=== PATIENT | female | born 2000 | race Caucasian/White ===

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

== ENCOUNTER → 2023-08-07 | Outpatient (CLI) | payer BC, SELFPAY ==
[2023-08-07 12:05] LABS: HIV - WCH Non-Reactive (Nonreactive); Hepatitis C Antibody Non-Reactive (Nonreactive); Syphilis Antibodies Non-reactive
[2023-08-08 11:16] LABS: HSV 2 IgG < 0.91 index (0.00-0.90)
== END | disposition home or self-care (01) ==
LOC: PAVLAB 10:31
PROVIDERS: PCP Pediatrics; Referring Provider Nurse Practitioner Women's Health; Visit Provider Nurse Practitioner Women's Health
DX: Z20.2 Contact with and (suspected) exposure to infections with a predominantly sexual mode of transmission (principal); Z11.3 Encounter for screening for infections with a predominantly sexual mode of transmission
CPT/HCPCS: 36415; 86695; 86696; 86703; 86780; 86803; 87491; 87591

== ENCOUNTER → 2024-08-07 | Outpatient (CLI) | payer BC, SELFPAY ==
[2024-08-09 21:07] LABS: Chlamydia By Nucleic Acid AMP Negative (Negative); Gonococcus By Nucleic Acid AMP Negative (Negative)
== END | disposition home or self-care (01) ==
LOC: LABSPEC 16:08
PROVIDERS: PCP Pediatrics; Referring Provider Obstetrics & Gynecology; Visit Provider Obstetrics & Gynecology
DX: O09.90 Supervision of high risk pregnancy, unspecified, unspecified trimester (principal); Z12.4 Encounter for screening for malignant neoplasm of cervix; Z3A.00 Weeks of gestation of pregnancy not specified
CPT/HCPCS: 87086; 87088; 87491; 87591; 88175; G0145

== ENCOUNTER → 2024-08-21 | Outpatient (CLI) | payer BC, SELFPAY ==
[2024-08-21 12:31] LABS: Absolute Lymphocyte Count 2.96 X10^3/uL (0.83-4.51); Basophil# 0.03 X10^3/uL; Basophil% 0.3 % (0-1); Eosinophils% 1.7 % (0-5); Hematocrit 37.8 % (37-47); Lymphocyte # 2.96 X10^3/ul (0.83-4.51); Lymphocyte % 24.7 % (19-41); Mean Corp Hgb Conc 34.4 g/dL (32-36); Mean Corpuscular Hgb 30.7 pg (27.0-32.0); Mean Corpuscular Volume 89.2 fL (81-99); Mean Platelet Vol. 10.4 fl (6.2-12.0); Monocyte# 0.68 X10^3/uL; Monocyte% 5.7 % (0-10); NRBC Flagged by Analyzer 0 % (0-5); Neutrophil # 8.04 X10^3/uL (2.7-7.7); Neutrophil % 67.2 % (47-70); Platelet Count 346 K/mm3 (150-450); RBC Distribution Width CV 12.2 % (11.6-14.6); RBC Distribution Width SD 39.3 fl (35.1-43.9); Red Blood Count 4.24 M/mm3 (4.2-5.4)
[2024-08-21 13:20] LABS: HIV Nonreactive (Nonreactive); Hepatitis B Surface Antigen Nonreactive (Nonreactive); Hepatitis C Antibody Nonreactive (Nonreactive); Rubella IgG REAC (Nonreactive); Syphilis Antibodies Nonreactive (Nonreactive)
== END | disposition home or self-care (01) ==
PROVIDERS: Obstetrics & Gynecology; PCP Pediatrics; Referring Provider Obstetrics & Gynecology; Visit Provider Obstetrics & Gynecology
DX: O09.90 Supervision of high risk pregnancy, unspecified, unspecified trimester (principal); O99.280 Endocrine, nutritional and metabolic diseases complicating pregnancy, unspecified trimester; E03.9 Hypothyroidism, unspecified; Z31.430 Encounter of female for testing for genetic disease carrier status for procreative management; Z3A.00 Weeks of gestation of pregnancy not specified
CPT/HCPCS: 36415; 84439; 84443; 85025; 86703; 86762; 86780; 86803; 86850; 86900; 86901; 87340

== ENCOUNTER → 2024-10-16 | Outpatient (CLI) | payer BC, SELFPAY ==
--- NOTE | 2024-10-16 15:51 | US_ITS ---
PROCEDURE: OB ANATOMY W/ TRANSVAGINAL 10/16/2024 REASON FOR EXAM: ANATOMY SCAN TECHNIQUE: OB ANATOMY W/ TRANSVAGINAL COMPARISON: None FINDINGS LMP: May 27, 2024. Number: 1 Position: Vertex Placental Position: Right lateral and not low-lying Placental Abnormalities: No evidence of previa. DIMENSIONS: Biparietal Diameter: 4.66 cm: 20 weeks and 0 days: 41 percentile/ Head Circumference: 16.68 cm: 19 weeks and 3 days: 9 percentile/ Abdominal Circumference: 14.5 cm: 19 weeks and 6 days: 29 percentile/ Femur Length: 3 cm: 19 weeks and 2 days: 12th percentile/ ESTIMATED WEIGHT: 305 g plus/-46 g ESTIMATED WEIGHT PERCENTILE (24+ weeks): 16 ESTIMATED GESTATIONAL AGE: Baseline: 20 weeks and 2 days By Ultrasound: 19 weeks and 5 days ESTIMATED DATE OF DELIVERY: Baseline: March 03, 2025 By Ultrasound: March 07, 2025 BIOPHYSICAL ASSESSMENT: Amniotic Fluid Volume: 6.1 cm Amniotic Fluid Index: Within normal limits. (8-24 cm normal range) Cardiac Motion: 164 beats per minute (average) Trunk and Limb Motion: Present. MATERNAL ANATOMY: Adnexa: Neither maternal ovary is successfully identified. Cervical Length (if measured): 4.4 cm ANATOMY: Spine: Unremarkable Cranium: Unremarkable Cerebellum: Unremarkable Cisterna Magna: Unremarkable Cavum Septum Pellucidi: Unremarkable Lateral Ventricles: Unremarkable Choroid Plexus: Unremarkable Midline Falx: Unremarkable Nuchal Fold: Unremarkable Heart: Unremarkable Stomach: Unremarkable Kidneys: Unremarkable Bladder: Unremarkable Umbilical Cord: Normal insertion. Extremities: Unremarkable US/OB Anatomy w/ Transvaginal IMPRESSION: Single live intrauterine gestation with a mean gestational age of 19 weeks and 5 days. Reading Location: [id number]
== END | disposition home or self-care (01) ==
LOC: US 15:49
PROVIDERS: PCP Pediatrics; Referring Provider Obstetrics & Gynecology; Visit Provider Obstetrics & Gynecology
DX: O09.92 Supervision of high risk pregnancy, unspecified, second trimester (principal); Z3A.00 Weeks of gestation of pregnancy not specified
CPT/HCPCS: 76805; 76817

== ENCOUNTER → 2024-12-02 | Outpatient (CLI) | payer BC, SELFPAY ==
[2024-12-02 16:53] LABS: Hematocrit 33.9 % (37-47); Hemoglobin 11.8 g/dL (12.0-15.0); Immature Granulocytes Count 0.230 X10^3/uL (0.0-0.0); Mean Corp Hgb Conc 34.8 g/dL (32-36); Mean Corpuscular Volume 89.2 fL (81-99); Mean Platelet Vol. 10.6 fl (6.2-12.0); NRBC Flagged by Analyzer 0 % (0-5); Platelet Count 368 K/mm3 (150-450); RBC Distribution Width CV 12.3 % (11.6-14.6); RBC Distribution Width SD 39.6 fl (35.1-43.9); Red Blood Count 3.80 M/mm3 (4.2-5.4); White Blood Count 13.0 K/mm3 (4.4-11.0)
[2024-12-02 17:51] LABS: Glucose Challenge Gest 1H 50g 130 mg/dL (70-140); HIV Nonreactive (Nonreactive); Syphilis Antibodies Nonreactive (Nonreactive)
== END | disposition home or self-care (01) ==
PROVIDERS: PCP Pediatrics; Referring Provider Obstetrics & Gynecology; Visit Provider Obstetrics & Gynecology
DX: O09.92 Supervision of high risk pregnancy, unspecified, second trimester (principal); Z13.1 Encounter for screening for diabetes mellitus; Z3A.00 Weeks of gestation of pregnancy not specified
CPT/HCPCS: 36415; 82950; 85025; 86703; 86780

== ENCOUNTER → 2025-02-03 | Outpatient (CLI) | payer BC, SELFPAY | END | disposition home or self-care (01) | LOC: LABSPEC 08:43 | PROVIDERS: PCP Pediatrics; Referring Provider Student in an Organized Health Care Education/Training Program; Visit Provider Student in an Organized Health Care Education/Training Program | DX: O09.93 Supervision of high risk pregnancy, unspecified, third trimester (principal); Z3A.00 Weeks of gestation of pregnancy not specified | CPT/HCPCS: 87081 ==

== ENCOUNTER 2025-03-01 02:10 | Inpatient (IN) | payer BC, SELFPAY ==
[2025-03-01] VITALS (58 sets, daily range): BP systolic 107–138; BP diastolic 60–89; PULSE 66–98; RESP 14–19; TEMP 36.1–36.8; O2SAT 97–100; BMI 33.0
--- OUTSIDE RECORDS SUMMARY | 2025-03-01 01:40 | XMS RPT_ITS | CCD ---
Author Organization [facility] Care Team Providers Care Trade Mark Examiner Name Role Phone Stephan Ngo MD Primary Care Provider Mildred Tomas MD Primary Care Provider Mildred Tomas MD Primary Care Provider Tannhof FOOD ANALYST.IT AUDITOR, Cat Unavailable Milvia FOOD ANALYST.IT AUDITOR, Billy Unavailable Dr. Stephan Ngo MD Primary Care Provider [phone] Dr. Stephan Ngo MD Referring Provider Dr. Ashlee Mcdonough MD Attending Provider Dr. Natalie Trimble DO Attending Provider Dr. Ashlee Mcdonough MD Referring Provider MILDRED TOMAS Primary Care Unavailable CAT GREEN Referring Unavailable MILDRED TOMAS Primary Care Unavailable CAT GREEN Referring Unavailable MILVIA, BILLY Referring Unavailable ALEXY REHANA Attending Unavailable MILDRED TOMAS Primary Care Unavailable MILDRED TOMAS Primary Care Unavailable CAT GREEN Attending Unavailable CAT GREEN Referring Unavailable MILDRED TOMAS Primary Care Unavailable Dr. Natalie Trimble DO Referring Provider Dorie Friend Attending Provider [phone] PHYSICIAN, PATIENT UNSURE Primary Care REID Murrieta MD Attending Unavailable IVÁN SAUNDERS DO Attending Unavailable PHYSICIAN, PATIENT UNSURE Primary Care Soo Ngo MD, Dr. Stephan Arevalo Primary Care Provider Jeni SMITH, Dr. Stephan Arevalo Referring Provider [phone] Ceasar SMITH, Dr. Rosado Attending Provider [phone] Jeni SMITH, Dr. Stephan Arevalo Primary Care Physician Jeferson Brower DO, Dr. Estrada Attending Physician Jeni SMITH, Dr. Stephan Arevalo Referring Provider [phone] Antoinette DEJESUS-CDorie Attending Physician [phone]) Ceasar SMITH, Dr. Rosado Attending Physician Ceasar SMITH, Dr. Rosado Referring Provider [phone] Jeni SMITH, Dr. Stephan Arevalo Primary Care Physician Jeni SMITH, Dr. Stephan Arevalo Referring Provider [phone] Jeferson Brower DO, Dr. Estrada Attending Physician Jeferson Brower DO, Dr. Estrada Referring Provider Maki Marcelo CNM Attending Physician 1([facility]) Maki Marcelo Attending Unavailable Playl, Stephan M Primary Care Unavailable Playl, Stephan M Referring Unavailable Ashlee Mcdonough Referring Unavailable Ashlee Mcdonough Attending Unavailable Playl, Stephan M Primary Care Unavailable Vande Natalie Brower Referring Unavailabl e Vande VelNatalie dawn Attending Unavailabl e Playl, Stephan M Primary Care Unavailable Ashlee Mcdonough Referring Unavailable Ashlee Mcdonough Attending Unavailable Playl, Stephan M Primary Care Unavailable Vande VeldeNatalie Referring Unavailabl e Vande VeldeNatalie Attending Unavailabl e Playl, Stephan M Primary Care Unavailable Dorie Curry NP Attending Unavailable Playl, Stephan M Primary Care Unavailable Playl, Stephan M Referring Unavailable MarcanthAshlee starks Attending Unavailable Playl, Stephan M Primary Care Unavailable Playl, Stephan M Referring Unavailable Maki Naidu Attending Unavailable Playl, Stephan M Primary Care Unavailable Playl, Stephan M Referring Unavailable Vande VeldeNatalie Attending Unavailabl e Playl, Stephan M Referring Unavailable Playl, Stephan M Primary Care Unavailable Ashlee Mcdonough Attending Unavailable Playl, Stephan M Referring Unavailable Playl, Stephan M Primary Care Unavailable Dorie Curry NP Attending Unavailable Playl, Stephan M Primary Care Unavailable Playl, Stephan M Referring Unavailable CeasarAshlee Attending Unavailable Playl, Stephan M Primary Care Unavailable Playl, Stephan M Referring Unavailable Natalie Trimble Attending Unavailabl e Playl, Stephan M Primary Care Unavailable Playl, Stephan M Referring Unavailable CeasarAshlee Attending Unavailable Playl, Stephan M Primary Care Unavailable Playl, Stephan M Referring Unavailable Medications Current Medications Medication Drug Class(es) Dates Sig (Normalized) Sig (Original) amoxicillin 875 mg / clavulanate 125 mg oral tablet (1 source) Penicillin-class Antibacterial Start: 05-24-2023 End: 05-29-2023 take 1 tablet by mouth twice daily amoxicillin-clavulan ate potassium (AUGMENTIN) 875-125 mg per tablet Take 1 tablet by mouth two times a day for 5 days. 10 tablet 0 05/24/2023 05/29/2023 Active Comment on above: Take 1 tablet by benita two times a day for 5 days. diphenhydrAMINE hydrochloride 25 mg oral capsule (13 sources) Histamine-1 Receptor Antagonist Start: 10-26-2020 take 1 capsule by mouth every six hours as needed diphenhydrAMINE (BENADRYL) 25 mg capsule Take 1 capsule by mouth every 6 hours as needed. 20 capsule 10/26/2020 Active Comment on above: Take 1 capsule by mo [facility] every 6 hours as needed. docosahexaenoic acid 200 mg oral capsule (11 sources) Start: 08-02-2024 Docosahexaenoic Acid ( Dha) 200 mg capsule Active mg PO August 02, 2024 12:00am Complies with drug therapy drospirenone / Ethinyl Estradiol (13 sources) Progestin, Estrogen Start: 05-06-2020 take 1 tablet by mouth once daily LORYNA, 28, 3-0.02 mg per tablet Take 1 tablet by mouth once daily. 05/06/2020 Active Start: 05-06-2020 take 1 tablet by benita once daily LORYNA, 28, 3-0.02 mg per tablet Take 1 tablet by mouth once daily. 0 05/06/2020 Active Comment on above: Take 1 tablet by [facility] once daily. ergocalciferol 1.25 mg oral capsule (5 sources) Provitamin D2 Compound Start: 08-14-19 End: 12-12-19 take 1 capsule by mouth two times weekly, then take 1 capsule by mouth every week ergocalciferol 50,000 unit capsule (VITAMIN D2, DRISDOL) Indications: Vitamin D deficiency Take 1 capsule by mouth two times a week for 30 days, THEN 1 capsule one time a week. Use as directed.. 20 capsule 08/13/2024 12/11/2024 Active Start: 05-01-2024 End: 05-01-2025 take 1 capsule by mouth every week ergocalciferol 50,000 unit capsule (VITAMIN D2, DRISDOL) Indications: Vitamin D deficiency Take 1 capsule by mouth one time a week. Use as directed. 12 capsule 3 05/01/2024 08/13/2024 Discontinued fluticasone propionate 0.05 mg/actuat metered dose nasal spray (7 sources) Corticosteroid Start: 08-21-2023 take 2 spray(s) nasal route once daily fluticasone (FLONASE) 50 mcg/actuation nasal spray Use 2 Sprays in each nostril once daily. 48 g 3 08/21/2023 Active levothyroxine sodium 0.05 mg oral capsule (17 sources) l-Thyroxine Start: 08-02-2024 take 1 capsule by mouth once daily Levothyroxine 50 mcg capsule Active 50 ug PO daily August 02, 2024 12:00am Complies with drug therapy Start: 06-03-2024 End: 11-30-2024 take 1 tablet by mouth once daily for thyroid dysfunction levothyroxine (SYNTHROID) 50 mcg tablet Take 1 tablet by mouth once daily. Take on empty stomach. For Thyroid. 30 tablet 5 06/03/2024 11/30/2024 Active Start: 05-01-2024 End: 10-28-2024 take 1 tablet by mouth once daily before breakfast levothyroxine (SYNTHROID) 25 mcg tablet Indications: Hypothyroidism, acquired Take 1 tablet by mouth daily before breakfast. 30 tablet 5 05/01/2024 06/03/2024 Discontinued loratadine 10 mg oral tablet (7 sources) Start: 08-21-2023 take 1 tablet by mouth once daily loratadine (CLARITIN) 10 mg tablet Take 1 tablet by mouth once daily. 90 tablet 1 08/21/2023 Active ondansetron 4 mg disintegrating oral tablet (7 sources) Serotonin-3 Receptor Antagonist Start: 09-09-2024 take 1 tablet by mouth every four hours as needed for nausea and vomiting Ondansetron 4 mg tablet,disintegra ting Active 4 mg PO Q4H as needed for nausea and vomiting 60 2 September 09, 2024 12:00am Complies with drug therapy Completed/Discontinued Medications Medication Drug Class(es) Dates Sig (Normalized) Sig (Original) etonogestrel 68 mg drug implant (13 sources) Progestin Start: 08-07-2023 End: 08-22-2023 Etonogestrel (Nexplanon) 68 mg implant Discontinued 1 NMA subdermal ONCE August 07, 2023 12:00am August 22, 2023 10:12am as a single dose etonogestrel (NE XPLANON) subdermal implant 68 mg 68 mg by SUBDERMAL route. September 2021 Active Comment on above: 68 mg by SUBDERMAL r oute. September 2021 Etonogestrel (Nexplanon) 68 mg implant (9 sources) Start: 08-07-2023 End: 08-22-2023 Etonogestrel (Nexplanon) 68 mg implant Discontinued 1 NMA subdermal ONCE August 07, 2023 12:00am August 22, 2023 10:12am as a single dose Problems Active Problems Problem Classification Problem Date Documented Da te Episodic/Chronic Abdominal pain (1 source) Epigastric pain; Translations: [Epigastric pain] Onset: 09-03-2024 Episodic Immunizations and screening for infectious disease (20 sources) Patient encounter status; Translations: [Encounter for immunization] Onset: 12-30-2024 Episodic Comment on above: cold sores Nutritional deficiencies (5 sources) Vitamin D deficiency; Translations: [Vitamin D deficiency, unspecified] Onset: 08-07-2024 04-29-2024 Chronic Other complications of (20 sources) High risk ; Translations: [Supervision of high risk , unspecified, unspecified trimester] 08-02-2024 Episodic Comment on above: , RODRIGO 03/03/25, BF: Mateo [id number], RODRIGO 5, BF: Mateo Other complications of (20 sources) Maternal tobacco use; Translations: [Smoking (tobacco) complicating , unspecified trimester] 08-02-2024 Episodic Comment on above: Vapes - 1 pod/week; Considering quiting Vapes - 1 pod/week; attempting to quit. Has decreased by at least half. Other complications of (1 source) Smoking (tobacco) complicating , unspecified trimester; Translations: [Smoking (tobacco) complicating , unspecified trimester] Onset: 01-29-2025 Episodic Other complications of (1 source) Supervision of high risk , unspecified, third trimester; Translations: [Supervision of high risk , unspecified, third trimester] Onset: 01-29-2025 Episodic Other complications of (1 source) Supervision of high risk , unspecified, second trimester; Translations: [Supervision of high risk , unspecified, second trimester] Onset: 12-08-2024 Episodic Other female genital disorders (11 sources) Abnormal uterine bleeding; Translations: [Abnormal uterine and vaginal bleeding, unspecified] 08-02-2024 Chronic Comment on above: R/T nexplanon, plans removal with KW Other nutritional; endocrine; and metabolic disorders (1 source) Dietary intake finding; Translations: [Other symptoms and signs concerning food and fluid intake] 06-26-2023 Episodic Other upper respiratory disease (2 sources) Chronic rhinitis; Translations: [Chronic rhinitis] 06-26-2023 Chronic Other upper respiratory disease (8 sources) Allergic rhinitis due to animal dander; Translations: [Allergic rhinitis due to animal (cat) (dog) hair and dander] Onset: 08-21-2023 08-21-2023 Chronic Other upper respiratory disease (8 sources) Allergic rhinitis due to house dust mite; Translations: [Other allergic rhinitis] Onset: 08-21-2023 08-21-2023 Chronic Other upper respiratory disease (8 sources) Allergic rhinitis due to pollen; Translations: [Allergic rhinitis due to pollen] Onset: 08-21-2023 08-21-2023 Chronic Other upper respiratory disease (8 sources) Allergic rhinitis caused by mold; Translations: [Other allergic rhinitis] Onset: 08-21-2023 08-21-2023 Chronic Other upper respiratory disease (1 source) Chronic rhinitis; Translations: [Chronic rhinitis] Onset: 04-26-2024 Chronic Other upper respiratory infections (1 source) Chronic sinusitis, unspecified; Translations: [Unspecified sinusitis (chronic)] 05-24-2023 Chronic Residual codes; unclassified (1 source) 35 weeks gestation of ; Translations: [35 weeks gestation of ] Onset: 01-29-2025 Episodic Residual codes; unclassified (1 source) 27 weeks gestation of ; Translations: [27 weeks gestation of ] Onset: 12-02-2024 Episodic Thyroid disorders (20 sources) Acquired hypothyroidism; Translations: [Hypothyroidism, unspecified] Onset: 05-31-2024 04-29-2024 Chronic Comment on above: dx Apr 2024 Viral infection (1 source) Herpesviral infection, unspecified; Translations: [Herpesviral infection, unspecified] Onset: 01-29-2025 Episodic Past or Other Problems Problem Classification Problem Date Documented Date Episodic/Chronic Allergic reactions (3 sources) Urticaria; Translations: [Urticaria, unspecified] Onset: 08-21-2023 06-26-2023 Episodic Inflammation; infection of eye (except that caused by tuberculosis or sexually transmitteddisease) (8 sources) Allergic conjunctivitis of bilateral eyes; Translations: [Acute atopic conjunctivitis, bilateral] Onset: 08-21-2023 08-21-2023 Episodic Malaise and fatigue (2 sources) Fatigue; Translations: [Other fatigue] Onset: 04-26-2024 04-26-2024 Episodic Other complications of (1 source) Supervision of high risk , unspecified, unspecified trimester; Translations: [Supervision of high risk , unspecified, unspecified trimester] Onset: 08-12-2024 Episodic Other and delivery including normal (20 sources) ; Translations: [Encounter for supervision of normal , unspecified, unspecified trimester] Onset: 08-27-2024 08-02-2024 Episodic Comment on above: Discussed genetic/ca rrier testing - undecided Discussed genetic/ca rrier testing , NIPT -low risk Discussed genetic/ca rrier testing , NIPT -low risk, male. Horizon negative. NIPT -low risk, male . Horizon negative, nl anatomy Other screening for suspected conditions (not mental disorders or infectious disease) (1 source) Encounter for screening for lipoid disorders; Translations: [Screening cholesterol level] Onset: 04-26-2024 Episodic Residual codes; unclassified (1 source) 19 weeks gestation of ; Translations: [19 weeks gestation of ] Onset: 10-08-2024 Episodic Screening and history of mental health and substance abuse codes (2 sources) Encounter for screening for depression; Translations: [Encounter for screening examination for other mental health and behavioral disorders] Onset: 04-26-2024 Episodic Results Test Name Value Interpretation Reference Range Facility [employer] Office Visit Reporton 01-29-2025 [employer] Office Visit Report [facility] [address], [address] [place] [address] OFFICE VISIT Date of Service: 01/29/25 MR#: [id number] Acct: [id number] Name: ANASTACIA MCKOY Rep #: [id number] : 2000 Provider: Dr. Ashlee saenz MD Age/Sex: 24/F Location: [facility] [place] Status: Signed Intake Vital Signs 12/30/24 14:58 01/14/25 15:36 01/29/25 14:44 Height 5 ft 1 in 5 ft 1 in 5 ft 1 in Weight: 169 lb 8 oz BMI 32.0 BP 128/82 H Intake Visit Reasons: 35wk2d ob 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 Required: No Is patient in pain?: No Allergies No Known Allergies Allergy (Verified 01/29/25 14:45) Medications ???Medication ???Instructions ???Recorded ???Confirmed ???Type docosahexaenoic acid 200 mg mg PO 08/02/24 01/29/25 History capsule ( DHA) levothyroxine 50 mcg capsule 50 mcg PO QDAY 08/02/24 01/29/25 H istory ondansetron 4 mg disintegrating 4 mg PO Q4H PRN nausea and 5 01/29/25 Rx tablet vomiting #60 tabs Last Menstrual Period: 05/27/24 Zika: Zika virus screening: Negative : No PFSH PFSH Medical History Seasonal allergies Asthma Family History Uncle Cancer Stomach, Prostate Brain Father CVA (cerebral vascular accident) Sister PCOS (polycystic ovarian syndrome) Endometriosis Fibroid Aunt Myocardial infarction Uncle Myocardial infarction Social History adopted: No household members: significant other housing: house current occupational status: employed 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) current occupational exposures/hazards: No pets and animals: Yes pets and animals: dog(s) history of recent travel: No sexually active: Yes Smoking Status: Current some day smoker tobacco type: e-cigarettes second hand exposure: No quit status: considering quitting alcohol intake: current alcohol intake frequency: holidays/special occasions only details: Not while substance use type: does not use well-balanced diet: daily or most days caffeine: Yes eating out: rarely or never during the past year weight has: increased > 10 lbs what type of physical activity do you participate in: none page/yarsanism: None seatbelt use: always do you feel safe at home: Yes additional social history: Boyfriend: Mateo Tong - [employer] at [employer] History 1 Elective abortions 0 Hx Para 0 Spontaneous abortions 0 Hx # Term Pregnancies Ectopic pregnancies Hx # Pregnancies Multiple births # of living children HPI 35wk2d ob Details: ANASTACIA MCKOY is a 24 year old who presents for routine OB visit. OB Visit RODRIGO Calculator Estimated Delivery Date Method Current WG Current Estimate 03/03/25 LMP (Certain) 35w 2d Other Estimates 03/08/25 Ultrasound #1 34w 4d Expected Delivery Route/Plan Labor Preferences- CB/BF classes: No labor support person: Darrel labor intervention preferences: [] pain management options preferred: [] cut cord/dad catch: cord : [] PP control planned: [] discussed possible routes of delivery and associated risks: [] special requests: [] Specific Issue/Plans Covid status: [] Flu vaccine: dec Tdap vaccine: given Rhogam: na LARC form signed: declined movement and labor precautions reviewed. Problem list reviewed and updated with the most current plan of care details and appropriate orders placed. Relevant counseling for the gestational age provided. Continue routine care and follow up unless otherwise noted in visit notes/problem list details Initial Weight: Not Recorded Date -???-???-???-???-?? ?-???-???-???-???-? ??-???-???- EGA Weight BP Urine Prot -???-???-???-???-?? ?-???-???-???-???-? ??-???-???- Glucose FHR FuHt Pres Dilation -???-???-???-???-?? ?-???-???-???-???-? ??-???-???- Effaced St Visit Note 08/07/24 -???-???-???-???-?? ?-???-???-???-???-? ??-???-???- 10w 2d 153 lb 4 oz 134/88 -???-???-???-???-?? ?-???-???-???-???-? ??-???-???- 172 -???-???-???-???-?? ?-???-???-???-???-? ??-???-???- JV- CRL with in 7 days of LMP. desires nipt and carrier 09/09/24 -???-???-???-???-?? ?-???-???-???-???-? ??-???-???- 15w 0d 151 lb 8 oz 118/74 Negative -???-???-???-???-?? ?-???-???-???-???-? ??-???-???- Negative 153 -???-???-???-???-?? ?-???-???-???-???-? ??-???-???- MH-No VB. Na manohara raciel. Katerin sent. 10/08/24 -???-???-???-???-?? ?-???-???-???-???-? ??-???-???- 19w 1d 157 lb 4 oz 117/79 Negative -???-???-???-???-?? ?-???-???-???-???-? ??-???-???- Negative 150 -???-???-???-???-?? ?-???-???-???-???-? ??-???-???- SM- no vb cr amping nausea impro (more content not included)... Normal [facility] [employer] Office Visit Reporton 01-14-2025 [employer] Office Visit Report [facility] [address], [address] [place] [address] OFFICE VISIT Date of Service: 01/14/25 MR#: [id number] Acct: [id number] Name: ANASTAICA MCKOY Rep #: [id number] : 2000 Provider: YULISSA foote Age/Sex: 24/F Location: [facility] [place] Status: Signed Intake Vital Signs 11/06/24 15:49 12/30/24 14:58 01/14/25 15:36 Height 5 ft 1 in 5 ft 1 in 5 ft 1 in Weight: 171 lb 9 oz BMI 32.4 BP 114/77 Intake Visit Reasons: 32wk ob 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 Required: No Is patient in pain?: No Allergies No Known Allergies Allergy (Verified 01/14/25 15:35) Medications ???Medication ???Instructions ???Recorded ???Confirmed ???Type docosahexaenoic acid 200 mg mg PO 08/02/24 01/14/25 History capsule ( DHA) levothyroxine 50 mcg capsule 50 mcg PO QDAY 08/02/24 01/14/25 H istory ondansetron 4 mg disintegrating 4 mg PO Q4H PRN nausea and 5 01/14/25 Rx tablet vomiting #60 tabs Last Menstrual Period: 05/27/24 Zika: Zika virus screening: Negative : No PFSH PFSH Medical History Seasonal allergies Asthma Family History Uncle Cancer Stomach, Prostate Brain Father CVA (cerebral vascular accident) Sister PCOS (polycystic ovarian syndrome) Endometriosis Fibroid Aunt Myocardial infarction Uncle Myocardial infarction Social History adopted: No household members: significant other housing: house current occupational status: employed 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) current occupational exposures/hazards: No pets and animals: Yes pets and animals: dog(s) history of recent travel: No sexually active: Yes Smoking Status: Current some day smoker tobacco type: e-cigarettes second hand exposure: No quit status: considering quitting alcohol intake: current alcohol intake frequency: holidays/special occasions only details: Not while substance use type: does not use well-balanced diet: daily or most days caffeine: Yes eating out: rarely or never during the past year weight has: increased > 10 lbs what type of physical activity do you participate in: none page/yarsanism: None seatbelt use: always do you feel safe at home: Yes additional social history: Boyfriend: Mateo Tong - [employer] at [employer] History 1 Elective abortions 0 Hx Para 0 Spontaneous abortions 0 Hx # Term Pregnancies Ectopic pregnancies Hx # Pregnancies Multiple births # of living children HPI 32wk ob Details: ANASTACIA MCKOY is a 24 year old who presents for routine OB visit. OB Visit RODRIGO Calculator Estimated Delivery Date Method Current WG Current Estimate 03/03/25 LMP (Certain) 33w 1d Other Estimates 03/08/25 Ultrasound #1 32w 3d Expected Delivery Route/Plan Labor Preferences- CB/BF classes: No labor support person: Darrel labor intervention preferences: [] pain management options preferred: [] cut cord/dad catch: cord : [] PP control planned: [] discussed possible routes of delivery and associated risks: [] special requests: [] Specific Issue/Plans Covid status: [] Flu vaccine: [] Tdap vaccine: [] Rhogam: [] LARC form signed: [] Problem list reviewed and updated with the most current plan of care details and appropriate orders placed. Relevant counseling for the gestational age provided. Continue routine care and follow up unless otherwise noted in visit notes/problem list details Initial Weight: Not Recorded Date -???-???-???-???-?? ?-???-???-???-???-? ??-???-???- EGA Weight BP Urine Prot -???-???-???-???-?? ?-???-???-???-???-? ??-???-???- Glucose FHR FuHt Pres Dilation -???-???-???-???-?? ?-???-???-???-???-? ??-???-???- Effaced St Visit Note 08/07/24 -???-???-???-???-?? ?-???-???-???-???-? ??-???-???- 10w 2d 153 lb 4 oz 134/88 -???-???-???-???-?? ?-???-???-???-???-? ??-???-???- 172 -???-???-???-???-?? ?-???-???-???-???-? ??-???-???- JV- CRL with in 7 days of LMP. desires nipt and carrier 09/09/24 -???-???-???-???-?? ?-???-???-???-???-? ??-???-???- 15w 0d 151 lb 8 oz 118/74 Negative -???-???-???-???-?? ?-???-???-???-???-? ??-???-???- Negative 153 -???-???-???-???-?? ?-???-???-???-???-? ??-???-???- MH-No VB. Na usea persists. Katerin sent. 10/08/24 -???-???-???-???-?? ?-???-???-???-???-? ??-???-???- 19w 1d 157 lb 4 oz 117/79 Negative -???-???-???-???-?? ?-???-???-???-???-? ??-???-???- Negative 150 -???-???-???-???-?? ?-???-???-???-???-? ??-???-???- SM- no vb cr amping nausea improved anatomy us ordered 11/06/24 -???-???-???-???-?? ?-???- (more content not included)... Normal [facility] - Chemistry and C hemistry - challengeOrdered By: Maki Marcelo on 12-30-2024 Glucose Ql (U) Negative [facility] - UrinalysisOrder ed By: Maki Marcelo on 12-30-2024 Protein Ql (U) Negative [facility] [employer] Office Visit Reporton 12-30-2024 [employer] Office Visit Report [facility] [address], [address] [place] [address] OFFICE VISIT Date of Service: 12/30/24 MR#: [id number] Acct: [id number] Name: ANASTACIA MCKOY #: [id number] : 2000 Provider: HANNAH Gomez ams Age/Sex: 24/F Location: [facility] Status: Signed Intake Vital Signs 11/06/24 15:49 12/02/24 15:21 12/30/24 14:58 Height 5 ft 1 in 5 ft 1 in 5 ft 1 in Weight: 164 lb 1 oz 168 lb 2 oz BMI 30.9 31.7 BP 122/86 H 125/82 H Intake Visit Reasons: 30wk ob Chief Complaint: 30wk OB 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 Required: No Is patient in pain?: No Allergies No Known Allergies Allergy (Verified 12/30/24 14:57) Medications ???Medication ???Instructions ???Recorded ???Confirmed ???Type docosahexaenoic acid 200 mg mg PO 08/02/24 12/30/24 History capsule ( DHA) levothyroxine 50 mcg capsule 50 mcg PO QDAY 08/02/24 12/30/24 H istory ondansetron 4 mg disintegrating 4 mg PO Q4H PRN nausea and 5 12/30/24 Rx tablet vomiting #60 tabs Last Menstrual Period: 05/27/24 : No Have you fallen in the past year?: No PFSH PFSH Medical History Seasonal allergies Asthma Family History Uncle Cancer Stomach, Prostate Brain Father CVA (cerebral vascular accident) Sister PCOS (polycystic ovarian syndrome) Endometriosis Fibroid Aunt Myocardial infarction Uncle Myocardial infarction Social History adopted: No household members: significant other housing: house current occupational status: employed 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) current occupational exposures/hazards: No pets and animals: Yes pets and animals: dog(s) history of recent travel: No sexually active: Yes Smoking Status: Current some day smoker tobacco type: e-cigarettes second hand exposure: No quit status: considering quitting alcohol intake: current alcohol intake frequency: holidays/special occasions only details: Not while substance use type: does not use well-balanced diet: daily or most days caffeine: Yes eating out: rarely or never during the past year weight has: increased > 10 lbs what type of physical activity do you participate in: none page/yarsanism: None seatbelt use: always do you feel safe at home: Yes additional social history: Boyfriend: Mateo Tong - [employer] at [employer] History 1 Elective abortions 0 Hx Para 0 Spontaneous abortions 0 Hx # Term Pregnancies Ectopic pregnancies Hx # Pregnancies Multiple births # of living children HPI 30wk ob Details: ANASTACIA MCKOY is a 24 year old who presents for routine OB visit. OB Visit RODRIGO Calculator Estimated Delivery Date Method Current WG Current Estimate 03/03/25 LMP (Certain) 31w 0d Other Estimates 03/08/25 Ultrasound #1 30w 2d Expected Delivery Route/Plan Labor Preferences- CB/BF classes: [] labor support person: [] labor intervention preferences: [] pain management options preferred: [] cut cord/dad catch: [] : [] PP control planned: [] discussed possible routes of delivery and associated risks: [] special requests: [] Specific Issue/Plans Covid status: [] Flu vaccine: [] Tdap vaccine: [] Rhogam: [] LARC form signed: [] Problem list reviewed and updated with the most current plan of care details and appropriate orders placed. Relevant counseling for the gestational age provided. Continue routine care and follow up unless otherwise noted in visit notes/problem list details Initial Weight: Not Recorded Date -???-???-???-???-?? ?-???-???-???-???-? ??-???-???- EGA Weight BP Urine Prot -???-???-???-???-?? ?-???-???-???-???-? ??-???-???- Glucose FHR FuHt Pres Dilation -???-???-???-???-?? ?-???-???-???-???-? ??-???-???- Effaced St Visit Note 08/07/24 -???-???-???-???-?? ?-???-???-???-???-? ??-???-???- 10w 2d 153 lb 4 oz 134/88 -???-???-???-???-?? ?-???-???-???-???-? ??-???-???- 172 -???-???-???-???-?? ?-???-???-???-???-? ??-???-???- JV- CRL with in 7 days of LMP. desires nipt and carrier 09/09/24 -???-???-???-???-?? ?-???-???-???-???-? ??-???-???- 15w 0d 151 lb 8 oz 118/74 Negative -???-???-???-???-?? ?-???-???-???-???-? ??-???-???- Negative 153 -???-???-???-???-?? ?-???-???-???-???-? ??-???-???- MH-No VB. Na usea persists. Katerin sent. 10/08/24 -???-???-???-???-?? ?-???-???-???-???-? ??-???-???- 19w 1d 157 lb 4 oz 117/79 Negative -???-???-???-???-?? ?-???-???-???-???-? ??-???-???- Negative 150 -???-???-???-???-?? ?-???-???-???-???-? ??-???-???- SM- no vb cr amping nausea improved anatomy us ordered 11/06/ (more content not included)... Normal [facility] Absolute lymphocyte countOrd ered By: Natalie Brower on 12-02-2024 Lymphocytes Auto (Unsp spec) [#/Vol] 1.75 10*3/uL 0.83-4.51 [facility] Absolute neutrophil countOrd ered By: Natalie Brower on 12-02-2024 Neutrophils (Bld) [#/Vol] 10.2 10*3/uL High 2.0-7.7 [facility] Automated lymphocyte count a s percentage of total leukocytesOrdered By: Natalie Duncannereyda on 12-02-2024 Lymphocytes/100 WBC Auto (Unsp spec) 13.5 % Low 19-41 [facility] Basophil percentageOrdered B y: Natalie Duncannereyda on 12-02-2024 Basophils/100 WBC (Bld) 0.4 % 0-[address] [facility] CBC W/Diff, Automatedon 11-18 Absolute Lymph 1.75 X10 3/uL Normal 0.83-4.51 [facility] Comment on above: Performed By: #### L 509.8002, L3410.9992, L3890.6301, L3890.6102, L100.0100, L3890.6006, L501.9520, BTS, L506.0400, L509.4006 #### [facility] [address] [place], [address] Absolute Neut 10.2 X10 3/uL High 2.0-7.7 [facility] Comment on above: Performed By: #### L 509.8002, L3410.9992, L3890.6301, L3890.6102, L100.0100, L3890.6006, L501.9520, BTS, L506.0400, L509.4006 #### [facility] [address] [place], [address] Basophils/100 WBC (Bld) 0.4 % Normal 0-[address] [facility] Comment on above: Performed By: #### L 509.8002, L3410.9992, L3890.6301, L3890.6102, L100.0100, L3890.6006, L501.9520, BTS, L506.0400, L509.4006 #### [facility] [address] [place], [address] Eosinophils/100 WBC (Bld) 1.1 % Normal 0-5 [facility] Comment on above: Performed By: #### L 509.8002, L3410.9992, L3890.6301, L3890.6102, L100.0100, L3890.6006, L501.9520, BTS, L506.0400, L509.4006 #### [facility] [address] [place], [place], [id number] (634) Erythrocyte distribution width (RBC) [Ratio] 12.3 % Normal 11.6-14.6 [facility] Comment on above: Performed By: #### L 509.8002, L3410.9992, L3890.6301, L3890.6102, L100.0100, L3890.6006, L501.9520, BTS, L506.0400, L509.4006 #### [facility] [address] [place], [place], [id number] (260) Hematocrit (Bld) [Volume fraction] 33.9 % Low 37-47 [facility] Comment on above: Performed By: #### L 509.8002, L3410.9992, L3890.6301, L3890.6102, L100.0100, L3890.6006, L501.9520, BTS, L506.0400, L509.4006 #### [facility] [address] [place], [address] Hemoglobin (Bld) [Mass/Vol] 11.8 g/dL Low 12.0-15.0 [facility] Comment on above: Performed By: #### L 509.8002, L3410.9992, L3890.6301, L3890.6102, L100.0100, L3890.6006, L501.9520, BTS, L506.0400, L509.4006 #### [facility] [address] [place], [address] IG% 1.800 High 0.0-0.9 [facility] Comment on above: Result Comment: IG% - Immature Granulocytes (promyelocytes, myelocytes and metamyelocytes) > 1% indicates that a LEFT SHIFT is Present. Performed By: #### L 509.8002, L3410.9992, L3890.6301, L3890.6102, L100.0100, L3890.6006, L501.9520, BTS, L506.0400, L509.4006 #### [facility] [address] [place], [address] Lymphocytes/100 WBC (Bld) 13.5 % Low 19-41 [facility] Comment on above: Performed By: #### L 509.8002, L3410.9992, L3890.6301, L3890.6102, L100.0100, L3890.6006, L501.9520, BTS, L506.0400, L509.4006 #### [facility] [address] [place], [address] MCH (RBC) [Entitic mass] 31.1 pg Normal 27.0-32.0 [facility] Comment on above: Performed By: #### L 509.8002, L3410.9992, L3890.6301, L3890.6102, L100.0100, L3890.6006, L501.9520, BTS, L506.0400, L509.4006 #### [facility] [address] [place], [address] MCHC (RBC) [Mass/Vol] 34.8 g/dL Normal 32-36 [facility] Comment on above: Performed By: #### L 509.8002, L3410.9992, L3890.6301, L3890.6102, L100.0100, L3890.6006, L501.9520, BTS, L506.0400, L509.4006 #### [facility] [address] [place], [address] MCV (RBC) [Entitic vol] 89.2 fL Normal 81-[address] [facility] Comment on above: Performed By: #### L 509.8002, L3410.9992, L3890.6301, L3890.6102, L100.0100, L3890.6006, L501.9520, BTS, L506.0400, L509.4006 #### [facility] [address] [place], [address] Monocytes/100 WBC (Bld) 5.3 % Normal 0-10 [facility] Comment on above: Performed By: #### L 509.8002, L3410.9992, L3890.6301, L3890.6102, L100.0100, L3890.6006, L501.9520, BTS, L506.0400, L509.4006 #### [facility] [address] [place], [address] Neutrophils/100 WBC (Bld) 77.9 % High 47-70 [facility] Comment on above: Performed By: #### L 509.8002, L3410.9992, L3890.6301, L3890.6102, L100.0100, L3890.6006, L501.9520, BTS, L506.0400, L509.4006 #### [facility] [address] [place] [place], [address] Nucleated RBC (Bld) [#/Vol] 0 10*3/uL Normal 0-5 [facility] Comment on above: Performed By: #### L 509.8002, L3410.9992, L3890.6301, L3890.6102, L100.0100, L3890.6006, L501.9520, BTS, L506.0400, L509.4006 #### [facility] [address] [place], [address] Platelet mean volume (Bld) [Entitic vol] 10.6 fL Normal 6.2-12.0 [facility] Comment on above: Performed By: #### L 509.8002, L3410.9992, L3890.6301, L3890.6102, L100.0100, L3890.6006, L501.9520, BTS, L506.0400, L509.4006 #### [facility] [address] [place], [address] Platelets (Bld) [#/Vol] 368 10*3/uL Normal 150-450 [facility] Comment on above: Performed By: #### L 509.8002, L3410.9992, L3890.6301, L3890.6102, L100.0100, L3890.6006, L501.9520, BTS, L506.0400, L509.4006 #### [facility] [address] [place], [address] RBC (Bld) [#/Vol] 3.80 10*6/uL Low 4.2-5.4 [facility] Comment on above: Performed By: #### L 509.8002, L3410.9992, L3890.6301, L3890.6102, L100.0100, L3890.6006, L501.9520, BTS, L506.0400, L509.4006 #### [facility] [address] [place], [address] RDW SD 39.6 fl Normal 35.1-43.9 [facility] Comment on above: Performed By: #### L 509.8002, L3410.9992, L3890.6301, L3890.6102, L100.0100, L3890.6006, L501.9520, BTS, L506.0400, L509.4006 #### [facility] [address] [place], [address] WBC (Bld) [#/Vol] 13.0 10*3/uL High 4.4-11.0 [facility] Comment on above: Performed By: #### L 509.8002, L3410.9992, L3890.6301, L3890.6102, L100.0100, L3890.6006, L501.9520, BTS, L506.0400, L509.4006 #### [facility] [address] [place], [place], [id number] Eosinophil percentageOrdered By: Natalie Brower on 12-02-2024 Eosinophils/100 WBC (Bld) 1.1 % 0-5 [facility] Erythrocyte distribution wid th ratioOrdered By: Natalie Brower on 12-02-2024 Erythrocyte distribution width (RBC) [Ratio] 12.3 % 11.6-14.6 [facility] Erythrocyte distribution wid th standard deviationOrdered By: Natalie Brower on 12-02-2024 Erythrocyte distribution width (RBC) [Ratio] 39.6 fl 35.1-43.9 [facility] Glucose Challenge Gest 1H 50 sandrita 12-02-2024 GLU GEST 50g 1H 130 mg/dL Normal 70-140 [facility] Comment on above: Performed By: #### L 509.8002, L3410.9992, L3890.6301, L3890.6102, L100.0100, L3890.6006, L501.9520, BTS, L506.0400, L509.4006 #### [facility] [address] [place], [place], [id number] Glucose measurement at 2 radha rs post-dose gestational glucose tolerance testOrdered By: Natalie Brower on 12-02-2024 Glucose [Mass/Vol] 130 mg/dL 70-140 [facility] HIVon 12-02-2024 HIV Non-Reactive Normal Nonreactive [facility] Comment on above: Result Comment: Non- Reactive Reactive Repeatedly reactive samples must be confirmed according to CDC recommended confirmatory algorithms. The subresults for either HIVAG or AHIV can be used as an aid in the selection of the confirmation algorithm for reactive samples. Send out specimens with Reactive results to [facility] for confirmation. Order the HIV antibody detection and differentiation: lc#[id number] Performed By: #### L 509.8002, L3410.9992, L3890.6301, L3890.6102, L100.0100, L3890.6006, L501.9520, BTS, L506.0400, L509.4006 #### [facility] [address] [place], [place], [address] Hematocrit Auto (Bld) [Volum e fraction]Ordered By: Natalie Brower on 12-02-2024 Hematocrit (Bld) [Volume fraction] 33.9 % Low 37-47 [facility] Hemoglobin measurementOrdere d By: Natalie Brower on 12-02-2024 Hemoglobin (Bld) [Mass/Vol] 11.8 g/dL Low 12.0-15.0 [facility] Immature granulocytes/100 WB C Auto (Bld)Ordered By: Natalie Brower on 12-02-2024 Immature granulocytes/100 WBC (Bld) 1.800 % High 0.0-0.9 [facility] Comment on above: IG% - Immature Granu locytes (promyelocytes, myelocytes and metamyelocytes) > 1% indicates that a LEFT SHIFT is Present. Laboratory - Chemistry and C hemistry - challengeOrdered By: Ashlee Mcdonough on 12-02-2024 Glucose Ql (U) Negative [facility] - UrinalysisOrder ed By: Ashlee Mcdonough on 12-02-2024 Protein Ql (U) Negative [facility] MCV (mean corpuscular volume ) determinationOrdered By: Natalie Brower on 12-02-2024 MCV (RBC) [Entitic vol] 89.2 fL 81-[address] [facility] Mean corpuscular hemoglobin (MCH) determinationOrdered By: Natalie Brower on 12-02-2024 MCH (RBC) [Entitic mass] 31.1 pg 27.0-32.0 [facility] Mean corpuscular hemoglobin concentration (MCHC) determinationOrdered By: Natalie Brower on 12-02-2024 MCHC (RBC) [Mass/Vol] 34.8 g/dL 32-36 [facility] Mean platelet volume determi nationOrdered By: Natalie Brower on 12-02-2024 Platelet mean volume (Bld) [Entitic vol] 10.6 fL 6.2-12.0 [facility] Monocyte percentageOrdered B y: Natalie Brower on 12-02-2024 Monocytes/100 WBC (Bld) 5.3 % 0-[address] [facility] Neutrophil percentageOrdered By: Natalie Brower on 12-02-2024 Neutrophils/100 WBC (Bld) 77.9 % High 47-70 [facility] No Panel InformationOrdered By: Natalie Brower on 12-02-2024 HIV (1&2) Antibody Non-Reactive Nonreactive [facility] Comment on above: Non-ReactiveReactive Repeatedly reactive samples must be confirmed according to CDC recommended confirmatory algorithms. The subresults for either HIVAG or AHIV can be used as an aid in the selection of the confirmation algorithm for reactive samples.Send out specimens with Reactive results to [facility] for confirmation.Order the HIV antibody detection and differentiation: #[id number] Nucleated red blood cell per centageOrdered By: Natalie Brower on 12-02-2024 Nucleated RBC/100 WBC (Bld) [Ratio] 0 % 0-5 [facility] [employer] Office Visit Reporton 12-02-2024 [employer] Office Visit Report [facility] [address], [address] [place] [address] OFFICE VISIT Date of Service: 12/02/24 MR#: [id number] Acct: [id number] Name: ANASTACIA MCKOY Rep #: [id number] : 2000 Provider: Dr. Ashlee saenz MD Age/Sex: 24/F Location: [facility] Status: Signed Intake Vital Signs 10/08/24 15:36 11/06/24 15:49 12/02/24 15:21 Height 5 ft 1 in 5 ft 1 in 5 ft 1 in Weight: 164 lb 1 oz BMI 30.9 BP 122/86 H Intake Visit Reasons: 26 wk ob/glucose 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 Required: No Is patient in pain?: No Allergies No Known Allergies Allergy (Verified 12/02/24 15:20) Medications ???Medication ???Instructions ???Recorded ???Confirmed ???Type docosahexaenoic acid 200 mg mg PO 08/02/24 12/02/24 History capsule ( DHA) levothyroxine 50 mcg capsule 50 mcg PO QDAY 08/02/24 12/02/24 H istory ondansetron 4 mg disintegrating 4 mg PO Q4H PRN nausea and 5 12/02/24 Rx tablet vomiting #60 tabs Last Menstrual Period: 05/27/24 Zika: Zika virus screening: Negative : No PFSH PFSH Medical History Seasonal allergies Asthma Family History Uncle Cancer Stomach, Prostate Brain Father CVA (cerebral vascular accident) Sister PCOS (polycystic ovarian syndrome) Endometriosis Fibroid Aunt Myocardial infarction Uncle Myocardial infarction Social History adopted: No household members: significant other housing: house current occupational status: employed 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) current occupational exposures/hazards: No pets and animals: Yes pets and animals: dog(s) history of recent travel: No sexually active: Yes Smoking Status: Current some day smoker tobacco type: e-cigarettes second hand exposure: No quit status: considering quitting alcohol intake: current alcohol intake frequency: holidays/special occasions only details: Not while substance use type: does not use well-balanced diet: daily or most days caffeine: Yes eating out: rarely or never during the past year weight has: increased > 10 lbs what type of physical activity do you participate in: none page/yarsanism: None seatbelt use: always do you feel safe at home: Yes additional social history: Boyfriend: Mateo Tong - [employer] History 1 Elective abortions 0 Hx Para 0 Spontaneous abortions 0 Hx # Term Pregnancies Ectopic pregnancies Hx # Pregnancies Multiple births # of living children HPI 26 wk ob/glucose Details: ANASTACIA MCKOY is a 24 year old who presents for routine OB visit. OB Visit RODRIGO Calculator Estimated Delivery Date Method Current WG Current Estimate 03/03/25 LMP (Certain) 27w 0d Other Estimates 03/08/25 Ultrasound #1 26w 2d Expected Delivery Route/Plan Labor Preferences- CB/BF classes: [] labor support person: [] labor intervention preferences: [] pain management options preferred: [] cut cord/dad catch: [] : [] PP control planned: [] discussed possible routes of delivery and associated risks: [] special requests: [] Specific Issue/Plans Covid status: [] Flu vaccine: [] Tdap vaccine: [] Rhogam: [] LARC form signed: [] Problem list reviewed and updated with the most current plan of care details and appropriate orders placed. Relevant counseling for the gestational age provided. Continue routine care and follow up unless otherwise noted in visit notes/problem list details Initial Weight: Not Recorded Date -???-???-???-???-?? ?-???-???-???-???-? ??-???-???- EGA Weight BP Urine Prot -???-???-???-???-?? ?-???-???-???-???-? ??-???-???- Glucose FHR FuHt Pres Dilation -???-???-???-???-?? ?-???-???-???-???-? ??-???-???- Effaced St Visit Note 08/07/24 -???-???-???-???-?? ?-???-???-???-???-? ??-???-???- 10w 2d 153 lb 4 oz 134/88 -???-???-???-???-?? ?-???-???-???-???-? ??-???-???- 172 -???-???-???-???-?? ?-???-???-???-???-? ??-???-???- JV- CRL with in 7 days of LMP. desires nipt and carrier 09/09/24 -???-???-???-???-?? ?-???-???-???-???-? ??-???-???- 15w 0d 151 lb 8 oz 118/74 Negative -???-???-???-???-?? ?-???-???-???-???-? ??-???-???- Negative 153 -???-???-???-???-?? ?-???-???-???-???-? ??-???-???- MH-No VB. Na usea persists. Katerin sent. 10/08/24 -???-???-???-???-?? ?-???-???-???-???-? ??-???-???- 19w 1d 157 lb 4 oz 117/79 Negative -???-???-???-???-?? ?-???-???-???-???-? ??-???-???- Negative 150 -???-???-???-???-?? ?-???-???-???-???-? ??-???-???- SM- no vb cr amping nausea improved anatomy us ordered 11/06/24 -???-???-???-? (more content not included)... Normal [facility] Platelet countOrdered By: Gregory barrowbibi Leonarda on 12-02-2024 Platelets (Bld) [#/Vol] 368 10*3/uL 150-450 [facility] RBC Auto (Bld) [#/Vol]Ordere d By: Natalie Brower on 12-02-2024 RBC (Bld) [#/Vol] 3.80 10*6/uL Low 4.2-5.4 [facility] Syphilis Antibodieson 2024 Syphilis Abs Non-Reactive Normal Nonreactive [facility] Comment on above: Performed By: #### L 509.8002, L3410.9992, L3890.6301, L3890.6102, L100.0100, L3890.6006, L501.9520, BTS, L506.0400, L509.4006 #### [facility] [address] [place], [address] White blood cell (WBC) count Ordered By: Natalie Brower on 12-02-2024 WBC (Bld) [#/Vol] 13.0 10*3/uL High 4.4-11.0 [facility] - Chemistry and C hemistry - challengeOrdered By: Natalie Brower on 11-06-2024 Glucose Ql (U) Negative [facility] - UrinalysisOrder ed By: Natalie Brower on 11-06-2024 Protein Ql (U) Negative [facility] [employer] Office Visit Reporton 11-06-2024 [employer] Office Visit Report [address], [address] [place] [address] OFFICE VISIT Date of Service: 11/06/24 MR#: [id number] Acct: [id number] Name: ANASTACIA MCKOY Rep #: [id number] : 2000 Provider: Dr. Natalie Ro DO Age/Sex: 24/F Location: [facility] [place] Status: Signed Intake Vital Signs 09/09/24 08:40 10/08/24 15:36 11/06/24 15:48 11/06/24 15:49 Height 5 ft 1 in 5 ft 1 in 5 ft 1 in 5 ft 1 in Weight: 157 lb 4 oz 160 lb 5 oz BMI 29.7 30.2 BP 117/79 110/74 Intake Visit Reasons: 22 wk ob 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 Required: No Is patient in pain?: No Allergies No Known Allergies Allergy (Verified 11/06/24 15:48) Medications ???Medication ???Instructions ???Recorded ???Confirmed ???Type docosahexaenoic acid 200 mg mg PO 08/02/24 11/06/24 History capsule ( DHA) levothyroxine 50 mcg capsule 50 mcg PO QDAY 08/02/24 11/06/24 H istory ondansetron 4 mg disintegrating 4 mg PO Q4H PRN nausea and 5 11/06/24 Rx tablet vomiting #60 tabs Last Menstrual Period: 05/27/24 Zika: Zika virus screening: Negative : No PFSH PFSH Medical History Seasonal allergies Asthma Family History Uncle Cancer Stomach, Prostate Brain Father CVA (cerebral vascular accident) Sister PCOS (polycystic ovarian syndrome) Endometriosis Fibroid Aunt Myocardial infarction Uncle Myocardial infarction Social History adopted: No household members: significant other housing: house current occupational status: employed 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) current occupational exposures/hazards: No pets and animals: Yes pets and animals: dog(s) history of recent travel: No sexually active: Yes Smoking Status: Current some day smoker tobacco type: e-cigarettes second hand exposure: No quit status: considering quitting alcohol intake: current alcohol intake frequency: holidays/special occasions only details: Not while substance use type: does not use well-balanced diet: daily or most days caffeine: Yes eating out: rarely or never during the past year weight has: increased > 10 lbs what type of physical activity do you participate in: none page/yarsanism: None seatbelt use: always do you feel safe at home: Yes additional social history: Boyfriend: Mateo Tong - [employer] History 1 Elective abortions 0 Hx Para 0 Spontaneous abortions 0 Hx # Term Pregnancies Ectopic pregnancies Hx # Pregnancies Multiple births # of living children HPI 22 wk ob Details: ANASTACIA MCKOY is a 24 year old who presents for routine OB visit. OB Visit RODRIGO Calculator Estimated Delivery Date Method Current WG Current Estimate 03/03/25 LMP (Certain) 23w 2d Other Estimates 03/08/25 Ultrasound #1 22w 4d Expected Delivery Route/Plan Labor Preferences- CB/BF classes: [] labor support person: [] labor intervention preferences: [] pain management options preferred: [] cut cord/dad catch: [] : [] PP control planned: [] discussed possible routes of delivery and associated risks: [] special requests: [] Specific Issue/Plans Covid status: [] Flu vaccine: [] Tdap vaccine: [] Rhogam: [] LARC form signed: [] Problem list reviewed and updated with the most current plan of care details and appropriate orders placed. Relevant counseling for the gestational age provided. Continue routine care and follow up unless otherwise noted in visit notes/problem list details Initial Weight: Not Recorded Date -???-???-???-???-?? ?-???-???-???-???-? ??-???-???- EGA Weight BP Urine Prot -???-???-???-???-?? ?-???-???-???-???-? ??-???-???- Glucose FHR FuHt Pres Dilation -???-???-???-???-?? ?-???-???-???-???-? ??-???-???- Effaced St Visit Note 08/07/24 -???-???-???-???-?? ?-???-???-???-???-? ??-???-???- 10w 2d 153 lb 4 oz 134/88 -???-???-???-???-?? ?-???-???-???-???-? ??-???-???- 172 -???-???-???-???-?? ?-???-???-???-???-? ??-???-???- JV- CRL with in 7 days of LMP. desires nipt and carrier 09/09/24 -???-???-???-???-?? ?-???-???-???-???-? ??-???-???- 15w 0d 151 lb 8 oz 118/74 Negative -???-???-???-???-?? ?-???-???-???-???-? ??-???-???- Negative 153 -???-???-???-???-?? ?-???-???-???-???-? ??-???-???- MH-No VB. Na usea persists. Katerin sent. 10/08/24 -???-???-???-???-?? ?-???-???-???-???-? ??-???-???- 19w 1d 157 lb 4 oz 117/79 Negative -???-???-???-???-?? ?-???-???-???-???-? ??-???-???- Negative 150 -???-???-???-???-?? ?-???-???-???-???-? ??-???-???- SM- no vb cr amping nausea improved anatomy (more content not included)... Normal [facility] OB Anatomy w/ Transvaginalon 10-16-2024 OB Anatomy w/ Transvaginal [facility] Imaging Services [address] [place], [place] [id number] OB Anatomy w/ Transvaginal MR#: [id number] Acct: [id number] Name: ANASTACIA MCKOY Rep #: [id number] : 2000 F 23 From: Rich hernandez MD PCP: Dr. Stephan Ngo MD Status: REG CLI Study: OB Anatomy w/ Transvaginal Date of Exam: 10/16 Exam# [id number] Ordering Dr: Ashlee Mcdonough PROCEDURE: OB ANATOMY W/ TRANSVAGINAL 10/16/2024 REASON FOR EXAM: ANATOMY SCAN TECHNIQUE: OB ANATOMY W/ TRANSVAGINAL COMPARISON: None FINDINGS LMP: May 27, 2024. Number: 1 Position: Vertex Placental Position: Right lateral and not low-lying Placental Abnormalities: No evidence of previa. DIMENSIONS: Biparietal Diameter: 4.66 cm: 20 weeks and 0 days: 41 percentile/ Head Circumference: 16.68 cm: 19 weeks and 3 days: 9 percentile/ Abdominal Circumference: 14.5 cm: 19 weeks and 6 days: 29 percentile/ Femur Length: 3 cm: 19 weeks and 2 days: 12th percentile/ ESTIMATED WEIGHT: 305 g plus/-46 g ESTIMATED WEIGHT PERCENTILE (24+ weeks): 16 ESTIMATED GESTATIONAL AGE: Baseline: 20 weeks and 2 days By Ultrasound: 19 weeks and 5 days ESTIMATED DATE OF DELIVERY: Baseline: March 03, 2025 By Ultrasound: March 07, 2025 BIOPHYSICAL ASSESSMENT: Amniotic Fluid Volume: 6.1 cm Amniotic Fluid Index: Within normal limits. (8-24 cm normal range) Cardiac Motion: 164 beats per minute (average) Trunk and Limb Motion: Present. MATERNAL ANATOMY: Adnexa: Neither maternal ovary is successfully identified. Cervical Length (if measured): 4.4 cm ANATOMY: Spine: Unremarkable Cranium: Unremarkable Cerebellum: Unremarkable Cisterna Magna: Unremarkable Cavum Septum Pellucidi: Unremarkable Lateral Ventricles: Unremarkable Choroid Plexus: Unremarkable Midline Falx: Unremarkable Nuchal Fold: Unremarkable Heart: Unremarkable Stomach: Unremarkable Kidneys: Unremarkable Bladder: Unremarkable Umbilical Cord: Normal insertion. Extremities: Unremarkable US/OB Anatomy w/ Transvaginal IMPRESSION: Single live intrauterine gestation with a mean gestational age of 19 weeks and 5 days. Reading Location: [id number] CC: Dr. Ashlee Mcdonough MD; Dr. 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 Ashlee saenz MD Age/Sex: 23/F Location: [facility] [place] Status: Signed Intake Vital Signs 08/22/23 10:06 09/09/24 08:40 10/08/24 15:36 Height 5 ft 1 in 5 ft 1 in 5 ft 1 in Weight: 157 lb 4 oz BMI 29.7 BP 117/79 Intake Visit Reasons: 18wk OB 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 Required: No Is patient in pain?: No Allergies No Known Allergies Allergy (Verified 10/08/24 15:37) Medications ???Medication ???Instructions ???Recorded ???Confirmed ???Type docosahexaenoic acid 200 mg mg PO 08/02/24 10/08/24 History capsule ( DHA) levothyroxine 50 mcg capsule 50 mcg PO QDAY 08/02/24 10/08/24 H istory ondansetron 4 mg disintegrating 4 mg PO Q4H PRN nausea and 5 10/08/24 Rx tablet vomiting #60 tabs Last Menstrual Period: 05/27/24 Zika: Zika virus screening: Negative : No PFSH PFSH Medical History Seasonal allergies Asthma Family History Uncle Cancer Stomach, Prostate Brain Father CVA (cerebral vascular accident) Sister PCOS (polycystic ovarian syndrome) Endometriosis Fibroid Aunt Myocardial infarction Uncle Myocardial infarction Social History adopted: No household members: significant other housing: house current occupational status: employed 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) current occupational exposures/hazards: No pets and animals: Yes pets and animals: dog(s) history of recent travel: No sexually active: Yes Smoking Status: Current some day smoker tobacco type: e-cigarettes second hand exposure: No quit status: considering quitting alcohol intake: current alcohol intake frequency: holidays/special occasions only details: Not while substance use type: does not use well-balanced diet: daily or most days caffeine: Yes eating out: rarely or never during the past year weight has: increased > 10 lbs what type of physical activity do you participate in: none page/yarsanism: None seatbelt use: always do you feel safe at home: Yes additional social history: Boyfriend: Mateo Tong - [employer] at [employer] History 1 Elective abortions 0 Hx Para 0 Spontaneous abortions 0 Hx # Term Pregnancies Ectopic pregnancies Hx # Pregnancies Multiple births # of living children HPI 18wk OB Details: ANASTACIA MCKOY is a 23 year old who presents for routine OB visit. OB Visit RODRIGO Calculator Estimated Delivery Date Method Current WG Current Estimate 03/03/25 LMP (Certain) 19w 1d Other Estimates 03/08/25 Ultrasound #1 18w 3d Expected Delivery Route/Plan Labor Preferences- CB/BF classes: [] labor support person: [] labor intervention preferences: [] pain management options preferred: [] cut cord/dad catch: [] : [] PP control planned: [] discussed possible routes of delivery and associated risks: [] special requests: [] Specific Issue/Plans Covid status: [] Flu vaccine: [] Tdap vaccine: [] Rhogam: [] LARC form signed: [] Problem list reviewed and updated with the most current plan of care details and appropriate orders placed. Relevant counseling for the gestational age provided. Continue routine care and follow up unless otherwise noted in visit notes/problem list details Initial Weight: Not Recorded Date -???-???-???-???-?? ?-???-???-???-???-? ??-???-???- EGA Weight BP Urine Prot -???-???-???-???-?? ?-???-???-???-???-? ??-???-???- Glucose FHR FuHt Pres Dilation -???-???-???-???-?? ?-???-???-???-???-? ??-???-???- Effaced St Visit Note 08/07/24 -???-???-???-???-?? ?-???-???-???-???-? ??-???-???- 10w 2d 153 lb 4 oz 134/88 -???-???-???-???-?? ?-???-???-???-???-? ??-???-???- 172 -???-???-???-???-?? ?-???-???-???-???-? ??-???-???- JV- CRL with in 7 days of LMP. desires nipt and carrier 09/09/24 -???-???-???-???-?? ?-???-???-???-???-? ??-???-???- 15w 0d 151 lb 8 oz 118/74 Negative -???-???-???-???-?? ?-???-???-???-???-? ??-???-???- Negative 153 -???-???-???-???-?? ?-???-???-???-???-? ??-???-???- MH-No VB. Na usea persists. Katerin sent. 10/08/24 -???-???-???-???-?? ?-???-???-???-???-? ??-???-???- 19w 1d 157 lb 4 oz 117/79 Negative -???-???-???-???-?? ?-???-???-???-???-? ??-???-???- Negative 150 -???-???-???-???-?? ?-???-???-???-???-? ??-???-???- SM- no vb cr amping nausea improved anatomy us ordered ACOG First Trimester First Trimester: (more content not included)... Normal [facility] - Chemistry and C hemistry - challengeOrdered By: Dorie Curry on 09-09-2024 Glucose Ql (U) Negative [facility] - UrinalysisOrder ed By: Dorie Curry on 09-09-2024 Protein Ql (U) Negative [facility] [employer] Office Visit Reporton 09-09-2024 [employer] Office Visit Report [facility] [address], [address] [place] [address] OFFICE VISIT Date of Service: 09/09/24 MR#: [id number] Acct: [id number] Name: ANASTACIA MCKOY HERNANDEZ Rep #: [id number] : 2000 Provider: YULISSA foote Age/Sex: 23/F Location: [facility] Status: Signed Intake Vital Signs 08/22/23 10:06 08/07/24 10:30 09/09/24 08:28 09/09/24 08:40 Height 5 ft 1 in 5 ft 1 in 5 ft 1 in 5 ft 1 in Weight: 151 lb 8 oz BMI 28.6 BP 118/74 Intake Visit Reasons: 14wk OB Chief Complaint: 14 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 Is patient in pain?: No Allergies No Known Allergies Allergy (Verified 09/09/24 08:27) Medications ???Medication ???Instructions ???Recorded ???Confirmed ???Type docosahexaenoic acid 200 mg mg PO 08/02/24 09/09/24 History capsule ( DHA) levothyroxine 50 mcg capsule 50 mcg PO QDAY 08/02/24 09/09/24 H istory ondansetron 4 mg disintegrating 4 mg PO Q4H PRN nausea and 5 09/09/24 Rx tablet vomiting #60 tabs Last Menstrual Period: 05/27/24 Zika: Zika virus screening: Negative : No PFSH PFSH Medical History Seasonal allergies Asthma Family History Uncle Cancer Stomach, Prostate Brain Father CVA (cerebral vascular accident) Sister PCOS (polycystic ovarian syndrome) Endometriosis Fibroid Aunt Myocardial infarction Uncle Myocardial infarction Social History adopted: No household members: significant other housing: house current occupational status: employed 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) current occupational exposures/hazards: No pets and animals: Yes pets and animals: dog(s) history of recent travel: No sexually active: Yes Smoking Status: Current some day smoker tobacco type: e-cigarettes second hand exposure: No quit status: considering quitting alcohol intake: current alcohol intake frequency: holidays/special occasions only details: Not while substance use type: does not use well-balanced diet: daily or most days caffeine: Yes eating out: rarely or never during the past year weight has: increased > 10 lbs what type of physical activity do you participate in: none page/yarsanism: None seatbelt use: always do you feel safe at home: Yes additional social history: Boyfriend: Mateo Tong - [employer] at [employer] History 1 Elective abortions 0 Hx Para 0 Spontaneous abortions 0 Hx # Term Pregnancies Ectopic pregnancies Hx # Pregnancies Multiple births # of living children HPI 14wk OB Details: ANASTACIA MCKOY is a 23 year old who presents for routine OB visit. OB Visit RODRIGO Calculator Estimated Delivery Date Method Current WG Current Estimate 03/03/25 LMP (Certain) 15w 0d Other Estimates 03/08/25 Ultrasound #1 14w 2d Expected Delivery Route/Plan Labor Preferences- CB/BF classes: [] labor support person: [] labor intervention preferences: [] pain management options preferred: [] cut cord/dad catch: [] : [] PP control planned: [] discussed possible routes of delivery and associated risks: [] special requests: [] Specific Issue/Plans Covid status: [] Flu vaccine: [] Tdap vaccine: [] Rhogam: [] LARC form signed: [] Problem list reviewed and updated with the most current plan of care details and appropriate orders placed. Relevant counseling for the gestational age provided. Continue routine care and follow up unless otherwise noted in visit notes/problem list details Initial Weight: Not Recorded Date -???-???-???-???-?? ?-???-???-???-???-? ??-???-???- EGA Weight BP Urine Prot -???-???-???-???-?? ?-???-???-???-???-? ??-???-???- Glucose FHR FuHt Pres Dilation -???-???-???-???-?? ?-???-???-???-???-? ??-???-???- Effaced St Visit Note 08/07/24 -???-???-???-???-?? ?-???-???-???-???-? ??-???-???- 10w 2d 153 lb 4 oz 134/88 -???-???-???-???-?? ?-???-???-???-???-? ??-???-???- 172 -???-???-???-???-?? ?-???-???-???-???-? ??-???-???- JV- CRL with in 7 days of LMP. desires nipt and carrier 09/09/24 -???-???-???-???-?? ?-???-???-???-???-? ??-???-???- 15w 0d 151 lb 8 oz 118/74 Negative -???-???-???-???-?? ?-???-???-???-???-? ??-???-???- Negative 153 -???-???-???-???-?? ?-???-???-???-???-? ??-???-???- -No VB. Na usea persists. Zofran sent. ACOG First Trimester First Trimester: Desire for , Alcohol, Tobacco Cessation, Illicit/Recreationa l Drug/Substance Use, Intimate Partner Violence, Barriers to care, Unstable Housing, Communication Barriers, Environmental/Work Hazards, Anticipated Course (more content not included)... Normal [facility] UAon 09-03-2024 Color (U) Yellow Normal [facility] Comment on above: Performed By: #### U AMIC, UA #### [address] [place], [place] [address] Glucose (U) [Mass/Vol] Negative Normal Negative AU LTMAN MASSILLON Comment on above: Performed By: #### U AMIC, UA #### [address] [place], [place] [address] Ketones Ql (U) Trace Normal Neg-Trace [facility] Comment on above: Performed By: #### U AMIC, UA #### [address] [place] [address] UA Appear Hazy Abnormal [facility] Comment on above: Performed By: #### U AMIC, UA #### [address] [place] [address] UA Bili Small Abnormal Neg-Trace [facility] Comment on above: Result Comment: Sugg est correlation with serum bilirubin and clinical findings if medically necessary. Performed By: #### U AMIC, UA #### [address] [place] [address] UA Blood Negative Normal Neg-Trace [facility] Comment on above: Performed By: #### U AMIC, UA #### [address] [place] [address] UA Leuk Est Negative Normal Negative [facility]LL[facility] Comment on above: Performed By: #### U AMIC, UA #### [address] [place] [address] UA Nitrite Negative Normal Negative [facility]LL[facility] Comment on above: Performed By: #### U AMIC, UA #### [address] [place] [address] UA pH 5.5 Normal 5.0 - 8.0 [facility]LL[facility] Comment on above: Performed By: #### U AMIC, UA #### [address] [place] [address] UA Protein 30 mg/dL Normal Negative [facility]LL[facility] Comment on above: Performed By: #### U AMIC, UA #### [address] [place] [address] UA Spec Grav >=1.030 Abnormal [facility]LL[facility] Comment on above: Performed By: #### U AMIC, UA #### [address] [place] [address] UA Specimen Type Not Given Normal [facility]LL[facility] Comment on above: Performed By: #### U AMIC, UA #### [address] [facility] [place] [address] UA Urobilinogen 1.0 E.U./dL Normal SMAMY MASSILLON Comment on above: Performed By: #### U AMIC, UA #### [address] [place] [id number] UAMICon 09-03-2024 UA Bacteria 1+ /hpf Abnormal Negative [facility]LL[facility] Comment on above: Performed By: #### U AMIC, UA #### [address] [place] [id number] UA Mucous 3+ /hpf Normal [facility] Comment on above: Performed By: #### U AMIC, UA #### [address] [place] [address] UA RBC Negative Normal 0-2 [facility]LL[facility] Comment on above: Performed By: #### U AMIC, UA #### [address] [place] [address] UA Squam Epithelial 5-10 Normal 0-20 AULTM AN MASSILLON Comment on above: Performed By: #### U AMIC, UA #### [address] [place] [address] UA WBC 3-5 Normal 0-5 [facility] Comment on above: Performed By: #### U AMIC, UA #### [address] [place] [address] UA Yeast 2+ /hpf Abnormal [facility]LLON Comment on above: Performed By: #### U AMIC, UA #### [address] [place] [address] [id number] 08-30-2024 [facility] Misc. COMMENT Normal . [facility] Comment on above: Order Comment: [id number] 8TSH R AB Result Comment: Test Ordered: [id number] TSH Receptor Antibody (TBII) TSH Receptor Antibody (TBII) <0.4 U/L ES Reference Range: . Reference Range: Antibody Titer: <1.0 U/L = Negative 1.1 - 1.5 U/L = Equivocal >1.5 U/L = Positive Performed at: [facility] [employer] [facility] [address] [place], [place] [id number] Cycle Repairer: Curt Mcdonald MD, Phone: [phone] Performed at: - [facility] [address] [id number] Cycle Repairer: Irving Lockwood PhD, Phone: [phone] Performed By: #### L 509.8002, L3410.9992, L3890.6301, L3890.6102, L100.0100, L3890.6006, L501.9520, BTS, L506.0400, L509.4006 #### [facility] [address] [place], [address] Absolute lymphocyte countOrd ered By: Ashlee Mcdonough on 08-21-2024 Lymphocytes Auto (Unsp spec) [#/Vol] 2.96 10*3/uL 0.83-4.51 [facility] Absolute neutrophil countOrd ered By: Ashlee Mcdonough on 08-21-2024 Neutrophils (Bld) [#/Vol] 8.0 10*3/uL High 2.0-7.7 [facility] Automated lymphocyte count a s percentage of total leukocytesOrdered By: Ashele Mcdonough on 08-21-2024 Lymphocytes/100 WBC Auto (Unsp spec) 24.7 % 19-41 [facility] Basophil percentageOrdered B y: Ashlee Mcdonough on 08-21-2024 Basophils/100 WBC (Bld) 0.3 % 0-[address] [facility] CBC W/Diff, Automatedon Absolute Lymph 2.96 X10 3/uL Normal 0.83-4.51 [facility] Comment on above: Performed By: #### L 509.8002, L3410.9992, L3890.6301, L3890.6102, L100.0100, L3890.6006, L501.9520, BTS, L506.0400, L509.4006 #### [facility] [address] [place], [address] Absolute Neut 8.0 X10 3/uL High 2.0-7.7 [facility] Comment on above: Performed By: #### L 509.8002, L3410.9992, L3890.6301, L3890.6102, L100.0100, L3890.6006, L501.9520, BTS, L506.0400, L509.4006 #### [facility] [address] [place], [address] Basophils/100 WBC (Bld) 0.3 % Normal 0-[address] [facility] Comment on above: Performed By: #### L 509.8002, L3410.9992, L3890.6301, L3890.6102, L100.0100, L3890.6006, L501.9520, BTS, L506.0400, L509.4006 #### [facility] [address] [place], [address] Eosinophils/100 WBC (Bld) 1.7 % Normal 0-5 [facility] Comment on above: Performed By: #### L 509.8002, L3410.9992, L3890.6301, L3890.6102, L100.0100, L3890.6006, L501.9520, BTS, L506.0400, L509.4006 #### [facility] [address] [place], [address] Erythrocyte distribution width (RBC) [Ratio] 12.2 % Normal 11.6-14.6 [facility] Comment on above: Performed By: #### L 509.8002, L3410.9992, L3890.6301, L3890.6102, L100.0100, L3890.6006, L501.9520, BTS, L506.0400, L509.4006 #### [facility] [address] [place], [address] Hematocrit (Bld) [Volume fraction] 37.8 % Normal 37-47 [facility] Comment on above: Performed By: #### L 509.8002, L3410.9992, L3890.6301, L3890.6102, L100.0100, L3890.6006, L501.9520, BTS, L506.0400, L509.4006 #### [facility] [address] [place], [address] Hemoglobin (Bld) [Mass/Vol] 13.0 g/dL Normal 12.0-15.0 [facility] Comment on above: Performed By: #### L 509.8002, L3410.9992, L3890.6301, L3890.6102, L100.0100, L3890.6006, L501.9520, BTS, L506.0400, L509.4006 #### [facility] [address] [place], [address] IG% 0.400 Normal 0.0-0.9 [facility] Comment on above: Result Comment: IG% - Immature Granulocytes (promyelocytes, myelocytes and metamyelocytes) > 1% indicates that a LEFT SHIFT is Present. Performed By: #### L 509.8002, L3410.9992, L3890.6301, L3890.6102, L100.0100, L3890.6006, L501.9520, BTS, L506.0400, L509.4006 #### [facility] [address] [place], [address] Lymphocytes/100 WBC (Bld) 24.7 % Normal 19-41 [facility] Comment on above: Performed By: #### L 509.8002, L3410.9992, L3890.6301, L3890.6102, L100.0100, L3890.6006, L501.9520, BTS, L506.0400, L509.4006 #### [facility] [address] [place], [address] MCH (RBC) [Entitic mass] 30.7 pg Normal 27.0-32.0 [facility] Comment on above: Performed By: #### L 509.8002, L3410.9992, L3890.6301, L3890.6102, L100.0100, L3890.6006, L501.9520, BTS, L506.0400, L509.4006 #### [facility] [address] [place], [address] MCHC (RBC) [Mass/Vol] 34.4 g/dL Normal 32-36 [facility] Comment on above: Performed By: #### L 509.8002, L3410.9992, L3890.6301, L3890.6102, L100.0100, L3890.6006, L501.9520, BTS, L506.0400, L509.4006 #### [facility] [address] [place], [address] MCV (RBC) [Entitic vol] 89.2 fL Normal 81-[address] [facility] Comment on above: Performed By: #### L 509.8002, L3410.9992, L3890.6301, L3890.6102, L100.0100, L3890.6006, L501.9520, BTS, L506.0400, L509.4006 #### [facility] [address] [place], [address] Monocytes/100 WBC (Bld) 5.7 % Normal 0-[address] [facility] Comment on above: Performed By: #### L 509.8002, L3410.9992, L3890.6301, L3890.6102, L100.0100, L3890.6006, L501.9520, BTS, L506.0400, L509.4006 #### [facility] [address] [facility] [place], [address] Neutrophils/100 WBC (Bld) 67.2 % Normal 47-70 [facility] Comment on above: Performed By: #### L 509.8002, L3410.9992, L3890.6301, L3890.6102, L100.0100, L3890.6006, L501.9520, BTS, L506.0400, L509.4006 #### [facility] [address] [facility] [place], [address] Nucleated RBC (Bld) [#/Vol] 0 10*3/uL Normal 0-5 [facility] Comment on above: Performed By: #### L 509.8002, L3410.9992, L3890.6301, L3890.6102, L100.0100, L3890.6006, L501.9520, BTS, L506.0400, L509.4006 #### [facility] [address] [place], [address] Platelet mean volume (Bld) [Entitic vol] 10.4 fL Normal 6.2-12.0 [facility] Comment on above: Performed By: #### L 509.8002, L3410.9992, L3890.6301, L3890.6102, L100.0100, L3890.6006, L501.9520, BTS, L506.0400, L509.4006 #### [facility] [address] [place], [address] Platelets (Bld) [#/Vol] 346 10*3/uL Normal 150-450 [facility] Comment on above: Performed By: #### L 509.8002, L3410.9992, L3890.6301, L3890.6102, L100.0100, L3890.6006, L501.9520, BTS, L506.0400, L509.4006 #### [facility] [address] [place], [address] (438) RBC (Bld) [#/Vol] 4.24 10*6/uL Normal 4.2-5.4 [facility] Comment on above: Performed By: #### L 509.8002, L3410.9992, L3890.6301, L3890.6102, L100.0100, L3890.6006, L501.9520, BTS, L506.0400, L509.4006 #### [facility] [address] [facility] [place], [address] RDW SD 39.3 fl Normal 35.1-43.9 [facility] Comment on above: Performed By: #### L 509.8002, L3410.9992, L3890.6301, L3890.6102, L100.0100, L3890.6006, L501.9520, BTS, L506.0400, L509.4006 #### [facility] [address] [place], [address] (093) WBC (Bld) [#/Vol] 12.0 10*3/uL High 4.4-11.0 [facility] Comment on above: Performed By: #### L 509.8002, L3410.9992, L3890.6301, L3890.6102, L100.0100, L3890.6006, L501.9520, BTS, L506.0400, L509.4006 #### [facility] [address] [place], [address] (767) Eosinophil percentageOrdered By: Ashlee Mcdonough on 08-21-2024 Eosinophils/100 WBC (Bld) 1.7 % 0-5 [facility] Erythrocyte distribution wid th ratioOrdered By: Ashlee Mcdonough on 08-21-2024 Erythrocyte distribution width (RBC) [Ratio] 12.2 % 11.6-14.6 [facility] Erythrocyte distribution wid th standard deviationOrdered By: Ashlee Mcdonough on 08-21-2024 Erythrocyte distribution width (RBC) [Ratio] 39.3 fl 35.1-43.9 [facility] HIVon 08-21-2024 HIV Non-Reactive Normal Nonreactive [facility] Comment on above: Result Comment: Non- Reactive Reactive Repeatedly reactive samples must be confirmed according to CDC recommended confirmatory algorithms. The subresults for either HIVAG or AHIV can be used as an aid in the selection of the confirmation algorithm for reactive samples. Send out specimens with Reactive results to [facility] for confirmation. Order the HIV antibody detection and differentiation: lc#[id number] Performed By: #### L 509.8002, L3410.9992, L3890.6301, L3890.6102, L100.0100, L3890.6006, L501.9520, BTS, L506.0400, L509.4006 #### [facility] [address] [place], [address] Hematocrit Auto (Bld) [Volum e fraction]Ordered By: Ashlee Diezrehana on 08-21-2024 Hematocrit (Bld) [Volume fraction] 37.8 % 37-47 [facility] Hemoglobin measurementOrdere d By: Ashlee Mcdonough on 08-21-2024 Hemoglobin (Bld) [Mass/Vol] 13.0 g/dL 12.0-15.0 [facility] Hepatitis C Antibodyon 08-21 Hepatitis C Ab Non-Reactive Normal Nonreactive [facility] Comment on above: Result Comment: Reac tive: Presumptive evidence of antibodies to HCV. Follow CDC recommendations for supplemental testing. Non-Reactive: Antibodies to HCV were not detected; does not exclude the possibility of exposure to HCV Reactive Results are presumptive evidence of antibodies to HCV. Follow CDC recommendations for supplemental testing. Order confirmation testing: HCV Quant by PCR testing - HCVPCR lc#[id number] Non Reactive: < 0.8 Equivocal: >/= 0.8 to < 1.0 Reactive: >/= 1.0 The CDC requires that a reactive/equivocal HCV antibody result be sent out for confirmation. HCV Quant by PCR testing. Performed By: #### L 509.8002, L3410.9992, L3890.6301, L3890.6102, L100.0100, L3890.6006, L501.9520, BTS, L506.0400, L509.4006 #### [facility] [address] [place], [place], [id number] Immature granulocytes/100 WB C Auto (Bld)Ordered By: Ashlee Mcdonough on 08-21-2024 Immature granulocytes/100 WBC (Bld) 0.400 % 0.0-0.9 [facility] Comment on above: IG% - Immature Granu locytes (promyelocytes, myelocytes and metamyelocytes) > 1% indicates that a LEFT SHIFT is Present. L3890.6102on 08-21-2024 HEP B Surf Ag Non-Reactive Normal Nonreactive [facility] Comment on above: Result Comment: Reac tive: Presumptive evidence of HBV. Repeatedly reactive samples must be confirmed using a neutralization test (Elecsys HBsAg Confirmatory Test) Non-Reactive: HBsAg not detected; does not exclude the possibility of exposure to HBV Performed By: #### L 509.8002, L3410.9992, L3890.6301, L3890.6102, L100.0100, L3890.6006, L501.9520, BTS, L506.0400, L509.4006 #### [facility] [address] [place], [place], [id number] L509.4006on 08-21-2024 Rubella IgG REAC Normal Nonreactive [facility] Comment on above: Result Comment: Anti body Result: Interpretation Non-Reactive: Non-Immune Reactive: Immune The following results were obtained with the Elecsys Rubella IgG assay. Results from assays of other manufacturers cannot be used interchangeably. Performed By: #### L 509.8002, L3410.9992, L3890.6301, L3890.6102, L100.0100, L3890.6006, L501.9520, BTS, L506.0400, L509.4006 #### [facility] [address] [place], [place], [id number] Laboratory - Microbiology an d Antimicrobial susceptibilityOrdered By: Ashlee Mcdonough on 08-21-2024 HBV surface Ag Ql (S) Non-Reactive Nonreactive [facility] Comment on above: Reactive: Presumptiv e evidence of HBV. Repeatedly reactive samples must be confirmed using a neutralization test (ElecStemCellss HBsAg Confirmatory Test)Non-Reactive: HBsAg not detected; does not exclude the possibility of exposure to HBV MCV (mean corpuscular volume ) determinationOrdered By: Ashlee Mcdonough on 08-21-2024 MCV (RBC) [Entitic vol] 89.2 fL 81-99 [facility] Mean corpuscular hemoglobin (MCH) determinationOrdered By: Ashlee Mcdonough on 08-21-2024 MCH (RBC) [Entitic mass] 30.7 pg 27.0-32.0 [facility] Mean corpuscular hemoglobin concentration (MCHC) determinationOrdered By: Ashlee Mcdonough on 08-21-2024 MCHC (RBC) [Mass/Vol] 34.4 g/dL 32-36 [facility] Mean platelet volume determi nationOrdered By: Ashlee Mcdonough on 08-21-2024 Platelet mean volume (Bld) [Entitic vol] 10.4 fL 6.2-12.0 [facility] Monocyte percentageOrdered B y: Ashlee Mcdonough on 08-21-2024 Monocytes/100 WBC (Bld) 5.7 % 0-10 [facility] NATERAon 08-21-2024 NATURA SEE SCANNED REPORT Normal [facility] Comment on above: Performed By: #### L 509.8002, L3410.9992, L3890.6301, L3890.6102, L100.0100, L3890.6006, L501.9520, BTS, L506.0400, L509.4006 #### [facility] [address] [place], [address] Neutrophil percentageOrdered By: Ashlee Mcdonough on 08-21-2024 Neutrophils/100 WBC (Bld) 67.2 % 47-70 [facility] No Panel InformationOrdered By: Ashlee Mcdonough on 08-21-2024 HIV (1&2) Antibody Non-Reactive Nonreactive [facility] Comment on above: Non-ReactiveReactive Repeatedly reactive samples must be confirmed according to CDC recommended confirmatory algorithms. The subresults for either HIVAG or AHIV can be used as an aid in the selection of the confirmation algorithm for reactive samples.Send out specimens with Reactive results to [facility] for confirmation.Order the HIV antibody detection and differentiation: #[id number] Nucleated red blood cell per centageOrdered By: Ashlee Mcdonough on 08-21-2024 Nucleated RBC/100 WBC (Bld) [Ratio] 0 % 0-5 [facility] Platelet countOrdered By: Bandar Mcdonough on 08-21-2024 Platelets (Bld) [#/Vol] 346 10*3/uL 150-450 [facility] RBC Auto (Bld) [#/Vol]Ordere d By: Ashlee Mcdonough on 08-21-2024 RBC (Bld) [#/Vol] 4.24 10*6/uL 4.2-5.4 [facility] Syphilis Antibodieson 2024 Syphilis Abs Non-Reactive Normal Nonreactive [facility] Comment on above: Performed By: #### L 509.8002, L3410.9992, L3890.6301, L3890.6102, L100.0100, L3890.6006, L501.9520, BTS, L506.0400, L509.4006 #### [facility] [address] [place], [place], [id number] T4 Free Directon 08-21-2024 T4 FREE DIRECT 1.30 ng/dL Normal 0.76-1.46 [facility] Comment on above: Performed By: #### L 509.8002, L3410.9992, L3890.6301, L3890.6102, L100.0100, L3890.6006, L501.9520, BTS, L506.0400, L509.4006 #### [facility] [address] [place], [place], [id number] T4 freeOrdered By: Ashlee de dios on 08-21-2024 Free T4 [Mass/Vol] 1.30 ng/dL 0.76-1.46 [facility] TSH DL <= 0.005 mIU/L QnOrde red By: Ashlee Mcdonough on 08-21-2024 TSH Qn 2.400 uIU/mL 0.300-4.200 [facility] Thyroid Stim Hormone (TSH)on 08-21-2024 TSH 2.400 uIU/mL Normal 0.300-4.200 [facility] Comment on above: Performed By: #### L 509.8002, L3410.9992, L3890.6301, L3890.6102, L100.0100, L3890.6006, L501.9520, BTS, L506.0400, L509.4006 #### [facility] [address] [place], [address] Type AND Screenon 08-21-2024 ABO and Rh group Nom (Bld) Blood group O Rh(D) positive Normal [facility] Comment on above: Order Comment: PN Performed By: #### L 509.8002, L3410.9992, L3890.6301, L3890.6102, L100.0100, L3890.6006, L501.9520, BTS, L506.0400, L509.4006 #### [facility] [address] [place], [place], [id number] White blood cell (WBC) count Ordered By: Ashlee Mcdonough on 08-21-2024 WBC (Bld) [#/Vol] 12.0 10*3/uL High 4.4-11.0 [facility] CNPAida 08-13-2024 CNPN Telephone (FAMWS) ---- ANASTACIA MCKOY ([id number]) 4 F Date Time Provider Department 08/13/24 BILLY STEEL During your visit today, we recorded the following information about you: Billy Steel APRN.CNP 08/13/2024 7:37 AM Signed Please let the patient know that I heard back from endocrinology regarding her vitamin D levels. Recommendation is to increase Vitamin D 50,000 units to twice weekly for 4 weeks and then resume once weekly dose. Repeat vitamin D level in 4-6 weeks. Take the vitamin D with meals to help with absorption. The following approved medication requests have been transmitted electronically. Requested Prescriptions Signed Prescriptions Disp Refills ergocalciferol 50,000 unit capsule (VITAMIN D2, DRISDOL) 20 capsule 0 Sig: Take 1 capsule by mouth two times a week for 30 days, THEN 1 capsule one time a week. Use as directed.. Authorizing Provider: BILLY STEEL APRN.CNP Rowland, Kathryn, MA 08/13/2024 9:40 AM Signed Pt notified and voiced understanding. ' Beatrice Partida MA Allergies As of Date: 08/13/2024 (No Known Allergies) Date Reviewed: 04/26/2024 Reviewed by: Juanita Jordan LPN - Fully Assessed Reason for Visit: Results [95] Visit Diagnosis:Vitamin D deficiency [E55.9] Order(s):VITAMIN D 25 HYDROXY [SQVITD] Order #: [id number] FUTURE ergocalciferol 50,000 unit capsule (VITAMIN D2, DRISDOL)Take 1 capsule by mouth two times a week for 30 days, THEN 1 capsule one time a week. Use as directed..Disp: 20 capsuleRfl: 0 Prescriptions as of 08/13/2024 - ergocalciferol 50,000 unit capsule (VITAMIN D2, DRISDOL) Take 1 capsule by mouth two times a week for 30 days, THEN 1 capsule one time a week. Use as directed.. - levothyroxine (SYNTHROID) 50 mcg tablet Take 1 tablet by mouth once daily. Take on empty stomach. For Thyroid. - fluticasone (FLONASE) 50 mcg/actuation nasal spray Use 2 Sprays in each nostril once daily. - loratadine (CLARITIN) 10 mg tablet Take 1 tablet by mouth once daily. - etonogestrel (NEXPLANON) subdermal implant 68 mg 68 mg by SUBDERMAL route. September 2021 - diphenhydrAMINE (BENADRYL) 25 mg capsule Take 1 capsule by mouth every 6 hours as needed. - LORYNA, 28, 3-0.02 mg per tablet Take 1 tablet by mouth once daily. Problem List As Of Date 08/13/2024 Noted Resolved Allergic rhinitis due to animal dander [J30.81] 08/21/2023 Allergic rhinitis due to dust mite [J30.89] 08/21/2023 Seasonal allergic rhinitis due to pollen [J30.1]08/21/2023 Allergic conjunctivitis of both eyes [H10.13] 08/21/2023 Allergic rhinitis due to mold [J30.89] 08/21/2023 Prescriptions ordered this encounter Disp Refills Start End ERGOCALCIFEROL (VITAMIN D2) 1,250 MC* 20 c* 0 08/13/2024 12/11/2024 Route: PO Sig: Take 1 capsule by mouth two times a week for 30 days, THEN 1 capsule one time a week. Use as directed.. Medications Discontinued During This Encounter Prescriptions - ergocalciferol 50,000 unit capsule (VITAMIN D2, DRISDOL) (Discontinued) Take 1 capsule by mouth one time a week. Use as directed. Encounter Status:Closed by BEATRICE PARTIDA on 08/13/24 Normal [facility] PAP I-G w/rfx hrHPV-Aptimaon 08-12-2024 ADEQ Comment Normal . [facility] Comment on above: Order Comment: Speci men Comment: [id number] Comment: No. of containers..01 ThinPrep Vial Result Comment: Sati sfactory for evaluation. Endocervical and/or squamous metaplastic cells (endocervical component) are present. Performed By: #### L 509.8002, L3410.9992, L3890.6301, L3890.6102, L100.0100, L3890.6006, L501.9520, BTS, L506.0400, L509.4006 #### [facility] [address] [place], [place], [id number] COMM . Normal . [facility] Comment on above: Order Comment: Speci men Comment: [id number] Comment: No. of containers..01 ThinPrep Vial Performed By: #### L 509.8002, L3410.9992, L3890.6301, L3890.6102, L100.0100, L3890.6006, L501.9520, BTS, L506.0400, L509.4006 #### [facility] [address] [place], [address] COMMENT Comment Normal . [facility] Comment on above: Order Comment: Speci men Comment: [id number] Comment: No. of containers..01 ThinPrep Vial Result Comment: This liquid based ThinPrep(R) pap test was screened with the use of an image guided system. Performed By: #### L 509.8002, L3410.9992, L3890.6301, L3890.6102, L100.0100, L3890.6006, L501.9520, BTS, L506.0400, L509.4006 #### [facility] [address] [place], [place], [id number] DIAG Comment Normal . [facility] Comment on above: Order Comment: Speci men Comment: [id number] Comment: No. of containers..01 ThinPrep Vial Result Comment: NEGA TIVE FOR INTRAEPITHELIAL LESION OR MALIGNANCY. Performed By: #### L 509.8002, L3410.9992, L3890.6301, L3890.6102, L100.0100, L3890.6006, L501.9520, BTS, L506.0400, L509.4006 #### [facility] [address] [place], [place], [id number] HPV RFLX Comment Normal . [facility] Comment on above: Order Comment: Speci men Comment: [id number] Comment: No. of containers..01 ThinPrep Vial Result Comment: The HPV DNA reflex criteria were not met with this specimen result therefore, no HPV testing was performed. Performed at: [address] [id number] Cycle Repairer: Raina Juarez MD, Phone: [phone] Performed By: #### L 509.8002, L3410.9992, L3890.6301, L3890.6102, L100.0100, L3890.6006, L501.9520, BTS, L506.0400, L509.4006 #### [facility] [address] [place], [address] PAPSMR Comment Normal . [facility] Comment on above: Order Comment: Speci men Comment: [id number] Comment: No. of containers..01 ThinPrep Vial Result Comment: The Pap smear is a screening test designed to aid in the detection of premalignant and malignant conditions of the uterine cervix. It is not a diagnostic procedure and should not be used as the sole means of detecting cervical cancer. Both false-positive and false-negative reports do occur. Performed By: #### L 509.8002, L3410.9992, L3890.6301, L3890.6102, L100.0100, L3890.6006, L501.9520, BTS, L506.0400, L509.4006 #### [facility] [address] [place], [place], [address] PERFORM Comment Normal . [facility] Comment on above: Order Comment: Speci men Comment: [id number] Comment: No. of containers..01 ThinPrep Vial Result Comment: Dinh Amaral, Forklift Driver (ASCP) Performed By: #### L 509.8002, L3410.9992, L3890.6301, L3890.6102, L100.0100, L3890.6006, L501.9520, BTS, L506.0400, L509.4006 #### [facility] [address] [place], [address] Urine Cultureon 08-10-2024 URC Mixed Gram Positive Organisms [place] Count 11,000-25,000 MIXC Mixed contaminants. Submit a new specimen if indicated. Normal [facility] Comment on above: Performed By: #### L 509.8002, L3410.9992, L3890.6301, L3890.6102, L100.0100, L3890.6006, L501.9520, BTS, L506.0400, L509.4006 #### [facility] [address] [place], [address] Chlamydia/GC TYREL aptimaon CHLAMY,NUC ACID Negative Normal Negative [facility] Comment on above: Performed By: #### L 509.8002, L3410.9992, L3890.6301, L3890.6102, L100.0100, L3890.6006, L501.9520, BTS, L506.0400, L509.4006 #### [facility] [address] [place], [place], [id number] GC BY NUC ACID Negative Normal Negative [facility] Comment on above: Result Comment: Perf ormed at: =G - [facility] [address] [place] [id number] Cycle Repairer: Raina Juarez MD, Phone: [phone] Performed By: #### L 509.8002, L3410.9992, L3890.6301, L3890.6102, L100.0100, L3890.6006, L501.9520, BTS, L506.0400, L509.4006 #### [facility] [address] [place], [address] 25(OH)D3 SerPl-mCncon 2024 25-hydroxyvitamin D3 [Mass/Vol] 13.5 ng/mL Low 31.0-80.0 [facility] Comment on above: Order Comment: Speci men Type: BLOOD SPECIMEN Ordering Facility: [facility] Address: [address] [place] [address] Performed By: #### 1 989-3 #### [facility] CLIA [id number] [address] [place] [address] STATES OF [facility] Cervical or vagninal specime n microscopic examination by cytology stain (reported asOrdered By: Ashlee Mcdonough on 08-07-2024 Cytology report Cyto stain Doc (Cvx/Vag) Comment . [facility] Comment on above: The Pap smear is a s creening test designed to aid in thedetection of premalignant and malignant conditions of theuterine cervix. It is not a diagnostic procedure andshould not be used as the sole means of detecting cervicalcancer. Both false-positive and false-negative reports dooccur. Chlamydia trachomatis rRNA d etection by probe and target amplification methodOrdered By: Ashlee Mcdonough on 08-07-2024 C. trachomatis rRNA TYREL+probe Ql (Unsp spec) Negative Negative [facility] - CytologyOrdered By: Ashlee Mcdonough on 08-07-2024 Forklift Driver Cyto stain Nom (Cvx/Vag) [ID] Comment . [facility] Comment on above: Dinh Amaral, Cytolo gist (ASCP) Laboratory - Miscellaneous t estsOrdered By: Ashlee Mcdonough on 08-07-2024 Service comment (Unsp spec) [Interp] . . [facility] Neisseria gonorrhoeae nuclei c acid detection by amplified probe techniqueOrdered By: Ashlee Mcdonough on 08-07-2024 N. gonorrhoeae DNA TYREL+probe Ql (Unsp spec) Negative Negative [facility] Comment on above: Performed at: = - [address] [place] [id number] Director: Raina Juarez MD, Phone: [phone] No Panel InformationOrdered By: Ashlee Mcdonough on 08-07-2024 Pap Smear Specimen Adequacy Comment . [facility] Comment on above: Satisfactory for alon luation. Endocervical and/or squamous metaplasticcells (endocervical component) are present. [employer] Office Visit Reporton 08-07-2024 [employer] Office Visit Report [facility] [address], [address] [place] [address] OFFICE VISIT Date of Service: 08/07/24 MR#: [id number] Acct: [id number] Name: ANASTACIA MCKOY Rep #: [id number] : 2000 Provider: Dr. 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 Required: No Is patient in pain?: No Allergies No Known Allergies Allergy (Verified 08/07/24 10:33) Medications ???Medication ???Instructions ???Recorded ???Confirmed ???Type docosahexaenoic acid 200 mg mg PO 08/02/24 08/07/24 History capsule ( DHA) levothyroxine 50 mcg capsule 50 mcg PO QDAY 08/02/24 08/07/24 H istory Last Menstrual Period: 05/27/24 Zika: Zika virus screening: Negative PFSH PFSH Medical History Seasonal allergies Asthma Family History Uncle Cancer Stomach, Prostate Brain Father CVA (cerebral vascular accident) Sister PCOS (polycystic ovarian syndrome) Endometriosis Fibroid Aunt Myocardial infarction Uncle Myocardial infarction Social History adopted: No household members: significant other housing: house current occupational status: employed 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) current occupational exposures/hazards: No pets and animals: Yes pets and animals: dog(s) history of recent travel: No sexually active: Yes Smoking Status: Current some day smoker tobacco type: e-cigarettes second hand exposure: No quit status: considering quitting alcohol intake: current alcohol intake frequency: holidays/special occasions only details: Not while substance use type: does not use well-balanced diet: daily or most days caffeine: Yes eating out: rarely or never during the past year weight has: increased > 10 lbs what type of physical activity do you participate in: none page/yarsanism: None seatbelt use: always do you feel safe at home: Yes additional social history: Boyfriend: Mateo Tong - Hi Lo Driver at [employer] History 1 Elective abortions 0 Hx Para 0 Spontaneous abortions 0 Hx # Term Pregnancies Ectopic pregnancies Hx # Pregnancies Multiple births # of living children HPI 10wk NOB Details: ANASTACIA MCKOY is a 23 year old who presents for New OB visit. OB Visit RODRIGO Calculator Estimated Delivery Date Method Current WG Current Estimate 03/03/25 LMP (Certain) 10w 2d Other Estimates 03/08/25 Ultrasound #1 9w 4d Estimated Due Date: 04/03/25 Expected Delivery Route/Plan Labor Preferences- CB/BF classes: [] labor support person: [] labor intervention preferences: [] pain management options preferred: [] cut cord/dad catch: [] : [] PP control planned: [] discussed possible routes of delivery and associated risks: [] special requests: [] Specific Issue/Plans Covid status: [] Flu vaccine: [] Tdap vaccine: [] Rhogam: [] LARC form signed: [] Problem list reviewed and updated with the most current plan of care details and appropriate orders placed. Relevant counseling for the gestational age provided. Continue routine care and follow up unless otherwise noted in visit notes/problem list details Initial Weight: Not Recorded Date -???-???-???-???-?? ?-???-???-???-???-? ??-???-???- EGA Weight BP Urine Prot -???-???-???-???-?? ?-???-???-???-???-? ??-???-???- Glucose FHR FuHt Pres Dilation -???-???-???-???-?? ?-???-???-???-???-? ??-???-???- Effaced St Visit Note 08/07/24 -???-???-???-???-?? ?-???-???-???-???-? ??-???-???- 10w 2d 153 lb 4 oz 134/88 -???-???-???-???-?? ?-???-???-???-???-? ??-???-???- 172 -???-???-???-???-?? ?-???-???-???-???-? ??-???-???- JV- CRL with in 7 days of LMP. desires nipt and carrier Menstrual History Last Menstrual Period: 05/27/24 Reported LMP: definite Normal amount/duration: Yes Frequency in days: 28-34 On hormonal BC at conception: No hCG+: 07/27/24 Antepartum Record Genetic Screening: Congenital Heart Defect: Other, Neural Tube Defect: Other, Hemoglobinopathy Or Carrier: Other, Cystic Fibrosis: Other, Chromosome Abnormality: Other, Jose A-Sachs: Other, Hemophilia: Other, Intellectual Disability/Autism: Other, Recurrent Loss/Stillbirth: Other, Other Structural Defect: Other, Other Genetic Disease: Other and Maternal Metabolic Disorder: Other Infection History: Live with someone with TB or Exposed to TB: No, Patient or Partner (more content not included)... Normal [facility] T4 Free SerPl-mCncon 025 Free T4 [Mass/Vol] 1.0 ng/dL Normal 0.9-1.7 [facility] Comment on above: Order Comment: Speci men Type: BLOOD SPECIMEN Ordering Facility: [facility] Address: [address] [place] [address] Performed By: #### 2 276-4, 2131-9, 6-3 #### [facility] CLIA [id number] [address] [place] [address] [place] TSH SerPl-aCncon 08-07-2024 TSH Qn 1.970 m[IU]/L Normal 0.270-4.200 [facility] Comment on above: Order Comment: Speci men Type: BLOOD SPECIMEN Ordering Facility: [facility] Address: [address] [place] [address] Result Comment: If t he patient is , TSH reference range varies by gestational period: First Trimester (weeks 9-12): 0.180-2.990 mIU/L Second Trimester: 0.110-3.980 mIU/L Third Trimester: 0.480-4.710 mIU/L Juan So et al. A Practical Approach for the Verifications and Determination of Site- and Trimester-Specific Reference Intervals for Thyroid Function tests in . Thyroid, 2019:29:3:412-420. Mike Vasquez, et al. 2017 Guidelines of the [place] Thyroid Association for the Diagnosis and Management of Thyroid Disease during and the . Thyroid, 2017:27:3:315-389. Performed By: #### 2 276-4, 2131-9, 3015-3 #### [facility] CLIA [id number] [address] [place], [place] [id number] [place] Urine cultureOrdered By: Antione Mcdonough on 08-07-2024 Bacteria identified Cx Nom (U) Positive Abnormal [facility] - Chemistry and C hemistry - challengeOrdered By: Ashlee Mcdonough on 08-02-2024 HCG ( test) Ql (U) Positive [facility] Office Visit Reporton 2024 Office Visit Report [facility] [address] [place] [address] OFFICE VISIT Date of Service: 08/02/24 MR#: [id number] Acct: [id number] Patient: ANASTACIA MCKOY Rep #: [id number] : 2000 Provider: Dr. Ashlee saenz MD Age/Sex: 23/F Location: [facility] Status: Signed Intake Vital Signs 08/22/23 10:06 08/02/24 09:06 Height 5 ft 1 in 5 ft 1 in Weight: 140 lb 4 oz 154 lb 4 oz BMI 26.4 29.1 BP 131/94 H 122/78 H Intake Visit Reasons: Pre-new ob, confirm / vitals Chief Complaint: In person PNOB Allergies No Known Allergies Allergy (Verified 08/02/24 08:22) Medications ???Medication ???Instructions ???Recorded ???Confirmed ???Type docosahexaenoic acid 200 mg mg PO 08/02/24 08/02/24 History capsule ( DHA) levothyroxine 50 mcg capsule 50 mcg PO QDAY 08/02/24 08/02/24 H istory Is last menstrual period known: Yes Post menopausal: No Patient : Yes Nurse's Note: Pt here for secondary amenorrhea. Office UPT: positive. Vitals WNL. PNOB questions completed. Problem list, allergies, and medications updated. First trimester ACOG education completed. 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 Orders: Orders POC Urine Today N91.1 - Secondary amenorrhea CBC W/Diff, Automated Today O09.90 - Supervision of high risk , unspecified, unspecified trimester Type Screen Today O09.90 - Supervision of high risk , unspecified, unspecified trimester Rubella IgG Today O09.90 - Supervision of high risk , unspecified, unspecified trimester Hepatitis C Antibody Today O09.90 - Supervision of high risk , unspecified, unspecified trimester Hepatitis B Surface Antigen Today O09.90 - Supervision of high risk , unspecified, unspecified trimester Culture, Urine Today O09.90 - Supervision of high risk , unspecified, unspecified trimester Syphilis Antibodies Today O09.90 - Supervision of high risk , unspecified, unspecified trimester Chlamydia/GC TYREL aptima Today O09.90 - Supervision of high risk , unspecified, unspecified trimester HIV Today O09.90 - Supervision of high risk , unspecified, unspecified trimester PAP I-G w/rfx hrHPV-Aptima Today Z12.4 - Encounter for screening for malignant neoplasm of cervix Thyroid Stim Hormone (TSH) Today E03.9 - Hypothyroidism, unspecified, O09.90 - Supervision of high risk , unspecified, unspecified trimester T4 Free Direct Today E03.9 - Hypothyroidism, unspecified, O09.90 - Supervision of high risk , unspecified, unspecified trimester [facility] Misc. Today E03.9 - Hypothyroidism, unspecified, O09.90 - Supervision of high risk , unspecified, unspecified trimester 08/02/24 1721 Date Ashlee Mcdonough MD [facility] Signature: Date (if applicable) CC: Normal [facility] 25 Free T3 [Mass/Vol] 3.5 pg/mL Normal 2.3-4.1 [facility] Comment on above: Order Comment: Speci men Type: BLOOD SPECIMEN Ordering Facility: [facility] Address: [address] [place], [place] [address] [address] Performed By: #### 2 276-4, 2131-11, 3 #### [facility] CLIA [id number] [address] [place] [address] [place] T4 Free SerPl-mCncon 025 Free T4 [Mass/Vol] 1.4 ng/dL Normal 0.9-1.7 [facility] Comment on above: Order Comment: Marisol aguilar Type: BLOOD SPECIMEN Ordering Facility: [facility] Address: [address] [place] [address] Performed By: #### 2 276-4, 2131-11, 3 #### [facility] CLIA [id number] [address] [place] [address] [place] THYROID PEROXIDASE ANTIBODYo n 05-31-2024 TPO Ab Qn 3.4 [IU]/mL Normal <5.6 [facility] Comment on above: Order Comment: Marisol aguilar Type: BLOOD SPECIMEN Ordering Facility: [facility] Address: [address] [place] [address] Result Comment: Thyr oid Peroxidase Antibody test is used as an aid in diagnosis of autoimmune thyroid disease. Clinical correlation is required. Performed By: #### M ICRO #### [facility] CLIA [id number] [address] [place] [address] [place] TSH SerPl-aCncon 05-31-2024 TSH Qn 4.200 m[IU]/L Normal 0.270-4.200 [facility] Comment on above: Order Comment: Marisol aguilar Type: BLOOD SPECIMEN Ordering Facility: [facility] Address: [address] [place] [address] Result Comment: If t he patient is , TSH reference range varies by gestational period: First Trimester (weeks 9-12): 0.180-2.990 mIU/L Second Trimester: 0.110-3.980 mIU/L Third Trimester: 0.480-4.710 mIU/L Juan So et al. A Practical Approach for the Verifications and Determination of Site- and Trimester-Specific Reference Intervals for Thyroid Function tests in . Thyroid, 2019:29:3:412-420. Mike Vasquez, et al. 2017 Guidelines of the [place] [employer] for the Diagnosis and Management of Thyroid Disease during and the . Thyroid, 2017:27:3:315-389. Performed By: #### 2 276-4, 2131-11, 6-3 #### [facility] CLIA [id number] [address] [place] [address] [place] 25(OH)D3 SerPl-ncon 2024 25-hydroxyvitamin D3 [Mass/Vol] 11.6 ng/mL Low 31.0-80.0 [facility] Comment on above: Order Comment: Speci men Type: BLOOD SPECIMEN Ordering Facility: [facility] Address: [address] [place] [address] Result Comment: Clas sification of 25 OH Vitamin D status: Deficiency/Insufficiency: < or = 30 ng/ml. Sufficiency/Optimal Levels: 31-80 ng/mL Toxicity: > 100 ng/mL. Test performed by chemiluminescent immunoassay. Performed By: #### 1 989-3 #### [facility] CLIA [id number] [address] [place] [address] [place] CBC W Auto Differential pane l (Bld)on 04-26-2024 Basophils (Bld) [#/Vol] 0.05 10*3/uL Normal <0.11 [facility] Comment on above: Order Comment: Speci men Type: BLOOD SPECIMEN Ordering Facility: [facility] Address: [address] [place] [address] Performed By: #### 2 276-4, 2131-11, 3015-3 #### [facility] CLIA [id number] [address] [place] [address] [place] Basophils/100 WBC (Bld) 0.4 % Normal [facility] Comment on above: Order Comment: Speci men Type: BLOOD SPECIMEN Ordering Facility: [facility] Address: [address] [place] [address] Performed By: #### 2 276-4, 2131-11, 3 #### [facility] CLIA [id number] [address] [place] [address] [place] Differential cell count method Nom (Bld) Auto Normal [facility] Comment on above: Order Comment: Speci men Type: BLOOD SPECIMEN Ordering Facility: [facility] Address: [address] [place] [address] Performed By: #### 2 276-4, 2131-11, 3 #### [facility] CLIA [id number] [address] [place] [address] [place] Eosinophils (Bld) [#/Vol] 0.42 10*3/uL Normal <0.46 [facility] Comment on above: Order Comment: Speci men Type: BLOOD SPECIMEN Ordering Facility: [facility] Address: [address] [place] [address] Performed By: #### 2 276-4, 2131-11, 3 #### [facility] CLIA [id number] [address] [place] [address] [place] Eosinophils/100 WBC (Bld) 3.4 % Normal [facility] Comment on above: Order Comment: Speci men Type: BLOOD SPECIMEN Ordering Facility: [facility] Address: [address] [place] [address] Performed By: #### 2 276-4, 2131-11, 3 #### [facility] CLIA [id number] [address] [place] [address] [place] Erythrocyte distribution width (RBC) [Ratio] 12.5 % Normal 11.5-15.0 [facility] Comment on above: Order Comment: Speci men Type: BLOOD SPECIMEN Ordering Facility: [facility] Address: [address] [place] [address] Performed By: #### 2 276-4, 2131-11, 3 #### [facility] CLIA [id number] [address] [place] [address] [place] Hematocrit (Bld) [Volume fraction] 40.2 % Normal 36.0-46.0 [facility] Comment on above: Order Comment: Speci men Type: BLOOD SPECIMEN Ordering Facility: [facility] Address: [address] [place] [address] Performed By: #### 2 276-4, 2131-11, 3015-3 #### [facility] CLIA [id number] [address] [place] [address] [place] Hemoglobin (Bld) [Mass/Vol] 13.5 g/dL Normal 11.5-15.5 [facility] Comment on above: Order Comment: Speci men Type: BLOOD SPECIMEN Ordering Facility: [facility] Address: [address] [place] [address] Performed By: #### 2 276-4, 2131-11, 3 #### [facility] CLIA [id number] [address] [place] [address] [place] Immature granulocytes (Bld) [#/Vol] 0.06 10*3/uL Normal <0.10 [facility] Comment on above: Order Comment: Speci men Type: BLOOD SPECIMEN Ordering Facility: [facility] Address: [address] [place] [address] Performed By: #### 2 276-4, 2131-11, 3 #### [facility] CLIA [id number] [address] [place] [address] [place] Immature granulocytes/100 WBC (Bld) 0.5 % Normal [facility] Comment on above: Order Comment: Speci men Type: BLOOD SPECIMEN Ordering Facility: [facility] Address: [address] [place] [address] Performed By: #### 2 276-4, 2131-11, 3015-3 #### [facility] CLIA [id number] [address] [place] [address] [place] Lymphocytes (Bld) [#/Vol] 4.39 10*3/uL High 1.00-4.0 0 [facility] Comment on above: Order Comment: Speci men Type: BLOOD SPECIMEN Ordering Facility: [facility] Address: [address] [place] [address] Performed By: #### 2 276-4, 2131-11, 3015-3 #### [facility] CLIA [id number] [address] [place] [address] [place] Lymphocytes/100 WBC (Bld) 36.0 % Normal [facility] Comment on above: Order Comment: Speci men Type: BLOOD SPECIMEN Ordering Facility: [facility] Address: [address] [place] [address] Performed By: #### 2 276-4, 2131-11, 3 #### [facility] CLIA [id number] [address] [place] [address] [place] MCH (RBC) [Entitic mass] 30.6 pg Normal 26.0-34.0 [facility] Comment on above: Order Comment: Speci men Type: BLOOD SPECIMEN Ordering Facility: [facility] Address: [address] [place] [address] Performed By: #### 2 276-4, 2131-11, 3 #### [facility] CLIA [id number] [address] [place] [address] [place] MCHC (RBC) [Mass/Vol] 33.6 g/dL Normal 30.5-36.0 [facility] Comment on above: Order Comment: Speci men Type: BLOOD SPECIMEN Ordering Facility: [facility] Address: [address] [place] [address] Performed By: #### 2 276-4, 2131-11, 6-3 #### [facility] CLIA [id number] [address] [place] [address] [place] MCV (RBC) [Entitic vol] 91.2 fL Normal 80.0-100.0 [facility] Comment on above: Order Comment: Speci men Type: BLOOD SPECIMEN Ordering Facility: [facility] Address: [address] [place] [address] Performed By: #### 2 276-4, 9, 6-3 #### [facility] CLIA [id number] [address] [place] [address] [place] Monocytes (Bld) [#/Vol] 1.02 10*3/uL High <0.87 [facility] Comment on above: Order Comment: Speci men Type: BLOOD SPECIMEN Ordering Facility: [facility] Address: [address] [place] [address] Performed By: #### 2 276-4, 2131-11, 3015-3 #### [facility] CLIA [id number] [address] [place] [address] [place] Monocytes/100 WBC (Bld) 8.4 % Normal [facility] Comment on above: Order Comment: Speci men Type: BLOOD SPECIMEN Ordering Facility: [facility] Address: [address] [place] [address] Performed By: #### 2 276-4, 2131-11, 3015-3 #### [facility] CLIA [id number] [address] [place] [address] [place] Neutrophils (Bld) [#/Vol] 6.26 10*3/uL Normal 1.45-7.5 0 [facility] Comment on above: Order Comment: Speci men Type: BLOOD SPECIMEN Ordering Facility: [facility] Address: [address] [place] [address] Performed By: #### 2 276-4, 9, 3015-3 #### [facility] CLIA [id number] [address] [place] [address] [place] Neutrophils/100 WBC (Bld) 51.3 % Normal [facility] Comment on above: Order Comment: Speci men Type: BLOOD SPECIMEN Ordering Facility: [facility] Address: [address] [place] [address] Performed By: #### 2 276-4, 2131-11, 3 #### [facility] CLIA [id number] [address] [place] [address] [place] Nucleated RBC (Bld) [#/Vol] 10*3/uL Normal <0.01 [facility] Comment on above: Order Comment: Speci men Type: BLOOD SPECIMEN Ordering Facility: [facility] Address: [address] [place] [address] Performed By: #### 2 276-4, 2131-11, 3015-05 #### [facility] CLIA [id number] [address] [place] [address] [place] Nucleated RBC/100 WBC (Bld) [Ratio] 0.0 /100 WBC Normal [facility] Comment on above: Order Comment: Speci men Type: BLOOD SPECIMEN Ordering Facility: [facility] Address: [address] [place] [address] Performed By: #### 2 276-4, 2131-11, 3015-05 #### [facility] CLIA [id number] [address] [place] [address] [place] Platelet mean volume (Bld) [Entitic vol] 11.2 fL Normal 9.0-12.7 [facility] Comment on above: Order Comment: Speci men Type: BLOOD SPECIMEN Ordering Facility: [facility] Address: [address] [place] [address] Performed By: #### 2 276-4, 2131-11, 3 #### [facility] CLIA [id number] [address] [place] [address] [place] Platelets (Bld) [#/Vol] 415 10*3/uL High 150-400 [facility] Comment on above: Order Comment: Speci men Type: BLOOD SPECIMEN Ordering Facility: [facility] Address: [address] [place] [address] [place] [address] Performed By: #### 2 276-4, 2131-9, 6-3 #### [facility] CLIA [id number] [address] [place] [address] [place] RBC (Bld) [#/Vol] 4.41 10*6/uL Normal 3.90-5.20 [facility] Comment on above: Order Comment: Speci men Type: BLOOD SPECIMEN Ordering Facility: [facility] Address: [address] [place] [address] Performed By: #### 2 276-4, 2131-11, 6-3 #### [facility] CLIA [id number] [address] [place] [address] [place] WBC (Bld) [#/Vol] 12.20 10*3/uL High 3.70-11.00 [facility] Comment on above: Order Comment: Speci men Type: BLOOD SPECIMEN Ordering Facility: [facility] Address: [address] [place] [address] Performed By: #### 2 276-4, 2131-9, 6-3 #### [facility] CLIA [id number] [address] [place] [address] [place] CNOVon 04-26-2024 CNOV Office Visit ([facility]) ---- ANASTACIA MCKOY ([id number]) 4 F Date Time Provider Department 04/26/24 7:40 AM [facility] your visit today, we recorded the following information about you: Pulse Respiration Blood pressure Weight 95/minute 16/minute 126/78 69.4 kg Height Last Period 1.524 m 04/25/24 Cat Green APRN.CNP 04/26/2024 7:52 AM Signed This is a 23 year old female who presents today with: Patient presents with: Physical: Yearly exam HISTORY OF PRESENT ILLNESS: Anastacia Mckoy is a 23 year old female. Patient presents with: Physical: Yearly exam Wellness Exam Diet: Eating a well balanced diet. Exercise: Stay active at work, walking and gym when able to. Vision: Due for exam, wearing glasses. Dental: Due for exam. Sleep: 8 hours per night. Mood: Denies any increased anxiety, sadness, or SI/HI. Allergies: Taking Claritine 10 mg daily, Flonase prn. Menses: Nexplanon taken out in August, menses usually regular, had a longer menses the past 2 months. Can be very heavy bleeding the first 2 days. Has noticed increased fatigue. Denies palpitations, difficulty sleeping, or cold/heat intolerances. Pap: Due for first pap Vaccines: Denies wanting any vaccines at this time. PAST MEDICAL HISTORY: PAST MEDICAL HISTORY Diagnosis Date Acute bronchiolitis due to respiratory syncytial virus (RSV) resolved. 04/2003 Concussion PAST SURGICAL HISTORY Procedure Laterality Date NONE ALLERGIES Patient has no known allergies. MEDICATIONS Current Outpatient Medications Medication Sig fluticasone (FLONASE) 50 mcg/actuation nasal spray Use 2 Sprays in each nostril once daily. loratadine (CLARITIN) 10 mg tablet Take 1 tablet by mouth once daily. etonogestrel (NEXPLANON) subdermal implant 68 mg 68 mg by SUBDERMAL route. September 2021 diphenhydrAMINE (BENADRYL) 25 mg capsule Take 1 capsule by mouth every 6 hours as needed. LORYNA, 28, 3-0.02 mg per tablet Take 1 tablet by mouth once daily. (Patient not taking: Reported on 05/24/2023) No current facility-administer ed medications for this visit. FAMILY HISTORY Problem Relation Age of Onset Asthma Brother 1/2 brother Social History Tobacco Use Smoking status: Never Smokeless tobacco: Never Tobacco comments: mom outside Vaping Use Vaping status: Some Days Substances: Nicotine Devices: Pre-filled pod Substance Use Topics Alcohol use: Never Drug use: Never REVIEW OF SYSTEMS GENERAL: + Fatigue HEENT: Negative for frequent or significant headaches, No changes in hearing or vision. NECK: Negative for lumps, goiter, pain and significant neck swelling RESPIRATORY: Negative for cough, hemoptysis, wheezing, dyspnea or shortness of breath CARDIOVASCULAR: Negative for chest pain, leg swelling, orthopnea, or palpitations GI: No nausea, vomiting, or diarrhea/constipati on. No hematochezia/melena . No heartburn or reflux symptoms. : No history of dysuria, frequency or incontinence MUSCULOSKELETAL: Negative for joint pain or swelling. SKIN: Negative for lesions, rash, and itching ENDOCRINE: Negative for cold or heat intolerance, polyuria, polydipsia and goiter NEURO: No history of headaches, syncope, paralysis, seizures or tremors MOOD: Negative for depression, anxiety, or suicidal ideation. EXAM: BP 126/78 Pulse 95 Resp 16 Ht 152.4 cm (5') Wt 69.4 kg (153 lb) LMP 04/25/2024 (Exact Date) SpO2 99% BMI 29.88 kg/m? PHYSICAL EXAM: General Appearance: Well appearing, alert, in no acute distress, well-hydrated, well nourished. Skin: Skin color, texture, turgor normal, no suspicious rashes or lesions. Head: Normocephalic, no masses, lesions, tenderness or abnormalities. Eyes: Anicteric sclera. Pupils are equally round and reactive to light. Extraocular movements are intact. Ears: External ears normal, canals clear. TMs pearly gonzáles. Neck: Supple, no adenopathy; thyroid symmetric, normal size, no bruits. Lungs: Lungs clear to auscultation. No wheezing, rhonchi, rales. Heart: RRR without murmur, gallop, or rubs. No ectopy. Abdomen: Abdomen soft, non-tender. Bowel sounds normal. No masses, organomegaly. Extremities: No deformities, edema, skin discoloration, clubbing or cyanosis. Good capillary refill. Musculoskeletal: No joint swelling, deformity, or tenderness. Peripheral Pulses: Normal, Capillary refill <2secs, strong peripheral pulses, Pulses palpable. Neurologic: Gait normal. Reflexes normal and symmetric. Sensation grossly intact.. Mood: Pleasant, engaged, good eye contact. ASSESSMENT/PLAN: 1. Wellness examination - ICD9: V70.0, ICD10: Z00.00 (primary diagnosis) - Counseled on healthy diet and regular exercise - Discussed need and benefit for weight loss. BMI 29.88 kg/(m2) - Discussed safe sex practices and avoidance of STIs - Follow up for annual exam in one year - Due for pap thi (more content not included)... Normal [facility] Comprehensive metabolic 2000 panelon 04-26-2024 Albumin [Mass/Vol] 4.6 g/dL Normal 3.9-4.9 [facility] Comment on above: Order Comment: Speci men Type: BLOOD SPECIMEN Ordering Facility: [facility] Address: [address] [place] [address] Performed By: #### 5 0190-8, 99494-7, 7, 21898-4 #### [facility] CLIA [id number] [address] [place] [address] [place] ALP [Catalytic activity/Vol] 86 U/L Normal 34-123 [facility] Comment on above: Order Comment: Speci men Type: BLOOD SPECIMEN Ordering Facility: [facility] Address: [address] [place] [address] Performed By: #### 5 0190-8, 36059-6, 7, 22015-7 #### [facility] CLIA [id number] [address] [place] [address] [place] ALT [Catalytic activity/Vol] 16 U/L Normal 7-38 [facility] Comment on above: Order Comment: Speci men Type: BLOOD SPECIMEN Ordering Facility: [facility] Address: [address] [place] [address] Performed By: #### 5 0190-8, 08609-3, 3023-09, 37712-8 #### [facility] CLIA [id number] [address] [place] [address] [place] Anion gap [Moles/Vol] 12 mmol/L Normal 8-15 [facility] Comment on above: Order Comment: Speci men Type: BLOOD SPECIMEN Ordering Facility: [facility] Address: [address] [place] [address] Performed By: #### 5 0190-8, 30663-3, 7, 35584-2 #### [facility] CLIA [id number] [address] [place] [address] [place] AST [Catalytic activity/Vol] 19 U/L Normal 13-35 [facility] Comment on above: Order Comment: Speci men Type: BLOOD SPECIMEN Ordering Facility: [facility] Address: [address] [place] [address] Performed By: #### 5 0190-8, 54643-2, 7, 75315-7 #### [facility] CLIA [id number] [address] [place] [address] [place] Bilirubin [Mass/Vol] 0.2 mg/dL Normal 0.2-1.3 [facility] Comment on above: Order Comment: Speci men Type: BLOOD SPECIMEN Ordering Facility: [facility] Address: [address] [place] [address] Performed By: #### 5 0190-8, 76195-3, 3023-09, 22025-1 #### [facility] CLIA [id number] [address] [place] [address] [place] Calcium [Mass/Vol] 9.6 mg/dL Normal 8.5-10.2 [facility] Comment on above: Order Comment: Speci men Type: BLOOD SPECIMEN Ordering Facility: [facility] Address: [address] [place] [address] Performed By: #### 5 0190-8, 84799-7, 3023-09, 99700-2 #### [facility] CLIA [id number] [address] [place] [address] [place] Chloride [Moles/Vol] 101 mmol/L Normal 98-107 [facility] Comment on above: Order Comment: Speci men Type: BLOOD SPECIMEN Ordering Facility: [facility] Address: [address] [place] [address] Performed By: #### 5 0190-8, 97388-8, 7, 07051-9 #### [facility] CLIA [id number] [address] [place] [address] [place] CO2 [Moles/Vol] 25 mmol/L Normal 22-30 [facility] Comment on above: Order Comment: Speci men Type: BLOOD SPECIMEN Ordering Facility: [facility] Address: [address] [place] [address] Performed By: #### 5 0190-8, 62791-8, 7, 09802-8 #### [facility] CLIA [id number] [address] [place] [address] [place] Creatinine [Mass/Vol] 0.79 mg/dL Normal 0.58-0.96 [facility] Comment on above: Order Comment: Speci men Type: BLOOD SPECIMEN Ordering Facility: [facility] Address: [address] [place] [address] Performed By: #### 5 0190-8, 59347-4, 3023-09, 55662-1 #### [facility] CLIA [id number] [address] [address] [place] Creatinine and Glomerular filtration rate.predicted panel (S/P/Bld) 109 mL/min/1.73m??? Normal >=60 [facility] Comment on above: Order Comment: Speci men Type: BLOOD SPECIMEN Ordering Facility: [facility] Address: [address] [place] [address] Result Comment: Anny mated Glomerular Filtration Rate (eGFR) is calculated using the 2020 CKD-EPI creatinine equation. This equation utilizes serum creatinine, sex, and age as parameters. The creatinine assay has traceable calibration to isotope dilution-mass spectrometry. Refer to KDIGO guidelines for clinical interpretation. In patients with unstable renal function, e.g. those with acute kidney injury, the eGFR may not accurately reflect actual GFR. Performed By: #### 5 0190-8, 29397-5, 3023-09, #### [facility] CLIA [id number] [address] [address] [place] Glucose [Mass/Vol] 94 mg/dL Normal 74-99 [facility] Comment on above: Order Comment: Speci men Type: BLOOD SPECIMEN Ordering Facility: [facility] Address: [address] [place] [address] Result Comment: The [place] [employer] (ADA) provides guidance for cutoff values for fasting glucose and random glucose. The ADA defines fasting as no caloric intake for at least 8 hours. Fasting plasma glucose results between 100 to 125 mg/dL indicate increased risk for diabetes (prediabetes). Fasting plasma glucose results greater than or equal to 126 mg/dL meet the criteria for diagnosis of diabetes. In the absence of unequivocal hyperglycemia, results should be confirmed by repeat testing. In a patient with classic symptoms of hyperglycemia or hyperglycemic crisis, random plasma glucose results greater than or equal to 200 mg/dL meet the criteria for diagnosis of diabetes. Reference: Standards of Medical Care in Diabetes 2016, [place] Diabetes Association. Diabetes Care. 2016.39(Suppl 1). Performed By: #### 5 0190-8, 93331-0, 3023-09, #### [facility] CLIA [id number] [address] [place] [address] [place] Potassium [Moles/Vol] 4.2 mmol/L Normal 3.7-5.1 [facility] Comment on above: Order Comment: Speci men Type: BLOOD SPECIMEN Ordering Facility: [facility] Address: [address] [place] [address] Performed By: #### 5 0190-8, 45714-5, 3023-09, #### [facility] CLIA [id number] [address] [place] [address] [place] Protein [Mass/Vol] 7.5 g/dL Normal 6.3-8.0 [facility] Comment on above: Order Comment: Speci men Type: BLOOD SPECIMEN Ordering Facility: [facility] Address: [address] [place] [address] Performed By: #### 5 0190-8, 53445-6, 3024-7, 40938-4 #### [facility] CLIA [id number] [address] [place] [address] [place] Sodium [Moles/Vol] 138 mmol/L Normal 136-144 [facility] Comment on above: Order Comment: Speci men Type: BLOOD SPECIMEN Ordering Facility: [facility] Address: [address] [place] [address] Performed By: #### 5 0190-8, 40549-4, 3024-7, 65525-1 #### [facility] CLIA [id number] [address] [place] [address] [place] Urea nitrogen [Mass/Vol] 11 mg/dL Normal 7-21 [facility] Comment on above: Order Comment: Speci men Type: BLOOD SPECIMEN Ordering Facility: [facility] Address: [address] [place] [address] Performed By: #### 5 0190-8, 78969-6, 3024-7, 96522-7 #### [facility] CLIA [id number] [address] [place] [address] [place] Ferritin SerPl-mCncon 2024 Ferritin [Mass/Vol] 70.5 ng/mL Normal 14.7-205.1 [facility] Comment on above: Order Comment: Speci men Type: BLOOD SPECIMEN Ordering Facility: [facility] Address: [address] [place] [address] Performed By: #### 2 276-4, 2132-9, 3016-3 #### [facility] CLIA [id number] [address] [place] [address] [place] Iron and Iron binding capaci ty panelon 04-26-2024 Iron [Mass/Vol] 74 ug/dL Normal 41-186 [facility] Comment on above: Order Comment: Speci men Type: BLOOD SPECIMEN Ordering Facility: [facility] Address: [address] [place] [address] Performed By: #### 5 0190-8, 98356-1, 3023-09, #### [facility] CLIA [id number] [address] [place] [address] [place] Iron binding capacity [Mass/Vol] 300 ug/dL Normal 232-386 [facility] Comment on above: Order Comment: Speci men Type: BLOOD SPECIMEN Ordering Facility: [facility] Address: [address] [place] [address] Performed By: #### 5 0190-8, 75974-1, 3023-09, #### [facility] CLIA [id number] [address] [place] [address] [place] Iron/TIBC [Molar ratio] 24.7 % Normal 15.0-57.0 [facility] Comment on above: Order Comment: Speci men Type: BLOOD SPECIMEN Ordering Facility: [facility] Address: [address] [place] [address] Performed By: #### 5 0190-8, 40228-9, 3023-09, #### [facility] CLIA [id number] [address] [place] [address] [place] Lipid 1996 panelon 5 Cholesterol [Mass/Vol] 134 mg/dL Normal <200 [facility] Comment on above: Order Comment: Speci men Type: BLOOD SPECIMEN Ordering Facility: [facility] Address: [address] [place] [address] Result Comment: <200 mg/dL, Desirable 200-239 mg/dL, Borderline high >239 mg/dL, High Performed By: #### 5 0190-8, 36946-5, 3023-09, #### [facility] CLIA [id number] [address] [place] [address] [place] Cholesterol in HDL [Mass/Vol] 47 mg/dL Normal >39 [facility] Comment on above: Order Comment: Marisol aguilar Type: BLOOD SPECIMEN Ordering Facility: [facility] Address: [address] [place] [address] Result Comment: 40-5 9 mg/dL, Acceptable >59 mg/dL, High: Negative risk factor for coronary heart disease <40 mg/dL, Low: Positive risk factor for coronary heart disease Performed By: #### 5 0190-8, 95228-6, 3024-7, 39298-9 #### [facility] CLIA [id number] [address] [place] [address] [place] Cholesterol in LDL [Mass/Vol] 63 mg/dL Normal <100 [facility] Comment on above: Order Comment: Marisol aguilar Type: BLOOD SPECIMEN Ordering Facility: [facility] Address: [address] [place] [address] Result Comment: <100 mg/dL, Optimal 100-129 mg/dL, Near optimal/above optimal 130-159 mg/dL, Borderline high 160-189 mg/dL, High >189 mg/dL, Very high Secondary prevention optimal LDL Cholesterol levels are recommended to be < 70 mg/dL Performed By: #### 5 0190-8, 09419-7, 3024-7, 47728-4 #### [facility] CLIA [id number] [address] [place] [address] [place] Cholesterol in LDL/Cholesterol in HDL [Mass ratio] 1.34 {ratio} Normal <2.54 [facility] Comment on above: Order Comment: Marisol aguilar Type: BLOOD SPECIMEN Ordering Facility: [facility] Address: [address] [place] [address] Result Comment: Crista king: 1. National Cholesterol Education Program ATP III Guideline At-A-Glance Quick Desk Reference: National Heart, Lung, and Blood [place]. National Institutes of Health. 2001: NIH Publication No. 01-3305. 2. An International Atherosclerosis Society position paper: global recommendations for the management of dyslipidemia: executive summary, Atherosclerosis. 2014: 232(2):410-413. Cut Points from the Lipid Research [facility]'s Prevalence Study for ages 20 to 24 years can be located in the following reference: Expert Panel on Integrated Guidelines for Cardiovascular Health and Risk Reduction in Children and Adolescents: National Heart, Lung and Blood [place]. Pediatrics. 2011:128(Suppl 5):U392-849. Performed By: #### 5 0190-8, 36722-7, 3023-7, 79311-3 #### [facility] CLIA [id number] [address] [place] [address] [place] Cholesterol in VLDL [Mass/Vol] 24 mg/dL Normal <30 [facility] Comment on above: Order Comment: Marisol aguilar Type: BLOOD SPECIMEN Ordering Facility: [facility] Address: [address] [place] [address] Performed By: #### 5 0190-8, 30552-2, 3023-09, #### [facility] CLIA [id number] [address] [place] [address] [place] Cholesterol non HDL [Mass/Vol] 87 mg/dL Normal <130 [facility] Comment on above: Order Comment: Marisol aguilar Type: BLOOD SPECIMEN Ordering Facility: [facility] Address: [address] [place] [address] Result Comment: <130 mg/dL, Optimal 130-159 mg/dL, Near optimal/above optimal 160-189 mg/dL, Borderline high 190-219 mg/dL, High >219 mg/dL, Very high Secondary prevention optimal non HDL Cholesterol levels are recommended to be <100 mg/dL Performed By: #### 5 0190-8, 67584-9, 3023-7, 39764-5 #### [facility] CLIA [id number] [address] [place] [address] [place] Cholesterol.total/Cholest srikanth in HDL [Mass ratio] 2.85 {ratio} Normal <5.10 [facility] Comment on above: Order Comment: Marisol aguilar Type: BLOOD SPECIMEN Ordering Facility: [facility] Address: [address] [place] [address] Performed By: #### 5 0190-8, 24429-5, 3023-09, #### [facility] CLIA [id number] [address] [place] [address] [place] FASTING TIME 12 hrs Normal [facility] Comment on above: Order Comment: Speci men Type: BLOOD SPECIMEN Ordering Facility: [facility] Address: [address] [place] [address] Performed By: #### 5 0190-8, 82437-5, 3023-09, #### [facility] CLIA [id number] [address] [place] [address] [place] Triglyceride [Mass/Vol] 122 mg/dL Normal <150 [facility] Comment on above: Order Comment: Speci men Type: BLOOD SPECIMEN Ordering Facility: [facility] Address: [address] [place] [address] Result Comment: <150 mg/dL, Normal 150-199 mg/dL, Borderline high 200-499 mg/dL, High >499 mg/dL, Very high Performed By: #### 5 0190-8, 47516-6, 3023-09, #### [facility] CLIA [id number] [address] [place] [address] [place] T4 Free SerPl-mCncon 04-26- 025 Free T4 [Mass/Vol] 1.6 ng/dL Normal 0.9-1.7 [facility] Comment on above: Order Comment: Speci men Type: BLOOD SPECIMEN Ordering Facility: [facility] Address: [address] [place] [address] Performed By: #### 5 0190-8, 93927-9, 3023-09, #### [facility] CLIA [id number] [address] [place] [address] [place] TSH SerPl-aCncon 02-07-2025 TSH Qn 5.020 m[IU]/L High 0.270-4.200 [facility] Comment on above: Order Comment: Speci men Type: BLOOD SPECIMEN Ordering Facility: [facility] Address: [address] [place] [address] Result Comment: If t he patient is , TSH reference range varies by gestational period: First Trimester (weeks 9-12): 0.180-2.990 mIU/L Second Trimester: 0.110-3.980 mIU/L Third Trimester: 0.480-4.710 mIU/L Juan So et al. A Practical Approach for the Verifications and Determination of Site- and Trimester-Specific Reference Intervals for Thyroid Function tests in . Thyroid, 2019:29:3:412-420. Mike Vasquez, et al. 2017 Guidelines of the [place] Thyroid Association for the Diagnosis and Management of Thyroid Disease during and the . Thyroid, 2017:27:3:315-389. Performed By: #### 2 276-4, 2131-9, 6-3 #### [facility] CLIA [id number] [address] [address] [place] Vit B12 SerPl-mCncon 025 Cobalamin (Vitamin B12) [Mass/Vol] 692 pg/mL Normal 232-1245 [facility] Comment on above: Order Comment: Speci men Type: BLOOD SPECIMEN Ordering Facility: [facility] Address: [address] [place] [address] Performed By: #### 2 276-4, 213-9, 6-3 #### [facility] CLIA [id number] [address] [place], [place] [id number] [place] CNCOon 09-20-2023 CNCO Letter Text Normal [facility] ALLERGEN SKIN TEST-INHALANT 40on 08-21-2023 INHALANT 40 PERCUTANEOUS & INTRADERMAL TESTING/ Mean Wheal & Flare Diameter (mm) Patient has been identified by name and date of : Yes . Skin test applied by : Corazon Hernandez LPN Interpreted By: Rehana Maloney M.D. * Clinical significant reactions are regarded as a wheal diameter greater than or equal to 3 mm with a flare diameter greater or equal to 6mm. ALLERGENS Negative Control: 50%Glycerin/50%Coca s P: W = 0 mm F = 0 mm Cat Hair 10,000 BAU/ml P: W = 0 mm F = 0 mm Dog Epithelial 1:20 P: W = 0 mm F = 0 mm Cockroach Mix 1:20 P: W = 0 mm F = 0 mm Mite Df 10,000 AU/ml P: W = 7 mm F = 15 mm Mite Dp 10,000AU/ml P: W = 9 mm F = 22 mm Alternaria Alternata 1:20 P: W = 5 mm F = 8 mm Aspergillus Fumigatus 1:20 P: W = 0 mm F = 0 mm Cladosporium sphearospermum 1:20 P: W = 0 mm F = 0 mm Epicoccum Nigrum 1:10 P: W = 0 mm F = 0 mm Fusarium Solani 1:40 P: W = 0 mm F = 0 mm Bipolaris Sorokiniana 1:20 P: W = 0 mm F = 00 mm Penicillium Mix 1:20 P: W = 0 mm F = 0 mm Rashid, White 1:20 P: W = 0 mm F = 0 mm Beech, Beninese 1:20 P: W = 0 mm F = 0 mm Birch Mix 1:20 P: W = 0 mm F = 0 mm Maple Mix 1:20 P: W = 0 mm F = 0 mm [place] ,Eastern 1:20 P: W = 0 mm F = 00 mm Wab[place], Shagbark 1:20 P: W = 8 mm F = 10 mm Ell[place] Tree, Red 1:20 P: W = 0 mm F = 0 mm [place], Red 1:20 P: W = 0 mm F = 0 mm Climax, [place]inese/Eastern 1:20 P: W = 0 mm F = 0 mm [place] Pollen, Black 1:20 P: W = 0 mm F = 0 mm Rosebush, Black 1:20 P: W = 0 mm F = 0 mm Bermuda Grass 10,000 BAU/ml P : W = 0 mm F = 0 mm [place], /Mila 100,000 BAU/ml P: W = 0 mm F = 0 mm Fescue, Arcadia 100,000 BAU/ml P: W = 0 mm F = 00 mm Serafin Grass 1:20 P: W = 0 mm F = 0 mm Orchard Grass 100,000 BAU/ml P: W = 0 mm F = 0 mm Perennial [place], 100,000 BAU/ml P: W = 0 mm F = 0 mm Stephan 100,000 BAU/ml P: W = 0 mm F = 0 mm Cocklebur 1:20 P: W = 0 mm F = 00 mm [place], sheep 1:20 P: W = 0 mm F = 0 mm Plantain, Montenegrin 1:20 P: W = 0 mm F = 0 mm Lambs Quarters 1:20 P: W = 0 mm F = 0 mm Paz Elder, Burweed 1:20 P: W = 0 mm F = 0 mm Mugwort, Common 1:20 P: W = 0 mm F = 0 mm Pigweed, Rough 1:20 P: W = 0 mm F = 0 mm Ragweed, Mix 1:20 P: W = 0 mm F = 0 mm HISTAMINE, positive control(Histamine base 6mg/ml) P: W = 4 mm F = 15 mm INTRADERMAL MIXES Negative Control - HSA ID: W = 4 mm F= 3 mm Cat Hair 100 BAU/ml ID: W = 11 mm F= 25 mm Dog Epithelia 1:250 ID: W = 11 mm F= 8 mm Cladosporium Sphaerospermum 1:250 ID: W = 3 mm F= 0 mm Grasses Mix, K-O-T 1000 BAU/ml ID: W = 3 mm F= 3 mm Special Grass Mix 1000 BAU/ml ID: W = 3 mm F= 0 mm Ragweed Mix, 1:500 ID: W = 6 mm F= 6 mm Special [place] Mix 1:500 ID: W = 3 mm F= 5 mm HISTAMINE - (Histamine base 0.1 mg/ml) ID: W =4 mm F= 15 mm [facility] ALLERGEN SKIN TEST-OTHER INH Linda 08-21-2023 OTHER ANIMALS PERCUTANEOUS SKIN TESTING Mean Wheal & Flare Diameter (mm) Patient has been identified by name and date of : Yes . Skin test applied by : Corazon Hernandez LPN Interpreted By: Rehana LaCava, M.D. * Clinical significant reactions are regarded as a wheal diameter greater than or equal to 3 mm with a flare diameter greater or equal to 6mm. ALLERGENS NEGATIVE CONTROL - 50%GLYCERIN/50% COCAS E: W = 0 mm F = 0 mm GOAT EPITHELIA 1:20 P: W = 0 mm F = 0 mm HORSE EPITHELIA 1:20 P: W = 0 mm F = 0 mm MOUSE EPITHELIA 1:20 P: W = 4 mm F = 10 mm RABBIT EPITHELIA 1:20 P: W = 0 mm F = 0 mm RAT EPITHELIA 1:20 P: W = 8 mm F = 15 mm HISTAMINE, Positive Control (Histamine Base 6mg/ml) P: W = 4 mm F = 15 mm [facility] CNOVon 08-21-2023 CNOV Office Visit (ALLMED) ---- ANASTACIA MCKOY ([id number]) 4 F Date Time Provider Department 08/21/23 10:00 AM REHANA MALONEY During your visit today, we recorded the following information about you: Pulse Respiration Blood pressure Weight 83/minute 18/minute 117/74 64 kg Rehana Maloney MD 08/21/2023 1:38 PM Signed [facility] ALLERGY AND IMMUNOLOGY CONSULT Patient Name: Anastacia Mckoy PRIMARY CARE PHYSICIAN: Mildred Tomas MD REASON FOR CONSULT: allergy evaluation REQUESTING PHYSICIAN: Billy Steel APRN.IT AUDITOR My final recommendations will be communicated to the requesting health care provider by way of the shared medical record for internal providers or letter via the [employer] for external providers. CHIEF COMPLAINT: No chief complaint on file. HISTORY OF PRESENT ILLNESS: Anastacia Mckoy is a 22 year old female who presents with allergy evaluation: # Rhinitis Onset: Since childhood. Symptoms: red/watery eyes, rhinorrhea, nasal congestion, sneezing Recurrent infections: Augmentin for Sinusitis in 05/2023. Does not have hx of recurrent sinusitis. Sense of smell: Preserved. Seasonality/Pattern : Perennial. Worse during the spring. 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 Used to get flares of hives on forearms when handling lab animal (ie, rabbits, mice, and rats). Cats. No overt sxs near her dog. Thinking about purchasing rabbits, horses, dogs, goats. Meds: Claritin/Zyrtec as needed. Helpful. OTC nasal spray in past. Doesn't recall name. Past testing/IT (effective?): Never. Oral allergy syndrome(?): Denies. # Hx of eczema: Hands, popliteal fossa, and webs of the toes. Dry, red, flaky patches. Flares during the summer time. Flares with moisture. Moisturizes with Dove sensitive skin lotion. HC alleviates flares. Uses all nonscented soaps/detergents. # Hymenoptera LLR reaction: Large local reaction to bee sting 3 years ago. Stung on the foot. Entire foot and ankle were swollen. Denies hx of systemic reaction. Hx of asthma: Denies. Hx of GERD: Denies. 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 Interested in getting BSN afterwards. 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 Recent episode of hives on left forearm while working with a rat. Mild flaring of sxs at home near cat and dog. - Referral to allergy for testing - C/w manish-ELIAZAR. Start OTC Flonase. PAST MEDICAL HISTORY Diagnosis Date Acute bronchiolitis due to respiratory syncytial virus (RSV) resolved. 04/2003 Concussion There is no problem list on file for this patient. PAST SURGICAL HISTORY Procedure Laterality Date NONE FAMILY HISTORY Problem Relation Age of Onset Asthma Brother 1/2 brother Allergic rhinitis:no. Asthma: 1/2 brother. Eczema: no. Cystic fibrosis: no. Immunodeficiency: no. Social History Tobacco Use Smoking status: Never Smokeless tobacco: Never Tobacco comments: mom outside Vaping Use Vaping Use: Never used Substance Use Topics Alcohol use: Never Drug use: Never ALLERGIES: ALLERGIES No Known Allergies CURRENT OUTPATIENT MEDICATIONS: etonogestrel (NEXPLANON) subdermal implant 68 mg 68 mg by SUBDERMAL route. September 2021 diphenhydrAMINE (BENADRYL) 25 mg capsule Take 1 capsule by mouth every 6 hours as needed. LORYNA, 28, 3-0.02 mg per tablet Take 1 tablet by mouth once daily. (Patient not taking: Reported on 05/24/2023) REVIEW OF SYSTEMS: Review of Systems: The remainder of the review of systems is negative. PHYSICAL EXAM: BP 117/74 Pulse 83 Resp 18 Wt 141 lb 1.5 oz (64.0kg) SpO2 99% LMP 11/29/2022 General appearance: Well appearing, alert, in no acute distress, well-hydrated, well nourished. HENT: External ears normal, canals clear, TM's normal Eyes: no scleral icterus, PERRLA, EOMS, no conjunctivitis Nose/Sinuses: Nares normal. Septum midline. Mucosal edema. Clear rhinorrhea. Oropharynx: Lips, mucosa, and tongue normal, teeth and gums normal, oropharynx clear Respiratory: Lungs clear to auscultation. No wheezing, rhonchi, rales Cardiovascular: RRR without murmur, gallop, or rubs. No ectopy Gastroenterology: Normal appearing abdomen on inspection Musculoskeletal: No joint pain, muscle weakness, or impaired gait Integumentary: Negative for lesions, rash, and itching. DATA: Allergy Skin Testing 08/21/23 Sensitized to cat, dog, mouse, rat, dust mite, mold, trees, and ragweed. Assessment/Recommen dations: 1. Allergic rhinitis due to animal dander 2. Allergic rhinitis due to dust mite 3. Seasona (more content not included)... Normal [facility] No Panel Informationon 08-20 [facility] Vital Signs Date Time Vital Sign Value Performing Clinician Facility 12-30-2024 14:58-0400 Body height 154.[address] Stephan Ngo MD Work Phone: [facility] 12-30-2024 14:58-0400 Body mass index (BMI) [Ratio] 31.7 kg/m2 Dr. Stephan Ngo MD Work Phone: 6(995)231-732793 [place] [id number] 12-30-2024 14:58-0400 Body weight 76.[address] Stephan Ngo MD Work Phone: 3(211)172-165393 [place] [id number] 12-30-2024 14:58-0400 Diastolic blood pressure 82 mm[Hg] Dr. Stephan Ngo MD Work Phone: 9(663)848-123393 [place] [id number] 12-30-2024 14:58-0400 Systolic blood pressure 125 mm[Hg] Dr. Stephan Ngo MD Work Phone: 4(598)156-178493 [place] [address] 12-02-2024 15:21-0400 Body height 154.[address] Stephan Ngo MD Work Phone: 8(291)241-393393 [place] [address] 12-02-2024 15:21-0400 Body mass index (BMI) [Ratio] 30.9 kg/m2 Dr. Stephan Ngo MD Work Phone: 4(123)233-314193 [place] [id number] 12-02-2024 15:21-0400 Body weight 74.[address] Stephan Ngo MD Work Phone: 0(181)615-650193 [place] [address] 12-02-2024 15:21-0400 Diastolic blood pressure 86 mm[Hg] Dr. Stephan Ngo MD Work Phone: 8(293)165-258293 [place] [id number] 12-02-2024 15:21-0400 Systolic blood pressure 122 mm[Hg] Dr. Stephan Ngo MD Work Phone: 2(846)824-668993 [place] [address] 11-06-2024 15:49-0400 Body height 154.[address] Stephan Ngo MD Work Phone: 5(916)791-628593 [place] [address] 11-06-2024 15:48-0400 Body mass index (BMI) [Ratio] 30.2 kg/m2 Dr. Stephan Ngo MD Work Phone: 6(736)754-896993 [place] [id number] 11-06-2024 15:48-0400 Body weight 72.[address] Stephan Ngo MD Work Phone: 6(948)798-941893 [place] [address] 11-06-2024 15:48-0400 Diastolic blood pressure 74 mm[Hg] Dr. Stephan Ngo MD Work Phone: 5(017)880-778193 [place] [address] 11-06-2024 15:48-0400 Systolic blood pressure 110 mm[Hg] Dr. Stephan Ngo MD Work Phone: 7(364)561-346593 [place] [address] 10-08-2024 15:36-0400 Body height 154.[address] Stephan Ngo MD Work Phone: 2(488)936-098193 [place] [address] 10-08-2024 15:36-0400 Body mass index (BMI) [Ratio] 29.7 kg/m2 Dr. Stephan Ngo MD Work Phone: 1(158)368-664893 [place] [address] 10-08-2024 15:36-0400 Body weight 71.[address] Stephan Ngo MD Work Phone: 8(582)544-208293 [place] [address] 10-08-2024 15:36-0400 Diastolic blood pressure 79 mm[Hg] Dr. Setphan Ngo MD Work Phone: 3(868)160-174493 [place] [address] 10-08-2024 15:36-0400 Systolic blood pressure 117 mm[Hg] Dr. Stephan Ngo MD Work Phone: 6(755)169-419893 [place] [address] 09-09-2024 08:40-0400 Body height 154.[address] Stephan Ngo MD Work Phone: 2(578)402-564393 [place] [address] 09-09-2024 08:28-0400 Body mass index (BMI) [Ratio] 28.6 kg/m2 Dr. Stephan Ngo MD Work Phone: 6(464)651-938493 [place] [address] 09-09-2024 08:28-0400 Body weight 68.[address] Stephan Ngo MD Work Phone: 4(740)724-126293 [place] [address] 09-09-2024 08:28-0400 Diastolic blood pressure 74 mm[Hg] Dr. Stephan Ngo MD Work Phone: 6(834)484-794893 [place] [address] 09-09-2024 08:28-0400 Systolic blood pressure 118 mm[Hg] Dr. Stephan Ngo MD Work Phone: 9(870)847-031493 [place] [id number] 08-07-2024 10:30-0400 Body height 154.[address] Stephan Ngo MD Work Phone: 8(481)662-418593 [place] [address] 08-07-2024 10:30-0400 Body mass index (BMI) [Ratio] 28.9 kg/m2 Dr. Stephan Ngo MD Work Phone: 6(476)926-837693 [place] [address] 08-07-2024 10:30-0400 Body weight 69.[address] Stephan Ngo MD Work Phone: 2(561)182-044893 [place] [address] 08-07-2024 10:30-0400 Diastolic blood pressure 88 mm[Hg] Dr. Stephan Ngo MD Work Phone: 8(553)494-573293 [place] [address] 08-07-2024 10:30-0400 Systolic blood pressure 134 mm[Hg] Dr. Stephan Ngo MD Work Phone: 2(134)494-519293 [place] [address] 08-02-2024 09:06-0400 Body mass index (BMI) [Ratio] 29.1 kg/m2 Dr. Stephan Ngo MD Work Phone: 8(070)463-858893 [place] [address] 08-02-2024 09:06-0400 Body weight 69.[address] Stephan Ngo MD Work Phone: 9(522)363-863893 [place] [address] 08-02-2024 09:06-0400 Diastolic blood pressure 78 mm[Hg] Dr. Stephan Ngo MD Work Phone: 3(731)640-161893 [place] [address] 08-02-2024 09:06-0400 Systolic blood pressure 122 mm[Hg] Dr. Stephan Ngo MD Work Phone: [phone] [place] [address] 04-26-2024 07:28-0500 Body height 152.4 cm Cat Green FOOD ANALYST.IT AUDITOR Work Phone: [phone] [place] [address] 04-26-2024 07:28-0500 Body mass index (BMI) [Ratio] 29.88 kg/m2 Cat Green FOOD ANALYST.IT AUDITOR Work Phone: [facility] 04-26-2024 07:28-0500 Body weight 69.4 kg Cat Green FOOD ANALYST.IT AUDITOR Work Phone: [facility] 04-26-2024 07:28-0500 Diastolic blood pressure 78 mm[Hg] Cat Tannhof FOOD ANALYST.IT AUDITOR Work Phone: [facility] 04-26-2024 07:28-0500 Heart rate 95 /min Cat Tannhof FOOD ANALYST.IT AUDITOR Work Phone: [facility] 04-26-2024 07:28-0500 Respiratory rate 16 /min Cat Skaggshof FOOD ANALYST.IT AUDITOR Work Phone: [facility] 04-26-2024 07:28-0500 SaO2% (BldA) [Mass fraction] 99 % Cat Skaggshof FOOD ANALYST.IT AUDITOR Work Phone: [facility] 04-26-2024 07:28-0500 Systolic blood pressure 126 mm[Hg] Cat Skaggshof FOOD ANALYST.IT AUDITOR Work Phone: [facility] 08-21-2023 10:01-0400 Body mass index (BMI) [Ratio] 27.56 kg/m2 Rehana Maloney MD Work Phone: [facility] 08-21-2023 10:01-0400 Body weight 64 kg Rehana Maloney MD Work Phone: [facility] 08-21-2023 10:01-0400 Diastolic blood pressure 74 mm[Hg] Rehana Maloney MD Work Phone: [facility] 08-21-2023 10:01-0400 Heart rate 83 /min Rehana Maloney MD Work Phone: [facility] 08-21-2023 10:01-0400 Respiratory rate 18 /min Rehana Maloney MD Work Phone: [facility] 08-21-2023 10:01-0400 SaO2% (BldA) [Mass fraction] 99 % Rehana Maloney MD Work Phone: [facility] 08-21-2023 10:01-0400 Systolic blood pressure 117 mm[Hg] Rehana Maloney MD Work Phone: [facility] 06-26-2023 06:56-0400 Body weight 60.51 kg Billy Milvia FOOD ANALYST.IT AUDITOR Work Phone: [facility] 06-26-2023 06:56-0400 Diastolic blood pressure 76 mm[Hg] Billy Milvia FOOD ANALYST.IT AUDITOR Work Phone: [facility] 06-26-2023 06:56-0400 Heart rate 101 /min Billy Milvia FOOD ANALYST.IT AUDITOR Work Phone: [facility] 06-26-2023 06:56-0400 Respiratory rate 16 /min Billy Milvia FOOD ANALYST.IT AUDITOR Work Phone: [facility] 06-26-2023 06:56-0400 SaO2% (BldA) [Mass fraction] 98 % Billy Mivlia FOOD ANALYST.IT AUDITOR Work Phone: [facility] 06-26-2023 06:56-0400 Systolic blood pressure 113 mm[Hg] Billy Milvia FOOD ANALYST.IT AUDITOR Work Phone: [facility] 05-24-2023 09:18-0500 Body temperature 98.71 [degF] Nadja Dickson FOOD ANALYST.IT AUDITOR Work Phone: [facility] 05-24-2023 09:18-0500 Body weight 60.69 kg Nadja Dickson FOOD ANALYST.IT AUDITOR Work Phone: [facility] 05-24-2023 09:18-0500 Diastolic blood pressure 82 mm[Hg] Nadja Dickson FOOD ANALYST.IT AUDITOR Work Phone: [facility] 05-24-2023 09:18-0500 Heart rate 100 /min Nadja Dickson FOOD ANALYST.IT AUDITOR Work Phone: [facility] 05-24-2023 09:18-0500 Respiratory rate 18 /min Nadja Dickson FOOD ANALYST.IT AUDITOR Work Phone: [facility] 05-24-2023 09:18-0500 SaO2% (BldA) [Mass fraction] 98 % Nadja Dickson FOOD ANALYST.IT AUDITOR Work Phone: [facility] 05-24-2023 09:18-0500 Systolic blood pressure 128 mm[Hg] Nadja Dickson FOOD ANALYST.IT AUDITOR Work Phone: [facility] 01-23-2023 10:15-0500 Body height 152.4 cm Cat Tannhof FOOD ANALYST.IT AUDITOR Work Phone: [facility] 01-23-2023 10:15-0500 Body weight 64.41 kg Cat Tannhof FOOD ANALYST.IT AUDITOR Work Phone: [facility] 01-23-2023 10:15-0500 Diastolic blood pressure 80 mm[Hg] Cat Tannhof FOOD ANALYST.IT AUDITOR Work Phone: [facility] 01-23-2023 10:15-0500 Heart rate 76 /min Cat Tannhof FOOD ANALYST.IT AUDITOR Work Phone: [facility] 01-23-2023 10:15-0500 Respiratory rate 16 /min Cat Tannhof FOOD ANALYST.IT AUDITOR Work Phone: [facility] 01-23-2023 10:15-0500 Systolic blood pressure 122 mm[Hg] Cat Tannhof FOOD ANALYST.IT AUDITOR Work Phone: [facility] Encounters Encounter Date Encounter Type Care Provider Facility Start: 02-03-2025 ambulatory Mkai Naidu Facility:[facility] Start: 01-29-2025 End: 01-29-2025 ambulatory Ashlee Mcdonough Facility:[facility] Start: 01-14-2025 End: 01-14-2025 ambulatory Dorie Curry NP Facility:[facility] Start: 12-30-2024 End: 12-30-2024 Patient encounter procedure Maki Marcelo CNM -[facility] Work Phone: Start: 12-30-2024 End: 12-30-[address] Stephan Ngo MD Work Phone: -[facility] Start: 12-02-2024 End: 12-02-[address] Ashlee Mcdonough MD -[facility] Work Phone: Start: 12-02-2024 End: 12-02-[address] Stephan Ngo MD Work Phone: [facility] Start: 12-02-2024 End: 12-02-2024 ambulatory Natalie Trimble Facility:[facility] Start: 11-06-2024 End: 11-06-[address] Natalie Trimble DO -[facility] Work Phone: Start: 11-06-2024 End: 11-06-[address] Stephan Ngo MD Work Phone: [facility] Start: 10-16-2024 End: 10-16-[address] Stephan Ngo MD Work Phone: -[facility] Start: 10-16-2024 End: 10-16-[address] Ashlee Mcdonough MD -[facility] Work Phone: Start: 10-16-2024 End: 10-16-2024 ambulatory Ashlee Mcdonough Facility:[facility] Start: 10-08-2024 End: 10-08-[address] Stephan Ngo MD Work Phone: [facility] Start: 10-08-2024 End: 10-08-[address] Ashlee Mcdonough MD -[facility] Work Phone: Start: 09-09-2024 End: 09-09-2024 Patient encounter procedure Dorie DUENAS -[facility] Work Phone: Start: 09-09-2024 End: 09-09-[address] Stephan Ngo MD Work Phone: [facility] Work Phone: Start: 09-03-2024 End: 09-03-2024 Emergency department patient visit PATIENT UNSURE PHYSICIAN Facility:[facility] Start: 08-21-2024 End: 08-21-[address] Stephan Ngo MD Work Phone: [facility] Work Phone: Start: 08-21-2024 End: 08-21-[address] Natalie Trimble DO -[facility] Start: 08-21-2024 End: 08-21-2024 ambulatory Natalie Trimble Facility:[facility] Start: 08-13-2024 End: 08-13-2024 Telephone encounter Billy Steel APRN.IT AUDITOR Work Phone: [facility] Comment on above: Results Start: 08-11-2024 End: 08-11-2024 Patient encounter procedure Yannick Chowdhury MD Work Phone: Endocrinology Start: 08-08-2024 End: 08-13-2024 Follow-up encounter Billy Steel APRN.IT AUDITOR Work Phone: [facility] Comment on above: Results Start: 08-07-2024 End: 08-07-[address] Stephan Ngo MD Work Phone: [facility] Work Phone: Start: 08-07-2024 End: 08-07-[address] Ashlee Mcdonough MD -Laboratory Specimen Work Phone: Start: 08-07-2024 End: 08-07-[address] Natalie Trimble DO [facility] Work Phone: Start: 08-07-2024 End: 08-07-[address] Stephan Ngo MD Work Phone: [facility] Work Phone: Start: 08-07-2024 End: 08-07-2024 ambulatory Ashlee Mcdonough Facility:[facility] Start: 08-02-2024 End: 08-02-[address] Ashlee Mcdonough MD -[facility] Work Phone: Start: 08-02-2024 End: 08-02-[address] Stephan Ngo MD Work Phone: [facility] Work Phone: Start: 06-03-2024 End: 06-03-2024 Follow-up encounter Cat Green APRN.CNP Work Phone: [facility] Comment on above: Results Start: 05-31-2024 End: 05-31-2024 ambulatory MILDRED Chacorta [facility] Facility:[facility] Start: 04-29-2024 End: 05-01-2024 Follow-up encounter Cat Green APRN.CNP Work Phone: [facility] Comment on above: Hypothyroidism, acqu ired (Primary Dx); Vitamin D deficiency Start: 04-26-2024 End: 04-26-2024 Office outpatient visit 40 minutes Cat Green APRN.CNP Work Phone[facility] Comment on above: Wellness examination (Primary Dx); Fatigue, unspecified type; Chronic rhinitis; Screening for depression; Encounter for screening examination for other mental health and behavioral disorders; Screening cholesterol level Start: 04-26-2024 End: 04-26-2024 Patient encounter status Cat Green APRN.CNP Work Phone: [facility] Work Phone: Start: 04-26-2024 End: 04-26-2024 ambulatory CAT GREEN Facility:[facility] Start: 04-26-2024 Encounter for genera l adult medical examination without abnormal findings CAT GREEN [facility] Start: 02-24-2024 End: 02-24-2024 Emergency department patient visit IVÁN SAUNDERS DO Facility:[facility] Start: 08-21-2023 End: 08-21-2023 ambulatory BILLY STEEL Facility:[facility] Start: 08-21-2023 End: 08-21-2023 Patient encounter procedure Rehana Maloney MD Work Phone: Allergy Comment on above: Allergic rhinitis du e to animal dander (Primary Dx); Allergic rhinitis due to dust mite; Seasonal allergic rhinitis due to pollen; Allergic rhinitis due to mold; Allergic conjunctivitis of both eyes; Eczema, unspecified type Start: 06-26-2023 End: 06-26-2023 Office outpatient visit 15 minutes Billy Steel APRN.CNP Work Phone: [facility] Comment on above: Hives (Primary Dx); Chronic rhinitis; Change in eating habits Start: 05-24-2023 End: 05-24-2023 Patient encounter procedure Nadja Dickson FOOD ANALYST.LISA Work Phone: [facility] Comment on above: Rhinosinusitis (Prim deshawn Dx) Start: 01-25-2023 Telephone encounter Cat sellers APRN.CNP Work Phone: [facility] Comment on above: Results (TB ) Start: 01-23-2023 End: 01-23-2023 Patient encounter procedure Cat Green APRN.CNP Work Phone: [facility] Comment on above: Wellness examination (Primary Dx); Screening-pulmonary TB; Encounter for immunization Start: 01-23-2023 End: 01-23-2023 Patient encounter status Cat Green APRN.CNP Work Phone: [facility] Work Phone: Start: 07-26-2021 End: 07-26-2021 Patient encounter procedure Nurse [facility] Comment on above: Encounter for immuni zation (Primary Dx) Start: 07-05-2021 End: 07-05-2021 Patient encounter procedure [facility] Comment on above: Encounter for immuni zation (Primary Dx) Procedures Date Procedure Procedure Detail Performing Clinician Start: 12-02-2024 Serologic test for syphilis Dr. Stephan Ngo MD Work Phone: Start: 10-16-2024 Ultrasonography in f irst trimester Dr. Stephan Ngo MD Work Phone: Start: 08-21-2024 End: 08-21-[address] Stephan Ngo MD Work Phone: Comment on above: Test Ordered: [id number] TSH Receptor Antibody (TBII)TSH Receptor Antibody (TBII) <0.4 U/L ES Reference Range: .Reference Range:Antibody Titer:<1.0 U/L = Negative1.1 - 1.5 U/L = Equivocal>1.5 U/L = PositivePerformed at: [facility] - [facility] [id number] [place], [place] [id number] Director: Curt Mcdonald MD, Phone: [phone] at: - [facility] [id number] [place], [place] [id number] Director: Irving Lockwood PhD, Phone: [phone] Start: 08-21-2024 Hepatitis C antibody measurement Dr. Stephan Ngo MD Work Phone: Comment on above: Reactive: Presumptiv e evidence of antibodies to HCV. Follow CDC recommendations for supplemental testing.Non-Reactive: Antibodies to HCV were not detected; does not exclude the possibility of exposure to HCVReactive Results are presumptive evidence of antibodies to HCV. Follow CDC recommendations for supplemental testing.Order confirmation testing: HCV Quant by PCR testing - HCVPCR [id number] Non Reactive: < 0.8 Equivocal: >/= 0.8 to < 1.0 Reactive: >/= 1.0The CDC requires that a reactive/equivocal HCV antibody result be sent out for confirmation. HCV Quant by PCR testing. Start: 08-21-[address] Stephan Ngo MD Work Phone: Comment on above: Antibody Result: Int erpretationNon-Reactive: Non- ImmuneReactive: ImmuneThe following results were obtained with the [employer] Rubella IgG assay. Results from assays of other manufacturers cannot be used interchangeably. Start: 08-21-2024 Serologic test for syphilis Dr. Stephan Ngo MD Work Phone: Start: 08-07-2024 Liquid based cervica l cytology screening Dr. Stephan Ngo MD Work Phone: Comment on above: NEGATIVE FOR INTRAEP ITHELIAL LESION OR MALIGNANCY. This liquid based Th inPrep(R) pap test was screened withthe use of an image guided system. The HPV DNA reflex c riteria were not met with this specimenresult therefore, no HPV testing was performed.Performed at: [address] [id number] Director: Raina Juarez MD, Phone: [phone] Start: 08-07-[address] Holland Ngo MD Work Phone: Start: 04-26-2024 Adult depression scr eening assessment Cat Green FOOD ANALYST.IT AUDITOR Work Phone: Start: 08-21-2023 ALLERGEN SKIN TEST-I NHALENT 40 Rehana Maloney MD Work Phone: Start: 08-21-2023 ALLERGEN SKIN TEST-O THER INHAL Rehana Maloney MD Work Phone: Start: 01-23-2023 INFLUENZA VACCINE, A GE 6 MO - 64 YR, QUADRIVALENT (AFLURIA, FLULAVAL, FLUZONE) Cat Green FOOD ANALYST.IT AUDITOR Work Phone: Start: 07-26-2021 PFIZER-BIONTECH COVI D-19 VACCINE, AGE 12+ YR (MADRIGAL TOP) Samuel Brown MD Work Phone: Start: 07-05-2021 PFIZER-BIONTECH COVI D-19 VACCINE, AGE 12+ YR (MADRIGAL TOP) Vince Rojas MD Work Phone: Start: 05-22-2020 Adult depression scr eening assessment Nurse [facility] Plan of Treatment Date Care Activity Detail Author Start: 08-18-2025 Urine microalbumin profile [facility] Start: 04-26-2025 Anxiety Screening Anxiety Screening [facility] Start: 04-26-2025 Depression Screening Depression Scre [facility] Start: 04-26-2025 Hepatitis C screening Hepatitis C [facility] Comment on above: Postponed from 11/05 (Declined at this time) Start: 04-26-2025 HIV screening HIV Screening [facility] Comment on above: Postponed from 11/05 (Declined at this time) Start: 12-02-2024 CBC W Auto Different ial panel - Blood [facility] Start: 12-02-2024 Measurement of gluco se 2 hours after glucose challenge for glucose tolerance test [facility] Start: 12-02-2024 Serologic test for syphilis [facility] Start: 12-02-2024 [facility] Start: 09-13-2024 End: 12-13-2024 25-hydroxyvitamin D3 [Mass/volume] in Serum or Plasma VITAMIN D 25 HYDROXY Lab Routine Vitamin D deficiency Expected: 09/13/2024 (Approximate), Expires: 12/13/2024 [facility] Work Phone: Comment on above: Expected: 09/13/2024 (Approximate), Expires: 12/13/2024 Start: 08-21-2024 Procedure [facility] Start: 08-07-2024 Liquid based cervica l cytology screening [facility] Start: 08-06-2024 GC (Gonorrhea) Scree luna (18-24) GC (Gonorrhea) Screening (18-24) [facility] Start: 08-06-2024 Screening for Chlamy deana trachomatis Chlamydia Screening (18) [facility] Start: 07-29-2024 End: 10-28-2024 Thyrotropin [Units/volume] in Serum or Plasma THYROID STIMULATING HORMONE Lab Routine Hypothyroidism, acquired Expected: 07/29/2024, Expires: 10/28/2024 [facility] Work Phone: Comment on above: Expected: 07/29/2024 , Expires: 10/28/2024 Start: 07-29-2024 End: 10-28-2024 Thyroxine (T4) free [Mass/volume] in Serum or Plasma T4 FREE/FREE THYROXINE Lab Routine Hypothyroidism, acquired Expected: 07/29/2024, Expires: 10/28/2024 [facility] Comment on above: Expected: 07/29/2024 , Expires: 10/28/2024 Start: 07-27-2024 End: 10-26-2024 25-hydroxyvitamin D3 [Mass/volume] in Serum or Plasma VITAMIN D 25 HYDROXY Lab Routine Vitamin D deficiency Expected: 07/27/2024, Expires: 10/26/2024 [facility] Comment on above: Expected: 07/27/2024 , Expires: 10/26/2024 Start: 07-27-2024 End: 07-27-2024 ambulatory 07/27/2024 7:30 AM EDT Results Only [facility] [address] [place] [address] [facility] Start: 05-31-2024 End: 05-31-2024 ambulatory 05/31/2024 7:15 AM EDT Results Only [facility] [address] [place] [address] [facility] Start: 05-27-2024 End: 08-26-2024 THYROID PEROXIDASE ANTIBODY THYROID PEROXIDASE ANTIBODY Lab Routine Hypothyroidism, acquired Expected: 05/27/2024, Expires: 08/26/2024 [facility] Comment on above: Expected: 05/27/2024 , Expires: 08/26/2024 Start: 05-27-2024 End: 08-26-2024 Thyrotropin [Units/volume] in Serum or Plasma THYROID STIMULATING HORMONE Lab Routine Hypothyroidism, acquired Expected: 05/27/2024, Expires: 08/26/2024 [facility] Work Phone: Comment on above: Expected: 05/27/2024 , Expires: 08/26/2024 Start: 05-27-2024 End: 08-26-2024 Thyroxine (T4) free [Mass/volume] in Serum or Plasma T4 FREE/FREE THYROXINE Lab Routine Hypothyroidism, acquired Expected: 05/27/2024, Expires: 08/26/2024 [facility] Comment on above: Expected: 05/27/2024 , Expires: 08/26/2024 Start: 05-27-2024 End: 08-26-2024 Triiodothyronine (T3) Free [Mass/volume] in Serum or Plasma T3, FREE Lab Routine Hypothyroidism, acquired Expected: 05/27/2024, Expires: 08/26/2024 [facility] Comment on above: Expected: 05/27/2024 , Expires: 08/26/2024 Start: 04-26-2024 End: 07-26-2024 25-hydroxyvitamin D3 [Mass/volume] in Serum or Plasma [facility] Comment on above: Expected: 04/26/2024 , Expires: 07/26/2024 Start: 04-26-2024 End: 07-26-2024 CBC W Auto Differential panel - Blood [facility] Work Phone: Comment on above: Expected: 04/26/2024 , Expires: 07/26/2024 Start: 04-26-2024 End: 07-26-2024 Cobalamin (Vitamin B12) [Mass/volume] in Serum or Plasma [facility] Comment on above: Expected: 04/26/2024 , Expires: 07/26/2024 Start: 04-26-2024 End: 07-26-2024 Comprehensive metabolic 2000 panel - Serum or Plasma [facility] Comment on above: Expected: 04/26/2024 , Expires: 07/26/2024 Start: 04-26-2024 End: 07-26-2024 Ferritin [Mass/volume] in Serum or Plasma [facility] Comment on above: Expected: 04/26/2024 , Expires: 07/26/2024 Start: 04-26-2024 End: 07-26-2024 Iron and Iron binding capacity panel - Serum or Plasma [facility] Comment on above: Expected: 04/26/2024 , Expires: 07/26/2024 Start: 04-26-2024 End: 07-26-2024 Lipid 1996 panel - Serum or Plasma [facility] Comment on above: Expected: 04/26/2024 , Expires: 07/26/2024 Start: 04-26-2024 End: 07-26-2024 Thyrotropin [Units/volume] in Serum or Plasma [facility] Comment on above: Expected: 04/26/2024 , Expires: 07/26/2024 Start: 04-26-2024 End: 07-26-2024 Thyroxine (T4) free [Mass/volume] in Serum or Plasma [facility] Comment on above: Expected: 04/26/2024 , Expires: 07/26/2024 Start: 01-24-2024 Covid-19 Vaccine () Covid-19 Vaccine () [facility] Comment on above: Postponed from 11/18 (Declined at this time) Start: 01-24-2024 Hepatitis C Screening Hepatitis C [facility] Comment on above: Postponed from 11/05 (Declined at this time) Start: 01-24-2024 [facility] Comment on above: Postponed from 11/05 (Declined at this time) Start: 01-24-2024 HIV Screening HIV Screening [facility] Comment on above: Postponed from 11/05 (Declined at this time) Start: 01-24-2024 HIV screening HIV Screening [facility] Comment on above: Postponed from 11/05 (Declined at this time) Start: 11-27-2023 End: 11-27-2023 Patient encounter procedure 11/27/2023 9:30 AM EDT Office Visit Allergy [address] [address] Rehana Maloney MD [address] [place] [address] 3 month follow up Allergy Comment on above: 3 month follow up Start: 11-06-2023 Screening for malign ant neoplasm of cervix Cervical Cancer Screening [facility] Start: 03-20-2023 Behavioral Health Screening Behavioral Health Screening [facility] Start: 03-20-2023 Depression Assessment Depression Ass essment [facility] Start: 01-23-2023 End: 04-24-2023 BLOOD TB SCREEN [facility] Work Phone: Comment on above: Expected: 01/23/2023 , Expires: 04/24/2023 Start: 12-26-2021 COVID-19 VACCINE (3 - Booster for Pfizer series) COVID-19 VACCINE (3 - Booster for Pfizer series) [facility] Start: 11-18-2021 Influenza vaccination INFLUENZ A (Season Ended) [facility] Start: 07-26-2021 COVID-19 VACCINE (2 - Pfizer 3-dose series) COVID-19 VACCINE (2 - Pfizer 3-dose series) [facility] Start: 05-22-2021 Adult depression scr eening assessment DEPRESSION SCREENING [facility] Start: 2020 CHLAMYDIA SCREENING (18-24) CHLAMYDIA SCREENING (18-24) [facility] Start: 2020 GC (GONORRHEA) SCREE LUNA (18-24) GC (GONORRHEA) SCREENING () [facility] Start: 2020 HEPATITIS C SCREENING HEPATITIS C SC REENING [facility] Start: 2020 HIV SCREENING HIV SCREENING [facility] Start: 2020 Screening for Chlamy deana trachomatis Chlamydia Screening () [facility] Start: 2018 Meningococcal B Vacc ine (1 of 2 - Standard) Meningococcal B Vaccine (1 of 2 - Standard) [facility] Start: 2018 Meningococcal B Vacc ine: Consider Based On Risk (1 of 2 - Patient Seeks Protection) Meningococcal B Vaccine: Consider Based On Risk (1 of 2 - Patient Seeks Protection) [facility] Start: 2016 PEDS TO ADULT TRANSI TION ANNUAL ASSESSMENT PEDS TO ADULT TRANSITION ANNUAL ASSESSMENT [facility] Start: 2014 PEDS TO ADULT TRANSI TION INITIAL DISCUSSION PEDS TO ADULT TRANSITION INITIAL DISCUSSION [facility] Start: 2012 MENINGOCOCCAL B: Con reed fixer based on risk (1 of 2 - Risk Bexsero 2-dose series) MENINGOCOCCAL B: Consider based on risk (1 of 2 - Risk Bexsero 2-dose series) [facility] CBC W Auto Different ial panel - Blood [facility] CBC W Auto Different ial panel - Blood [facility] Chlamydia deoxyribon ucleic acid detection [facility] Erythrocyte mean corpuscular volume determination [facility] Hematocrit [Volume Fraction] of Blood [facility] Hemoglobin [Mass/vol ume] in Blood [facility] Hepatitis C antibody measurement [facility] Leukocytes [#/volume ] in Blood [facility] Liquid based cervica l cytology screening [facility] Mean corpuscular hemoglobin concentration determination [facility] Mean corpuscular hemoglobin determination [facility] Measurement of gluco se 2 hours after glucose challenge for glucose tolerance test [facility] Neutrophil count [facility] Neutrophil percent differential count [facility] Path report.final Dx Spec [facility] Platelets [#/volume] in Blood [facility] Procedure [facility] Red blood cell count [facility] Red cell distributio n width determination [facility] Rubella IgG measurement [facility] Serologic test for syphilis [facility] Serologic test for syphilis [facility] T4 free measurement [facility] Thyroid stimulating hormone measurement [facility] Ultrasonography in f irst trimester [facility] Immunizations Immunization Date Immunization Notes Care Provider Joshua ortiz 12-30-2024 tetanus toxoid, redu selena diphtheria toxoid, and acellular pertussis vaccine, adsorbed Dr. Stephan Ngo MD Work Phone: [facility] 01-23-2023 influenza, injectabl e, quadrivalent, contains preservative Cat Green APRN.CNP Work Phone: [facility] 07-26-2021 COVID-19 vaccine, ag e 12+ yr (PFIZER-BIONTECH - MADRIGAL TOP) Nurse [facility] Work Phone: 07-05-2021 COVID-19 vaccine, ag e 12+ yr (PFIZER-BIONTECH - MADRIGAL TOP) Nurse [facility] Work Phone: 04-16-2019 influenza, injectabl e, quadrivalent, preservative free Nurse [facility] 04-16-2019 meningococcal polysaccharide (groups A, C, Y and W-135) diphtheria toxoid conjugate vaccine (MCV4P) Nurse [facility] 04-05-2018 influenza, injectabl e, quadrivalent, contains preservative Nurse [facility] 11-23-2016 Human Papillomavirus 9-valent vaccine Nurse [facility] Work Phone: 11-23-2016 influenza, injectabl e, quadrivalent, contains preservative Nurse [facility] Work Phone: 08-19-2015 Human Papillomavirus 9-valent vaccine Nurse [facility] Work Phone: 08-19-2015 meningococcal polysaccharide (groups A, C, Y and W-135) diphtheria toxoid conjugate vaccine (MCV4P) Nurse [facility] Work Phone: 08-19-2015 tetanus toxoid, redu selena diphtheria toxoid, and acellular pertussis vaccine, adsorbed Nurse [facility] Work Phone: 08-19-2015 varicella virus vaccine Nurse [facility] Work Phone: 07-04-2008 diphtheria, tetanus toxoids and acellular pertussis vaccine Nurse [facility] Work Phone: 07-04-2008 measles, mumps and rubella virus vaccine Nurse [facility] Work Phone: 07-04-2008 poliovirus vaccine, inactivated Nurse [facility] Work Phone: 01-29-2007 hepatitis A vaccine, unspecified formulation Nurse [facility] Work Phone: 05-10-2004 diphtheria, tetanus toxoids and acellular pertussis vaccine Nurse [facility] Work Phone: 05-10-2004 haemophilus influenz ae type b vaccine, HbOC conjugate Nurse [facility] Work Phone: 05-10-2004 pneumococcal conjuga te vaccine, [address] [facility] Work Phone: 12-19-2003 influenza virus vacc ine, unspecified formulation Nurse [facility] Work Phone: 11-11-2003 measles, mumps and rubella virus vaccine Nurse [facility] Work Phone: 11-11-2003 varicella virus vaccine Nurse [facility] Work Phone: 08-06-2003 diphtheria, tetanus toxoids and acellular pertussis vaccine Nurse [facility] Work Phone: 08-06-2003 haemophilus influenz ae type b vaccine, HbOC conjugate Nurse [facility] Work Phone: 08-06-2003 hepatitis B vaccine, pediatric or pediatric/adolescent dosage Nurse [facility] Work Phone: 08-06-2003 poliovirus vaccine, inactivated Nurse [facility] Work Phone: 03-10-2003 diphtheria, tetanus toxoids and acellular pertussis vaccine Nurse [facility] Work Phone: 03-10-2003 haemophilus influenz ae type b vaccine, HbOC conjugate Nurse [facility] Work Phone: 03-10-2003 pneumococcal conjuga te vaccine, [address] [facility] Work Phone: 03-10-2003 poliovirus vaccine, inactivated Nurse [facility] Work Phone: 01-08-2003 diphtheria, tetanus toxoids and acellular pertussis vaccine Nurse [facility] Work Phone: 01-08-2003 haemophilus influenz ae type b vaccine, HbOC conjugate Nurse [facility] Work Phone: 01-08-2003 pneumococcal conjuga te vaccine, 7 valent [facility] Work Phone: 01-08-2003 poliovirus vaccine, inactivated Nurse [facility] Work Phone: 2002 hepatitis B vaccine, pediatric or pediatric/adolescent dosage [facility] Work Phone: 2002 hepatitis B vaccine, pediatric or pediatric/adolescent dosage Nurse [facility] Work Phone: Payers Date Payer Category Payer Self-pay 2023 [employer] BLUE CARD PPO OOS [id number] 2023 Unknown [employer] BLUE CARD PPO OOS [id number] 2023-Present [phone] [address] [place] [address] PPO [id number] 2023 Unknown [id number] 2022 Private Health Insurance NONA [place] OAP [id number] 2022-Present [phone] [address] [place] [address] Open Access [id number] 2018 Unknown [employer] BLUE CARD PPO OOS [id number] 2018-Present [phone] [address] [place] [address] PPO [id number] 2002 Unknown [id number]. 2.627 2002 Unknown [id number] 2.16.840.1.868936.3.579. 2.627 Unknown [id number] 2.16.840.1.574008.3.579. 2.462 Unknown [id number] [id number]. 2.462 Unknown [id number] 2.16.840.1.578852.3.579. 2.462 Unknown [id number] 2.16.840.1.164030.3.579. 2.462 Unknown [id number] 2.16.840.1.875927.3.579. 2.462 Unknown [id number] 2.16.840.1.939623.3.579. 2.462 Unknown [id number] 2.16.840.1.631349.3.579. 2.462 Unknown [id number] 2.16840.1.629021.3.579. 2.462 Unknown [id number] 2.16.840.1.173511.3.579. 2.462 Unknown [id number] 2.16.840.1.899888.3.579. 2.462 Unknown [id number] 2.16.840.1.638607.3.579. 2.462 Unknown [id number] 2.16840.1.878093.3.579. 2.462 Unknown [id number] 2.16840.1.508345.3.579. 2.462 Unknown [id number] [id number]. 2.462 Social History Date Type Detail Facility Start: 05-22-2020 End: 01-23-2023 Tobacco smoking status NHIS Never smoked tobacco [facility] Start: 05-22-2020 End: 01-23-2023 Tobacco use and exposure Smokeless tobacco non-user [facility] Start: 10-26-2020 Alcohol intake Not Asked [facility] Start: 08-19-2015 End: 01-23-2023 Tobacco Comment mom outside [facility] Start: 2002 Sex Assigned At Not on file [facility] Start: 06-21-2021 End: 07-01-2021 Exposure to SARS-CoV-2 (event) Not sure [facility] Start: 01-23-2023 End: 04-26-2024 Alcohol intake Lifetime non-drinker (finding) [facility] Start: 01-23-2023 End: 01-04-2024 History of Social function [facility] Work Phone: Start: 01-23-2023 End: 01-04-2024 Tobacco use panel [facility] Work Phone: Adult Depression Screening Assessment 0 [facility] Work Phone: Has the [employer], or [employer] threatened to shut off services in your home in past 12Mo No [facility] Are you now , , , , never or living with a partner? Living with partner [facility] How often to you hav e a drink containing alcohol? 2-4 times a month [facility] How many standard drinks containing alcohol do you have on a typical day? 1 or 2 [facility] How often do you hav e 6 or more drinks on 1 occasion? Never [facility] Do you feel stress - tense, restless, nervous, or anxious, or unable to sleep at night because your mind is troubled all the time - these days [OSQ] Not at all [facility] (I/We) worried [facility] (my/our) food would run out before (I/we) got money to buy more. Never true [facility] Start: 08-02-2024 Tobacco smoking stat us NHIS Current some day smoker [facility] Start: 2000 Sex Assigned At Female W [facility] Clinical Notes 01-23-2023 to 12-30-2024 Note Date & Type Note Facility 12-30-2024 Progress note [facility] 12-30-2024 Progress note Note Date/Time December 30, 2024 3:14pm [facility] [address], [address] [place] [address] OFFICE VISIT Date of Service: 12/30/24 MR#: [id number] Acct: [id number] Name: ANASTACIA MCKOY Rep #: [id number] : 2000 Provider: HANNAH Marcelo Age/Sex: 24/F Location: [facility] Status: Signed Intake Vital Signs 11/06/24 15:49 12/02/24 15:21 12/30/24 14:58 Height 5 ft 1 in 5 ft 1 in 5 ft 1 in Weight: 164 lb 1 oz 168 lb 2 oz BMI 30.9 31.7 BP 122/86 H 125/82 H Intake Visit Reasons: 30wk ob Chief Complaint: 30wk OB 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 Required: No Is patient in pain?: No Allergies No Known Allergies Allergy (Verified 12/30/24 14:57) Medications ?Medication ?Instructions ?Recorded ?Confirmed ?Type docosahexaenoic acid 200 mg mg PO 08/02/24 12/30/24 Hi story capsule ( DHA) levothyroxine 50 mcg capsule 50 mcg PO QDAY 08/02/24 1 History ondansetron 4 mg disintegrating 4 mg PO Q4H PRN nausea and 09/09/24 12/30/24 Rx tablet vomiting #60 tabs Last Menstrual Period: 05/27/24 : No Have you fallen in the past year?: No PFSH PFSH Medical History Seasonal allergies Asthma Family History Uncle Cancer Stomach, Prostate & Brain Father CVA (cerebral vascular accident) Sister PCOS (polycystic ovarian syndrome) Endometriosis Fibroid Aunt Myocardial infarction Uncle Myocardial infarction Social History adopted: No household members: significant other housing: house current occupational status: employed 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) current occupational exposures/hazards: No pets and animals: Yes pets and animals: dog(s) history of recent travel: No sexually active: Yes Smoking Status: Current some day smoker tobacco type: e-cigarettes second hand exposure: No quit status: considering quitting alcohol intake: current alcohol intake frequency: holidays/special occasions only details: Not while substance use type: does not use well-balanced diet: daily or most days caffeine: Yes eating out: rarely or never during the past year weight has: increased > 10 lbs what type of physical activity do you participate in: none page/yarsanism: None seatbelt use: always do you feel safe at home: Yes additional social history: Boyfriend: Mateo Tong - [employer] History 1 Elective abortions 0 Hx Para 0 Spontaneous abortions 0 Hx # Term Pregnancies Ectopic pregnancies Hx # Pregnancies Multiple births # of living children HPI 30wk ob Details: ANASTACIA MCKOY is a 24 year old who presents for routine OB visit. OB Visit RODRIGO Calculator Estimated Delivery Date Method Current WG Current Estimate 03/03/25 LMP (Certain) 31w 0d Other Estimates 03/08/25 Ultrasound #1 30w 2d Expected Delivery Route/Plan Labor Preferences- CB/BF classes: [] labor support person: [] labor intervention preferences: [] pain management options preferred: [] cut cord/dad catch: [] : [] PP control planned: [] discussed possible routes of delivery and associated risks: [] special requests: [] Specific Issue/Plans Covid status: [] Flu vaccine: [] Tdap vaccine: [] Rhogam: [] LARC form signed: [] Problem list reviewed and updated with the most current plan of care details and appropriate orders placed. Relevant counseling for the gestational age provided. Continue routine care and follow up unless otherwise noted in visit notes/problem list details Initial Weight: Not Recorded Date -?-?-?-?-?-?-?-?-?-?-?-?- EGA Weight BP Urine Prot -?-?-?-?-?-?-?-?-?-?-?-?- Glucose FHR FuHt Pres Dilation -?-?-?-?-?-?-?-?-?-?-?-?- Effaced St Visit Note 08/07/24 -?-?-?-?-?-?-?-?-?-?-?-?- 10w 2d 153 lb 4 oz 134/88 -?-?-?-?-?-?-?-?-?-?-?-?- 172 -?-?-?-?-?-?-?-?-?-?-?-?- JV- CRL within 7 days of LMP. desires nipt and carrier 09/09/24 -?-?-?-?-?-?-?-?-?-?-?-?- 15w 0d 151 lb 8 oz 118/74 Nega tive -?-?-?-?-?-?-?-?-?-?-?-?- Negative 153 -?-?-?-?-?-?-?-?-?-?-?-?- MH-No VB. Nausea persists. Katerin sent. 10/08/24 -?-?-?-?-?-?-?-?-?-?-?-?- 19w 1d 157 lb 4 oz 117/79 Nega tive -?-?-?-?-?-?-?-?-?-?-?-?- Negative 150 -?-?-?-?-?-?-?-?-?-?-?-?- SM- no vb crampi ng nausea improved anatomy us ordered 11/06/24 -?-?-?-?-?--?-?-?-?-?-?-?- 23w 2d 160 lb 5 oz 110/74 Nega tive -?-?-?-?-?-?-?-?-?-?-?-?- Negative -?-?-?-?-?-?-?-?-?-?-?-?- - [facility] anatomy scan done due to late scheduling, but was normal. 12/02/24 -?-?-?-?-?-?-?-?-?-?-?-?- 27w 0d 164 lb 1 oz 122/86 Nega tive -?-?-?-?-?-?-?-?-?-?-?-?- Negative 150 -?-?-?-?-?-?-?-?-?-?-?-?- SM- no vb crmapi ng 12/30/24 -?-?-?-?-?-?-?-?-?-?-?-?- 31w 0d 168 lb 2 oz 125/82 Nega tive -?-?-?-?-?-?-?-?-?-?-?-?- Negative 148 30 -?-?-?-?-?-?-?-?-?-?-?-?- KW-no vb/lof/ctx . good fm. tdap and Larc today. declines flu shot. ACOG First Trimester First Trimester: Desire for , Alcohol, Tobacco Cessation, Illicit/Recreational Drug/Substance Use, Intimate Partner Violence, Barriers to care, Unstable Housing, Communication Barriers, Environmental/Work Hazards, Anticipated Course of Care, Toxoplasmosis Precations, Use of Any medications, Sexual activity, Exercise, Dental Care, Sauna/Hot tub use, Seat Belt use, Childbirth classes/Hospital facilities, Travel, Indications for Ultrasound and Screening for Aneuploidy; Discussed ROS Const Reports system reviewed and no additional complaints, except as documented Eyes Reports system reviewed and no additional complaints, except as documented ENT Reports system reviewed and no additional complaints, except as documented Card Reports system reviewed and no additional complaints, except as documented Resp Reports system reviewed and no additional complaints, except as documented GI Reports system reviewed and no additional complaints, except as documented, Denies nausea and Denies vomiting Reports system reviewed and no additional complaints, except as documented Musc Reports system reviewed and no additional complaints, except as documented Skin/Breast Reports system reviewed and no additional complaints, except as documented Neuro Yes system reviewed and no additional complaints, except as documented Psych Reports system reviewed and no additional complaints, except as documented Endo Reports system reviewed and no additional complaints, except as documented Shahriar/Lymph Reports system reviewed and no additional complaints, except as documented Aller/Immun Reports system reviewed and no additional complaints, except as documented Exam Const General: cooperative, healthy appearing and no acute distress Orientation: alert, awake and oriented x3 Neck Neck: normal visual inspection and full ROM Resp Effort & Inspection: normal respiratory effort, able to speak in complete sentences and symmetric chest movement GI Inspection: normal to inspection Palpation: soft and other Other: gravid Skin General: no rashes or lesions noted Neuro General: patient alert, patient awake and patient oriented x3 Cognition: normal cognition Speech: speech normal Gait: normal gait Motor: muscle tone normal throughout Extrem General: normal to inspection and full ROM Psych Appearance: grossly normal Mental Status: mental status grossly normal Mood: congruent mood Affect: normal affect Speech and Movement: speech and movement normal Attitude: cooperative Thought Process: normal Thought Content: normal Judgment: judgment good Results POC Urinalysis 2 Dip (Clinic) Office Urine Glucose Negative Last Edit by America Francisco on 12/30/24 15:06 Office Urine Protein Negative Last Edit by America Francisco on 12/30/24 15:06 Immunizations Adacel(Tdap Adolesn/Adult)(PF) 2 Lf-(2.5-5-3-5)-5 Lf/0.5 mL IM syringe Performing Provider: Maki Marcelo CNM Performing Location: [facility] Administered by: America Francisco on 12/30/24 15:13 Dose Route Admin Location Dispensed Lot Number Expiration Date Pack age NDC NDC Network Security Administrator 0.5 mL IM Right Deltoid 0.5 mL [id number] 11/16/26 10290-606-12 [id number] [employer]- PASTEUR VIS Given Date VIS Provided VIS Publication Date 12/30/24 Single Vaccine 24 Eligibility Eligibility Date Funding Source Not Applicable Coding Level of Care Code OB Routine Diagnoses Tobacco use affecting , antepartum O99.330 Supervision of high risk in second trimester O09.92 Trimester: second trimester 31 weeks gestation of Z3A.31 Weeks of gestation: 31 weeks Hypothyroidism, unspecified type E03.9 Hypothyroidism type: unspecified 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 Has decreased by at least half. (2) Supervision of high-risk : Status: Acute Qualifiers: Trimester: second trimester Qualified Code(s): O09.92 - Supervision of high risk , unspecified, second trimester Comment: [id number], RODRIGO 03/03/25, BF: Mateo (3) : Status: Acute Qualifiers: Weeks of gestation: 31 weeks Qualified Code(s): Z3A.31 - 31 weeks gestation of Comment: NIPT -low risk, male. Horizon negative, nl anatomy (4) Hypothyroidism: Status: Acute Qualifiers: Hypothyroidism type: unspecified Qualified Code(s): E03.9 - Hypothyroidism, unspecified Comment: dx Apr 2024 (5) PCR DNA positive for HSV1: Status: Acute Comment: cold sores Orders: Orders POC Urinalysis 2 Dip (Clinic) Today Tdap Immunization Today Z23 - Encounter for immunization Plan Details Additional Comments: ACOG trimester education reviewed and updated. see problem list details for updated plan management information and see below for orders placed at this visit. GA appropriate handout given. Clinical Quality Measures Falls Risk Screening/Assistive Devices Have you fallen in the past year?: No 12/30/24 0180 <Electronically signed by Maki lewis CNM> Date _ Maki Marcelo CNM Cosigner Signature: Date (if applicable) CC: ~ [facility] Work Phone: [phone]) 353-348809-15-2025 [facility] [address], [address] [place] [address] OFFICE VISIT Date of Service: 12/02/24 MR#: [id number] Acct: [id number] Name: ANASTACIA MCKOY Rep #: [id number] : 2000 Provider: Dr. Geo Mcdonough MD Age/Sex: 24/F Location: [facility] Status: Signed Intake Vital Signs 10/08/24 15:36 11/06/24 15:49 12/02/24 15:21 Height 5 ft 1 in 5 ft 1 in 5 ft 1 in Weight: 164 lb 1 oz BMI 30.9 BP 122/86 H Intake Visit Reasons: 26 wk ob/glucose 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 Required: No Is patient in pain?: No Allergies No Known Allergies Allergy (Verified 12/02/24 15:20) Medications ?Medication ?Instructions ?Recorded ?Confirmed ?Type docosahexaenoic acid 200 mg mg PO 08/02/24 12/02/24 Hi story capsule ( DHA) levothyroxine 50 mcg capsule 50 mcg PO QDAY 08/02/24 0 12/02/24 History ondansetron 4 mg disintegrating 4 mg PO Q4H PRN nausea and 09/09/24 12/02/24 Rx tablet vomiting #60 tabs Last Menstrual Period: 05/27/24 Zika: Zika virus screening: Negative : No PFSH PFSH Medical History Seasonal allergies Asthma Family History Uncle Cancer Stomach, Prostate & Brain Father CVA (cerebral vascular accident) Sister PCOS (polycystic ovarian syndrome) Endometriosis Fibroid Aunt Myocardial infarction Uncle Myocardial infarction Social History adopted: No household members: significant other housing: house current occupational status: employed 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) current occupational exposures/hazards: No pets and animals: Yes pets and animals: dog(s) history of recent travel: No sexually active: Yes Smoking Status: Current some day smoker tobacco type: e-cigarettes second hand exposure: No quit status: considering quitting alcohol intake: current alcohol intake frequency: holidays/special occasions only details: Not while substance use type: does not use well-balanced diet: daily or most days caffeine: Yes eating out: rarely or never during the past year weight has: increased > 10 lbs what type of physical activity do you participate in: none page/yarsanism: None seatbelt use: always do you feel safe at home: Yes additional social history: Boyfriend: Mateo Tong - [employer] at [employer] History 1 Elective abortions 0 Hx Para 0 Spontaneous abortions 0 Hx # Term Pregnancies Ectopic pregnancies Hx # Pregnancies Multiple births # of living children HPI 26 wk ob/glucose Details: ANASTACIA MCKOY is a 24 year old who presents for routine OB visit. OB Visit RODRIGO Calculator Estimated Delivery Date Method Current WG Current Estimate 03/03/25 LMP (Certain) 27w 0d Other Estimates 03/08/25 Ultrasound #1 26w 2d Expected Delivery Route/Plan Labor Preferences- CB/BF classes: [] labor support person: [] labor intervention preferences: [] pain management options preferred: [] cut cord/dad catch: [] : [] PP control planned: [] discussed possible routes of delivery and associated risks: [] special requests: [] Specific Issue/Plans Covid status: [] Flu vaccine: [] Tdap vaccine: [] Rhogam: [] LARC form signed: [] Problem list reviewed and updated with the most current plan of care details and appropriate ordersplaced. Relevant counseling for the gestational age provided. Continue routine care and follow up unless otherwise noted in visit notes/problem list details Initial Weight: Not Recorded Date -?-?-?-?-?-?-?-?-?-?-?-?- EGA Weight BP Urine Prot -?-?-?-?-?-?-?-?-?-?-?-?- Glucose FHR FuHt Pres Dilation -?-?-?-?-?-?-?-?-?-?-?-?- Effaced St Visit Note 08/07/24 -?-?-?-?-?-?-?-?-?-?--?-?- 10w 2d 153 lb 4 oz 134/88 -?-?-?-?-?-?-?-?-?-?-?-?- 172 -?-?-?-?-?-?-?-?-?-?-?-?- JV- CRL within 7 days of LMP. desires nipt and carrier 09/09/24 -?-?-?-?-?-?-?-?-?-?-?-?- 15w 0d 151 lb 8 oz 118/74 Nega tive -?-?-?-?-?-?-?-?-?-?-?-?- Negative 153 -?-?-?-?-?-?-?-?-?-?-?-?- -No VB. Nausea persists. Shonan sent. 10/08/24 -?-?-?-?-?-?-?-?-?-?-?-?- 19w 1d 157 lb 4 oz 117/79 Nega tive -?-?-?-?-?-?-?-?-?-?-?-?- Negative 150 -?-?-?-?-?-?-?-?-?-?-?-?- SM- no vb crampi ng nausea improved anatomy us ordered 11/06/24 -?-?-?-?-?-?-?-?-?-?-?-?- 23w 2d 160 lb 5 oz 110/74 Nega tive -?-?-?-?-?-?-?-?-?-?-?-?- Negative -?-?-?-?-?-?-?-?-?-?-?-?- JV- [facility] anatomy scan done due to late scheduling, but was normal. 12/02/24 -?-?-?-?-?-?-?-?-?-?-?-?- 27w 0d 164 lb 1 oz 122/86 Nega tive -?-?-?-?-?-?-?-?-?-?-?-?- Negative 150 -?-?-?-?-?-?-?-?-?-?-?-?- SM- no vb crmapi ng ACOG First Trimester First Trimester: Desire for , Alcohol, Tobacco Cessation, Illicit/Recreational Drug/Substance Use, Intimate Partner Violence, Barriers to care, Unstable Housing, Communication Barriers, Environmental/Work Hazards, Anticipated Course of Care, Toxoplasmosis Precations, Use of Any med ications, Sexual activity, Exercise, Dental Care, Sauna/Hot tub use, Seat Belt use, Childbirth classes/Hospital facilities, Travel, Indications for Ultrasound and Screening for Aneuploidy; Discussed Results POC Urinalysis 2 Dip (Clinic) Office Urine Glucose Negative Last Edit by Dorie Ryder on 12/02/24 15:34 Office Urine Protein Negative Last Edit by Dorie Ryder on 12/02/24 15:34 Coding Level of Care Code OB Routine Diagnoses Tobacco use affecting , antepartum O99.330 Supervision of high risk in second trimester O09.92 Trimester: second trimester 27 weeks gestation of Z3A.27 Weeks of gestation: 27 weeks Hypothyroidism, unspecified type E03.9 Hypothyroidism type: unspecified 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 Has decreased by at least half. (2) Supervision of high-risk : Status: Acute Qualifiers: Trimester: second trimester Qualified Code(s): O09.92 - Supervision of high risk , unspecified, second trimester Comment: [id number], RODRIGO 03/03/25, BF: Mateo (3) : Status: Acute Qualifiers: Weeks of gestation: 27 weeks Qualified Code(s): Z3A.27 - 27 weeks gestation of Comment: NIPT -low risk, male. Horizon negative, nl anatomy (4) Hypothyroidism: Status: Acute Qualifiers: Hypothyroidism type: unspecified Qualified Code(s): E03.9 - Hypothyroidism, unspecified Comment: dx Apr 2024 (5) PCR DNA positive for HSV1: Status: Acute Comment: cold sores Orders: Orders POC Urinalysis 2 Dip (Clinic) Today 12/02/24 Brent pulido MD> Date _ Ashlee Mcdonough MD Cosigner Signature: Date (if applicable) CC: ~ [facility]09-15-2025 Progress note Author Ashlee Mcdonough [facility] Note Date/Time December 02, 2024 3:55pm [facility] ealt System [facility] [address] [place] [address], [address] [place] [address] OFFICE VISIT Date of Service: 12/02/24 MR#: [id number] Acct: [id number] Name: ANASTACIA MCKOY Rep #: [id number] : 2000 Provider: Dr. Geo Mcdonough MD Age/Sex: 24/F Location: [facility] Status: Signed Intake Vital Signs 10/08/24 15:36 11/06/24 15:49 12/02/24 15:21 Height 5 ft 1 in 5 ft 1 in 5 ft 1 in Weight: 164 lb 1 oz BMI 30.9 BP 122/86 H Intake Visit Reasons: 26 wk ob/glucose 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 Required: No Is patient in pain?: No Allergies No Known Allergies Allergy (Verified 12/02/24 15:20) Medications ?Medication ?Instructions ?Recorded ?Confirmed ?Type docosahexaenoic acid 200 mg mg PO 08/02/24 12/02/24 Hi story capsule ( DHA) levothyroxine 50 mcg capsule 50 mcg PO QDAY 08/02/24 0 12/02/24 History ondansetron 4 mg disintegrating 4 mg PO Q4H PRN nausea and 09/09/24 12/02/24 Rx tablet vomiting #60 tabs Last Menstrual Period: 05/27/24 Zika: Zika virus screening: Negative : No PFSH PFSH Medical History Seasonal allergies Asthma Family History Uncle Cancer Stomach, Prostate & Brain Father CVA (cerebral vascular accident) Sister PCOS (polycystic ovarian syndrome) Endometriosis Fibroid Aunt Myocardial infarction Uncle Myocardial infarction Social History adopted: No household members: significant other housing: house current occupational status: employed 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) current occupational exposures/hazards: No pets and animals: Yes pets and animals: dog(s) history of recent travel: No sexually active: Yes Smoking Status: Current some day smoker tobacco type: e-cigarettes second hand exposure: No quit status: considering quitting alcohol intake: current alcohol intake frequency: holidays/special occasions only details: Not while substance use type: does not use well-balanced diet: daily or most days caffeine: Yes eating out: rarely or never during the past year weight has: increased > 10 lbs what type of physical activity do you participate in: none page/yarsanism: None seatbelt use: always do you feel safe at home: Yes additional social history: Boyfriend: Mateo Tong - [employer] at [employer] History 1 Elective abortions 0 Hx Para 0 Spontaneous abortions 0 Hx # Term Pregnancies Ectopic pregnancies Hx # Pregnancies Multiple births # of living children HPI 26 wk ob/glucose Details: ANASTACIA MCKOY is a 24 year old who presents for routine OB visit. OB Visit RODRIGO Calculator Estimated Delivery Date Method Current WG Current Estimate 03/03/25 LMP (Certain) 27w 0d Other Estimates 03/08/25 Ultrasound #1 26w 2d Expected Delivery Route/Plan Labor Preferences- CB/BF classes: [] labor support person: [] labor intervention preferences: [] pain management options preferred: [] cut cord/dad catch: [] : [] PP control planned: [] discussed possible routes of delivery and associated risks: [] special requests: [] Specific Issue/Plans Covid status: [] Flu vaccine: [] Tdap vaccine: [] Rhogam: [] LARC form signed: [] Problem list reviewed and updated with the most current plan of care details and appropriate orders placed. Relevant counseling for the gestational age provided. Continue routine care and follow up unless otherwise noted in visit notes/problem list details Initial Weight: Not Recorded Date -?-?-?-?-?-?-?-?-?-?-?-?- EGA Weight BP Urine Prot -?-?-?-?-?-?-?-?-?-?-?-?- Glucose FHR FuHt Pres Dilation -?-?-?-?-?-?-?-?-?-?-?-?- Effaced St Visit Note 08/07/24 -?-?-?-?-?-?-?-?-?-?--?-?- 10w 2d 153 lb 4 oz 134/88 -?-?-?-?-?-?-?-?-?-?-?-?- 172 -?-?-?-?-?-?-?-?-?-?-?-?- JV- CRL within 7 days of LMP. desires nipt and carrier 09/09/24 -?-?-?-?-?-?-?-?-?-?-?-?- 15w 0d 151 lb 8 oz 118/74 Nega tive -?-?-?-?-?-?-?-?-?-?-?-?- Negative 153 -?-?-?-?-?-?-?-?-?-?-?-?- -No VB. Nausea persists. Dianakvng sent. 10/08/24 -?-?-?-?-?-?-?-?-?-?-?-?- 19w 1d 157 lb 4 oz 117/79 Nega tive -?-?-?-?-?-?-?-?-?-?-?-?- Negative 150 -?-?-?-?-?-?-?-?-?-?-?-?- SM- no vb crampi ng nausea improved anatomy us ordered 11/06/24 -?-?-?-?-?-?-?-?-?-?-?-?- 23w 2d 160 lb 5 oz 110/74 Nega tive -?-?-?-?-?-?-?-?-?-?-?-?- Negative -?-?-?-?-?-?-?-?-?-?-?-?- J- [facility] anatomy scan done due to late scheduling, but was normal. 12/02/24 -?-?-?-?-?-?-?-?-?-?-?-?- 27w 0d 164 lb 1 oz 122/86 Nega tive -?-?-?-?-?-?-?-?-?-?-?-?- Negative 150 -?-?-?-?-?-?-?-?-?-?-?-?- SM- no vb crmapi ng ACOG First Trimester First Trimester: Desire for , Alcohol, Tobacco Cessation, Illicit/Recreational Drug/Substance Use, Intimate Partner Violence, Barriers to care, Unstable Housing, Communication Barriers, Environmental/Work Hazards, Anticipated Course of Care, Toxoplasmosis Precations, Use of Any medications, Sexual activity, Exercise, Dental Care, Sauna/Hot tub use, Seat Belt use, Childbirth classes/Hospital facilities, Travel, Indications for Ultrasound and Screening for Aneuploidy; Discussed Results POC Urinalysis 2 Dip (Clinic) Office Urine Glucose Negative Last Edit by Dorie Ryder on 12/02/24 15:34 Office Urine Protein Negative Last Edit by Dorie Ryder on 12/02/24 15:34 Coding Level of Care Code OB Routine Diagnoses Tobacco use affecting , antepartum O99.330 Supervision of high risk in second trimester O09.92 Trimester: second trimester 27 weeks gestation of Z3A.27 Weeks of gestation: 27 weeks Hypothyroidism, unspecified type E03.9 Hypothyroidism type: unspecified 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 Has decreased by at least half. (2) Supervision of high-risk : Status: Acute Qualifiers: Trimester: second trimester Qualified Code(s): O09.92 - Supervision of high risk , unspecified, second trimester Comment: [id number], RODRIGO 03/03/25, BF: Mateo (3) : Status: Acute Qualifiers: Weeks of gestation: 27 weeks Qualified Code(s): Z3A.27 - 27 weeks gestation of Comment: NIPT -low risk, male. Horizon negative, nl anatomy (4) Hypothyroidism: Status: Acute Qualifiers: Hypothyroidism type: unspecified Qualified Code(s): E03.9 - Hypothyroidism, unspecified Comment: dx Apr 2024 (5) PCR DNA positive for HSV1: Status: Acute Comment: cold sores Orders: Orders POC Urinalysis 2 Dip (Clinic) Today 12/02/24 4141 <Electronically signed by Ashlee pulido MD> Date _ Ashlee Mcdonough MD Cosigner Signature: Date (if applicable) CC: ~ [facility] Work Phone: 1(577) 292-658507-31-2025 Radiology Diagnostic study note [facility] Imaging Services [address] [place] [id number] OB Anatomy w/ Transvaginal MR#: [id number] Acct: [id number] Name: ANASTACIA MCKOY Rep #: [id number] : 2000 F 23 From: Robby Macdonald MD PCP: Dr. Stephan Ngo MD Status: RE G CLI Study:OB Anatomy w/ Transvaginal Date of Exam : 10/16/24 Exam# [id number] Ordering Dr: Ashlee Llanes MD PROCEDURE: OB ANATOMY W/ TRANSVAGINAL 10/16/2024 REASON FOR EXAM: ANATOMY SCAN TECHNIQUE: OB ANATOMY W/ TRANSVAGINAL COMPARISON: None FINDINGS LMP: May 27, 2024. Number: 1 Position: Vertex Placental Position: Right lateral and not low-lying Placental Abnormalities: No evidence of previa. DIMENSIONS: Biparietal Diameter: 4.66 cm: 20 weeks and 0 days: 41 percentile/ Head Circumference: 16.68 cm: 19 weeks and 3 days: 9 percentile/ Abdominal Circumference: 14.5 cm: 19 weeks and 6 days: 29 percentile/ Femur Length: 3 cm: 19 weeks and 2 days: 12th percentile/ ESTIMATED WEIGHT: 305 g plus/-46 g ESTIMATED WEIGHT PERCENTILE (24+ weeks): 16 ESTIMATED GESTATIONAL AGE: Baseline: 20 weeks and 2 days By Ultrasound: 19 weeks and 5 days ESTIMATED DATE OF DELIVERY: Baseline: March 03, 2025 By Ultrasound: March 07, 2025 BIOPHYSICAL ASSESSMENT: Amniotic Fluid Volume: 6.1 cm Amniotic Fluid Index: Within normal limits. (8-24 cm normal range) Cardiac Motion: 164 beats per minute (average) Trunk and Limb Motion: Present. MATERNAL ANATOMY: Adnexa: Neither maternal ovary is successfully identified. Cervical Length (if measured): 4.4 cm ANATOMY: Spine: Unremarkable Cranium: Unremarkable Cerebellum: Unremarkable Cisterna Magna: Unremarkable Cavum Septum Pellucidi: Unremarkable Lateral Ventricles: Unremarkable Choroid Plexus: Unremarkable Midline Falx: Unremarkable Nuchal Fold: Unremarkable Heart: Unremarkable Stomach: Unremarkable Kidneys: Unremarkable Bladder: Unremarkable Umbilical Cord: Normal insertion. Extremities: Unremarkable US/OB Anatomy w/ Transvaginal IMPRESSION: Single live intrauterine gestation with a mean gestational age of 19 weeks and 5days. Reading Location: [id number] CC: Dr. Ashlee Mcdonough MD; Dr. Stephan Ngo MD ~ [employer] M[employer] Installer: Signed [facility]07-22-2025 Evaluation note* Diagnosis Onset Date Resolution Status Admit Date Hypothyroidism acute October 08, 2024 3:17pm PCR DNA positive for HSV1 acute October 08, 2024 3:17pm acute October 08 3:17pm Supervision of high-risk acute October 08, 2024 3:17pm Tobacco use affecting , antepartum acute October 08, 2024 3:17pm Hypothyroidism acute October 3:46pm PCR DNA positive for HSV1 acute November 06, 2024 3:46pm acute November 06 3:46pm Supervision of high-risk acute November 06 3:46pm Tobacco use affecting , antepartum acute October 3:46pm Hypothyroidism acute December 02, 2024 3:18pm PCR DNA positive for HSV1 acute December 02, 2024 3:18pm acute November 3:18pm Supervision of high-risk acute December 02, 2024 3:18pm Tobacco use affecting , antepartum acute December 02, 2024 3:18pm Hypothyroidism acute December 302024 2:55pm PCR DNA positive for HSV1 acute December 30, 2024 2:55pm acute December 30, 2024 2:55pm Supervision of high-risk acute December 30 2:55pm Tobacco use affecting , antepartum acute December 302024 2:55pm [facility] Work Phone: 1(451) 912-129507-22-2025 [facility] [address] [place] [address], [address] [place] [address] OFFICE VISIT Date of Service: 10/08/24 MR#: [id number] Acct: [id number] Name: ANASTACIA MCKOY Rep #: [id number] : 2000 Provider: Dr. Geo Mcdonough MD Age/Sex: 23/F Location: [facility] Status: Signed Intake Vital Signs 08/22/23 10:06 09/09/24 08:40 10/08/24 15:36 Height 5 ft 1 in 5 ft 1 in 5 ft 1 in Weight: 157 lb 4 oz BMI 29.7 BP 117/79 Intake Visit Reasons: 18wk OB 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 Required: No Is patient in pain?: No Allergies No Known Allergies Allergy (Verified 10/08/24 15:37) Medications ?Medication ?Instructions ?Recorded ?Confirmed ?Type docosahexaenoic acid 200 mg mg PO 08/02/24 10/08/24 Hi story capsule ( DHA) levothyroxine 50 mcg capsule 50 mcg PO QDAY 08/02/24 0 10/08/24 History ondansetron 4 mg disintegrating 4 mg PO Q4H PRN nausea and 09/09/24 10/08/24 Rx tablet vomiting #60 tabs Last Menstrual Period: 05/27/24 Zika: Zika virus screening: Negative : No PFSH PFSH Medical History Seasonal allergies Asthma Family History Uncle Cancer Stomach, Prostate & Brain Father CVA (cerebral vascular accident) Sister PCOS (polycystic ovarian syndrome) Endometriosis Fibroid Aunt Myocardial infarction Uncle Myocardial infarction Social History adopted: No household members: significant other housing: house current occupational status: employed 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) current occupational exposures/hazards: No pets and animals: Yes pets and animals: dog(s) history of recent travel: No sexually active: Yes Smoking Status: Current some day smoker tobacco type: e-cigarettes second hand exposure: No quit status: considering quitting alcohol intake: current alcohol intake frequency: holidays/special occasions only details: Not while substance use type: does not use well-balanced diet: daily or most days caffeine: Yes eating out: rarely or never during the past year weight has: increased > 10 lbs what type of physical activity do you participate in: none page/yarsanism: None seatbelt use: always do you feel safe at home: Yes additional social history: Boyfriend: Mateo Tong - [employer] at [employer] History 1 Elective abortions 0 Hx Para 0 Spontaneous abortions 0 Hx # Term Pregnancies Ectopic pregnancies Hx # Pregnancies Multiple births # of living children HPI 18wk OB Details: ANASTACIA MCKOY is a 23 year old who presents for routine OB visit. OB Visit RODRIGO Calculator Estimated Delivery Date Method Current WG Current Estimate 03/03/25 LMP (Certain) 19w 1d Other Estimates 03/08/25 Ultrasound #1 18w 3d Expected Delivery Route/Plan Labor Preferences- CB/BF classes: [] labor support person: [] labor intervention preferences: [] pain management options preferred: [] cut cord/dad catch: [] : [] PP control planned: [] discussed possible routes of delivery and associated risks: [] special requests: [] Specific Issue/Plans Covid status: [] Flu vaccine: [] Tdap vaccine: [] Rhogam: [] LARC form signed: [] Problem list reviewed and updated with the most current plan of care details and appropriate ordersplaced. Relevant counseling for the gestational age provided. Continue routine care and follow up unless otherwise noted in visit notes/problem list details Initial Weight: Not Recorded Date -?-?-?-?-?-?-?-?-?-?-?-?- EGA Weight BP Urine Prot -?-?-?-?-?-?-?-?-?-?-?-?- Glucose FHR FuHt Pres Dilation -?-?-?-?-?-?-?-?-?-?-?-?- Effaced St Visit Note 08/07/24 -?-?-?-?-?-?-?-?-?-?-?-?- 10w 2d 153 lb 4 oz 134/88 -?-?-?-?-?-?-?-?-?-?-?-?- 172 -?-?-?-?-?-?-?-?-?-?-?-?- JV- CRL within 7 days of LMP. desires nipt and carrier 09/09/24 -?-?-?-?-?-?-?-?-?-?-?-?- 15w 0d 151 lb 8 oz 118/74 Nega tive -?-?-?-?-?-?-?-?-?-?-?-?- Negative 153 -?-?-?-?-?-?-?-?-?-?-?-?- MH-No VB. Nausea persists. Katerin sent. 10/08/24 -?-?-?-?-?-?-?-?-?-?-?-?- 19w 1d 157 lb 4 oz 117/79 Nega tive -?-?-?-?-?-?-?-?-?-?-?-?- Negative 150 -?-?-?-?-?-?-?-?-?-?-?-?- SM- no vb crampi ng nausea improved anatomy us ordered ACOG First Trimester First Trimester: Desire for , Alcohol, Tobacco Cessation, Illicit/Recreational Drug/Substance Use, Intimate Partner Violence, Barriers to care, Unstable Housing, Communication Barriers, Environmental/Work Hazards, Anticipated Course of Care, Toxoplasmosis Precations, Use of Any med ications, Sexual activity, Exercise, Dental Care, Sauna/Hot tub use, Seat Belt use, Childbirth classes/Hospital facilities, Travel, Indications for Ultrasound and Screening for Aneuploidy; Discussed Results POC Urinalysis 2 Dip (Clinic) Office Urine Glucose Negative Last Edit by Dorie Ryder on 10/08/24 15:48 Office Urine Protein Negative Last Edit by Dorie Ryder on 10/08/24 15:48 Coding Level of Care Code OB Routine Diagnoses Tobacco use affecting , antepartum O99.330 Supervision of high risk in second trimester O09.92 Trimester: second trimester 19 weeks gestation of Z3A.19 Weeks of gestation: 19 weeks Hypothyroidism, unspecified type E03.9 Hypothyroidism type: unspecified 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 Has decreased by at least half. (2) Supervision of high-risk : Status: Acute Qualifiers: Trimester: second trimester Qualified Code(s): O09.92 - Supervision of high risk , unspecified, second trimester Comment: [id number], RODRIGO 03/03/25, BF: Mateo (3) : Status: Acute Qualifiers: Weeks of gestation: 19 weeks Qualified Code(s): Z3A.19 - 19 weeks gestation of Comment: Discussed genetic/carrier testing , NIPT -low risk, male. Horizon negative. (4) Hypothyroidism: Status: Acute Qualifiers: Hypothyroidism type: unspecified Qualified Code(s): E03.9 - Hypothyroidism, unspecified Comment: dx Apr 2024 (5) PCR DNA positive for HSV1: Status: Acute Comment: cold sores Orders: Orders OB Anatomy w/ Transvaginal 10/14/24 O09.92 - Supervision of high risk , unspecified, second trimester POC Urinalysis 2 Dip (Clinic) Today 10/08/24 1632 ashok SMITH> Date _ Ashlee Mcdonough MD Cosigner Signature: Date (if applicable) CC: ~ [facility] [id number] Progress note Author Ashlee Mcdonough [facility] Note Date/Time October 08, 2024 4:32 pm [facility] ealt System [facility] [address], [address] [place] [address] OFFICE VISIT Date of Service: 10/08/24 MR#: [id number] Acct: [id number] Name: ANASTACIA MCKOY Rep #: [id number] : 2000 Provider: Dr. Geo Mcdonough MD Age/Sex: 23/F Location: [facility] Status: Signed Intake Vital Signs 08/22/23 10:06 09/09/24 08:40 10/08/24 15:36 Height 5 ft 1 in 5 ft 1 in 5 ft 1 in Weight: 157 lb 4 oz BMI 29.7 BP 117/79 Intake Visit Reasons: 18wk OB 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 Required: No Is patient in pain?: No Allergies No Known Allergies Allergy (Verified 10/08/24 15:37) Medications ?Medication ?Instructions ?Recorded ?Confirmed ?Type docosahexaenoic acid 200 mg mg PO 08/02/24 10/08/24 Hi story capsule ( DHA) levothyroxine 50 mcg capsule 50 mcg PO QDAY 08/02/24 0 10/08/24 History ondansetron 4 mg disintegrating 4 mg PO Q4H PRN nausea and 09/09/24 10/08/24 Rx tablet vomiting #60 tabs Last Menstrual Period: 05/27/24 Zika: Zika virus screening: Negative : No PFSH PFSH Medical History Seasonal allergies Asthma Family History Uncle Cancer Stomach, Prostate & Brain Father CVA (cerebral vascular accident) Sister PCOS (polycystic ovarian syndrome) Endometriosis Fibroid Aunt Myocardial infarction Uncle Myocardial infarction Social History adopted: No household members: significant other housing: house current occupational status: employed 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) current occupational exposures/hazards: No pets and animals: Yes pets and animals: dog(s) history of recent travel: No sexually active: Yes Smoking Status: Current some day smoker tobacco type: e-cigarettes second hand exposure: No quit status: considering quitting alcohol intake: current alcohol intake frequency: holidays/special occasions only details: Not while substance use type: does not use well-balanced diet: daily or most days caffeine: Yes eating out: rarely or never during the past year weight has: increased > 10 lbs what type of physical activity do you participate in: none page/yarsanism: None seatbelt use: always do you feel safe at home: Yes additional social history: Boyfriend: Mateo Tong - [employer] at [employer] History 1 Elective abortions 0 Hx Para 0 Spontaneous abortions 0 Hx # Term Pregnancies Ectopic pregnancies Hx # Pregnancies Multiple births # of living children HPI 18wk OB Details: ANASTACIA MCKOY is a 23 year old who presents for routine OB visit. OB Visit RODRIGO Calculator Estimated Delivery Date Method Current WG Current Estimate 03/03/25 LMP (Certain) 19w 1d Other Estimates 03/08/25 Ultrasound #1 18w 3d Expected Delivery Route/Plan Labor Preferences- CB/BF classes: [] labor support person: [] labor intervention preferences: [] pain management options preferred: [] cut cord/dad catch: [] : [] PP control planned: [] discussed possible routes of delivery and associated risks: [] special requests: [] Specific Issue/Plans Covid status: [] Flu vaccine: [] Tdap vaccine: [] Rhogam: [] LARC form signed: [] Problem list reviewed and updated with the most current plan of care details and appropriate orders placed. Relevant counseling for the gestational age provided. Continue routine care and follow up unless otherwise noted in visit notes/problem list details Initial Weight: Not Recorded Date -?-?-?-?-?-?-?-?-?-?-?-?- EGA Weight BP Urine Prot -?-?-?-?-?-?-?-?-?-?-?-?- Glucose FHR FuHt Pres Dilation -?-?-?-?-?-?-?-?-?-?-?-?- Effaced St Visit Note 08/07/24 -?-?-?-?-?-?-?-?-?-?-?-?- 10w 2d 153 lb 4 oz 134/88 -?-?-?-?-?-?-?-?-?-?-?-?- 172 -?-?-?-?-?-?-?-?-?-?-?-?- JV- CRL within 7 days of LMP. desires nipt and carrier 09/09/24 -?-?-?-?-?-?-?-?-?-?-?-?- 15w 0d 151 lb 8 oz 118/74 Nega tive -?-?-?-?-?-?-?-?-?-?-?-?- Negative 153 -?-?-?-?-?-?-?-?-?-?-?-?- MH-No VB. Nausea persists. Katerin sent. 10/08/24 -?-?-?-?-?-?-?-?-?-?-?-?- 19w 1d 157 lb 4 oz 117/79 Nega tive -?-?-?-?-?-?-?-?-?-?-?-?- Negative 150 -?-?-?-?-?-?-?-?-?-?-?-?- SM- no vb crampi ng nausea improved anatomy us ordered ACOG First Trimester First Trimester: Desire for , Alcohol, Tobacco Cessation, Illicit/Recreational Drug/Substance Use, Intimate Partner Violence, Barriers to care, Unstable Housing, Communication Barriers, Environmental/Work Hazards, Anticipated Course of Care, Toxoplasmosis Precations, Use of Any medications, Sexual activity, Exercise, Dental Care, Sauna/Hot tub use, Seat Belt use, Childbirth classes/Hospital facilities, Travel, Indications for Ultrasound and Screening for Aneuploidy; Discussed Results POC Urinalysis 2 Dip (Clinic) Office Urine Glucose Negative Last Edit by Dorie Ryder on 10/08/24 15:48 Office Urine Protein Negative Last Edit by Dorie Ryder on 10/08/24 15:48 Coding Level of Care Code OB Routine Diagnoses Tobacco use affecting , antepartum O99.330 Supervision of high risk in second trimester O09.92 Trimester: second trimester 19 weeks gestation of Z3A.19 Weeks of gestation: 19 weeks Hypothyroidism, unspecified type E03.9 Hypothyroidism type: unspecified 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 Has decreased by at least half. (2) Supervision of high-risk : Status: Acute Qualifiers: Trimester: second trimester Qualified Code(s): O09.92 - Supervision of high risk , unspecified, second trimester Comment: [id number], RODRIGO 03/03/25, BF: Mateo (3) : Status: Acute Qualifiers: Weeks of gestation: 19 weeks Qualified Code(s): Z3A.19 - 19 weeks gestation of Comment: Discussed genetic/carrier testing , NIPT -low risk, male. Horizon negative. (4) Hypothyroidism: Status: Acute Qualifiers: Hypothyroidism type: unspecified Qualified Code(s): E03.9 - Hypothyroidism, unspecified Comment: dx Apr 2024 (5) PCR DNA positive for HSV1: Status: Acute Comment: cold sores Orders: Orders OB Anatomy w/ Transvaginal 10/14/24 O09.92 - Supervision of high risk , unspecified, second trimester POC Urinalysis 2 Dip (Clinic) Today 10/08/24 1632 <Electronically signed by Ashlee pulido MD> Date _ Ashlee Mcdonough MD Cosigner Signature: Date (if applicable) CC: ~ [facility] Work Phone: 1(454) 650-278606-23-2025 Evaluation note* Diagnosis Onset Date Resolution Status Admit Date Hypothyroidism acute September 09, 2024 8:24am PCR DNA positive for HSV1 acute September 09, 2024 8:24am acute September 09 8:24am Supervision of high-risk acute September 09, 2024 8:24am Tobacco use affecting , antepartum acute September 09, 2024 8:24am Hypothyroidism acute October 08, 2024 3:17pm PCR DNA positive for HSV1 acute October 08, 2024 3:17pm acute October 08 3:17pm Supervision of high-risk acute October 08, 2024 3:17pm Tobacco use affecting , antepartum acute October 08, 2024 3:17pm Hypothyroidism acute October 3:46pm PCR DNA positive for HSV1 acute November 06, 2024 3:46pm acute November 06 3:46pm Supervision of high-risk acute November 06 3:46pm Tobacco use affecting , antepartum acute October 3:46pm Hypothyroidism acute December 02, 2024 3:18pm PCR DNA positive for HSV1 acute December 02, 2024 3:18pm acute November 3:18pm Supervision of high-risk acute December 02, 2024 3:18pm Tobacco use affecting , antepartum acute December 02, 2024 3:18pm [facility] Work Phone: 1(783) 739-709906-23-2025 [facility] [address] [place] [address], [address] [place] [address] OFFICE VISIT Date of Service: 09/09/24 MR#: [id number] Acct: [id number] Name: ANASTACIA MCKOY Rep #: [id number] : 2000 Provider: YULISSA Curry Age/Sex: 23/F [facility] [facility] [place] Status: Signed Intake Vital Signs 08/22/23 10:06 08/07/24 10:30 09/09/24 08:28 09/09/24 08:40 Height 5 ft 1 in 5 ft 1 in 5 ft 1 in 5 ft 1 in Weight: 151 lb 8 oz BMI 28.6 BP 118/74 Intake Visit Reasons: 14wk OB Chief Complaint: 14 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 Is patient in pain?: No Allergies No Known Allergies Allergy (Verified 09/09/24 08:27) Medications ?Medication ?Instructions ?Recorded ?Confirmed ?Type docosahexaenoic acid 200 mg mg PO 08/02/24 09/09/24 Hi story capsule ( DHA) levothyroxine 50 mcg capsule 50 mcg PO QDAY 08/02/24 0 09/09/24 History ondansetron 4 mg disintegrating 4 mg PO Q4H PRN nausea and 09/09/24 09/09/24 Rx tablet vomiting #60 tabs Last Menstrual Period: 05/27/24 Zika: Zika virus screening: Negative : No PFSH PFSH Medical History Seasonal allergies Asthma Family History Uncle Cancer Stomach, Prostate & Brain Father CVA (cerebral vascular accident) Sister PCOS (polycystic ovarian syndrome) Endometriosis Fibroid Aunt Myocardial infarction Uncle Myocardial infarction Social History adopted: No household members: significant other housing: house current occupational status: employed 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) current occupational exposures/hazards: No pets and animals: Yes pets and animals: dog(s) history of recent travel: No sexually active: Yes Smoking Status: Current some day smoker tobacco type: e-cigarettes second hand exposure: No quit status: considering quitting alcohol intake: current alcohol intake frequency: holidays/special occasions only details: Not while substance use type: does not use well-balanced diet: daily or most days caffeine: Yes eating out: rarely or never during the past year weight has: increased > 10 lbs what type of physical activity do you participate in: none page/yarsanism: None seatbelt use: always do you feel safe at home: Yes additional social history: Boyfriend: Mateo Tong - [employer] at [employer] History 1 Elective abortions 0 Hx Para 0 Spontaneous abortions 0 Hx # Term Pregnancies Ectopic pregnancies Hx # Pregnancies Multiple births # of living children HPI 14wk OB Details: ANASTACIA MCKOY is a 23 year old who presents for routine OB visit. OB Visit RODRIGO Calculator Estimated Delivery Date Method Current WG Current Estimate 03/03/25 LMP (Certain) 15w 0d Other Estimates 03/08/25 Ultrasound #1 14w 2d Expected Delivery Route/Plan Labor Preferences- CB/BF classes: [] labor support person: [] labor intervention preferences: [] pain management options preferred: [] cut cord/dad catch: [] : [] PP control planned: [] discussed possible routes of delivery and associated risks: [] special requests: [] Specific Issue/Plans Covid status: [] Flu vaccine: [] Tdap vaccine: [] Rhogam: [] LARC form signed: [] Problem list reviewed and updated with the most current plan of care details and appropriate ordersplaced. Relevant counseling for the gestational age provided. Continue routine care and follow up unless otherwise noted in visit notes/problem list details Initial Weight: Not Recorded Date -?-?-?-?-?-?-?-?-?-?-?-?- EGA Weight BP Urine Prot -?-?-?-?-?-?-?-?-?-?-?-?- Glucose FHR FuHt Pres Dilation -?-?-?-?-?-?-?-?-?-?-?-?- Effaced St Visit Note 08/07/24 -?-?-?-?-?-?-?-?-?-?-?-?- 10w 2d 153 lb 4 oz 134/88 -?-?-?-?-?-?-?-?-?-?-?-?- 172 -?-?-?-?--?-?-?-?-?-?-?-?- JV- CRL within 7 days of LMP. desires nipt and carrier 09/09/24 -?-?-?-?-?-?-?-?-?-?-?-?- 15w 0d 151 lb 8 oz 118/74 Nega tive -?-?-?-?--?-?-?-?-?-?-?-?- Negative 153 -?-?-?-?-?-?-?-?-?-?-?-?- MH-No VB. Nausea persists. Zofran sent. ACOG First Trimester First Trimester: Desire for , Alcohol, Tobacco Cessation, Illicit/Recreational Drug/Substance Use, Intimate Partner Violence, Barriers to care, Unstable Housing, Communication Barriers, Environmental/Work Hazards, Anticipated Course of Care, Toxoplasmosis Precations, Use of Any med ications, Sexual activity, Exercise, Dental Care, Sauna/Hot tub use, Seat Belt use, Childbirth classes/Hospital facilities, Travel, Indications for Ultrasound and Screening for Aneuploidy; Discussed Results POC Urinalysis 2 Dip (Clinic) Office Urine Glucose Negative Last Edit by Rachel Busch on 09/09/24 08 :41 Office Urine Protein Negative Last Edit by Rachel Busch on 09/09/24 08 :41 Coding Level of Care Code OB Routine Diagnoses Supervision of high risk in second trimester O09.92 Trimester: second trimester 15 weeks gestation of Z3A.15 Weeks of gestation: 15 weeks Tobacco use affecting , antepartum O99.330 Hypothyroidism, unspecified type E03.9 Hypothyroidism type: unspecified 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 Horizon negative. (3) Tobacco use affecting , antepartum: Status: Acute Comment: Vapes - 1 pod/week; attempting to quit. Has decreased by at least half. (4) Hypothyroidism: Status: Acute Qualifiers: Hypothyroidism type: unspecified Qualified Code(s): E03.9 - Hypothyroidism, unspecified Comment: dx Apr 2024 (5) PCR DNA positive for HSV1: Status: Acute Comment: cold sores Orders: Orders POC Urinalysis 2 Dip (Clinic) Today Medications: New ondansetron 4 mg PO Q4H PRN 60 tabs 2RF nausea and vomiting Plan problem list reviewed and updated for most current plan of care and appropriate orders placed. Relevant counseling for the gestational age appropriate provided and ACOG education checklist updated. Continue routine care and follow up. 09/09/24 0853 s CAPTAIN OF GUARDS CAPTAIN OF GUARDS-C> Date _ Dorie Curry CAPTAIN OF GUARDS CAPTAIN OF GUARDS-C Cosigner Signature: Date (if applicable) CC: ~ [facility]05-27-2025 Telephone encounter Note* Telephone Encounter - Beatrice Partida MA - 08/13/2024 9:40 AM EDT Pt notified and voiced understanding. ' Beatrice Partida MA [facility]05-27-2025 Miscellaneous Notes* Telephone Encounter - Beatrice Partida MA - 08/13/2024 9:40 AM EDT Pt notified and voiced understanding. ' Beatrice Partida MA * Telephone Encounter - Billy Steel APRN.CNP - 08/13/2024 7:34 AM EDT Please let the patient know that I heard back from endocrinology regarding her vitamin D levels. Recommendation is to increase Vitamin D 50,000 units to twice weekly for 4 weeks and then resume once weekly dose. Repeat vitamin D level in 4-6 weeks. Take the vitamin D with meals to help with absorption. The following approved medication requests have been transmitted electronically. Requested Prescriptions Signed Prescriptions Disp Refills ergocalciferol 50,000 unit capsule (VITAMIN D2, DRISDOL) 20 capsule 0 Sig: Take 1 capsule by mouth two times a week for 30 days, THEN 1 capsule one time a week. Use as directed.. Authorizing Provider: BILLY STEEL APRN.CNP documented in this encounterProm[facility] Telephone encounter Note * Telephone Encounter - Billy Steel APRN.CNP - 08/13/2024 7:34 AM EDT Please let the patient know that I heard back from endocrinology regarding her vitamin D levels. Recommendation is to increase Vitamin D 50,000 units to twice weekly for 4 weeks and then resume once weekly dose. Repeat vitamin D level in 4-6 weeks. Take the vitamin D with meals to help with absorption. The following approved medication requests have been transmitted electronically. Requested Prescriptions Signed Prescriptions Disp Refills ergocalciferol 50,000 unit capsule (VITAMIN D2, DRISDOL) 20 capsule 0 Sig: Take 1 capsule by mouth two times a week for 30 days, THEN 1 capsule one time a week. Use as directed.. Authorizing Provider: BILLY STEEL APRN.CNP [facility]05-25-2025 NoteHNO ID: [id number] Author: YANNICK CHOWDHURY MD Service: ? Author Type: Physician Type: Progress Notes Filed: 08/11/2024 10:47 Note Text: Thank you for requesting an Endocrinology E-Consult for your 23 year old female patient, Anastacia Mckoy for evaluation/treatment of Vitamin D Deficiency. Your clinical question: Patient having vit D deficiency, has been on vitamin D 50,000 units weekly for 4 months. No improvement. Now . Next steps for replacement, resistance? Relevant labs: Latest Ref Rng 04/26/2024 08/07/2024 Vitamin D 25 Hydroxy 31.0 - 80.0 ng/mL 11.6 (L) 13.5 (L) Vitamin B12 and iron studies were normal. Hgb and HCT were normal. Comments and recommendations: Patient's PMH, problem list and normal vitamin B12, iron studies, Hgb and HCT favor no GI condition to cause malabsorption. Patient is on levothyroxine therapy, with normal thyroid hormone levels too. She has adequate absorption of levothyroxine (or has remission of hypothyroidism). Weight gain is 12 lb comparing Apr 2023 with August 2023. Current management: Ergocalciferol 50,000 IU weekly. Please make sure that patient is taking her vitamin D regularly (a phone reminder would help), with meals. Taking vitamin D with meals improve the absorption (as a fat soluble vitamin). You may consider increasing Ergocalciferol 50,000 IU to twice weekly for 4 weeks only then resume once weekly frequency. Repeat labs in 1 month. If there is no improvement with adequate adherence to the medication, then malabsorption should be considered. No appointment necessary at this point. Time: 10 minutes. Diagnosis: Vitamin D deficiency. Please don't hesitate to contact us if you have further questions. Sincerely, Yannick Chowdhury MD, [facility]05-25-2025 History of Present illness Narrative* Yannick Chowdhury MD - 08/11/2024 10:26 AM EDT Thank you for requesting an Endocrinology E-Consult for your 23 year old female patient, Anastacia Mckoy for evaluation/treatment of Vitamin D Deficiency. Your clinical question: Patient having vit D deficiency, has been on vitamin D 50,000 units weekly for 4 months. No improvement. Now . Next steps for replacement, resistance? Relevant labs: Latest Ref Rng 04/26/2024 08/07/2024 Vitamin D 25 Hydroxy 31.0 - 80.0 ng/mL 11.6 (L) 13.5 (L) Vitamin B12 and iron studies were normal. Hgb and HCT were normal. Comments and recommendations: Patient's PMH, problem list and normal vitamin B12, iron studies, Hgb and HCT favor no GI conditionto cause malabsorption. Patient is on levothyroxine therapy, with normal thyroid hormone levels too. She has adequate absorption of levothyroxine (or has remission of hypothyroidism). Weight gain is 12 lb comparing Apr 2023 with August 2023. Current management: Ergocalciferol 50,000 IU weekly. Please make sure that patient is taking her vitamin D regularly (a phone reminder would help), withmeals. Taking vitamin D with meals improve the absorption (as a fat soluble vitamin). You may consider increasing Ergocalciferol 50,000 IU to twice weekly for 4 weeks only then resume once weekly frequency. Repeat labs in 1 month. If there is no improvement with adequate adherence to the medication, then malabsorption should be considered. No appointment necessary at this point. Time: 10 minutes. Diagnosis: Vitamin D deficiency. Please don't hesitate to contact us if you have further questions. Sincerely, Yannick Chowdhury MD, [facility] documented in this encounterProm[facility]05-[facility] Telephone encounter Note * Telephone Encounter - Beatrice Partida MA - 08/09/2024 9:23 AM EDT Message left for pt to call back for results. Beatrice Partida MA [facility]05-23-2025 Miscellaneous Notes* Telephone Encounter - Beatrice Partida MA - 08/09/2024 9:23 AM EDT Message left for pt to call back for results. Beatrice Partida MA * Telephone Encounter - Billy Steel APRN.CNP - 08/08/2024 12:55 PM EDT Her vitamin D and levothyroxine are safe to take. Can check with her OB for benadryl. That's all I can see that she is taking. I placed an e-consult to endocrinology to see what the next step is for vitamin D deficiency resistance to treatment. I will update her when they get back to me with recommendations. Billy Steel APRN.LISA * Telephone Encounter - Nieves Landry RN - 08/08/2024 11:27 AM EDT Pt called and is notified of providers results and questions. Pt voices understanding. She states she is taking her Vit D as prescribed. She also wanted to let provider know she just found out she is10 weeks and wanted to make sure all of her medications are ok to be on. Please call and advise. Nieves Landry RN * Telephone Encounter - Stefany Lopez MA - 08/08/2024 11:22 AM EDT Called and left message on patients voicemail to return call to the office and ask to speak with a triage nurse. Stefany Lopez MA * Telephone Encounter - Billy Steel APRN.CNP - 08/08/2024 8:59 AM EDT Please let the patient know that her TSH is fine. Continue with current dose of levothyroxine. Vitamin D is quite low. Can we ask her if she is taking her vitamin D 50,000 units as prescribed? Billy Steel APRN.CNP documented in this encounterProm[facility]05-[facility] Telephone encounter Note * Telephone Encounter - Billy Steel APRN.CNP - 08/08/2024 12:55 PM EDT Her vitamin D and levothyroxine are safe to take. Can check with her OB for benadryl. That's all I can see that she is taking. I placed an e-consult to endocrinology to see what the next step is for vitamin D deficiency resistance to treatment. I will update her when they get back to me with recommendations. Billy Steel APRN.CNP [facility]05-22-2025 Telephone encounter Note* Telephone Encounter - Nieves Landry RN - 08/08/2024 11:27 AM EDT Pt called and is notified of providers results and questions. Pt voices understanding. She states she is taking her Vit D as prescribed. She also wanted to let provider know she just found out she is10 weeks and wanted to make sure all of her medications are ok to be on. Please call and advise. Nieves Landry RN [facility]05-22-2025 Telephone encounter Note* Telephone Encounter - Stefany Lopez MA - 08/08/2024 11:22 AM EDT Called and left message on patients voicemail to return call to the office and ask to speak with a triage nurse. Stefany Lopez MA [facility]05-22-2025 Telephone encounter Note* Telephone Encounter - Billy Steel APRN.CNP - 08/08/2024 8:59 AM EDT Please let the patient know that her TSH is fine. Continue with current dose of levothyroxine. Vitamin D is quite low. Can we ask her if she is taking her vitamin D 50,000 units as prescribed? Billy Steel APRN.CNP [facility]05-21-2025 Evaluation note* Diagnosis Onset Date Resolution Status Admit Date Hypothyroidism acute August 07, 2024 10:20am PCR DNA positive for HSV1 acute August 07, 2024 10:20am acute August 07, 2024 10:20am Supervision of high-risk acute August 07, 2024 1 0:20am Tobacco use affecting , antepartum acute August 07, 2024 10:20am Hypothyroidism acute September 09, 2024 8:24am PCR DNA positive for HSV1 acute September 09, 2024 8:24am acute September 09 8:24am Supervision of high-risk acute September 09, 2024 8:24am Tobacco use affecting , antepartum acute September 09, 2024 8:24am Hypothyroidism acute October 08, 2024 3:17pm PCR DNA positive for HSV1 acute October 08, 2024 3:17pm acute October 08 3:17pm Supervision of high-risk acute October 08, 2024 3:17pm Tobacco use affecting , antepartum acute October 08, 2024 3:17pm Hypothyroidism acute October 3:46pm PCR DNA positive for HSV1 acute November 06, 2024 3:46pm acute November 06, 3:46pm Supervision of high-risk acute November 06 3:46pm Tobacco use affecting , antepartum acute October 3:46pm Hypothyroidism acute December 02, 2024 3:18pm PCR DNA positive for HSV1 acute December 02, 2024 3:18pm acute November 3:18pm Supervision of high-risk acute December 02, 2024 3:18pm Tobacco use affecting , antepartum acute December 02, 2024 3:18pm [facility] Work Phone: 1(408) 337-660105-16-2025 Evaluation note* Diagnosis Onset Date Resolution Status Admit Date Hypothyroidism acute August 02, 2024 8:07am PCR DNA positive for HSV1 acute August 02, 2024 8:07am acute August 02, 2024 8:07am Supervision of high-risk acute August 02, 2024 8 :07am Tobacco use affecting pregna ncy, antepartum acute August 02, 2024 8 :07am Hypothyroidism acute August 07, 2024 10:20am PCR DNA positive for HSV1 acute August 07, 2024 10:20am acute August 07, 2024 10:20am Supervision of high-risk acute August 07, 2024 1 0:20am Tobacco use affecting pregna ncy, antepartum acute August 07, 2024 1 0:20am [facility] Work Phone: 1(783) 513-364805-16-2025 Evaluation note* Diagnosis Onset Date Resolution Status Admit Date Hypothyroidism acute August 02, 2024 8:07am PCR DNA positive for HSV1 acute August 02, 2024 8:07am acute August 02, 2024 8:07am Supervision of high-risk acute August 02, 2024 8 :07am Tobacco use affecting pregna ncy, antepartum acute August 02, 2024 8 :07am Hypothyroidism acute August 07, 2024 10:20am PCR DNA positive for HSV1 acute August 07, 2024 10:20am acute August 07, 2024 10:20am Supervision of high-risk acute August 07, 2024 1 0:20am Tobacco use affecting pregna ncy, antepartum acute August 07, 2024 1 0:20am Hypothyroidism acute September 09, 2024 8:24am PCR DNA positive for HSV1 acute September 09, 2024 8:24am acute September 09 8:24am Supervision of high-risk acute September 09, 2024 8:24am Tobacco use affecting pregna ncy, antepartum acute September 09, 2024 8:24am [facility] Work Phone: 1(959) 598-515505-16-2025 Evaluation note* Diagnosis Onset Date Resolution Status Admit Date Hypothyroidism acute August 02, 2024 8:07am PCR DNA positive for HSV1 acute August 02, 2024 8:07am acute August 02, 2024 8:07am Supervision of high-risk acute August 02, 2024 8 :07am Tobacco use affecting pregna ncy, antepartum acute August 02, 2024 8 :07am Hypothyroidism acute August 07, 2024 10:20am PCR DNA positive for HSV1 acute August 07, 2024 10:20am acute August 07, 2024 10:20am Supervision of high-risk acute August 07, 2024 1 0:20am Tobacco use affecting pregna ncy, antepartum acute August 07, 2024 1 0:20am Hypothyroidism acute September 09, 2024 8:24am PCR DNA positive for HSV1 acute September 09, 2024 8:24am acute September 09 8:24am Supervision of high-risk acute September 09, 2024 8:24am Tobacco use affecting pregna ncy, antepartum acute September 09, 2024 8:24am Hypothyroidism acute October 08, 2024 3:17pm PCR DNA positive for HSV1 acute October 08, 2024 3:17pm acute October 08 3:17pm Supervision of high-risk acute October 08, 2024 3:17pm Tobacco use affecting pregna ncy, antepartum acute October 08, 2024 3:17pm [facility] Work Phone: 1(833) 342-667205-16-2025 Evaluation note* Diagnosis Onset Date Resolution Status Admit Date Hypothyroidism acute August 02, 2024 8:07am PCR DNA positive for HSV1 acute August 02, 2024 8:07am acute August 02, 2024 8:07am Supervision of high-risk acute August 02, 2024 8 :07am Tobacco use affecting pregna ncy, antepartum acute August 02, 2024 8 :07am Hypothyroidism acute August 07, 2024 10:20am PCR DNA positive for HSV1 acute August 07, 2024 10:20am acute August 07, 2024 10:20am Supervision of high-risk acute August 07, 2024 1 0:20am Tobacco use affecting pregna ncy, antepartum acute August 07, 2024 1 0:20am Hypothyroidism acute September 09, 2024 8:24am PCR DNA positive for HSV1 acute September 09, 2024 8:24am acute September 09 8:24am Supervision of high-risk acute September 09, 2024 8:24am Tobacco use affecting pregna ncy, antepartum acute September 09, 2024 8:24am Hypothyroidism acute October 08, 2024 3:17pm PCR DNA positive for HSV1 acute October 08, 2024 3:17pm acute October 08 3:17pm Supervision of high-risk acute October 08, 2024 3:17pm Tobacco use affecting pregna ncy, antepartum acute October 08, 2024 3:17pm Hypothyroidism acute October 3:46pm PCR DNA positive for HSV1 acute November 06, 2024 3:46pm acute November 06, 2 025 3:46pm Supervision of high-risk acute November 06 3:46pm Tobacco use affecting pregna ncy, antepartum acute November 06 3:46pm [facility] Work Phone: [phone]) [phone] Telephone encounter Note* Telephone Encounter - Cat Green APRN.CNP - 06/03/2024 3:15 PM EDT The following approved medication requests have been transmitted electronically. Requested Prescriptions Signed Prescriptions Disp Refills levothyroxine (SYNTHROID) 50 mcg tablet 30 tablet 5 Sig: Take 1 tablet by mouth once daily. Take on empty stomach. For Thyroid. Cat Green APRN.CNP [facility]03-17-2025 Miscellaneous Notes* Telephone Encounter - Cat Green APRN.CNP - 06/03/2024 3:15 PM EDT The following approved medication requests have been transmitted electronically. Requested Prescriptions Signed Prescriptions Disp Refills levothyroxine (SYNTHROID) 50 mcg tablet 30 tablet 5 Sig: Take 1 tablet by mouth once daily. Take on empty stomach. For Thyroid. Cat Green APRN.CNP * Telephone Encounter - Yanci So RN - 06/03/2024 12:50 PM EDT Patient notified of results and provider's instructions. Patient verbalizes understanding. Patient agreeable to changing dose and for lab orders to be placed. Please place these orders so that patient can get these done. Yanci So RN * Telephone Encounter - Juanita Jordan LPN - 06/03/2024 9:19 AM EDT TC to pt. LM to call office, ask for triage nurse to get results. Juanita Jordan LPN * Telephone Encounter - Cat Green APRN.CNP - 06/03/2024 7:51 AM EDT Can you please call the patient and let her know that I reviewed her repeat thyroid lab results. TSH is now upper limits of normal. I would recommend increasing synthroid 50 mcg daily and recheck labs in 8 weeks. If she is agreeable please let me know. Cat Green APRN.LISA documented in this encounterProm[facility]03-[facility] Telephone encounter Note * Telephone Encounter - Yanci So RN - 06/03/2024 12:50 PM EDT Patient notified of results and provider's instructions. Patient verbalizes understanding. Patient agreeable to changing dose and for lab orders to be placed. Please place these orders so that patient can get these done. Yanci So RN [facility]03-17-2025 Telephone encounter Note* Telephone Encounter - Juanita Jordan LPN - 06/03/2024 9:19 AM EDT TC to pt. LM to call office, ask for triage nurse to get results. Juanita Jordan LPN [facility]03-17-2025 Telephone encounter Note* Telephone Encounter - Cat Green APRN.CNP - 06/03/2024 7:51 AM EDT Can you please call the patient and let her know that I reviewed her repeat thyroid lab results. TSH is now upper limits of normal. I would recommend increasing synthroid 50 mcg daily and recheck labs in 8 weeks. If she is agreeable please let me know. Cat Green APRN.CNP [facility]02-12-2025 Telephone encounter Note* Telephone Encounter - Cat Green APRN.CNP - 05/01/2024 1:17 PM EST The following approved medication requests have been transmitted electronically. Requested Prescriptions Signed Prescriptions Disp Refills ergocalciferol 50,000 unit capsule (VITAMIN D2, DRISDOL) 12 capsule 3 Sig: Take 1 capsule by mouth one time a week. Use as directed. levothyroxine (SYNTHROID) 25 mcg tablet 30 tablet 5 Sig: Take 1 tablet by mouth daily before breakfast. Cat Green APRN.LISA Lab orders placed, thank you [facility]02-12-2025 Miscellaneous Notes* Telephone Encounter - Cat Green APRN.CNP - 05/01/2024 1:17 PM EST The following approved medication requests have been transmitted electronically. Requested Prescriptions Signed Prescriptions Disp Refills ergocalciferol 50,000 unit capsule (VITAMIN D2, DRISDOL) 12 capsule 3 Sig: Take 1 capsule by mouth one time a week. Use as directed. levothyroxine (SYNTHROID) 25 mcg tablet 30 tablet 5 Sig: Take 1 tablet by mouth daily before breakfast. Cat Green APRN.IT AUDITOR Lab orders placed, thank you * Telephone Encounter - Geneva Morales RN - 05/01/2024 12:47 PM EST Patient returns call and results and provider message reviewed. Patient agreeable to both medications. Requests [facility]. Geneva Morales RN * Telephone Encounter - Beatrice Partida MA - 04/29/2024 3:38 PM EST Message left for pt to call back for results. Beatrice Partida MA * Telephone Encounter - Cat Green APRN.CNP - 04/29/2024 3:17 PM EST Can you please call the patient and let her know that I reviewed her lab results. Iron, cholesterol, and vitamin B12 were normal. Vitamin D was very low. I would recommend taking a prescription once weekly supplement and rechecking labs in 3 months. TSH was elevated, this is consistent with hypothyroidism. More than likely thisis what is causing her fatigue as well as the vitamin D. I would recommend starting Synthroid and recheck labs in 8 weeks. If she is agreeable please verify pharmacy. Cat Green APRN.LISA documented in this encounterPromed[facility]02-[facility] Telephone encounter Note * Telephone Encounter - Geneva Morales RN - 05/01/2024 12:47 PM EST Patient returns call and results and provider message reviewed. Patient agreeable to both medications. Requests [facility]. Geneva Morales RN [facility]02-10-[facility] Telephone encounter Note* Telephone Encounter - Beatrice Partida MA - 04/29/2024 3:38 PM EST Message left for pt to call back for results. Beatrice Partida MA [facility]02-10-[facility] Telephone encounter Note* Telephone Encounter - Cat Green APRN.CNP - 04/29/2024 3:17 PM EST Can you please call the patient and let her know that I reviewed her lab results. Iron, cholesterol, and vitamin B12 were normal. Vitamin D was very low. I would recommend taking a prescription once weekly supplement and rechecking labs in 3 months. TSH was elevated, this is consistent with hypothyroidism. More than likely thisis what is causing her fatigue as well as the vitamin D. I would recommend starting Synthroid and recheck labs in 8 weeks. If she is agreeable please verify pharmacy. Cat Green APRN.CNP [facility]02-07-2025 Instructions* Patient Instructions* Cat Green APRN.CNP - 04/26/2024 7:41 AM EST Get fasting labs completed, no food 10-12 hours prior, may have black coffee or water. Continue to take all medication as prescribed Due for pap Continue to eat a well balanced diet and stay active Follow up in 1 year or sooner pending test results. Health Promotion: - Eat healthy -- go to [employer] [place] to get started - Have a yearly physical - Get at least 30 minutes of physical activity daily - Get at least 7 to 8 hours of sleep each night - Reach and maintain a healthy weight - Get help to quit or don't start smoking - Limit alcohol use to one drink or less - Do not use illegal drugs or misuse prescription drugs - Wear a helmet when riding a bike and wear protective gear for sports - Wear a seatbelt in cars and not text and drive - Wear sunscreen documented in this encounterPromedica [facility]02-07-[facility]25 History of Present illness Narrative* Cat Green APRN.CNP - 04/26/2024 7:40 AM EST This is a 23 year old female who presents today with: Patient presents with: Physical: Yearly exam HISTORY OF PRESENT ILLNESS: Anastacia Mckoy is a 23 year old female. Patient presents with: Physical: Yearly exam Wellness Exam Diet: Eating a well balanced diet. Exercise: Stay active at work, walking and gym when able to. Vision: Due for exam, wearing glasses. Dental: Due for exam. Sleep: 8 hours per night. Mood: Denies anyincreased anxiety, sadness, or SI/HI. Allergies: Taking Claritine 10 mg daily, Flonase prn. Menses: Nexplanon taken out in August, menses usually regular, had a longer menses the past 2 months.Can be very heavy bleeding the first 2 days. Has noticed increased fatigue. Denies palpitations, difficulty sleeping, or cold/heat intolerances. Pap: Due for first pap Vaccines: Denies wanting any vaccines at this time. PAST MEDICAL HISTORY: PAST MEDICAL HISTORY Diagnosis Date Acute bronchiolitis due to respiratory syncytial virus (RSV) resolved. 04/2003 Concussion PAST SURGICAL HISTORY Procedure Laterality Date NONE ALLERGIES Patient has no known allergies. MEDICATIONS Current Outpatient Medications Medication Sig fluticasone (FLONASE) 50 mcg/actuation nasal spray Use 2 Sprays in each nostril once daily. loratadine (CLARITIN) 10 mg tablet Take 1 tablet by mouth once daily. etonogestrel (NEXPLANON) subdermal implant 68 mg 68 mg by SUBDERMAL route. September 2021 diphenhydrAMINE (BENADRYL) 25 mg capsule Take 1 capsule by mouth every 6 hours as needed. LORYNA, 28, 3-0.02 mg per tablet Take 1 tablet by mouth once daily. (Patient not taking: Reported on 05/24/2023) No current facility-administered medications for this visit. FAMILY HISTORY Problem Relation Age of Onset Asthma Brother 1/2 brother Social History Tobacco Use Smoking status: Never Smokeless tobacco: Never Tobacco comments: mom outside Vaping Use Vaping status: Some Days Substances: Nicotine Devices: Pre-filled pod Substance Use Topics Alcohol use: Never Drug use: Never REVIEW OF SYSTEMS GENERAL: + Fatigue HEENT: Negative for frequent or significant headaches, No changes in hearing or vision. NECK: Negative for lumps, goiter, pain and significant neck swelling RESPIRATORY: Negative for cough, hemoptysis, wheezing, dyspnea or shortness of breath CARDIOVASCULAR: Negative for chest pain, leg swelling, orthopnea, or palpitations GI: No nausea, vomiting, or diarrhea/constipation. No hematochezia/melena. No heartburn or reflux symptoms. : No history of dysuria, frequency or incontinence MUSCULOSKELETAL: Negative for joint pain or swelling. SKIN: Negative for lesions, rash, and itching ENDOCRINE: Negative for cold or heat intolerance, polyuria, polydipsia and goiter NEURO: No history of headaches, syncope, paralysis, seizures or tremors MOOD: Negative for depression, anxiety, or suicidal ideation. EXAM: BP 126/78 Pulse 95 Resp 16 Ht 152.4 cm (5') Wt 69.4 kg (153 lb) LMP 04/25/2024 (Exact Date) SpO2 99% BMI 29.88 kg/m PHYSICAL EXAM: General Appearance: Well appearing, alert, in no acute distress, well-hydrated, well nourished. Skin: Skin color, texture, turgor normal, no suspicious rashes or lesions. Head: Normocephalic, no masses, lesions, tenderness or abnormalities. Eyes: Anicteric sclera. Pupils are equally round and reactive to light. Extraocular movements are intact. Ears: External ears normal, canals clear. TMs pearly gonzáles. Neck: Supple, no adenopathy; thyroid symmetric, normal size, no bruits. Lungs: Lungs clear to auscultation. No wheezing, rhonchi, rales. Heart: RRR without murmur, gallop, or rubs. No ectopy. Abdomen: Abdomen soft, non-tender. Bowel sounds normal. No masses, organomegaly. Extremities: No deformities, edema, skin discoloration, clubbing or cyanosis. Good capillary refill. Musculoskeletal: No joint swelling, deformity, or tenderness. Peripheral Pulses: Normal, Capillary refill <2secs, strong peripheral pulses, Pulses palpable. Neurologic: Gait normal. Reflexes normal and symmetric. Sensation grossly intact.. Mood: Pleasant, engaged, good eye contact. ASSESSMENT/PLAN: 1. Wellness examination - ICD9: V70.0, ICD10: Z00.00 (primary diagnosis) - Counseled on healthy diet and regular exercise - Discussed need and benefit for weight loss. BMI 29.88 kg/(m^2) - Discussed safe sex practices and avoidance of STIs - Follow up for annual exam in one year - Due for pap this year, follow up with [facility] - COMPREHENSIVE METABOLIC PANEL 2. Fatigue, unspecified type - ICD9: 780.79, ICD10: R53.83 - Get the following labs completed - COMPLETE BLOOD COUNT AND DIFFERENTIAL - IRON AND TIBC - FERRITIN - VITAMIN B12 - VITAMIN D 25 HYDROXY - THYROID STIMULATING HORMONE - T4 FREE/FREE THYROXINE 3. Chronic rhinitis - ICD9: 472.0, ICD10: J31.0 - Stable, continue to take current medication. 4. Screening for depression - ICD9: V79.0, ICD10: Z13.31 - DEPRESSION SCREENING 5. Encounter for screening examination for other mental health and behavioral disorders - ICD9: V79.8, ICD10: Z13.39 - ANXIETY SCREENING 6. Screening cholesterol level - ICD9: V77.91, ICD10: Z13.220 - LIPID PANEL BASIC Follow-up in 1 year or sooner pending test results. Discussed treatment plan and patient voices understanding. Patient's questions answered appropriately. Medications and potential side effects were discussed and patient voices understanding. Cat Green APRN.LISA This note was partially generated using [email or web address] voice recognition system. Note was reviewed for accuracy. There may be minor misspellings or grammar miscues with [email or web address] voice recognition. documented in this encounterPromedica [facility]02-07-[facility]25 NoteHNO ID: [id number] Author: CAT GREEN APRN.CNP Service: ? Author Type: Nurse Practitioner Type: Progress Notes Filed: 04/26/2024 07:52 Note Text: This is a 23 year old female who presents today with: Patient presents with: Physical: Yearly exam HISTORY OF PRESENT ILLNESS: Anastacia Mckoy is a 23 year old female. Patient presents with: Physical: Yearly exam Wellness Exam Diet: Eating a well balanced diet. Exercise: Stay active at work, walking and gym when able to. Vision: Due for exam, wearing glasses. Dental: Due for exam. Sleep: 8 hours per night. Mood: Denies any increased anxiety, sadness, or SI/HI. Allergies: Taking Claritine 10 mg daily, Flonase prn. Menses: Nexplanon taken out in August, menses usually regular, had a longer menses the past 2 months. Can be very heavy bleeding the first 2 days. Has noticed increased fatigue. Denies palpitations, difficulty sleeping, or cold/heat intolerances. Pap: Due for first pap Vaccines: Denies wanting any vaccines at this time. PAST MEDICAL HISTORY: PAST MEDICAL HISTORY Diagnosis Date Acute bronchiolitis due to respiratory syncytial virus (RSV) resolved. 04/2003 Concussion PAST SURGICAL HISTORY Procedure Laterality Date NONE ALLERGIES Patient has no known allergies. MEDICATIONS Current Outpatient Medications Medication Sig fluticasone (FLONASE) 50 mcg/actuation nasal spray Use 2 Sprays in each nostril once daily. loratadine (CLARITIN) 10 mg tablet Take 1 tablet by mouth once daily. etonogestrel (NEXPLANON) subdermal implant 68 mg 68 mg by SUBDERMAL route. September 2021 diphenhydrAMINE (BENADRYL) 25 mg capsule Take 1 capsule by mouth every 6 hours as needed. LORYNA, 28, 3-0.02 mg per tablet Take 1 tablet by mouth once daily. (Patient not taking: Reported on 05/24/2023) No current facility-administered medications for this visit. FAMILY HISTORY Problem Relation Age of Onset Asthma Brother 1/2 brother Social History Tobacco Use Smoking status: Never Smokeless tobacco: Never Tobacco comments: mom outside Vaping Use Vaping status: Some Days Substances: Nicotine Devices: Pre-filled pod Substance Use Topics Alcohol use: Never Drug use: Never REVIEW OF SYSTEMS GENERAL: + Fatigue HEENT: Negative for frequent or significant headaches, No changes in hearing or vision. NECK: Negative for lumps, goiter, pain and significant neck swelling RESPIRATORY: Negative for cough, hemoptysis, wheezing, dyspnea or shortness of breath CARDIOVASCULAR: Negative for chest pain, leg swelling, orthopnea, or palpitations GI: No nausea, vomiting, or diarrhea/constipation. No hematochezia/melena. No heartburn or reflux symptoms. : No history of dysuria, frequency or incontinence MUSCULOSKELETAL: Negative for joint pain or swelling. SKIN: Negative for lesions, rash, and itching ENDOCRINE: Negative for cold or heat intolerance, polyuria, polydipsia and goiter NEURO: No history of headaches, syncope, paralysis, seizures or tremors MOOD: Negative for depression, anxiety, or suicidal ideation. EXAM: BP 126/78 Pulse 95 Resp 16 Ht 152.4 cm (5') Wt 69.4 kg (153 lb) LMP 04/25/2024 (Exact Date) SpO2 99% BMI 29.88 kg/m? PHYSICAL EXAM: General Appearance: Well appearing, alert, in no acute distress, well-hydrated, well nourished. Skin: Skin color, texture, turgor normal, no suspicious rashes or lesions. Head: Normocephalic, no masses, lesions, tenderness or abnormalities. Eyes: Anicteric sclera. Pupils are equally round and reactive to light. Extraocular movements are intact. Ears: External ears normal, canals clear. TMs pearly gonzáles. Neck: Supple, no adenopathy; thyroid symmetric, normal size, no bruits. Lungs: Lungs clear to auscultation. No wheezing, rhonchi, rales. Heart: RRR without murmur, gallop, or rubs. No ectopy. Abdomen: Abdomen soft, non-tender. Bowel sounds normal. No masses, organomegaly. Extremities: No deformities, edema, skin discoloration, clubbing or cyanosis. Good capillary refill. Musculoskeletal: No joint swelling, deformity, or tenderness. Peripheral Pulses: Normal, Capillary refill <2secs, strong peripheral pulses, Pulses palpable. Neurologic: Gait normal. Reflexes normal and symmetric. Sensation grossly intact.. Mood: Pleasant, engaged, good eye contact. ASSESSMENT/PLAN: 1. Wellness examination - ICD9: V70.0, ICD10: Z00.00 (primary diagnosis) - Counseled on healthy diet and regular exercise - Discussed need and benefit for weight loss. BMI 29.88 kg/(m2) - Discussed safe sex practices and avoidance of STIs - Follow up for annual exam in one year - Due for pap this year, follow up with [facility] - COMPREHENSIVE METABOLIC PANEL 2. Fatigue, unspecified type - ICD9: 780.79, ICD10: R53.83 - Get the following labs completed - COMPLETE BLOOD COUNT AND DIFFERENTIAL - IRON AND TIBC - FERRITIN - VITAMIN B12 - VITAMIN D 25 HYDROXY - THYROID STIMULATING H (more content not included)...[facility] 08-21-2023 Instructions* Patient Instructions* Rehana Maloney MD - 08/21/2023 11:40 AM EDT Start Flonase 2 sprays per nostril daily. Loratadine 10 mg daily as needed. Please increase to twice daily if needed. [email or web address] Skin testing was positive to cat, dog, dust mite, mold, trees, and ragweed. We recommend minimizingexposure to allergens based off of testing. Please note though that even if skin testing is negative, if a certain allergen triggers symptoms, try to reduce exposure to given allergen. MANAGEMENT FOR INDOOR ALLERGENS Indoor allergen Recommendations for reducing exposure Animal dander -Remove animal from house, or at minimum, keep animal out of patient's bedroom. Keep pet in a room with a HEPA filter and replace the filter as recommended by the receiver bulk system. -Cover air ducts that lead to bedroom with filters. Replace filters as recommended by the receiver bulk system. -Use HEPA air filters and vacuums with HEPA filters. Replace the filter as recommended by the receiver bulk system. Dust mites Less costly: -Encase mattress, pillows, and box spring in allergen-impermeable covers. Finely woven covers for pillows and duvets are preferable. -Wash bedding weekly in warm water with detergent or use electric dryer on hot setting. -Reduce indoor humidity to <50%. -Vacuum carpet and cloth furniture 1-2 times a week More costly: -Remove carpets from the bedroom -Replace old upholstered furniture with leather, vinyl or wood. Indoor mold -Clean moldy surfaces with dilute bleach solution -Fix water leaks -Reduce indoor humidity to <50%. Avoid use of humidifiers. -Evaporate (or swamp) coolers should be avoided or cleaned regularly. Adapted from: The Allergy Report. [employer] [employer], [employer] (www.aaaai.org). WAYS TO REDUCE DUST ALLERGEN SYMPTOMS For dust mite protection at home: First: Bedrooms -Cover pillows and mattresses with zippered covers that trap in mites and mite allergens. These covers are made of special, tightly-woven material and should be labeled as specifically designed to block dust mites. -Wash sheets, pillowcases, and blankets in hot or warm water with detergent or dry in an electric dryer on the hot setting every week. If needed, replace blankets with ones that can be washed. If youmust use comforters (or duvets), cover them with tightly woven covers. -Use washable, vinyl, or roll-type window covers. -Remove clutter, soft toys, and upholstered furniture. -Where possible, remove carpets or replace them with area rugs that can be cleaned or washed. Second: Rest of house -Reduce upholstered furniture, especially old sofas. -Where possible, replace carpets with polished brionna. Carpets on concrete slabs or stuffy crawl spaces are a problem. Those carpets especially should be replaced with polished brionna. -Vacuum weekly using a cleaner greaser with a high-efficiency particulate air (HEPA) filter. -Window coverings should be washable, vinyl, or roll type. -Control humidity to less than 50% relative humidity at normal temperatures (between 68 to 72 F). To check humidity levels, you can buy a humidity monitor at a hardware store. If it's too humid, you can lower humidity by using an air conditioner. Third: -If you have bad allergies and live in a basement or very damp home, think about moving. -People who are allergic to mites (or molds) often do much better if they live an apartment ([facility] or higher) or a house with second floor bedrooms and wooden floors. documented in this encounterPromedica [facility]06-03-[facility] Nurse Note* Corazon Hernandez LPN - 08/21/2023 10:05 AM EDT Patient here for skin testing environmental - states reactions in the past to cats (eyes jaspreet, watery); also sneezing, runny nose, PND, [facility] Nurse Note* Corazon Hernandez LPN - 08/21/2023 10:05 AM EDT Patient here for skin testing environmental - states reactions in the past to cats (eyes jaspreet, watery); also sneezing, runny nose, PND, documented in this encounterPromedica [facility]06-03-2024 History of Present illness Narrative* Rehana Maloney MD - 08/21/2023 10:00 AM EDT [facility] ALL[facility]GY & IMMUNOLOGY CONSULT Patient Name: Anastacia Mckoy PRIMARY CARE PHYSICIAN: Mildred Tomas MD REASON FOR CONSULT: allergy evaluation REQUESTING PHYSICIAN: Billy tSeel APRN.IT AUDITOR My final recommendations will be communicated to the requesting health care provider by way of the shared medical record for internal providers or letter via the [employer] for external providers. CHIEF COMPLAINT: No chief complaint on file. HISTORY OF PRESENT ILLNESS: Anastacia Mckoy is a 22 year old female who presents with allergy evaluation: # Rhinitis Onset: Since childhood. Symptoms: red/watery eyes, rhinorrhea, nasal congestion, sneezing Recurrent infections: Augmentin for Sinusitis in 05/2023. Does not have hx of recurrent sinusitis. Sense of smell: Preserved. Seasonality/Pattern: Perennial. Worse during the spring. 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 Used to get flares of hives on forearms when handling lab animal (ie, rabbits, mice, and rats). Cats. No overt sxs near her dog. Thinking about purchasing rabbits, horses, dogs, goats. Meds: Claritin/Zyrtec as needed. Helpful. OTC nasal spray in past. Doesn't recall name. Past testing/IT (effective?): Never. Oral allergy syndrome(?): Denies. # Hx of eczema: Hands, popliteal fossa, and webs of the toes. Dry, red, flaky patches. Flares during the summer time. Flares with moisture. Moisturizes with Dove sensitive skin lotion. HC alleviates flares. Uses all nonscented soaps/detergents. # Hymenoptera LLR reaction: Large local reaction to bee sting 3 years ago. Stung on the foot. Entire foot and ankle were swollen. Denies hx of systemic reaction. Hx of asthma: Denies. Hx of GERD: Denies. 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 Interested in getting BSN afterwards. 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 Recent episode of hives on left forearm while working with a rat. Mild flaring of sxs at home near cat and dog. - Referral to allergy for testing - C/w Viviana. Start OTC Flonase. PAST MEDICAL HISTORY Diagnosis Date Acute bronchiolitis due to respiratory syncytial virus (RSV) resolved. 04/2003 Concussion There is no problem list on file for this patient. PAST SURGICAL HISTORY Procedure Laterality Date NONE FAMILY HISTORY Problem Relation Age of Onset Asthma Brother 1/2 brother Allergic rhinitis:no. Asthma: 1/2 brother. Eczema: no. Cystic fibrosis: no. Immunodeficiency: no. Social History Tobacco Use Smoking status: Never Smokeless tobacco: Never Tobacco comments: mom outside Vaping Use Vaping Use: Never used Substance Use Topics Alcohol use: Never Drug use: Never ALLERGIES: ALLERGIES No Known Allergies CURRENT OUTPATIENT MEDICATIONS: etonogestrel (NEXPLANON) subdermal implant 68 mg 68 mg by SUBDERMAL route. September 2021 diphenhydrAMINE (BENADRYL) 25 mg capsule Take 1 capsule by mouth every 6 hours as needed. LORYNA, 28, 3-0.02 mg per tablet Take 1 tablet by mouth once daily. (Patient not taking: Reported on 05/24/2023) REVIEW OF SYSTEMS: Review of Systems: The remainder of the review of systems is negative. PHYSICAL EXAM: BP 117/74 Pulse 83 Resp 18 Wt 141 lb 1.5 oz (64.0kg) SpO2 99% LMP 11/29/2022 General appearance: Well appearing, alert, in no acute distress, well-hydrated, well nourished. HENT: External ears normal, canals clear, TM's normal Eyes: no scleral icterus, PERRLA, EOMS, no conjunctivitis Nose/Sinuses: Nares normal. Septum midline. Mucosal edema. Clear rhinorrhea. Oropharynx: Lips, mucosa, and tongue normal, teeth and gums normal, oropharynx clear Respiratory: Lungs clear to auscultation. No wheezing, rhonchi, rales Cardiovascular: RRR without murmur, gallop, or rubs. No ectopy Gastroenterology: Normal appearing abdomen on inspection Musculoskeletal: No joint pain, muscle weakness, or impaired gait Integumentary: Negative for lesions, rash, and itching. DATA: Allergy Skin Testing 08/21/23 Sensitized to cat, dog, mouse, rat, dust mite, mold, trees, and ragweed. Assessment/Recommendations: 1. Allergic rhinitis due to animal dander 2. Allergic rhinitis due to dust mite 3. Seasonal allergic rhinitis due to pollen 4. Allergic rhinitis due to mold 5. Allergic conjunctivitis of both eyes Comment: Allergic rhinitis due to animal dander, dust mite, mold, and pollen explains contact urticaria and perennial rhino-conjunctivitis worse during the springtime. Patient would benefit from INCS. - Start Flonase 2 sprays per nostril daily - Loratadine 10 mg daily as needed. Discussed may increase to twice daily if needed - Allergen avoidance measures - Consider allergen immunotherapy 6. Eczema Comment: Well-controlled. - C/w Dove sensitive skin lotion - Hydrocortisone as needed for flares Follow-up in 3 months - patient will return sooner should new symptoms or problems arise. I spent a total of 63 minutes on the date of the service which included preparing to see the patient, [id number] patient care, completing clinical documentation, obtaining and/or reviewing separately obtained history, performing a medically appropriate examination, counseling and educating the pat ient/family/caregiver, ordering medications, tests, or procedures, independently interpreting results (not separately reported), communicating results to the patient/family/caregiver, and care coordination (not separately reported). Rehana Maloney M.D. Allergy and Clinical Immunology [facility] documented in this encounterPromedica [facility]06-03-2024 NoteHNO ID: [id number] Author: REHANA MALONEY MD Service: ? Author Type: Physician Type: Progress Notes Filed: 08/21/2023 13:38 Note Text: [facility] ALL[facility]GY AND IMMUNOLOGY CONSULT Patient Name: Anastacia Mckoy PRIMARY CARE PHYSICIAN: Mildred Tomas MD REASON FOR CONSULT: allergy evaluation REQUESTING PHYSICIAN: Billy Steel APRN.IT AUDITOR My final recommendations will be communicated to the requesting health care provider by way of the shared medical record for internal providers or letter via the [employer] for external providers. CHIEF COMPLAINT: No chief complaint on file. HISTORY OF PRESENT ILLNESS: Anastacia Mckoy is a 22 year old female who presents with allergy evaluation: # Rhinitis Onset: Since childhood. Symptoms: red/watery eyes, rhinorrhea, nasal congestion, sneezing Recurrent infections: Augmentin for Sinusitis in 05/2023. Does not have hx of recurrent sinusitis. Sense of smell: Preserved. Seasonality/Pattern: Perennial. Worse during the spring. 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 Used to get flares of hives on forearms when handling lab animal (ie, rabbits, mice, and rats). Cats. No overt sxs near her dog. Thinking about purchasing rabbits, horses, dogs, goats. Meds: Claritin/Zyrtec as needed. Helpful. OTC nasal spray in past. Doesn't recall name. Past testing/IT (effective?): Never. Oral allergy syndrome(?): Denies. # Hx of eczema: Hands, popliteal fossa, and webs of the toes. Dry, red, flaky patches. Flares during the summer time. Flares with moisture. Moisturizes with Dove sensitive skin lotion. HC alleviates flares. Uses all nonscented soaps/detergents. # Hymenoptera LLR reaction: Large local reaction to bee sting 3 years ago. Stung on the foot. Entire foot and ankle were swollen. Denies hx of systemic reaction. Hx of asthma: Denies. Hx of GERD: Denies. 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 Interested in getting BSN afterwards. 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 Recent episode of hives on left forearm while working with a rat. Mild flaring of sxs at home near cat and dog. - Referral to allergy for testing - C/w manish-ELIAZAR. Start OTC Flonase. PAST MEDICAL HISTORY Diagnosis Date Acute bronchiolitis due to respiratory syncytial virus (RSV) resolved. 04/2003 Concussion There is no problem list on file for this patient. PAST SURGICAL HISTORY Procedure Laterality Date NONE FAMILY HISTORY Problem Relation Age of Onset Asthma Brother 1/2 brother Allergic rhinitis:no. Asthma: 1/2 brother. Eczema: no. Cystic fibrosis: no. Immunodeficiency: no. Social History Tobacco Use Smoking status: Never Smokeless tobacco: Never Tobacco comments: mom outside Vaping Use Vaping Use: Never used Substance Use Topics Alcohol use: Never Drug use: Never ALLERGIES: ALLERGIES No Known Allergies CURRENT OUTPATIENT MEDICATIONS: etonogestrel (NEXPLANON) subdermal implant 68 mg 68 mg by SUBDERMAL route. September 2021 diphenhydrAMINE (BENADRYL) 25 mg capsule Take 1 capsule by mouth every 6 hours as needed. LORYNA, 28, 3-0.02 mg per tablet Take 1 tablet by mouth once daily. (Patient not taking: Reported on 05/24/2023) REVIEW OF SYSTEMS: Review of Systems: The remainder of the review of systems is negative. PHYSICAL EXAM: BP 117/74 Pulse 83 Resp 18 Wt 141 lb 1.5 oz (64.0kg) SpO2 99% LMP 11/29/2022 General appearance: Well appearing, alert, in no acute distress, well-hydrated, well nourished. HENT: External ears normal, canals clear, TM's normal Eyes: no scleral icterus, PERRLA, EOMS, no conjunctivitis Nose/Sinuses: Nares normal. Septum midline. Mucosal edema. Clear rhinorrhea. Oropharynx: Lips, mucosa, and tongue normal, teeth and gums normal, oropharynx clear Respiratory: Lungs clear to auscultation. No wheezing, rhonchi, rales Cardiovascular: RRR without murmur, gallop, or rubs. No ectopy Gastroenterology: Normal appearing abdomen on inspection Musculoskeletal: No joint pain, muscle weakness, or impaired gait Integumentary: Negative for lesions, rash, and itching. DATA: Allergy Skin Testing 08/21/23 Sensitized to cat, dog, mouse, rat, dust mite, mold, trees, and ragweed. Assessment/Recommendations: 1. Allergic rhinitis due to animal dander 2. Allergic rhinitis due to dust mite 3. Seasonal allergic rhinitis due to pollen 4. Allergic rhinitis due to mold 5. Allergic conjunctivitis of both eyes Comment: Allergic rhinitis due to animal dander, dust mite, mold, and pollen explains contact urticaria and perennial rhino-conjunctivitis worse during (more content not included)...[facility]04-08-2024 History of Present illness Narrative* Billy Steel APRN.IT AUDITOR - 06/26/2023 7:00 AM EDT Chief Complaint Patient presents with: Allergies: & stomach/eating concern HPI Anastacia Mckoy is a 22 year old female who presents here today for Above Complaints. Patient is here for discussing recent allergic reaction. 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 She states that last Shaan she was working with a rat.Developed a hive-like rash up the left forearm. Described as blotchy, red, itchy. Believes this is the first time this has happened to this degree. While working with this facility, she has noticed rhinitis, itchy eyes, watery eyes, red eyes on occasions. She does use a second- generation antihistamine daily. Does have occasional flareups of rhinitis, postnasal drip at home. She does own a cat deja dog. She also gets some type of red eye, watery eye at home. Discussing over the past few years she has noticed fluctuating patterns in her eating habits. Will go a few weeks with eating daily, excessive amount of food and then will eat very little for a few weeks. Her weight is stable when compared to the past 3 years. She denies any abdominal pain. Occasionally some acid reflux. No blood in her stools. No fevers or chills. Past medical history, appointments, medications, allergies reviewed. EXAM: BP 113/76 Pulse 101 Resp 16 Wt 60.5 kg (133 lb 6.4 oz) LMP 11/29/2022 (Exact Date) SpO2 98% BMI 26.05 kg/m General Appearance: Well appearing, alert, in no acute distress, well-hydrated, well nourished.. Skin: No hives at this point on the left forearm Nose/Sinuses: Positive findings: mucosa swollen, pale, and boggy. Oropharynx: Lips, mucosa, and tongue normal, teeth and gums normal, oropharynx normal. Lungs: Lungs clear to auscultation. No wheezing, rhonchi, rales.. Heart: RRR without murmur, gallop, or rubs. No ectopy. Abdomen: Soft, nontender ASSESSMENT/PLAN: 1. Hives - ICD9: 708.9, ICD10: L50.9 (primary diagnosis) -Secondary to exposure to animal dander. Discussed trying to avoid touching animals that she knows will cause symptoms. If she needs to be, should wear gloves, can trial applying Vaseline or Aquaphorto her forearms, wearing longsleeve shirt. She is requesting allergy testing to understand what sheis allergic to overall. I provided referral. - CONSULT TO ALLERGY/IMMUNOLOGY 2. Chronic rhinitis - ICD9: 472.0, ICD10: J31.0 -See 1, continue with antihistamine, trial adding Flonase wfrs-tmy-ysbjqey. 3. Change in eating habits - ICD9: 783.9, ICD10: R63.8 -Discussed that this could be secondary to different etiologies include anxiety, stress, acid reflux that fluctuates. Discussed trialing cxce-bzj-vyowzhk use of Zantac, Tagamet. Return if it worsens. Billy Steel APRN.LISA This note was partly generated using [email or web address] voice recognition dictation and may contain some misspelled or inaccurate words missed on review. documented in this encounterPromedica [facility]ost[facility]03-06-[facility] History of Present illness Narrative* Nadja Dickson APRN.LISA - 05/24/2023 9:27 AM EST This note was created using NoteWriter. Subjective Anastacia Mckoy is a 22 year old female. 22 year old female with no PMH presents for illness. Acute onset a couple weeks ago +sore throat +runny nose + cough +nausea Denies ear and eye complaints. Denies fever or chills Denies tobacco usage. Has attempted allergy medicine + ill contacts The history is provided by the patient. No english language arts teacher was used. Cough This is a new problem. The current episode started more than 1 week ago. The problem occurs constantly. The problem has been gradually worsening. The cough is Productive of sputum. There has been no fever. Associated symptoms include ear congestion, ear pain, headaches, rhinorrhea and sore throat. Pertinent negatives include no chest pain, no chills, no sweats, no weight loss, no myalgias, no shortness of breath, no wheezing and no eye redness. Treatments tried: allergy medicine. She is not a smoker. Her past medical history does not include bronchitis, pneumonia, bronchiectasis, COPD, emphysema or asthma. PAST MEDICAL HISTORY Diagnosis Date Acute bronchiolitis due to respiratory syncytial virus (RSV) resolved. 04/2003 Concussion PAST SURGICAL HISTORY Procedure Laterality Date NONE ALLERGIES Patient has no known allergies. MEDICATIONS etonogestrel (NEXPLANON) subdermal implant 68 mg 68 mg by SUBDERMAL route. September 2021 amoxicillin-clavulanate potassium (AUGMENTIN) 875-125 mg per tablet Take 1 tablet by mouth two times a day for 5 days. diphenhydrAMINE (BENADRYL) 25 mg capsule Take 1 capsule by mouth every 6 hours as needed. LORYNA, 28, 3-0.02 mg per tablet Take 1 tablet by mouth once daily. (Patient not taking: Reported on 05/24/2023) FAMILY HISTORY Problem Relation Age of Onset Asthma Brother 1/2 brother Social History Tobacco Use Smoking status: Never Smokeless tobacco: Never Tobacco comments: mom outside Vaping Use Vaping Use: Never used Substance Use Topics Alcohol use: Never Drug use: Never Review of Systems Constitutional: Negative for chills, fatigue, fever and weight loss. HENT: Positive for congestion, ear pain, rhinorrhea, sinus pressure, sinus pain and sore throat. Eyes: Negative for pain, discharge, redness and itching. Respiratory: Positive for cough. Negative for shortness of breath and wheezing. Cardiovascular: Negative for chest pain. Gastrointestinal: Negative for abdominal pain, diarrhea, nausea and vomiting. Musculoskeletal: Negative for myalgias. Skin: Negative for color change, pallor, rash and wound. Neurological: Positive for headaches. Hematological: Negative for adenopathy. Does not bruise/bleed easily. Psychiatric/Behavioral: Negative for agitation and behavioral problems. Objective BP 128/82 Pulse 100 Temp 37.1 C (98.7 F) (Tympanic) Resp 18 Wt 60.7 kg (133 lb 12.8 oz) LMP 11/29/2022 (Exact Date) SpO2 98% BMI 26.13 kg/m Physical Exam Vitals and nursing note reviewed. Constitutional: General: She is not in acute distress. Appearance: Normal appearance. She is normal weight. She is not ill-appearing, toxic-appearing or diaphoretic. HENT: Head: Normocephalic and atraumatic. Comments: +frontal sinus pressure +maxillary sinus pressure Right Ear: Ear canal and external ear normal. Left Ear: Ear canal and external ear normal. Ears: Comments: Bilateral TM's with mild erythema noted Nose: Nose normal. No congestion or rhinorrhea. Mouth/Throat: Mouth: Mucous membranes are moist. Pharynx: No oropharyngeal exudate or posterior oropharyngeal erythema. Eyes: General: Right eye: No discharge. Left eye: No discharge. Extraocular Movements: Extraocular movements intact. Conjunctiva/sclera: Conjunctivae normal. Pupils: Pupils are equal, round, and reactive to light. Cardiovascular: Rate and Rhythm: Normal rate and regular rhythm. Pulses: Normal pulses. Heart sounds: Normal heart sounds. No murmur heard. No friction rub. Pulmonary: Effort: Pulmonary effort is normal. No respiratory distress. Breath sounds: Normal breath sounds. No stridor. No wheezing, rhonchi or rales. Chest: Chest wall: No tenderness. Abdominal: General: Abdomen is flat. There is no distension. Palpations: Abdomen is soft. There is no mass. Tenderness: There is no abdominal tenderness. There is no right CVA tenderness, left CVA tenderness, guarding or rebound. Hernia: No hernia is present. Musculoskeletal: General: No swelling, tenderness, deformity or signs of injury. Normal range of motion. Cervical back: Normal range of motion and neck supple. No rigidity. Right lower leg: No edema. Left lower leg: No edema. Lymphadenopathy: Cervical: Cervical adenopathy present. Skin: General: Skin is warm and dry. Capillary Refill: Capillary refill takes less than 2 seconds. Coloration: Skin is not jaundiced or pale. Findings: No bruising, erythema, lesion or rash. Neurological: General: No focal deficit present. Mental Status: She is alert and oriented to person, place, and time. Cranial Nerves: No cranial nerve deficit. Sensory: No sensory deficit. Motor: No weakness. Coordination: Coordination normal. Gait: Gait normal. Psychiatric: Mood and Affect: Mood normal. Behavior: Behavior normal. Thought Content: Thought content normal. Judgment: Judgment normal. Assessment and Plan ASSESSMENT/PLAN: 1. Rhinosinusitis - ICD9: 473.9, ICD10: J32.9 Sx x 2 weeks - Will begin treatment with as per antibiotic as written, see orders - The patient should also be given OTC cough and cold meds as needed, warm salt water gargles, throat lozenges and/or OTC throat spray as needed, and nasal saline gtts and suction prn for the first 5-7 days of treatment. - Supportive care with plenty of fluids, rest, and analgesia prn. - Follow up in 3-5 days if symptoms persist or worsen. Nadja Dickson APRN.CNP documented in this encounterPromedica Fost[facility]11-08-2023 Miscellaneous Notes* Telephone Encounter - Mickey Hurt RN - 01/25/2023 10:39 AM EST Patient returned call and given provider's message below with verbalized understanding. * Telephone Encounter - Nieves Landry RN - 01/25/2023 9:22 AM EST Called and left a voicemail for the Patient to call back and ask for a nurse to receive the providers message. Nieves Landry RN * Telephone Encounter - Cat Green APRN.CNP - 01/25/2023 7:11 AM EST Can you please call the patient and let her know that her TB screen was negative. Please let me know if she has any questions. Thank you. Cat Green APRN.LISA documented in this encounterPromedica Fost[facility]11-06-2023 Instructions* Patient Instructions* Cat Green APRN.CNP - 01/23/2023 10:36 AM EST Get TB blood test completed Flu vaccine given Continue to work on eating a well balanced diet and stay active. Due for Pap at age 23. Follow up in 1 year or sooner as needed Health Promotion: - Eat healthy -- go to ChooseMyPlate.gov to get started - Have a yearly physical - Mammogram yearly after age 40 - Get at least 30 minutes of physical activity daily - Get at least 7 to 8 hours of sleep each night - Reach and maintain a healthy weight - Get help to quit or don't start smoking - Limit alcohol use to one drink or less - Do not use illegal drugs or misuse prescription drugs - Wear a helmet when riding a bike and wear protective gear for sports - Wear a seatbelt in cars and not text and drive - Wear sunscreen documented in this encounterPromedica [facility]11-06-2023 History of Present illness Narrative* Cat Green APRN.CNP - 01/23/2023 10:20 AM EST This is a 22 year old female who presents today with: Patient presents with: Establish Care HISTORY OF PRESENT ILLNESS: Anastacia Mckoy is a 22 year old female. Patient presents with: Establish Care Pediatric transfer to [facility]. 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 Needs TB Test. Wellness Exam Diet: Eating a well balanced diet. Exercise: Staying active at work. Vision: Had exam, wearing glasses and contacts. Dental: Had exam, no difficulties. Sleep: 7-8 hours per night. Mood: No increased sadness, anxiety, or SI/HI. Menses: Nexplanon, irregular. Currently sexually active, using protection. Due for Pap age 23. Vaccines: Due for Flu Vaccine. PAST MEDICAL HISTORY: PAST MEDICAL HISTORY Diagnosis Date Acute bronchiolitis due to respiratory syncytial virus (RSV) resolved. 04/2003 Concussion PAST SURGICAL HISTORY Procedure Laterality Date NONE ALLERGIES Patient has no known allergies. MEDICATIONS Current Outpatient Medications Medication Sig diphenhydrAMINE (BENADRYL) 25 mg capsule Take 1 capsule by mouth every 6 hours as needed. LORYNA, 28, 3-0.02 mg per tablet Take 1 tablet by mouth once daily. No current facility-administered medications for this visit. FAMILY HISTORY Problem Relation Age of Onset Asthma Brother 1/2 brother Social History Tobacco Use Smoking status: Never Smokeless tobacco: Never Tobacco comments: mom outside REVIEW OF SYSTEMS GENERAL: No weight loss, malaise or fevers/chills HEENT: Negative for frequent or significant headaches, No changes in hearing or vision. NECK: Negative for lumps, goiter, pain and significant neck swelling RESPIRATORY: Negative for cough, hemoptysis, wheezing, dyspnea or shortness of breath CARDIOVASCULAR: Negative for chest pain, leg swelling, orthopnea, or palpitations GI: No nausea, vomiting, or diarrhea/constipation. No hematochezia/melena. No heartburn or reflux symptoms. : No history of dysuria, frequency or incontinence MUSCULOSKELETAL: Negative for joint pain or swelling. SKIN: Negative for lesions, rash, and itching ENDOCRINE: Negative for cold or heat intolerance, polyuria, polydipsia and goiter NEURO: No history of headaches, syncope, paralysis, seizures or tremors MOOD: Negative for depression, anxiety, or suicidal ideation. EXAM: BP 122/80 Pulse 76 Resp 16 Ht 152.4 cm (5') Wt 64.4 kg (142 lb) LMP 11/29/2022 (Exact Date) BMI 27.73 kg/m PHYSICAL EXAM: General Appearance: Well appearing, alert, in no acute distress, well-hydrated, well nourished. Skin: Skin color, texture, turgor normal, no suspicious rashes or lesions. Head: Normocephalic, no masses, lesions, tenderness or abnormalities. Eyes: Anicteric sclera. Pupils are equally round and reactive to light. Extraocular movements are intact. Ears: External ears normal, canals clear. TM's pearly gonzáles. Neck: Supple, no adenopathy; thyroid symmetric, normal size, no bruits. Lungs: Lungs clear to auscultation. No wheezing, rhonchi, rales.. Heart: RRR without murmur, gallop, or rubs. No ectopy. Abdomen: Normal abdominal exam, Abdomen soft, non-tender. Bowel sounds normal. No masses, organomegaly, Negative CVA tenderness. Extremities: No deformities, edema, skin discoloration, clubbing or cyanosis. Good capillary refill. Musculoskeletal: No joint swelling, deformity, or tenderness. Peripheral Pulses: Normal, Capillary refill <2secs, strong peripheral pulses, Pulses palpable. Neurologic: Gait normal. Reflexes normal and symmetric. Sensation grossly intact. Mood: Pleasant, good eye contact, engaged. ASSESSMENT/PLAN: 1. Wellness examination - ICD9: V70.0, ICD10: Z00.00 (primary diagnosis) - Counseled on healthy diet and regular exercise - Calcium intake with supplements or by diet of 1000 mg/day for under 50, 1200- 1500 mg/day for 50+ - Discussed need and benefit for weight loss. BMI 27.73 kg/(m^2) - Discussed safe sex practices and avoidance of STIs - Depression screening tool completed and reviewed with patient. Based on score and interview, patient is not at risk for depression and recommended no further intervention at this time. - Patient was counseled [id number]-[id number]-gfat by myself (the billing provider) for the following immunizations and vaccine components, including side effects: Influenza. Patient consents for immunization and understands risks and benefits. A VIS sheet on each immunization was given to the patient. - Denied wanting annual labs completed at this time. - Follow up for annual exam in one year 2. 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 - BLOOD TB SCREEN 3. Encounter for immunization - ICD9: V03.89, ICD10: Z23 - VIS provided. - INFLUENZA VACCINE, AGE 6 MO - 64 YR, QUADRIVALENT (AFLURIA, FLULAVAL, FLUZONE) Follow-up in 1 year or sooner as needed. Discussed treatment plan and patient voices understanding. Patient's questions answered appropriately. Medications and potential side effects were discussed and patient voices understanding. Cat Green APRN.LISA This note was partially generated using [email or web address] voice recognition system. Note was reviewed for accuracy. There may be minor misspellings or grammar miscues with [email or web address] voice recognition. documented in this encounterPromedica F[facility] HospitalEvalubee[facility] note* Diagnosis Encounter for immunization- Primary Need for other specified prophylactic vaccination against single bacterial disease documented in this encounter [facility]* Diagnosis Encounter for immunization- Primary Need for other specified prophylactic vaccination against single bacterial disease documented in this encounter [facility] note* Diagnosis Wellness examination- Primary Screening-pulmonary TB Screening examination for pulmonary tuberculosis Encounter for immunization Need for other specified prophylactic vaccination against single bacterial disease documented in this encounter [facility] note* Diagnosis Rhinosinusitis- Primary Unspecified sinusitis (chronic) [facility]* Diagnosis Hives- Primary Urticaria, unspecified Chronic rhinitis Change in eating habits Other symptoms concerning nutrition, metabolism, and development [facility]* Diagnosis Allergic rhinitis due to animal dander- Primary Allergic rhinitis due to animal (cat) (dog) hair and dander Allergic rhinitis due to dust mite Seasonal allergic rhinitis due to pollen Allergic rhinitis due to mold Allergic conjunctivitis of both eyes Other chronic allergic conjunctivitis Eczema, unspecified type [facility]* Diagnosis Wellness examination- Primary Fatigue, unspecified type Chronic rhinitis Screening for depression Encounter for screening examination for other mental health and behavioral disorders Screening cholesterol level Screening for lipoid disorders [facility]* Diagnosis Hypothyroidism, acquired- Primary Unspecified hypothyroidism Vitamin D deficiency Unspecified vitamin D deficiency [facility]* Diagnosis Hypothyroidism, acquired- Primary Unspecified hypothyroidism documented in this encounter [facility] noteNo assessment information availableMoreno [facility] Work Phone: Evaluation note* Diagnosis Vitamin D deficiency- Primary Unspecified vitamin D deficiency documented in this encounter [facility] note* Diagnosis Vitamin D deficiency Unspecified vitamin D deficiency documented in this encounter [facility] note* Diagnosis Vitamin D deficiency- Primary Unspecified vitamin D deficiency documented in this encounter [facility] note Author Dorie Curry [facility] Note Date/Time September 09, 2024 8:52 am [facility] [address], [address] [place] [address] OFFICE VISIT Date of Service: 09/09/24 MR#: [id number] Acct: [id number] Name: ANASTACIA MCKOY Rep #: [id number] : 2000 Provider: YULISSA Curry Age/Sex: 23/F Location: [facility] Status: Signed Intake Vital Signs 08/22/23 10:06 08/07/24 10:30 09/09/24 08:28 09/09/24 08:40 Height 5 ft 1 in 5 ft 1 in 5 ft 1 in 5 ft 1 in Weight: 151 lb 8 oz BMI 28.6 BP 118/74 Intake Visit Reasons: 14wk OB Chief Complaint: 14 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 Is patient in pain?: No Allergies No Known Allergies Allergy (Verified 09/09/24 08:27) Medications ?Medication ?Instructions ?Recorded ?Confirmed ?Type docosahexaenoic acid 200 mg mg PO 08/02/24 09/09/24 Hi story capsule ( DHA) levothyroxine 50 mcg capsule 50 mcg PO QDAY 08/02/24 0 09/09/24 History ondansetron 4 mg disintegrating 4 mg PO Q4H PRN nausea and 09/09/24 09/09/24 Rx tablet vomiting #60 tabs Last Menstrual Period: 05/27/24 Zika: Zika virus screening: Negative : No PFSH PFSH Medical History Seasonal allergies Asthma Family History Uncle Cancer Stomach, Prostate & Brain Father CVA (cerebral vascular accident) Sister PCOS (polycystic ovarian syndrome) Endometriosis Fibroid Aunt Myocardial infarction Uncle Myocardial infarction Social History adopted: No household members: significant other housing: house current occupational status: employed 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) current occupational exposures/hazards: No pets and animals: Yes pets and animals: dog(s) history of recent travel: No sexually active: Yes Smoking Status: Current some day smoker tobacco type: e-cigarettes second hand exposure: No quit status: considering quitting alcohol intake: current alcohol intake frequency: holidays/special occasions only details: Not while substance use type: does not use well-balanced diet: daily or most days caffeine: Yes eating out: rarely or never during the past year weight has: increased > 10 lbs what type of physical activity do you participate in: none page/yarsanism: None seatbelt use: always do you feel safe at home: Yes additional social history: Boyfriend: Mateo Tong - [employer] History 1 Elective abortions 0 Hx Para 0 Spontaneous abortions 0 Hx # Term Pregnancies Ectopic pregnancies Hx # Pregnancies Multiple births # of living children HPI 14wk OB Details: ANASTACIA MCKOY is a 23 year old who presents for routine OB visit. OB Visit RODRIGO Calculator Estimated Delivery Date Method Current WG Current Estimate 03/03/25 LMP (Certain) 15w 0d Other Estimates 03/08/25 Ultrasound #1 14w 2d Expected Delivery Route/Plan Labor Preferences- CB/BF classes: [] labor support person: [] labor intervention preferences: [] pain management options preferred: [] cut cord/dad catch: [] : [] PP control planned: [] discussed possible routes of delivery and associated risks: [] special requests: [] Specific Issue/Plans Covid status: [] Flu vaccine: [] Tdap vaccine: [] Rhogam: [] LARC form signed: [] Problem list reviewed and updated with the most current plan of care details and appropriate orders placed. Relevant counseling for the gestational age provided. Continue routine care and follow up unless otherwise noted in visit notes/problem list details Initial Weight: Not Recorded Date -?-?-?-?-?-?-?-?-?-?-?-?- EGA Weight BP Urine Prot -?-?-?-?-?-?-?-?-?-?-?-?- Glucose FHR FuHt Pres Dilation -?-?-?-?-?-?-?-?-?-?-?-?- Effaced St Visit Note 08/07/24 -?-?-?-?-?-?-?-?-?-?-?-?- 10w 2d 153 lb 4 oz 134/88 -?-?-?-?-?-?-?-?-?-?-?-?- 172 -?-?-?-?--?-?-?-?-?-?-?-?- JV- CRL within 7 days of LMP. desires nipt and carrier 09/09/24 -?-?-?-?-?-?-?-?-?-?-?-?- 15w 0d 151 lb 8 oz 118/74 Nega tive -?-?-?-?--?-?-?-?-?-?-?-?- Negative 153 -?-?-?-?-?-?-?-?-?-?-?-?- MH-No VB. Nausea persists. Dianafran sent. ACOG First Trimester First Trimester: Desire for , Alcohol, Tobacco Cessation, Illicit/Recreational Drug/Substance Use, Intimate Partner Violence, Barriers to care, Unstable Housing, Communication Barriers, Environmental/Work Hazards, Anticipated Course of Care, Toxoplasmosis Precations, Use of Any medications, Sexual activity, Exercise, Dental Care, Sauna/Hot tub use, Seat Belt use, Childbirth classes/Hospital facilities, Travel, Indications for Ultrasound and Screening for Aneuploidy; Discussed Results POC Urinalysis 2 Dip (Clinic) Office Urine Glucose Negative Last Edit by Rachel Busch on 09/09/24 08 :41 Office Urine Protein Negative Last Edit by Rachel Busch on 09/09/24 08 :41 Coding Level of Care Code OB Routine Diagnoses Supervision of high risk in second trimester O09.92 Trimester: second trimester 15 weeks gestation of Z3A.15 Weeks of gestation: 15 weeks Tobacco use affecting , antepartum O99.330 Hypothyroidism, unspecified type E03.9 Hypothyroidism type: unspecified 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 Horizon negative. (3) Tobacco use affecting , antepartum: Status: Acute Comment: Vapes - 1 pod/week; attempting to quit. Has decreased by at least half. (4) Hypothyroidism: Status: Acute Qualifiers: Hypothyroidism type: unspecified Qualified Code(s): E03.9 - Hypothyroidism, unspecified Comment: dx Apr 2024 (5) PCR DNA positive for HSV1: Status: Acute Comment: cold sores Orders: Orders POC Urinalysis 2 Dip (Clinic) Today Medications: New ondansetron 4 mg PO Q4H PRN 60 tabs 2RF nausea and vomiting Plan problem list reviewed and updated for most current plan of care and appropriate orders placed. Relevant counseling for the gestational age appropriate provided and ACOG education checklist updated. Continue routine care and follow up. 09/09/24 0853 <Electronically signed by Dorie lewis CAPTAIN OF GUARDS CAPTAIN OF GUARDS-C> Date _ Dorie Curry CAPTAIN OF GUARDS CAPTAIN OF GUARDS-C Cosigner Signature: Date (if applicable) CC: ~ [facility] Work Phone: Reason for referral (narrative)No reason for referral information availableMoreno [facility] Work Phone: Reason for Referral Specialty Diagnoses / Procedures Referred By Robyn mills Referred To Contact Allergy Diagnoses Hives Vasomotor rhinitis Procedures CONSULT TO ALLERGY/IMMUNOLOGY OFFICE/OUTPATIENT [facility] 60 MINUTES Billy Steel, FOOD ANALYST.IT AUDITOR [address] [place] [address] Referral ID Status Reason Start Date Expiration Date Visits Requested Visits Authorized [id number] Authorized PCP Requested Referral 06/26/2023 06/25/2024 1 1 Chief Complaint and Reason for Visit Chief Complaint Admit Date Pre-new ob, confirm / vitals Ma y 2024 8:07am Chief Complaint Admit Date Pre-new ob, confirm / vitals Ma y 2024 8:07am 10wk NOB August 07, 2024 10:20 am Reason for Visit Admit Date Hypothyroidism August 02, 2024 8:07a m PCR DNA positive for HSV1 August 02, 2024 8:07am August 02, 2024 8:07a m Supervision of high-risk July 182024 8:07am Tobacco use affecting , antepar hanna August 02, 2024 8:07am Hypothyroidism August 07, 2024 10:20 am PCR DNA positive for HSV1 August 07, 2024 10:20am August 07, 2024 10:20 am Supervision of high-risk July 192024 10:20am Tobacco use affecting , antepar hanna August 07, 2024 10:20am Chief Complaint Admit Date Pre-new ob, confirm / vitals Ma y 2024 8:07am 10wk NOB August 07, 2024 10:20 am 14wk OB September 09, 2024 8:24 am Reason for Visit Admit Date Hypothyroidism August 02, 2024 8:07a m PCR DNA positive for HSV1 August 02, 2024 8:07am August 02, 2024 8:07a m Supervision of high-risk July 182024 8:07am Tobacco use affecting , antepar hanna August 02, 2024 8:07am Hypothyroidism August 07, 2024 10:20 am PCR DNA positive for HSV1 August 07, 2024 10:20am August 07, 2024 10:20 am Supervision of high-risk July 192024 10:20am Tobacco use affecting , antepar hanna August 07, 2024 10:20am Hypothyroidism September 09, 2024 8:24 am PCR DNA positive for HSV1 September 09 8:24am September 09, 2024 8:24 am Supervision of high-risk September 09, 2024 8:24am Tobacco use affecting , antepar hanna September 09, 2024 8:24am Chief Complaint Admit Date Pre-new ob, confirm / vitals Ma y 2024 8:07am 10wk NOB August 07, 2024 10:20 am 14wk OB September 09, 2024 8:24 am 18wk OB October 08, 2024 3:17 pm Reason for Visit Admit Date Hypothyroidism August 02, 2024 8:07a m PCR DNA positive for HSV1 August 02, 2024 8:07am August 02, 2024 8:07a m Supervision of high-risk July 182024 8:07am Tobacco use affecting , antepar hanna August 02, 2024 8:07am Hypothyroidism August 07, 2024 10:20 am PCR DNA positive for HSV1 August 07, 2024 10:20am August 07, 2024 10:20 am Supervision of high-risk July 192024 10:20am Tobacco use affecting , antepar hanna August 07, 2024 10:20am Hypothyroidism September 09, 2024 8:24 am PCR DNA positive for HSV1 September 09 8:24am September 09, 2024 8:24 am Supervision of high-risk September 09, 2024 8:24am Tobacco use affecting , antepar hanna September 09, 2024 8:24am Hypothyroidism October 08, 2024 3:17 pm PCR DNA positive for HSV1 October 08 3:17pm October 08, 2024 3:17 pm Supervision of high-risk October 08, 2024 3:17pm Tobacco use affecting , antepar hanna October 08, 2024 3:17pm Chief Complaint Admit Date Pre-new ob, confirm / vitals Ma y 2024 8:07am 10wk NOB August 07, 2024 10:20 am 14wk OB September 09, 2024 8:24 am 18wk OB October 08, 2024 3:17 pm ANATOMY October 16, 2024 3:49 pm Chief Complaint Admit Date Pre-new ob, confirm / vitals Ma 2024 8:07am 10wk NOB August 07, 2024 10:20 am 14wk OB September 09, 2024 8:24 am 18wk OB October 08, 2024 3:17 pm ANATOMY October 16, 2024 3:49 pm 22 wk ob November 06, 2024 3: 46pm Reason for Visit Admit Date Hypothyroidism August 02, 2024 8:07a m PCR DNA positive for HSV1 August 02, 2024 8:07am August 02, 2024 8:07a m Supervision of high-risk July 182024 8:07am Tobacco use affecting , antepar hanna August 02, 2024 8:07am Hypothyroidism August 07, 2024 10:20 am PCR DNA positive for HSV1 August 07, 2024 10:20am August 07, 2024 10:20 am Supervision of high-risk July 192024 10:20am Tobacco use affecting , antepar hanna August 07, 2024 10:20am Hypothyroidism September 09, 2024 8:24 am PCR DNA positive for HSV1 September 09 8:24am September 09, 2024 8:24 am Supervision of high-risk September 09, 2024 8:24am Tobacco use affecting , antepar hanna September 09, 2024 8:24am Hypothyroidism October 08, 2024 3:17 pm PCR DNA positive for HSV1 October 08 3:17pm October 08, 2024 3:17 pm Supervision of high-risk October 08, 2024 3:17pm Tobacco use affecting , antepar hanna October 08, 2024 3:17pm Hypothyroidism November 06, 2024 3: 46pm PCR DNA positive for HSV1 November 06, 025 3:46pm November 06, 2024 3: 46pm Supervision of high-risk Augus 2024 3:46pm Tobacco use affecting , antepar hanna November 06, 2024 3:46pm Chief Complaint Admit Date 10wk NOB August 07, 2024 10:20 am 14wk OB September 09, 2024 8:24 am 18wk OB October 08, 2024 3:17 pm ANATOMY October 16, 2024 3:49 pm 22 wk ob November 06, 2024 3: 46pm 26 wk ob/glucose December 02, 2024 3:18pm Reason for Visit Admit Date Hypothyroidism August 07, 2024 10:20 am PCR DNA positive for HSV1 August 07, 2024 10:20am August 07, 2024 10:20 am Supervision of high-risk July 192024 10:20am Tobacco use affecting , antepar hanna August 07, 2024 10:20am Hypothyroidism September 09, 2024 8:24 am PCR DNA positive for HSV1 September 09 8:24am September 09, 2024 8:24 am Supervision of high-risk September 09, 2024 8:24am Tobacco use affecting , antepar hanna September 09, 2024 8:24am Hypothyroidism October 08, 2024 3:17 pm PCR DNA positive for HSV1 October 08 3:17pm October 08, 2024 3:17 pm Supervision of high-risk October 08, 2024 3:17pm Tobacco use affecting , antepar hanna October 08, 2024 3:17pm Hypothyroidism November 06, 2024 3: 46pm PCR DNA positive for HSV1 November 06, 2 025 3:46pm November 06, 2024 3: 46pm Supervision of high-risk Augus t 2024 3:46pm Tobacco use affecting , antepar hanna November 06, 2024 3:46pm Hypothyroidism December 02, 2024 3:18pm PCR DNA positive for HSV1 November 3:18pm December 02, 2024 3:18pm Supervision of high-risk Septe mber 2024 3:18pm Tobacco use affecting , antepar hanna December 02, 2024 3:18pm Chief Complaint Admit Date 14wk OB September 09, 2024 8:24 am 18wk OB October 08, 2024 3:17 pm ANATOMY October 16, 2024 3:49 pm 22 wk ob November 06, 2024 3: 46pm 26 wk ob/glucose December 02, 2024 3:18pm Reason for Visit Admit Date Hypothyroidism September 09, 2024 8:24 am PCR DNA positive for HSV1 September 09 8:24am September 09, 2024 8:24 am Supervision of high-risk September 09, 2024 8:24am Tobacco use affecting , antepar hanna September 09, 2024 8:24am Hypothyroidism October 08, 2024 3:17 pm PCR DNA positive for HSV1 October 08 3:17pm October 08, 2024 3:17 pm Supervision of high-risk October 08, 2024 3:17pm Tobacco use affecting , antepar hanna October 08, 2024 3:17pm Hypothyroidism November 06, 2024 3: 46pm PCR DNA positive for HSV1 November 06, 2 025 3:46pm November 06, 2024 3: 46pm Supervision of high-risk Augus t 2024 3:46pm Tobacco use affecting , antepar hanna November 06, 2024 3:46pm Hypothyroidism December 02, 2024 3:18pm PCR DNA positive for HSV1 November 3:18pm December 02, 2024 3:18pm Supervision of high-risk Septe mber 2024 3:18pm Tobacco use affecting , antepar hanna December 02, 2024 3:18pm Chief Complaint Admit Date 18wk OB October 08, 2024 3:17 pm ANATOMY October 16, 2024 3:49 pm 22 wk ob November 06, 2024 3: 46pm 26 wk ob/glucose December 02, 2024 3:18pm 30wk ob December 30, 2024 2 :55pm Reason for Visit Admit Date Hypothyroidism October 08, 2024 3:17 pm PCR DNA positive for HSV1 October 08 3:17pm October 08, 2024 3:17 pm Supervision of high-risk October 08, 2024 3:17pm Tobacco use affecting , antepar hanna October 08, 2024 3:17pm Hypothyroidism November 06, 2024 3: 46pm PCR DNA positive for HSV1 November 06, 025 3:46pm November 06, 2024 3: 46pm Supervision of high-risk Augus t 2024 3:46pm Tobacco use affecting , antepar hanna November 06, 2024 3:46pm Hypothyroidism December 02, 2024 3:18pm PCR DNA positive for HSV1 November 3:18pm December 02, 2024 3:18pm Supervision of high-risk Septe mb2024 3:18pm Tobacco use affecting , antepar hanna December 02, 2024 3:18pm Hypothyroidism December 30, 2024 2 :55pm PCR DNA positive for HSV1 December 30, 2024 2:55pm December 30, 2024 2 :55pm Supervision of high-risk Octob 2024 2:55pm Tobacco use affecting , antepar hanna December 30, 2024 2:55pm Family History No Family History Records Found Relationship Condition Age at Onset Recorded Date/T esther uncle Malignant neoplasm Unknown father Cerebrovascular accident (CVA) Unknown sister Polycystic ovary syndrome Unknown Endometriosis Unknown Leiomyoma Unknown aunt Myocardial infarction Unknown uncle Myocardial infarction Unknown Summary Purpose Advance Directives No Advanced Directives Records FoundNo Advanced Directives Records FoundNo Advanced Directives Records Found Additional Source Comments Source Comments (unrecognize d section and content) In the event this informatio n is protected by the [facility] Confidentiality of Alcohol and Drug Abuse Patient Records regulations: The Federal rules restrict any use of the information to criminally investigate or prosecute any alcohol or drug abuse patient.[facility] the event this information is protected by the Federal Confidentiality of Alcohol and Drug Abuse Patient Records regulations: The Federal rules restrict any use of the information to criminally investigate or prosecute any alcohol or drug abuse patient.[facility] the event this information is protected by the Federal Confidentiality of Alcohol and Drug Abuse Patient Records regulations: The Federal rules restrict any use of the information to criminally investigate or prosecute any alcohol or drug abuse patient.[facility] the event this information is protected by the Federal Confidentiality of Alcohol and Drug Abuse Patient Records regulations: The Federal rules restrict any use of the information to criminally investigate or prosecute any alcohol or drug abuse patient.[facility] the event this information is protected by the Federal Confidentiality of Alcohol and Drug Abuse Patient Records regulations: The Federal rules restrict any use of the information to criminally investigate or prosecute any alcohol or drug abuse patient.[facility] the event this information is protected by the Federal Confidentiality of Alcohol and Drug Abuse Patient Records regulations: The Federal rules restrict any use of the information to criminally investigate or prosecute any alcohol or drug abuse patient.[facility] the event this information is protected by the Federal Confidentiality of Alcohol and Drug Abuse Patient Records regulations: The Federal rules restrict any use of the information to criminally investigate or prosecute any alcohol or drug abuse patient.[facility] the event this information is protected by the Federal Confidentiality of Alcohol and Drug Abuse Patient Records regulations: The Federal rules restrict any use of the information to criminally investigate or prosecute any alcohol or drug abuse patient.[facility] the event this information is protected by the Federal Confidentiality of Alcohol and Drug Abuse Patient Records regulations: The Federal rules restrict any use of the information to criminally investigate or prosecute any alcohol or drug abuse patient.[facility] the event this information is protected by the Federal Confidentiality of Alcohol and Drug Abuse Patient Records regulations: The Federal rules restrict any use of the information to criminally investigate or prosecute any alcohol or drug abuse patient.[facility] the event this information is protected by the Federal Confidentiality of Alcohol and Drug Abuse Patient Records regulations: The Federal rules restrict any use of the information to criminally investigate or prosecute any alcohol or drug abuse patient.[facility] the event this information is protected by the Federal Confidentiality of Alcohol and Drug Abuse Patient Records regulations: The Federal rules restrict any use of the information to criminally investigate or prosecute any alcohol or drug abuse patient.[facility] the event this information is protected by the Federal Confidentiality of Alcohol and Drug Abuse Patient Records regulations: The Federal rules restrict any use of the information to criminally investigate or prosecute any alcohol or drug abuse patient.[facility] Reason for Visit (unrecogniz ed section and content) Reason Comments Immunizations Reason Comments Establish Care Reason Comments Results TB Reason Comments Cough Cough, ST and runny nose x 2 weeks Reason Comments Allergies & stomach/eating con cern Reason Comments Consult Specialty Diagnoses / Procedures Referred By Robyn t Referred To Contact Allergy Diagnoses Hives Vasomotor rhinitis Procedures CONSULT TO ALLERGY/IMMUNOLOGY OFFICE/OUTPATIENT [facility] 60 MINUTES Billy Steel APRN.IT AUDITOR [address] [place] [address] Referral ID Status Reason Start Date Expiration Date V isits Requested Visits Authorized [id number] Closed PCP Requested Referral 06/26/2023 06/25/2024 1 1 Reason Comments Physical Yearly exam Reason Onset Date Comments Results 04/29/2024 Labs Reason Onset Date Comments Results 06/03/2024 Reason Comments Results Reason Onset Date Comments Results 08/08/2024 Care Teams (unrecognized sec tion and content) Trade Mark Examiner Relationship Specialty Start Date End Date Stephan Ngo MD [address] [place] [address] PCP - General 04/26/03 Trade Mark Examiner Relationship Specialty Start Date End Date Stephan Ngo MD [address] [place] [address] PCP - General 04/26/03 Trade Mark Examiner Relationship Specialty Start Date End Date Mildred Tomas MD [address] [facility] [place] [address] PCP - General Family Medicine 01/23/23 Trade Mark Examiner Relationship Specialty Start Date End Date Mildred Tomas MD [address] [facility] [place] [address] PCP - General Family Medicine 01/23/23 Trade Mark Examiner Relationship Specialty Start Date End Date Mildred Tomas MD [address] [facility] [address] PCP - General Family Medicine 01/23/23 Trade Mark Examiner Relationship Specialty Start Date End Date Mildred Tomas MD [address] [place] [address] PCP - General Family Medicine 01/23/23 Trade Mark Examiner Relationship Specialty Start Date End Date Mildred Tmoas MD [address] [facility] [place] [address] PCP - General Family Medicine 01/23/23 Trade Mark Examiner Relationship Specialty Start Date End Date Mildred Tomas MD [address] [facility] [address] PCP - General Family Medicine 01/23/23 Cat Green, FOOD ANALYST.IT AUDITOR [address] [facility] [place] [address] [facility] 02/25/24 iBlly Steel, KAITLYNN.IT AUDITOR [address] [facility] [place] [address] [facility] 03/05/24 Trade Mark Examiner Relationship Specialty Start Date End Date Mildred Tomas MD [address] [facility], [place] [id number] PCP - General Family Medicine 01/23/23 Cat Green, FOOD ANALYST.IT AUDITOR [address] [place], [place] [address] [phone] [facility] Billy Steel, FOOD ANALYST.IT AUDITOR [address] [facility] [place] [address] [facility] 03/05/24 Trade Mark Examiner Relationship Specialty Start Date End Date Mildred Tomas MD [address] [place] [address] PCP - General Family Medicine 01/23/23 Cat Green, FOOD ANALYST.IT AUDITOR [address] [place], [place] [address] [phone] [facility] 02/25/24 Billy Steel, FOOD ANALYST.IT AUDITOR [address] [place] [address] [facility] 03/05/24 Team Status: Active Member Role Status Dates Dr. Stephan Ngo MD Family Provider Active Dr. Stephan Ngo MD Primary Care Provider Active Team Status: Inactive Member Role Status Dates Dr. Stephan Ngo MD Primary Care Provider Active Start: August 02, 2024 End: August 02, 2024 Dr. Stephan Ngo MD Referring Provider Active Start: August 02, 2024 End: August 02, 2024 Dr. Ashlee Mcdonough MD Attending Provider Active Start: August 02, 2024 End: August 02, 2024 Team Status: Inactive Member Role Status Dates Dr. Stephan Ngo MD Primary Care Provider Active Start: August 07, 2024 End: August 07, 2024 Dr. Stephan Ngo MD Referring Provider Active Start: August 07, 2024 End: August 07, 2024 Dr. Natalie Trimble DO Attending Provider Activ e Start: August 07, 2024 End: August 07, 2024 Trade Mark Examiner Relationship Specialty Start Date End Date Mildred Tomas MD [address] [facility] [place] [address] PCP - General Family Medicine 01/23/23 Billy Steel APRN.IT AUDITOR [address] [place] [address] [facility] 03/05/24 Team Status: Inactive Member Role Status Dates Dr. Stephan Ngo MD Primary Care Provider Active Start: August 07, 2024 End: August 07, 2024 Dr. Ashlee Mcdonough MD Attending Provider Active Start: August 07, 2024 End: August 07, 2024 Dr. Ashlee Mcdonough MD Referring Provider Active Start: August 07, 2024 End: August 07, 2024 Trade Mark Examiner Relationship Specialty Start Date End Date Mildred Tomas MD [address] [place] [address] PCP - General Family Medicine 01/23/23 Billy Steel APRN.IT AUDITOR [address] [facility] [place] [address] [facility] 03/05/24 Trade Mark Examiner Relationship Specialty Start Date End Date Mildred Tomas MD [address] [facility] [place] [address] PCP - General Family Medicine 01/23/23 Billy Steel APRN.IT AUDITOR [address] [place] [address] [facility] 03/05/24 Team Status: Inactive Member Role Status Dates Dr. Stephan Ngo MD Primary Care Provider Active Start: August 21, 2024 End: August 21, 2024 Dr. Natalie Trimble DO Attending Provider Activ e Start: August 21, 2024 End: August 21, 2024 Dr. Natalie Trimble DO Referring Provider Activ e Start: August 21, 2024 End: August 21, 2024 Team Status: Inactive Member Role Status Dates Dr. Stephan Ngo MD Primary Care Provider Active Start: September 09, 2024 End: September 09, 2024 Dr. Stephan Ngo MD Referring Provider Active Start: September 09, 2024 End: September 09, 2024 Dorie Curry NP, CAPTAIN OF GUARDS-C Attending Provider Active Start: September 09, 2024 End: September 09, 2024 Team Status: Active Member Role/Relationship Status Dates Dr. Stephan Ngo MD Family Provider Active Dr. Stephan Ngo MD Primary Care Provider Active Team Status: Inactive Member Role/Relationship Status Dates Dr. Stephan Ngo MD Primary Care Provider Active Start: August 02, 2024 End: August 02, 2024 Dr. Stephan Ngo MD Referring Provider Active Start: August 02, 2024 End: August 02, 2024 Dr. Ashlee Mcdonough MD Attending Provider Active Start: August 02, 2024 End: August 02, 2024 Team Status: Inactive Member Role/Relationship Status Dates Dr. Stephan Ngo MD Primary Care Provider Active Start: August 07, 2024 End: August 07, 2024 Dr. Stephan Ngo MD Referring Provider Active Start: August 07, 2024 End: August 07, 2024 Dr. Natalie Trimble DO Attending Provider Activ e Start: August 07, 2024 End: August 07, 2024 Team Status: Inactive Member Role/Relationship Status Dates Dr. Stephan Ngo MD Primary Care Provider Active Start: August 07, 2024 End: August 07, 2024 Dr. Ashlee Mcdonough MD Attending Provider Active Start: August 07, 2024 End: August 07, 2024 Dr. Ashlee Mcdonough MD Referring Provider Active Start: August 07, 2024 End: August 07, 2024 Team Status: Inactive Member Role/Relationship Status Dates Dr. Stephan Ngo MD Primary Care Provider Active Start: August 21, 2024 End: August 21, 2024 Dr. Natalie Trimble DO Attending Provider Activ e Start: August 21, 2024 End: August 21, 2024 Dr. Natalie Trimble DO Referring Provider Activ e Start: August 21, 2024 End: August 21, 2024 Team Status: Inactive Member Role/Relationship Status Dates Dr. Stephan Ngo MD Primary Care Provider Active Start: September 09, 2024 End: September 09, 2024 Dr. Stephan Ngo MD Referring Provider Active Start: September 09, 2024 End: September 09, 2024 Dorie Curry NP, [employer] Attending Provider Active Start: September 09, 2024 End: September 09, 2024 Team Status: Inactive Member Role/Relationship Status Dates Dr. Stephan Ngo MD Primary Care Provider Active Start: October 08, 2024 End: October 08, 2024 Dr. Stephan Ngo MD Referring Provider Active Start: October 08, 2024 End: October 08, 2024 Dr. Ashlee Mcdonough MD Attending Provider Active Start: October 08, 2024 End: October 08, 2024 Team Status: Active Member Role/Relationship Status Dates Dr. Stephan Ngo MD Primary Care Provider Active Team Status: Inactive Member Role/Relationship Status Dates Dr. Stephan Ngo MD Primary Care Provider Active Start: October 16, 2024 End: October 16, 2024 Dr. Ashlee Mcdonough MD Attending Provider Active Start: October 16, 2024 End: October 16, 2024 Dr. Ashlee Mcdonough MD Referring Provider Active Start: October 16, 2024 End: October 16, 2024 Team Status: Inactive Member Role/Relationship Status Dates Dr. Stephan Ngo MD Primary Care Provider Active Start: November 06, 2024 End: November 06, 2024 Dr. Stephan Ngo MD Referring Provider Active Start: November 06, 2024 End: November 06, 2024 Dr. Natalie Trimble DO Attending Provider Activ e Start: November 06, 2024 End: November 06, 2024 Team Status: Inactive Member Role/Relationship Status Dates Dr. Stephan Ngo MD Primary Care Provider Active Start: August 07, 2024 End: August 07, 2024 Dr. Stephan Ngo MD Referring Provider Active Start: August 07, 2024 End: August 07, 2024 Dr. Natalie Trimble DO Attending Provider Activ e Start: August 07, 2024 End: August 07, 2024 Team Status: Inactive Member Role/Relationship Status Dates Dr. Stephan Ngo MD Primary Care Provider Active Start: August 07, 2024 End: August 07, 2024 Dr. Ashlee Mcdonough MD Attending Provider Active Start: August 07, 2024 End: August 07, 2024 Dr. Ashlee Mcdonough MD Referring Provider Active Start: August 07, 2024 End: August 07, 2024 Team Status: Inactive Member Role/Relationship Status Dates Dr. Stephan Ngo MD Primary Care Provider Active Start: August 21, 2024 End: August 21, 2024 Dr. Natalie Trimble DO Attending Provider Activ e Start: August 21, 2024 End: August 21, 2024 Dr. Natalie Trimble DO Referring Provider Activ e Start: August 21, 2024 End: August 21, 2024 Team Status: Inactive Member Role/Relationship Status Dates Dr. Stephan Ngo MD Primary Care Provider Active Start: September 09, 2024 End: September 09, 2024 Dr. Stephan Ngo MD Referring Provider Active Start: September 09, 2024 End: September 09, 2024 Dorie Curry NP, [employer] Attending Provider Active Start: September 09, 2024 End: September 09, 2024 Team Status: Inactive Member Role/Relationship Status Dates Dr. Stephan Ngo MD Primary Care Provider Active Start: October 08, 2024 End: October 08, 2024 Dr. Stephan Ngo MD Referring Provider Active Start: October 08, 2024 End: October 08, 2024 Dr. Ashlee Mcdonough MD Attending Provider Active Start: October 08, 2024 End: October 08, 2024 Team Status: Inactive Member Role/Relationship Status Dates Dr. Stephan Ngo MD Primary Care Provider Active Start: October 16, 2024 End: October 16, 2024 Dr. Ashlee Mcdonough MD Attending Provider Active Start: October 16, 2024 End: October 16, 2024 Dr. Ashlee Mcdonough MD Referring Provider Active Start: October 16, 2024 End: October 16, 2024 Team Status: Inactive Member Role/Relationship Status Dates Dr. Stephan Ngo MD Primary Care Provider Active Start: November 06, 2024 End: November 06, 2024 Dr. Stephan Ngo MD Referring Provider Active Start: November 06, 2024 End: November 06, 2024 Dr. Natalie Trimble DO Attending Provider Activ e Start: November 06, 2024 End: November 06, 2024 Team Status: Inactive Member Role/Relationship Status Dates Dr. Stephan Ngo MD Primary Care Provider Active Start: December 02, 2024 End: December 02, 2024 Dr. Stephan Ngo MD Referring Provider Active Start: December 02, 2024 End: December 02, 2024 Dr. Ashlee Mcdonough MD Attending Provider Active Start: December 02, 2024 End: December 02, 2024 Team Status: Active Member Role/Relationship Status Dates Dr. Stephan Ngo MD Primary Care Provider Active Start: December 02, 2024 Dr. Natalie Trimble DO Attending Provider Active Start: November Dr. Natalie Trimble DO Referring Provider Active Start: November Team Status: Active Member Role/Relationship Status Dates Dr. Stephan Ngo MD Primary care physician Active Team Status: Inactive Member Role/Relationship Status Dates Dr. Stephan Ngo MD Primary care physician Active Start: August 21, 2024 End: August 21, 2024 Dr. Natalie Trimble DO Attending physician Acti ve Start: August 21, 2024 End: August 21, 2024 Dr. Natalie Trimble DO Referring Provider Activ e Start: August 21, 2024 End: August 21, 2024 Team Status: Inactive Member Role/Relationship Status Dates Dr. Stephan Ngo MD Primary care physician Active Start: September 09, 2024 End: September 09, 2024 Dr. Stephan Ngo MD Referring Provider Active Start: September 09, 2024 End: September 09, 2024 Dorie Curry NP, [employer] Attending physician Active Start: September 09, 2024 End: September 09, 2024 Team Status: Inactive Member Role/Relationship Status Dates Dr. Stephan Ngo MD Primary care physician Active Start: October 08, 2024 End: October 08, 2024 Dr. Stephan Ngo MD Referring Provider Active Start: October 08, 2024 End: October 08, 2024 Dr. Ashlee Mcdonough MD Attending physician Active Start: October 08, 2024 End: October 08, 2024 Team Status: Inactive Member Role/Relationship Status Dates Dr. Stephan Ngo MD Primary care physician Active Start: October 16, 2024 End: October 16, 2024 Dr. Ashlee Mcdonough MD Attending physician Active Start: October 16, 2024 End: October 16, 2024 Dr. Ashlee Mcdonough MD Referring Provider Active Start: October 16, 2024 End: October 16, 2024 Team Status: Inactive Member Role/Relationship Status Dates Dr. Stephan Ngo MD Primary care physician Active Start: November 06, 2024 End: November 06, 2024 Dr. Stephan Ngo MD Referring Provider Active Start: November 06, 2024 End: November 06, 2024 Dr. Natalie Trimble DO Attending physician Acti ve Start: November 06, 2024 End: November 06, 2024 Team Status: Inactive Member Role/Relationship Status Dates Dr. Stephan Ngo MD Primary care physician Active Start: December 02, 2024 End: December 02, 2024 Dr. Stephan Ngo MD Referring Provider Active Start: December 02, 2024 End: December 02, 2024 Dr. Ashlee Mcdonough MD Attending physician Active Start: December 02, 2024 End: December 02, 2024 Team Status: Inactive Member Role/Relationship Status Dates Dr. Stephan Ngo MD Primary care physician Active Start: December 02, 2024 End: December 02, 2024 Dr. Natalie Trimble DO Attending physician Active Start: November End: December 02, 2024 Dr. Natalie Trimble DO Referring Provider Active Start: November End: December 02, 2024 Team Status: Inactive Member Role/Relationship Status Dates Dr. Stephan Ngo MD Primary care physician Active Start: October 08, 2024 End: October 08, 2024 Dr. Stephan Ngo MD Referring Provider Active Start: October 08, 2024 End: October 08, 2024 Dr. Ashlee Mcdonough MD Attending physician Active Start: October 08, 2024 End: October 08, 2024 Team Status: Inactive Member Role/Relationship Status Dates Dr. Stephan Ngo MD Primary care physician Active Start: October 16, 2024 End: October 16, 2024 Dr. Ashlee Mcdonough MD Attending physician Active Start: October 16, 2024 End: October 16, 2024 Dr. Ashlee Mcdonough MD Referring Provider Active Start: October 16, 2024 End: October 16, 2024 Team Status: Inactive Member Role/Relationship Status Dates Dr. Stephan Ngo MD Primary care physician Active Start: November 06, 2024 End: November 06, 2024 Dr. Stephan Ngo MD Referring Provider Active Start: November 06, 2024 End: November 06, 2024 Dr. Natalie Trimble DO Attending physician Acti ve Start: November 06, 2024 End: November 06, 2024 Team Status: Inactive Member Role/Relationship Status Dates Dr. Stephan Ngo MD Primary care physician Active Start: December 02, 2024 End: December 02, 2024 Dr. Stephan Ngo MD Referring Provider Active Start: December 02, 2024 End: December 02, 2024 Dr. Ashlee Mcdonough MD Attending physician Active Start: December 02, 2024 End: December 02, 2024 Team Status: Inactive Member Role/Relationship Status Dates Dr. Stephan Ngo MD Primary care physician Active Start: December 02, 2024 End: December 02, 2024 Dr. Natalie Trimble DO Attending physician Active Start: November End: December 02, 2024 Dr. Natalie Trimble DO Referring Provider Active Start: November End: December 02, 2024 Team Status: Inactive Member Role/Relationship Status Dates Dr. Stephan Ngo MD Primary care physician Active Start: December 30, 2024 End: December 30, 2024 Dr. Stephan Ngo MD Referring Provider Active Start: December 30, 2024 End: December 30, 2024 Maki Marcelo CNM Attending physician Active Start: December 30, 2024 End: December 30, 2024 Goals (unrecognized section and content) Type Care Experience svdLabor Preferences -CB/BF classes: []labor support person: []labor intervention preferences: []pain management options preferred: []cut cord/dad catch: []: []PP control planned: []discussed possible routes of delivery and associated risks: []special requests: [] INFORMATION SOURCE (unrecogn ized section and content) DATE CREATED AUTHOR 08/14/2024 [facility] DATE CREATED AUTHOR AUTHOR'S ORGANIZ ATION 09/14/2024 SAMMY Gonzalez DATE CREATED AUTHOR AUTHOR'S ORGANIZ ATION 01/30/2025 [facility] FOR RECORDS PERTAINING TO PATIENTS WHO ARE OR HAVE BEEN ENROLLED IN A CHEMICAL DEPENDENCY/SUBSTANCEABUSE PROGRAM, SOME INFORMATION MAY BE OMITTED. This clinical summary was aggregated from multiple sources. Caution should be exercised in using it in the provision of clinical care. This summary normalizes information from multiple sources, and as a consequence, information in this document may materially change the coding, format and clinical context of patient data. In addition, data may be omitted in some cases. CLINICAL DECISIONS SHOULD BE BASED ON THE PRIMARY CLINICAL RECORDS. [employer] provides no warranty or guarantee of the accuracy or completeness of information in this document.
[2025-03-01 02:09] LABS: ROM Internal Control Test YES-OK TO RESULT pt. (Internal QC)
[2025-03-01 02:10] LABS: ROM Patient Test POSITIVE (Negative); Record Kit Lot#, ROM+ K3607
--- OUTSIDE RECORDS SUMMARY | 2025-03-01 02:14 | XMS RPT_ITS | CCD ---
Author Organization [facility] Care Team Providers Care Integrated Marketing Specialist Name Role Phone Stephan Ngo MD Primary Care Provider Mildred Tomas MD Primary Care Provider Mildred Tomas MD Primary Care Provider Tannhof EXECUTIVE SEARCH CONSULTANT.STUDIO MODEL, Cat Unavailable Milvia EXECUTIVE SEARCH CONSULTANT.STUDIO MODEL, Billy Unavailable Dr. Stephan Ngo MD Primary Care Provider [phone] Dr. Stephan Ngo MD Referring Provider Dr. Ashlee Mcdonough MD Attending Provider [phone] Dr. Natalie Trimble DO Attending Provider Dr. Ashlee Mcdonough MD Referring Provider [phone] MILDRED TOMAS Primary Care Unavailable CAT GREEN Referring Unavailable MILDRED TOMAS Primary Care Unavailable CAT GREEN Referring Unavailable MILVIA, BILLY Referring Unavailable ALEXY REHANA Attending Unavailable MILDRED TOMAS Primary Care Unavailable MILDRED TOMAS Primary Care Unavailable CAT GREEN Attending Unavailable CAT GREEN Referring Unavailable MILDRED TOAMS Primary Care Unavailable Dr. Natalie Trimble DO Referring Provider Dorie Friend Attending Provider [phone] PHYSICIAN, PATIENT UNSURE Primary Care REID Murrieta MD Attending Unavailable IVÁN SAUNDERS DO Attending Unavailable PHYSICIAN, PATIENT UNSURE Primary Care Soo Ngo MD, Dr. Stephan Arevalo Primary Care Provider [phone] Jeni SMITH, Dr. Stephan Arevalo Referring Provider [phone] Ceasar SMITH, Dr. Rosado Attending Provider [phone] Jeni SMITH, Dr. Stephan Arevalo Primary Care Physician Jeferson Brower DO, Dr. Estrada Attending Physician Jeni SMITH, Dr. Stephan Arevalo Referring Provider [phone] Antoinette DEJESUS-CDorie Attending Physician [phone] Ceasar SMITH, Dr. Rosado Attending Physician Ceasar SMITH, Dr. Rosado Referring Provider Jeni SMITH, Dr. Stephan Arevalo Primary Care Physician Jeni SMITH, Dr. Stephan Arevalo Referring Provider [phone] Jeferson Brower DO, Dr. Estrada Attending Physician Jeferson Brower DO, Dr. Estrada Referring Provider Maki Marcelo CNM Attending Physician 1([facility]) Maki Marcelo Attending Unavailable Playl, Stephan M [...] on above: Take 1 capsule by mo [facility] every 6 hours as needed. docosahexaenoic acid [...] Comment on above: Take 1 tablet by [facility] once daily. ergocalciferol 1.25 mg oral capsule [...] on above: , RODRIGO 03/03/25, BF: Mateo [id number], RODRIGO 5, BF: Mateo Other complications of [...] Test Name Value Interpretation Reference Range Facility Patrol Supervisor Office Visit Reporton 01-29-2025 Patrol Supervisor Office Visit Report [facility] [address], [address] [place] [address] OFFICE VISIT Date of Service: 01/29/25 MR#: [id number] Acct: [id number] Name: ANASTACIA MCKOY Rep #: [id number] : 2000 Provider: Dr. 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 Normal [facility] Patrol Supervisor Office Visit Reporton 01-14-2025 Patrol Supervisor Office Visit Report [facility] [address], [address] [place] [address] OFFICE VISIT Date of Service: 01/14/25 MR#: [id number] Acct: [id number] Name: ANASTACIA MCKOY Rep #: [id number] : 2000 Provider: YULISSA foote Age/Sex: 24/F [place] [facility] [place]: Signed Intake Vital Signs 11/06/24 15:49 12/30/24 14:58 01/14/25 15:36 Height 5 ft 1 in 5 ft 1 in 5 ft 1 in Weight: 171 lb 9 oz BMI 32.4 BP 114/77 Intake Visit Reasons: 32wk ob [employer]ored [employer] Messenger Required: No Is patient in pain?: No [...] occupational status: employed 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 ?-???- (more content not included)... Normal [facility] Laboratory - Chemistry and C hemistry - challengeOrdered By: Maki Marcelo on 12-30-2024 Glucose Ql (U) Negative [facility] Laboratory - UrinalysisOrder ed By: Maki Marcelo on 12-30-2024 Protein Ql (U) Negative [facility] Patrol Supervisor Office Visit Reporton 12-30-2024 Patrol Supervisor Office Visit Report [facility] [address], [address] [place] [address] OFFICE VISIT Date of Service: 12/30/24 MR#: [id number] Acct: [id number] Name: ANASTACIA MCKOY #: [id number] : 2000 Provider: HANNAH Gomez ams Age/Sex: 24/F Location: [facility] [place] Status: Signed Intake Vital Signs 11/06/24 15:49 12/02/24 15:21 12/30/24 14:58 Height 5 ft 1 in 5 ft 1 in 5 ft 1 in Weight: 164 lb 1 oz 168 lb 2 oz BMI 30.9 31.7 BP 122/86 H 125/82 H Intake Visit Reasons: 30wk ob Chief Complaint: 30wk OB 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 Normal [facility] Absolute lymphocyte countOrd ered By: Natalie Brower on 12-02-2024 Lymphocytes Auto (Unsp spec) [#/Vol] 1.75 10*3/uL 0.83-4.51 [facility] Absolute neutrophil countOrd ered By: Natalie Brower on 12-02-2024 Neutrophils (Bld) [#/Vol] 10.2 10*3/uL High 2.0-7.7 [facility] Automated lymphocyte count a s percentage of total leukocytesOrdered By: Natalie Duncannereyda on 12-02-2024 Lymphocytes/100 WBC Auto (Unsp spec) 13.5 % Low 19-41 [facility] Basophil percentageOrdered B y: Natalie Duncannereyda on 12-02-2024 Basophils/100 WBC (Bld) 0.4 % 0-1 [facility] CBC W/Diff, Automatedon 11-18 Absolute Lymph 1.75 X10 3/uL Normal 0.83-4.51 [facility] Comment on above: Performed By: #### L 509.8002, L3410.9992, L3890.6301, L3890.6102, L100.0100, L3890.6006, L501.9520, BTS, L506.0400, L509.4006 #### [facility] Laboratory [address] [place], [address] Absolute Neut 10.2 X10 3/uL High 2.0-7.7 [facility] Comment on above: Performed By: #### L 509.8002, L3410.9992, L3890.6301, L3890.6102, L100.0100, L3890.6006, L501.9520, BTS, L506.0400, L509.4006 #### [facility] [address] [place], [address] Basophils/100 WBC (Bld) 0.4 % Normal 0-1 [facility] Comment on above: Performed By: #### L 509.8002, L3410.9992, L3890.6301, L3890.6102, L100.0100, L3890.6006, L501.9520, BTS, L506.0400, L509.4006 #### [facility] Laboratory [address] [place], [address] Eosinophils/100 WBC (Bld) 1.1 % Normal 0-5 [facility] Comment on above: Performed By: #### L 509.8002, L3410.9992, L3890.6301, L3890.6102, L100.0100, L3890.6006, L501.9520, BTS, L506.0400, L509.4006 #### [facility] Laboratory [address] [place], [place], [phone] ([phone] Erythrocyte distribution width (RBC) [Ratio] 12.3 % Normal 11.6-14.6 [facility] Comment on above: Performed By: #### L 509.8002, L3410.9992, L3890.6301, L3890.6102, L100.0100, L3890.6006, L501.9520, BTS, L506.0400, L509.4006 #### [facility] Laboratory [address] [place], [place], [phone] ([phone] Hematocrit (Bld) [Volume fraction] 33.9 % Low 37-47 [facility] Comment on above: Performed By: #### L 509.8002, L3410.9992, L3890.6301, L3890.6102, L100.0100, L3890.6006, L501.9520, BTS, L506.0400, L509.4006 #### [facility] [address] [place], [address] Hemoglobin (Bld) [Mass/Vol] 11.8 g/dL Low 12.0-15.0 [facility] Comment on above: Performed By: #### L 509.8002, L3410.9992, L3890.6301, L3890.6102, L100.0100, L3890.6006, L501.9520, BTS, L506.0400, L509.4006 #### [facility] [address] [place], [address] IG% 1.800 High 0.0-0.9 [facility] Comment on above: Result Comment: IG% - Immature Granulocytes (promyelocytes, myelocytes and metamyelocytes) > 1% indicates that a LEFT SHIFT is Present. Performed By: #### L 509.8002, L3410.9992, L3890.6301, L3890.6102, L100.0100, L3890.6006, L501.9520, BTS, L506.0400, L509.4006 #### [facility] [address] [place], [address] Lymphocytes/100 WBC (Bld) 13.5 % Low 19-41 [facility] Comment on above: Performed By: #### L 509.8002, L3410.9992, L3890.6301, L3890.6102, L100.0100, L3890.6006, L501.9520, BTS, L506.0400, L509.4006 #### [facility] [address] [place], [address] MCH (RBC) [Entitic mass] 31.1 pg Normal 27.0-32.0 [facility] Comment on above: Performed By: #### L 509.8002, L3410.9992, L3890.6301, L3890.6102, L100.0100, L3890.6006, L501.9520, BTS, L506.0400, L509.4006 #### [facility] Laboratory [address] [place], [address] MCHC (RBC) [Mass/Vol] 34.8 g/dL Normal 32-36 [facility] Comment on above: Performed By: #### L 509.8002, L3410.9992, L3890.6301, L3890.6102, L100.0100, L3890.6006, L501.9520, BTS, L506.0400, L509.4006 #### [facility] [address] [place], [address] MCV (RBC) [Entitic vol] 89.2 fL Normal 81-99 [facility] Comment on above: Performed By: #### L 509.8002, L3410.9992, L3890.6301, L3890.6102, L100.0100, L3890.6006, L501.9520, BTS, L506.0400, L509.4006 #### [facility] [address] [place], [address] Monocytes/100 WBC (Bld) 5.3 % Normal 0-10 [facility] Comment on above: Performed By: #### L 509.8002, L3410.9992, L3890.6301, L3890.6102, L100.0100, L3890.6006, L501.9520, BTS, L506.0400, L509.4006 #### [facility] [address] [place], [address] Neutrophils/100 WBC (Bld) 77.9 % High 47-70 [facility] Comment on above: Performed By: #### L 509.8002, L3410.9992, L3890.6301, L3890.6102, L100.0100, L3890.6006, L501.9520, BTS, L506.0400, L509.4006 #### [facility] [address] [place], [address] Nucleated RBC (Bld) [#/Vol] 0 10*3/uL Normal 0-5 [facility] Comment on above: Performed By: #### L 509.8002, L3410.9992, L3890.6301, L3890.6102, L100.0100, L3890.6006, L501.9520, BTS, L506.0400, L509.4006 #### [facility] [address] [place], [address] Platelet mean volume (Bld) [Entitic vol] 10.6 fL Normal 6.2-12.0 [facility] Comment on above: Performed By: #### L 509.8002, L3410.9992, L3890.6301, L3890.6102, L100.0100, L3890.6006, L501.9520, BTS, L506.0400, L509.4006 #### [facility] [address] [place], [address] Platelets (Bld) [#/Vol] 368 10*3/uL Normal 150-450 [facility] Comment on above: Performed By: #### L 509.8002, L3410.9992, L3890.6301, L3890.6102, L100.0100, L3890.6006, L501.9520, BTS, L506.0400, L509.4006 #### [facility] [address] [place], [address] RBC (Bld) [#/Vol] 3.80 10*6/uL Low 4.2-5.4 [facility] Comment on above: Performed By: #### L 509.8002, L3410.9992, L3890.6301, L3890.6102, L100.0100, L3890.6006, L501.9520, BTS, L506.0400, L509.4006 #### [facility] [address] [place], [address] RDW SD 39.6 fl Normal 35.1-43.9 [facility] Comment on above: Performed By: #### L 509.8002, L3410.9992, L3890.6301, L3890.6102, L100.0100, L3890.6006, L501.9520, BTS, L506.0400, L509.4006 #### [facility] [address] [place], [address] WBC (Bld) [#/Vol] 13.0 10*3/uL High 4.4-11.0 [facility] Comment on above: Performed By: #### L 509.8002, L3410.9992, L3890.6301, L3890.6102, L100.0100, L3890.6006, L501.9520, BTS, L506.0400, L509.4006 #### [facility] [address] [place], [place], [id number] Eosinophil percentageOrdered By: Natalie Brower on 12-02-2024 Eosinophils/100 WBC (Bld) 1.1 % 0-5 [facility] Erythrocyte distribution wid th ratioOrdered By: Natalie Brower on 12-02-2024 Erythrocyte distribution width (RBC) [Ratio] 12.3 % 11.6-14.6 [facility] Erythrocyte distribution wid th standard deviationOrdered By: Natalie Brower on 12-02-2024 Erythrocyte distribution width (RBC) [Ratio] 39.6 fl 35.1-43.9 [facility] Glucose Challenge Gest 1H 50 sandrita 12-02-2024 GLU GEST 50g 1H 130 mg/dL Normal 70-140 [facility] Comment on above: Performed By: #### L 509.8002, L3410.9992, L3890.6301, L3890.6102, L100.0100, L3890.6006, L501.9520, BTS, L506.0400, L509.4006 #### [facility] Laboratory [address] [place], [place], [id number] Glucose measurement at 2 radha rs post-dose gestational glucose tolerance testOrdered By: Natalie Brower on 12-02-2024 Glucose [Mass/Vol] 130 mg/dL 70-140 [facility] 12-02-2024 HIV Non-Reactive Normal Nonreactive [facility] Comment on above: Result Comment: Non- Reactive Reactive Repeatedly reactive samples must be confirmed according to CDC recommended confirmatory algorithms. The subresults for either HIVAG or AHIV can be used as an aid in the selection of the confirmation algorithm for reactive samples. Send out specimens with Reactive results to [facility] for confirmation. Order the HIV antibody detection and differentiation: lc#[id number] Performed By: #### L 509.8002, L3410.9992, L3890.6301, L3890.6102, L100.0100, L3890.6006, L501.9520, BTS, L506.0400, L509.4006 #### [facility] [address] [place], [place], [address] Hematocrit Auto (Bld) [Volum e fraction]Ordered By: Natalie Brower on 12-02-2024 Hematocrit (Bld) [Volume fraction] 33.9 % Low 37-47 [facility] Hemoglobin measurementOrdere d By: Natalie Brower on 12-02-2024 Hemoglobin (Bld) [Mass/Vol] 11.8 g/dL Low 12.0-15.0 [facility] Immature granulocytes/100 WB C Auto (Bld)Ordered By: Natalie Brower on 12-02-2024 Immature granulocytes/100 WBC (Bld) 1.800 % High 0.0-0.9 [facility] Comment on above: IG% - Immature Granu locytes (promyelocytes, myelocytes and metamyelocytes) > 1% indicates that a LEFT SHIFT is Present. Laboratory - Chemistry and C hemistry - challengeOrdered By: Ashlee Mcdonough on 12-02-2024 Glucose Ql (U) Negative [facility] Laboratory - UrinalysisOrder ed By: Ashlee Mcdonough on 12-02-2024 Protein Ql (U) Negative [facility] MCV (mean corpuscular volume ) determinationOrdered By: Natalie Brower on 12-02-2024 MCV (RBC) [Entitic vol] 89.2 fL 81-99 [facility] Mean corpuscular hemoglobin (MCH) determinationOrdered By: Natalie Brower on 12-02-2024 MCH (RBC) [Entitic mass] 31.1 pg 27.0-32.0 [facility] Mean corpuscular hemoglobin concentration (MCHC) determinationOrdered By: Natalie Brower on 12-02-2024 MCHC (RBC) [Mass/Vol] 34.8 g/dL 32-36 [facility] Mean platelet volume determi nationOrdered By: Natalie Brower on 12-02-2024 Platelet mean volume (Bld) [Entitic vol] 10.6 fL 6.2-12.0 [facility] Monocyte percentageOrdered B y: Natalie Brower on 12-02-2024 Monocytes/100 WBC (Bld) 5.3 % 0-10 [facility] Neutrophil percentageOrdered By: Natalie Brower on 12-02-2024 Neutrophils/100 WBC (Bld) 77.9 % High 47-70 [facility] No Panel InformationOrdered By: Natalie Brower on 12-02-2024 HIV (1&2) Antibody Non-Reactive Nonreactive [facility] Comment on above: Non-ReactiveReactive Repeatedly reactive samples must be confirmed according to CDC recommended confirmatory algorithms. The subresults for either HIVAG or AHIV can be used as an aid in the selection of the confirmation algorithm for reactive samples.Send out specimens with Reactive results to [facility] for confirmation.Order the HIV antibody detection and differentiation: #[id number] Nucleated red blood cell per centageOrdered By: Natalie Brower on 12-02-2024 Nucleated RBC/100 WBC (Bld) [Ratio] 0 % 0-5 [facility] Patrol Supervisor Office Visit Reporton 12-02-2024 Patrol Supervisor Office Visit Report [facility] [address], [address] [place] [address] OFFICE VISIT Date of Service: 12/02/24 MR#: [id number] Acct: [id number] Name: ANASTACIA MCKOY Rep #: [id number] : 2000 Provider: Dr. 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 (more content not included)... Normal [facility] Platelet countOrdered By: Gregory barrowbibi Leonarda on 12-02-2024 Platelets (Bld) [#/Vol] 368 10*3/uL 150-450 [facility] RBC Auto (Bld) [#/Vol]Ordere d By: Natalie Brower on 12-02-2024 RBC (Bld) [#/Vol] 3.80 10*6/uL Low 4.2-5.4 [facility] Syphilis Antibodieson 2024 Syphilis Abs Non-Reactive Normal Nonreactive [facility] Comment on above: Performed By: #### L 509.8002, L3410.9992, L3890.6301, L3890.6102, L100.0100, L3890.6006, L501.9520, BTS, L506.0400, L509.4006 #### [facility] Laboratory [address] [place], [address] White blood cell (WBC) count Ordered By: Natalie Brower on 12-02-2024 WBC (Bld) [#/Vol] 13.0 10*3/uL High 4.4-11.0 [facility] Laboratory - Chemistry and C hemistry - challengeOrdered By: Natalie Brower on 11-06-2024 Glucose Ql (U) Negative [facility] Laboratory - UrinalysisOrder ed By: Natalie Brower on 11-06-2024 Protein Ql (U) Negative [facility] Patrol Supervisor Office Visit Reporton 11-06-2024 Patrol Supervisor Office Visit Report [address], [address] [place] [address] OFFICE VISIT Date of Service: 11/06/24 MR#: [id number] Acct: [id number] Name: ANASTACIA MCKOY Rep #: [id number] : 2000 Provider: Dr. 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 Normal [facility] OB Anatomy w/ Transvaginalon 10-16-2024 OB Anatomy w/ Transvaginal [facility] Services [address] [place], [place] [id number] OB Anatomy w/ Transvaginal MR#: [id number] Acct: [id number] Name: ANASTACIA MCKOY Rep #: [id number] : 2000 F 23 From: Rich hernandez MD PCP: Dr. Stephan Ngo MD Status: REG CLI Study: OB Anatomy w/ Transvaginal Date of Exam: 10/16 Exam# [id number] Ordering Dr: Ashlee Mcdonough PROCEDURE: OB ANATOMY [...] 19 weeks and 5 days. Reading Location: [id number] CC: Dr. Ashlee Mcdonough MD; Dr. Stephan Ngo MD Low Heel Builder: Signed Normal [facility] Laboratory - Chemistry and C hemistry - challengeOrdered By: Ashlee Mcdonough on 10-08-2024 Glucose Ql (U) Negative [facility] Laboratory - UrinalysisOrder ed By: Ashlee Mcdonough on 10-08-2024 Protein Ql (U) Negative [facility] Patrol Supervisor Office Visit Reporton 10-08-2024 Patrol Supervisor Office Visit Report [facility] [address], [address] [place] [address] OFFICE VISIT Date of Service: 10/08/24 MR#: [id number] Acct: [id number] Name: ANASTACIA MCKOY Rep #: [id number] : 2000 Provider: Dr. 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 Normal [facility] Laboratory - Chemistry and C hemistry - challengeOrdered By: Dorie Curry on 09-09-2024 Glucose Ql (U) Negative [facility] Laboratory - UrinalysisOrder ed By: Dorie Curry on 09-09-2024 Protein Ql (U) Negative [facility] Patrol Supervisor Office Visit Reporton 09-09-2024 Patrol Supervisor Office Visit Report [facility] [address], [address] [place] [address] OFFICE VISIT Date of Service: 09/09/24 MR#: [id number] Acct: [id number] Name: ANASTACIA MCKOY HERNANDEZ Rep #: [id number] : 2000 Provider: YULISSA foote Age/Sex: 23/F Location: [facility] [place] Status: Signed Intake Vital Signs 08/22/23 10:06 08/07/24 10:30 09/09/24 08:28 09/09/24 08:40 Height 5 ft 1 in 5 ft 1 in 5 ft 1 in 5 ft 1 in Weight: 151 lb 8 oz BMI 28.6 BP 118/74 Intake Visit Reasons: 14wk OB 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 Normal [facility] UAon 09-03-2024 Color (U) Yellow Normal SAMMY MASSILLON Comment on above: Performed By: #### U AMIC, UA #### [address] [place], [place] [address] Glucose (U) [Mass/Vol] Negative Normal Negative AU LTMAN MASSILLON Comment on above: Performed By: #### U AMIC, UA #### [address] [place], [place] [address] Ketones Ql (U) Trace Normal Neg-Trace SAMMY MASSILLON Comment on above: Performed By: #### U AMIC, UA #### [address] [place] [address] UA Appear Hazy Abnormal SAMMY MASSILLON Comment on above: Performed By: #### U AMIC, UA #### [address] [place] [address] UA Bili Small Abnormal Neg-Trace SAMMY MASSILLON Comment on above: Result Comment: Sugg est correlation with serum bilirubin and clinical findings if medically necessary. Performed By: #### U AMIC, UA #### [address] [place] [address] UA Blood Negative Normal Neg-Trace SAMMY MASSILLON Comment on above: Performed By: #### U AMIC, UA #### [address] [place] [address] UA Leuk Est Negative Normal Negative SAMMY MASSILLON Comment on above: Performed By: #### U AMIC, UA #### [address] [place] [address] UA Nitrite Negative Normal Negative SAMMY MASSILLON Comment on above: Performed By: #### U AMIC, UA #### [address] [place] [address] UA pH 5.5 Normal 5.0 - 8.0 SAMMY MASSILLON Comment on above: Performed By: #### U AMIC, UA #### [address] [place] [address] UA Protein 30 mg/dL Normal Negative SAMMY MASSILLON Comment on above: Performed By: #### U AMIC, UA #### [address] [place] [address] UA Spec Grav >=1.030 Abnormal SAMMY MASSILLON Comment on above: Performed By: #### U AMIC, UA #### [address] [place] [address] UA Specimen Type Not Given Normal SAMMY MASSILLON Comment on above: Performed By: #### U AMIC, UA #### [address] [facility] [place] [address] UA Urobilinogen 1.0 E.U./dL Normal SAMMY MASSILLON Comment on above: Performed By: #### U AMIC, UA #### [address] [place] [id number] UAMICon 09-03-2024 UA Bacteria 1+ /hpf Abnormal Negative SAMMY MASSILLON Comment on above: Performed By: #### U AMIC, UA #### [address] [place] [id number] UA Mucous 3+ /hpf Normal SAMMY MASSILLON Comment on above: Performed By: #### U AMIC, UA #### [address] [place] [address] UA RBC Negative Normal 0-2 SAMMY MASSILLON Comment on above: Performed By: #### U AMIC, UA #### [address] [place] [address] UA Squam Epithelial 5-10 Normal 0-20 AULTM AN MASSILLON Comment on above: Performed By: #### U AMIC, UA #### [address] [place] [address] UA WBC 3-5 Normal 0-5 SAMMY MASSILLON Comment on above: Performed By: #### U AMIC, UA #### [address] [place] [address] UA Yeast 2+ /hpf Abnormal SAMMY MASSILLON Comment on above: Performed By: #### U AMIC, UA #### [address] [place] [address] L3410.9992on 08-30-2024 [facility] Misc. COMMENT Normal . [facility] Comment on above: Order Comment: [id number] 8TSH R AB Result Comment: Test Ordered: [id number] TSH Receptor Antibody (TBII) TSH Receptor Antibody (TBII) <0.4 U/L ES Reference Range: . Reference Range: Antibody Titer: <1.0 U/L = Negative 1.1 - 1.5 U/L = Equivocal >1.5 U/L = Positive Performed at: [facility] [address], [place] [id number] Pipe Insulator Helper: Curt Mcdonald MD, Phone: [phone] Performed at: - [facility] [address] [id number] Pipe Insulator Helper: Irving Lockwood PhD, Phone: [phone] Performed By: #### L 509.8002, L3410.9992, L3890.6301, L3890.6102, L100.0100, L3890.6006, L501.9520, BTS, L506.0400, L509.4006 #### [facility] [address] [place], [address] Absolute lymphocyte countOrd ered By: Ashlee Mcdonough on 08-21-2024 Lymphocytes Auto (Unsp spec) [#/Vol] 2.96 10*3/uL 0.83-4.51 [facility] Absolute neutrophil countOrd ered By: Ashlee Mcdonough on 08-21-2024 Neutrophils (Bld) [#/Vol] 8.0 10*3/uL High 2.0-7.7 [facility] Automated lymphocyte count a s percentage of total leukocytesOrdered By: Ashlee Mcdonough on 08-21-2024 Lymphocytes/100 WBC Auto (Unsp spec) 24.7 % 19-41 [facility] Basophil percentageOrdered B y: Ashlee Mcdonough on 08-21-2024 Basophils/100 WBC (Bld) 0.3 % 0-1 [facility] CBC W/Diff, Automatedon Absolute Lymph 2.96 X10 3/uL Normal 0.83-4.51 [facility] Comment on above: Performed By: #### L 509.8002, L3410.9992, L3890.6301, L3890.6102, L100.0100, L3890.6006, L501.9520, BTS, L506.0400, L509.4006 #### [facility] [address] [place], [address] Absolute Neut 8.0 X10 3/uL High 2.0-7.7 [facility] Comment on above: Performed By: #### L 509.8002, L3410.9992, L3890.6301, L3890.6102, L100.0100, L3890.6006, L501.9520, BTS, L506.0400, L509.4006 #### [facility] [address] [place], [address] Basophils/100 WBC (Bld) 0.3 % Normal 0-1 [facility] Comment on above: Performed By: #### L 509.8002, L3410.9992, L3890.6301, L3890.6102, L100.0100, L3890.6006, L501.9520, BTS, L506.0400, L509.4006 #### [facility] [address] [place], [address] Eosinophils/100 WBC (Bld) 1.7 % Normal 0-5 [facility] Comment on above: Performed By: #### L 509.8002, L3410.9992, L3890.6301, L3890.6102, L100.0100, L3890.6006, L501.9520, BTS, L506.0400, L509.4006 #### [facility] [address] [place], [address] Erythrocyte distribution width (RBC) [Ratio] 12.2 % Normal 11.6-14.6 [facility] Comment on above: Performed By: #### L 509.8002, L3410.9992, L3890.6301, L3890.6102, L100.0100, L3890.6006, L501.9520, BTS, L506.0400, L509.4006 #### [facility] [address] [place], [address] Hematocrit (Bld) [Volume fraction] 37.8 % Normal 37-47 [facility] Comment on above: Performed By: #### L 509.8002, L3410.9992, L3890.6301, L3890.6102, L100.0100, L3890.6006, L501.9520, BTS, L506.0400, L509.4006 #### [facility] [address] [place], [address] Hemoglobin (Bld) [Mass/Vol] 13.0 g/dL Normal 12.0-15.0 [facility] Comment on above: Performed By: #### L 509.8002, L3410.9992, L3890.6301, L3890.6102, L100.0100, L3890.6006, L501.9520, BTS, L506.0400, L509.4006 #### [facility] [address] [place], [address] IG% 0.400 Normal 0.0-0.9 [facility] Comment on above: Result Comment: IG% - Immature Granulocytes (promyelocytes, myelocytes and metamyelocytes) > 1% indicates that a LEFT SHIFT is Present. Performed By: #### L 509.8002, L3410.9992, L3890.6301, L3890.6102, L100.0100, L3890.6006, L501.9520, BTS, L506.0400, L509.4006 #### [facility] [address] [place], [address] Lymphocytes/100 WBC (Bld) 24.7 % Normal 19-41 [facility] Comment on above: Performed By: #### L 509.8002, L3410.9992, L3890.6301, L3890.6102, L100.0100, L3890.6006, L501.9520, BTS, L506.0400, L509.4006 #### [facility] [address] [place], [address] MCH (RBC) [Entitic mass] 30.7 pg Normal 27.0-32.0 [facility] Comment on above: Performed By: #### L 509.8002, L3410.9992, L3890.6301, L3890.6102, L100.0100, L3890.6006, L501.9520, BTS, L506.0400, L509.4006 #### [facility] [address] [place], [address] MCHC (RBC) [Mass/Vol] 34.4 g/dL Normal 32-36 [facility] Comment on above: Performed By: #### L 509.8002, L3410.9992, L3890.6301, L3890.6102, L100.0100, L3890.6006, L501.9520, BTS, L506.0400, L509.4006 #### [facility] [address] [place], [address] MCV (RBC) [Entitic vol] 89.2 fL Normal 81-99 [facility] Comment on above: Performed By: #### L 509.8002, L3410.9992, L3890.6301, L3890.6102, L100.0100, L3890.6006, L501.9520, BTS, L506.0400, L509.4006 #### [facility] [address] [place], [address] Monocytes/100 WBC (Bld) 5.7 % Normal 0-10 [facility] Comment on above: Performed By: #### L 509.8002, L3410.9992, L3890.6301, L3890.6102, L100.0100, L3890.6006, L501.9520, BTS, L506.0400, L509.4006 #### [facility] [address] [facility] [place], [address] Neutrophils/100 WBC (Bld) 67.2 % Normal 47-70 [facility] Comment on above: Performed By: #### L 509.8002, L3410.9992, L3890.6301, L3890.6102, L100.0100, L3890.6006, L501.9520, BTS, L506.0400, L509.4006 #### [facility] [address] [place], [address] Nucleated RBC (Bld) [#/Vol] 0 10*3/uL Normal 0-5 [facility] Comment on above: Performed By: #### L 509.8002, L3410.9992, L3890.6301, L3890.6102, L100.0100, L3890.6006, L501.9520, BTS, L506.0400, L509.4006 #### [facility] [address] [place], [address] Platelet mean volume (Bld) [Entitic vol] 10.4 fL Normal 6.2-12.0 [facility] Comment on above: Performed By: #### L 509.8002, L3410.9992, L3890.6301, L3890.6102, L100.0100, L3890.6006, L501.9520, BTS, L506.0400, L509.4006 #### [facility] [address] [place], [address] Platelets (Bld) [#/Vol] 346 10*3/uL Normal 150-450 [facility] Comment on above: Performed By: #### L 509.8002, L3410.9992, L3890.6301, L3890.6102, L100.0100, L3890.6006, L501.9520, BTS, L506.0400, L509.4006 #### [facility] [address] [place], [address] (229) RBC (Bld) [#/Vol] 4.24 10*6/uL Normal 4.2-5.4 [facility] Comment on above: Performed By: #### L 509.8002, L3410.9992, L3890.6301, L3890.6102, L100.0100, L3890.6006, L501.9520, BTS, L506.0400, L509.4006 #### [facility] [address] [place], [address] RDW SD 39.3 fl Normal 35.1-43.9 [facility] Comment on above: Performed By: #### L 509.8002, L3410.9992, L3890.6301, L3890.6102, L100.0100, L3890.6006, L501.9520, BTS, L506.0400, L509.4006 #### [facility] [address] [place], [address] (877) WBC (Bld) [#/Vol] 12.0 10*3/uL High 4.4-11.0 [facility] Comment on above: Performed By: #### L 509.8002, L3410.9992, L3890.6301, L3890.6102, L100.0100, L3890.6006, L501.9520, BTS, L506.0400, L509.4006 #### [facility] [address] [place], [address] (748) Eosinophil percentageOrdered By: Ashlee Mcdonough on 08-21-2024 Eosinophils/100 WBC (Bld) 1.7 % 0-5 [facility] Erythrocyte distribution wid th ratioOrdered By: Ashlee Mcdonough on 08-21-2024 Erythrocyte distribution width (RBC) [Ratio] 12.2 % 11.6-14.6 [facility] Erythrocyte distribution wid th standard deviationOrdered By: Ashlee Mcdonough on 08-21-2024 Erythrocyte distribution width (RBC) [Ratio] 39.3 fl 35.1-43.9 [facility] HIVon 08-21-2024 HIV Non-Reactive Normal Nonreactive [facility] Comment on above: Result Comment: Non- Reactive Reactive Repeatedly reactive samples must be confirmed according to CDC recommended confirmatory algorithms. The subresults for either HIVAG or AHIV can be used as an aid in the selection of the confirmation algorithm for reactive samples. Send out specimens with Reactive results to [facility] for confirmation. Order the HIV antibody detection and differentiation: lc#[id number] Performed By: #### L 509.8002, L3410.9992, L3890.6301, L3890.6102, L100.0100, L3890.6006, L501.9520, BTS, L506.0400, L509.4006 #### [facility] [address] [place], [address] Hematocrit Auto (Bld) [Volum e fraction]Ordered By: Ashlee Diezrehana on 08-21-2024 Hematocrit (Bld) [Volume fraction] 37.8 % 37-47 [facility] Hemoglobin measurementOrdere d By: Ashlee Mcdonough on 08-21-2024 Hemoglobin (Bld) [Mass/Vol] 13.0 g/dL 12.0-15.0 [facility] Hepatitis C Antibodyon 08-21 Hepatitis C Ab Non-Reactive Normal Nonreactive [facility] Comment on above: Result Comment: Reac tive: Presumptive evidence of antibodies to HCV. Follow CDC recommendations for supplemental testing. Non-Reactive: Antibodies to HCV were not detected; does not exclude the possibility of exposure to HCV Reactive Results are presumptive evidence of antibodies to HCV. Follow CDC recommendations for supplemental testing. Order confirmation testing: HCV Quant by PCR testing - HCVPCR lc#[id number] Non Reactive: < 0.8 Equivocal: >/= 0.8 to < 1.0 Reactive: >/= 1.0 The CDC requires that a reactive/equivocal HCV antibody result be sent out for confirmation. HCV Quant by PCR testing. Performed By: #### L 509.8002, L3410.9992, L3890.6301, L3890.6102, L100.0100, L3890.6006, L501.9520, BTS, L506.0400, L509.4006 #### [facility] [address] [place], [place], [id number] Immature granulocytes/100 WB C Auto (Bld)Ordered By: Ashlee Mcdonough on 08-21-2024 Immature granulocytes/100 WBC (Bld) 0.400 % 0.0-0.9 [facility] Comment on above: IG% - Immature Granu locytes (promyelocytes, myelocytes and metamyelocytes) > 1% indicates that a LEFT SHIFT is Present. L3890.6102on 08-21-2024 HEP B Surf Ag Non-Reactive Normal Nonreactive [facility] Comment on above: Result Comment: Reac tive: Presumptive evidence of HBV. Repeatedly reactive samples must be confirmed using a neutralization test ([employer] HBsAg Confirmatory Test) Non-Reactive: HBsAg not detected; does not exclude the possibility of exposure to HBV Performed By: #### L 509.8002, L3410.9992, L3890.6301, L3890.6102, L100.0100, L3890.6006, L501.9520, BTS, L506.0400, L509.4006 #### [facility] [address] [place], [place], [id number] L509.4006on 08-21-2024 Rubella IgG REAC Normal Nonreactive [facility] Comment on above: Result Comment: Anti body Result: Interpretation Non-Reactive: Non-Immune Reactive: Immune The following results were obtained with the [employer] Rubella IgG assay. Results from assays of other manufacturers cannot be used interchangeably. Performed By: #### L 509.8002, L3410.9992, L3890.6301, L3890.6102, L100.0100, L3890.6006, L501.9520, BTS, L506.0400, L509.4006 #### [facility] [address] [place], [place], [phone] Laboratory - Microbiology an d Antimicrobial susceptibilityOrdered By: Ashlee Mcdonough on 08-21-2024 HBV surface Ag Ql (S) Non-Reactive Nonreactive [facility] Comment on above: Reactive: Presumptiv e evidence of HBV. Repeatedly reactive samples must be confirmed using a neutralization test ([employer] HBsAg Confirmatory Test)Non-Reactive: HBsAg not detected; does not exclude the possibility of exposure to HBV MCV (mean corpuscular volume ) determinationOrdered By: Ashlee Mcdonough on 08-21-2024 MCV (RBC) [Entitic vol] 89.2 fL 81-99 [facility] Mean corpuscular hemoglobin (MCH) determinationOrdered By: Ashlee Mcdonough on 08-21-2024 MCH (RBC) [Entitic mass] 30.7 pg 27.0-32.0 [facility] Mean corpuscular hemoglobin concentration (MCHC) determinationOrdered By: Ashlee Mcdonough on 08-21-2024 MCHC (RBC) [Mass/Vol] 34.4 g/dL 32-36 [facility] Mean platelet volume determi nationOrdered By: Ashlee Mcdonough on 08-21-2024 Platelet mean volume (Bld) [Entitic vol] 10.4 fL 6.2-12.0 [facility] Monocyte percentageOrdered B y: Ashlee Mcdonough on 08-21-2024 Monocytes/100 WBC (Bld) 5.7 % 0-10 [facility] NATERAon 08-21-2024 NATURA SEE SCANNED REPORT Normal [facility] Comment on above: Performed By: #### L 509.8002, L3410.9992, L3890.6301, L3890.6102, L100.0100, L3890.6006, L501.9520, BTS, L506.0400, L509.4006 #### [facility] [address] [place], [address] Neutrophil percentageOrdered By: Ashlee Mcdonough on 08-21-2024 Neutrophils/100 WBC (Bld) 67.2 % 47-70 [facility] No Panel InformationOrdered By: Ashlee Mcdonough on 08-21-2024 HIV (1&2) Antibody Non-Reactive Nonreactive [facility] Comment on above: Non-ReactiveReactive Repeatedly reactive samples must be confirmed according to CDC recommended confirmatory algorithms. The subresults for either HIVAG or AHIV can be used as an aid in the selection of the confirmation algorithm for reactive samples.Send out specimens with Reactive results to [facility] for confirmation.Order the HIV antibody detection and differentiation: #[id number] Nucleated red blood cell per centageOrdered By: Ashlee Mcdonough on 08-21-2024 Nucleated RBC/100 WBC (Bld) [Ratio] 0 % 0-5 [facility] Platelet countOrdered By: Bandar Mcdonough on 08-21-2024 Platelets (Bld) [#/Vol] 346 10*3/uL 150-450 [facility] RBC Auto (Bld) [#/Vol]Ordere d By: Ashlee Mcdonough on 08-21-2024 RBC (Bld) [#/Vol] 4.24 10*6/uL 4.2-5.4 [facility] Syphilis Antibodieson 2024 Syphilis Abs Non-Reactive Normal Nonreactive [facility] Comment on above: Performed By: #### L 509.8002, L3410.9992, L3890.6301, L3890.6102, L100.0100, L3890.6006, L501.9520, BTS, L506.0400, L509.4006 #### [facility] [address] [place], [place], [phone] T4 Free Directon 08-21-2024 T4 FREE DIRECT 1.30 ng/dL Normal 0.76-1.46 [facility] Comment on above: Performed By: #### L 509.8002, L3410.9992, L3890.6301, L3890.6102, L100.0100, L3890.6006, L501.9520, BTS, L506.0400, L509.4006 #### [facility] [address] [place], [place], [phone] T4 freeOrdered By: Ashlee de dios on 08-21-2024 Free T4 [Mass/Vol] 1.30 ng/dL 0.76-1.46 [facility] TSH DL <= 0.005 mIU/L QnOrde red By: Ashlee Mcdonough on 08-21-2024 TSH Qn 2.400 uIU/mL 0.300-4.200 [facility] Thyroid Stim Hormone (TSH)on 08-21-2024 TSH 2.400 uIU/mL Normal 0.300-4.200 [facility] Comment on above: Performed By: #### L 509.8002, L3410.9992, L3890.6301, L3890.6102, L100.0100, L3890.6006, L501.9520, BTS, L506.0400, L509.4006 #### [facility] [address] [place], [address] Type AND Screenon 08-21-2024 ABO and Rh group Nom (Bld) Blood group O Rh(D) positive Normal [facility] Comment on above: Order Comment: PN Performed By: #### L 509.8002, L3410.9992, L3890.6301, L3890.6102, L100.0100, L3890.6006, L501.9520, BTS, L506.0400, L509.4006 #### [facility] [address] [place], [place], [phone] White blood cell (WBC) count Ordered By: Ashlee Mcdonough on 08-21-2024 WBC (Bld) [#/Vol] 12.0 10*3/uL High 4.4-11.0 [facility] CNPAida 08-13-2024 CNPN Telephone (FAMWS) ---- ANASTACIA MCKOY ([id number]) 4 F Date Time Provider Department 08/13/24 [...] Order(s):VITAMIN D 25 HYDROXY [SQVITD] Order #: [id number] FUTURE ergocalciferol 50,000 unit capsule (VITAMIN D2, [...] Status:Closed by BEATRICE PARTIDA on 08/13/24 Normal [facility] PAP I-G w/rfx hrHPV-Aptimaon 08-12-2024 ADEQ Comment Normal . [facility] Comment on above: Order Comment: Speci men Comment: [id number] Comment: No. of containers..01 ThinPrep Vial Result Comment: Sati sfactory for evaluation. Endocervical and/or squamous metaplastic cells (endocervical component) are present. Performed By: #### L 509.8002, L3410.9992, L3890.6301, L3890.6102, L100.0100, L3890.6006, L501.9520, BTS, L506.0400, L509.4006 #### [facility] [address] [place], [place], [phone] COMM . Normal . [facility] Comment on above: Order Comment: Speci men Comment: [id number] Comment: No. of containers..01 ThinPrep Vial Performed By: #### L 509.8002, L3410.9992, L3890.6301, L3890.6102, L100.0100, L3890.6006, L501.9520, BTS, L506.0400, L509.4006 #### [facility] [address] [place], [address] COMMENT Comment Normal . [facility] Comment on above: Order Comment: Speci men Comment: [id number] Comment: No. of containers..01 ThinPrep Vial Result Comment: This liquid based ThinPrep(R) pap test was screened with the use of an image guided system. Performed By: #### L 509.8002, L3410.9992, L3890.6301, L3890.6102, L100.0100, L3890.6006, L501.9520, BTS, L506.0400, L509.4006 #### [facility] [address] [place], [place], [id number] DIAG Comment Normal . [facility] Comment on above: Order Comment: Speci men Comment: [id number] Comment: No. of containers..01 ThinPrep Vial Result Comment: NEGA TIVE FOR INTRAEPITHELIAL LESION OR MALIGNANCY. Performed By: #### L 509.8002, L3410.9992, L3890.6301, L3890.6102, L100.0100, L3890.6006, L501.9520, BTS, L506.0400, L509.4006 #### [facility] [address] [place], [place], [id number] HPV RFLX Comment Normal . [facility] Comment on above: Order Comment: Speci men Comment: [id number] Comment: No. of containers..01 ThinPrep Vial Result Comment: The HPV DNA reflex criteria were not met with this specimen result therefore, no HPV testing was performed. Performed at: [address] [id number] Pipe Insulator Helper: Raina Juarez MD, Phone: [phone] Performed By: #### L 509.8002, L3410.9992, L3890.6301, L3890.6102, L100.0100, L3890.6006, L501.9520, BTS, L506.0400, L509.4006 #### [facility] [address] [place], [address] PAPSMR Comment Normal . [facility] Comment on above: Order Comment: Speci men Comment: [id number] Comment: No. of containers..01 ThinPrep Vial Result [...] L100.0100, L3890.6006, L501.9520, BTS, L506.0400, L509.4006 #### [facility] [address] [place], [place], [id number] PERFORM Comment Normal . [facility] Comment on above: Order Comment: Speci men Comment: [id number] Comment: No. of containers..01 ThinPrep Vial Result Comment: Dinh Amaral, Title Lawyer (ASCP) Performed By: #### L 509.8002, L3410.9992, L3890.6301, L3890.6102, L100.0100, L3890.6006, L501.9520, BTS, L506.0400, L509.4006 #### [facility] [address] [place], [address] Urine Cultureon 08-10-2024 URC Mixed Gram Positive Organisms Nabb Count 11,000-25,000 MIXC Mixed contaminants. Submit a new specimen if indicated. Normal [facility] Comment on above: Performed By: #### L 509.8002, L3410.9992, L3890.6301, L3890.6102, L100.0100, L3890.6006, L501.9520, BTS, L506.0400, L509.4006 #### [facility] [address] [place], [address] Chlamydia/GC TYREL aptimaon CHLAMY,NUC ACID Negative Normal Negative [facility] Comment on above: Performed By: #### L 509.8002, L3410.9992, L3890.6301, L3890.6102, L100.0100, L3890.6006, L501.9520, BTS, L506.0400, L509.4006 #### [facility] [address] [place], [place], [id number] GC BY NUC ACID Negative Normal Negative [facility] Comment on above: Result Comment: Perf ormed at: =G - [facility] [address] [place] [id number] Pipe Insulator Helper: Raina Juarez MD, Phone: [phone] Performed By: #### L 509.8002, L3410.9992, L3890.6301, L3890.6102, L100.0100, L3890.6006, L501.9520, BTS, L506.0400, L509.4006 #### [facility] [address] [place], [address] 25(OH)D3 SerPl-mCncon 2024 25-hydroxyvitamin D3 [Mass/Vol] 13.5 ng/mL Low 31.0-80.0 [facility] Comment on above: Order Comment: Speci men Type: BLOOD SPECIMEN Ordering Facility: [facility] Address: [address] [place] [address] Performed By: #### 1 989-3 #### [facility] CLIA [id number] [address] [place] [address] STATES OF [facility] Cervical or vagninal specime n microscopic examination by cytology stain (reported asOrdered By: Ashlee Mcdonough on 08-07-2024 Cytology report Cyto stain Doc (Cvx/Vag) Comment . [facility] Comment on above: The Pap smear is [...] rRNA TYREL+probe Ql (Unsp spec) Negative Negative [facility] - CytologyOrdered By: Ashlee Mcdonough on 08-07-2024 Title Lawyer Cyto stain Nom (Cvx/Vag) [ID] Comment . [facility] Comment on above: Dinh Amaral, Cytolo gist (ASCP) Laboratory - Miscellaneous t estsOrdered By: Ashlee Mcdonough on 08-07-2024 Service comment (Unsp spec) [Interp] . . [facility] Neisseria gonorrhoeae nuclei c acid detection by amplified probe techniqueOrdered By: Ashlee Mcdonough on 08-07-2024 N. gonorrhoeae DNA TYREL+probe Ql (Unsp spec) Negative Negative [facility] Comment on above: Performed at: = - [address] [place] [id number] Director: Raina Juarez MD, Phone: [phone] No Panel InformationOrdered By: Ashlee Mcdonough on 08-07-2024 Pap Smear Specimen Adequacy Comment . [facility] Comment on above: Satisfactory for alon luation. Endocervical and/or squamous metaplasticcells (endocervical component) are present. Patrol Supervisor Office Visit Reporton 08-07-2024 Patrol Supervisor Office Visit Report [facility] [address], [address] [place] [address] OFFICE VISIT Date of Service: 08/07/24 MR#: [id number] Acct: [id number] Name: ANASTACIA MCKOY Rep #: [id number] : 2000 Provider: Dr. 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 Normal [facility] T4 Free SerPl-mCncon 025 Free T4 [Mass/Vol] 1.0 ng/dL Normal 0.9-1.7 [facility] Comment on above: Order Comment: Speci men Type: BLOOD SPECIMEN Ordering Facility: [facility] Address: [address] [place] [address] Performed By: #### 2 276-4, 2131-9, 6-3 #### [facility] CLIA [id number] [address] [place] [address] [place] TSH SerPl-aCncon 08-07-2024 TSH Qn 1.970 m[IU]/L Normal 0.270-4.200 [facility] Comment on above: Order Comment: Speci men Type: BLOOD SPECIMEN Ordering Facility: [facility] Address: [address] [place] [address] Result Comment: If t he patient is , TSH reference range varies by gestational period: First Trimester (weeks 9-12): 0.180-2.990 mIU/L Second Trimester: 0.110-3.980 mIU/L Third Trimester: 0.480-4.710 mIU/L Juan So et al. A Practical Approach for the Verifications and Determination of Site- and Trimester-Specific Reference Intervals for Thyroid Function tests in . Thyroid, 2019:29:3:412-420. Mike Vasquez, et al. 2017 Guidelines of the [place] [employer] Association for the Diagnosis and Management of Thyroid Disease during and the . Thyroid, 2017:27:3:315-389. Performed By: #### 2 276-4, 2131-9, 3015-3 #### [facility] CLIA [id number] [address] [place], [place] [id number] [place] Urine cultureOrdered By: Antione Mcdonough on 08-07-2024 Bacteria identified Cx Nom (U) Positive Abnormal [facility] - Chemistry and C hemistry - challengeOrdered By: Ashlee Mcdonough on 08-02-2024 HCG ( test) Ql (U) Positive [facility] Office Visit Reporton 2024 Office Visit Report [facility] [address] [place] [address] OFFICE VISIT Date of Service: 08/02/24 MR#: [id number] Acct: [id number] Patient: ANASTACIA MCKOY Rep #: [id number] : 2000 Provider: Dr. Ashlee saenz MD Age/Sex: 23/F [place] [facility] [place]: Signed Intake Vital Signs 08/22/23 10:06 [...] trimester 08/02/24 1721 Date Ashlee Mcdonough MD [facility] Signature: Date (if applicable) CC: Normal [facility] 25 Free T3 [Mass/Vol] 3.5 pg/mL Normal 2.3-4.1 [facility] Comment on above: Order Comment: Speci men Type: BLOOD SPECIMEN Ordering Facility: [facility] Address: [address] [place], [place] [address] [address] Performed By: #### 2 276-4, 2131-11, 3 #### [facility] CLIA [id number] [address] [place] [address] [place] T4 Free SerPl-mCncon 025 Free T4 [Mass/Vol] 1.4 ng/dL Normal 0.9-1.7 [facility] Comment on above: Order Comment: Marisol aguilar Type: BLOOD SPECIMEN Ordering Facility: [facility] Address: [address] [place] [address] Performed By: #### 2 276-4, 2131-11, 3 #### [facility] CLIA [id number] [address] [place] [address] [place] THYROID PEROXIDASE ANTIBODYo n 05-31-2024 TPO Ab Qn 3.4 [IU]/mL Normal <5.6 [facility] Comment on above: Order Comment: Marisol aguilar Type: BLOOD SPECIMEN Ordering Facility: [facility] Address: [address] [place] [address] Result Comment: Thyr oid Peroxidase Antibody test is used as an aid in diagnosis of autoimmune thyroid disease. Clinical correlation is required. Performed By: #### M ICRO #### [facility] CLIA [id number] [address] [place] [address] [place] TSH SerPl-aCncon 05-31-2024 TSH Qn 4.200 m[IU]/L Normal 0.270-4.200 [facility] Comment on above: Order Comment: Marisol aguilar Type: BLOOD SPECIMEN Ordering Facility: [facility] Address: [address] [place] [address] Result Comment: If t he patient is , TSH reference range varies by gestational period: First Trimester (weeks 9-12): 0.180-2.990 mIU/L Second Trimester: 0.110-3.980 mIU/L Third Trimester: 0.480-4.710 mIU/L Juan So et al. A Practical Approach for the Verifications and Determination of Site- and Trimester-Specific Reference Intervals for Thyroid Function tests in . Thyroid, 2019:29:3:412-420. Mike Vasquez, et al. 2017 Guidelines of the [place] Thy[employer] Association for the Diagnosis and Management of Thyroid Disease during and the . Thyroid, 2017:27:3:315-389. Performed By: #### 2 276-4, 2131-11, 6-3 #### [facility] CLIA [id number] [address] [place] [address] [place] 25(OH)D3 SerPl-ncon 2024 25-hydroxyvitamin D3 [Mass/Vol] 11.6 ng/mL Low 31.0-80.0 [facility] Comment on above: Order Comment: Speci men Type: BLOOD SPECIMEN Ordering Facility: [facility] Address: [address] [place] [address] Result Comment: Clas sification of 25 [place] Vitamin D status: Deficiency/Insufficiency: < or = 30 ng/ml. Sufficiency/Optimal Levels: 31-80 ng/mL Toxicity: > 100 ng/mL. Test performed by chemiluminescent immunoassay. Performed By: #### 1 989-3 #### [facility] CLIA [id number] [address] [place] [address] [place] CBC W Auto Differential pane l (Bld)on 04-26-2024 Basophils (Bld) [#/Vol] 0.05 10*3/uL Normal <0.11 [facility] Comment on above: Order Comment: Speci men Type: BLOOD SPECIMEN Ordering Facility: [facility] Address: [address] [place] [address] Performed By: #### 2 276-4, 2131-11, 3015-3 #### [facility] CLIA [id number] [address] [place] [address] [place] Basophils/100 WBC (Bld) 0.4 % Normal C [facility] Comment on above: Order Comment: Speci men Type: BLOOD SPECIMEN Ordering Facility: [facility] Address: [address] [place] [address] Performed By: #### 2 276-4, 2131-11, 3 #### [facility] CLIA [id number] [address] [place] [address] [place] Differential cell count method Nom (Bld) Auto Normal [facility] Comment on above: Order Comment: Speci men Type: BLOOD SPECIMEN Ordering Facility: [facility] Address: [address] [place] [address] Performed By: #### 2 276-4, 2131-11, 3 #### [facility] CLIA [id number] [address] [place] [address] [place] Eosinophils (Bld) [#/Vol] 0.42 10*3/uL Normal <0.46 [facility] Comment on above: Order Comment: Speci men Type: BLOOD SPECIMEN Ordering Facility: [facility] Address: [address] [place] [address] Performed By: #### 2 276-4, 2131-11, 3 #### [facility] CLIA [id number] [address] [place] [address] [place] Eosinophils/100 WBC (Bld) 3.4 % Normal [facility] Comment on above: Order Comment: Speci men Type: BLOOD SPECIMEN Ordering Facility: [facility] Address: [address] [place] [address] Performed By: #### 2 276-4, 2131-11, 3 #### [facility] CLIA [id number] [address] [place] [address] [place] Erythrocyte distribution width (RBC) [Ratio] 12.5 % Normal 11.5-15.0 [facility] Comment on above: Order Comment: Speci men Type: BLOOD SPECIMEN Ordering Facility: [facility] Address: [address] [place] [address] Performed By: #### 2 276-4, 2131-11, 3 #### [facility] CLIA [id number] [address] [place] [address] [place] Hematocrit (Bld) [Volume fraction] 40.2 % Normal 36.0-46.0 [facility] Comment on above: Order Comment: Speci men Type: BLOOD SPECIMEN Ordering Facility: [facility] Address: [address] [place] [address] Performed By: #### 2 276-4, 2131-11, 3015-3 #### [facility] CLIA [id number] [address] [place] [address] [place] Hemoglobin (Bld) [Mass/Vol] 13.5 g/dL Normal 11.5-15.5 [facility] Comment on above: Order Comment: Speci men Type: BLOOD SPECIMEN Ordering Facility: [facility] Address: [address] [place] [address] Performed By: #### 2 276-4, 2131-11, 3 #### [facility] CLIA [id number] [address] [place] [address] [place] Immature granulocytes (Bld) [#/Vol] 0.06 10*3/uL Normal <0.10 [facility] Comment on above: Order Comment: Speci men Type: BLOOD SPECIMEN Ordering Facility: [facility] Address: [address] [place] [address] Performed By: #### 2 276-4, 2131-11, 3 #### [facility] CLIA [id number] [address] [place] [address] [place] Immature granulocytes/100 WBC (Bld) 0.5 % Normal [facility] Comment on above: Order Comment: Speci men Type: BLOOD SPECIMEN Ordering Facility: [facility] Address: [address] [place] [address] Performed By: #### 2 276-4, 2131-11, 3015-3 #### [facility] CLIA [id number] [address] [place] [address] [place] Lymphocytes (Bld) [#/Vol] 4.39 10*3/uL High 1.00-4.0 0 [facility] Comment on above: Order Comment: Speci men Type: BLOOD SPECIMEN Ordering Facility: [facility] Address: [address] [place] [address] Performed By: #### 2 276-4, 2131-11, 3015-3 #### [facility] CLIA [id number] [address] [place] [address] [place] Lymphocytes/100 WBC (Bld) 36.0 % Normal [facility] Comment on above: Order Comment: Speci men Type: BLOOD SPECIMEN Ordering Facility: [facility] Address: [address] [place] [address] Performed By: #### 2 276-4, 2131-11, 3 #### [facility] CLIA [id number] [address] [place] [address] [place] MCH (RBC) [Entitic mass] 30.6 pg Normal 26.0-34.0 [facility] Comment on above: Order Comment: Speci men Type: BLOOD SPECIMEN Ordering Facility: [facility] Address: [address] [place] [address] Performed By: #### 2 276-4, 2131-11, 3 #### [facility] CLIA [id number] [address] [place] [address] [place] MCHC (RBC) [Mass/Vol] 33.6 g/dL Normal 30.5-36.0 [facility] Comment on above: Order Comment: Speci men Type: BLOOD SPECIMEN Ordering Facility: [facility] Address: [address] [place] [address] Performed By: #### 2 276-4, 2131-11, 6-3 #### [facility] CLIA [id number] [address] [place] [address] [place] MCV (RBC) [Entitic vol] 91.2 fL Normal 80.0-100.0 C [facility] Comment on above: Order Comment: Speci men Type: BLOOD SPECIMEN Ordering Facility: [facility] Address: [address] [place] [address] Performed By: #### 2 276-4, 9, 6-3 #### [facility] CLIA [id number] [address] [place] [address] [place] Monocytes (Bld) [#/Vol] 1.02 10*3/uL High <0.87 [facility] Comment on above: Order Comment: Speci men Type: BLOOD SPECIMEN Ordering Facility: [facility] Address: [address] [place] [address] Performed By: #### 2 276-4, 2131-11, 3015-3 #### [facility] CLIA [id number] [address] [place] [address] [place] Monocytes/100 WBC (Bld) 8.4 % Normal C [facility] Comment on above: Order Comment: Speci men Type: BLOOD SPECIMEN Ordering Facility: [facility] Address: [address] [place] [address] Performed By: #### 2 276-4, 2131-11, 3015-3 #### [facility] CLIA [id number] [address] [place] [address] [place] Neutrophils (Bld) [#/Vol] 6.26 10*3/uL Normal 1.45-7.5 0 [facility] Comment on above: Order Comment: Speci men Type: BLOOD SPECIMEN Ordering Facility: [facility] Address: [address] [place] [address] Performed By: #### 2 276-4, 9, 3015-3 #### [facility] CLIA [id number] [address] [place] [address] [place] Neutrophils/100 WBC (Bld) 51.3 % Normal [facility] Comment on above: Order Comment: Speci men Type: BLOOD SPECIMEN Ordering Facility: [facility] Address: [address] [place] [address] Performed By: #### 2 276-4, 2131-11, 3 #### [facility] CLIA [id number] [address] [place] [address] [place] Nucleated RBC (Bld) [#/Vol] 10*3/uL Normal <0.01 [facility] Comment on above: Order Comment: Speci men Type: BLOOD SPECIMEN Ordering Facility: [facility] Address: [address] [place] [address] Performed By: #### 2 276-4, 2131-11, 3015-05 #### [facility] CLIA [id number] [address] [place] [address] [place] Nucleated RBC/100 WBC (Bld) [Ratio] 0.0 /100 WBC Normal [facility] Comment on above: Order Comment: Speci men Type: BLOOD SPECIMEN Ordering Facility: [facility] Address: [address] [place] [address] Performed By: #### 2 276-4, 2131-11, 3015-05 #### [facility] CLIA [id number] [address] [place] [address] [place] Platelet mean volume (Bld) [Entitic vol] 11.2 fL Normal 9.0-12.7 [facility] Comment on above: Order Comment: Speci men Type: BLOOD SPECIMEN Ordering Facility: [facility] Address: [address] [place] [address] Performed By: #### 2 276-4, 2131-11, 3 #### [facility] CLIA [id number] [address] [place] [address] [place] Platelets (Bld) [#/Vol] 415 10*3/uL High 150-400 [facility] Comment on above: Order Comment: Speci men Type: BLOOD SPECIMEN Ordering Facility: [facility] Address: [address] [place] [address] [place] [address] Performed By: #### 2 276-4, 2131-9, 6-3 #### [facility] CLIA [id number] [address] [place] [address] [place] RBC (Bld) [#/Vol] 4.41 10*6/uL Normal 3.90-5.20 [facility] Comment on above: Order Comment: Speci men Type: BLOOD SPECIMEN Ordering Facility: [facility] Address: [address] [place] [address] Performed By: #### 2 276-4, 2131-11, 6-3 #### [facility] CLIA [id number] [address] [place] [address] [place] WBC (Bld) [#/Vol] 12.20 10*3/uL High 3.70-11.00 [facility] Comment on above: Order Comment: Speci men Type: BLOOD SPECIMEN Ordering Facility: [facility] Address: [address] [place] [address] Performed By: #### 2 276-4, 2131-9, 6-3 #### [facility] CLIA [id number] [address] [place] [address] [place] CNOVon 04-26-2024 CNOV Office Visit ([facility]) ---- ANASTACIA MCKOY ([id number]) 4 F Date Time Provider Department [facility]/26[facility]24 7[facility]40 [facility] today, we recorded [...] pap thi (more content not included)... Normal [facility] Comprehensive metabolic 2000 panelon 04-26-2024 Albumin [Mass/Vol] 4.6 g/dL Normal 3.9-4.9 [facility] Comment on above: Order Comment: Speci men Type: BLOOD SPECIMEN Ordering Facility: [facility] Address: [address] [place] [address] Performed By: #### 5 0190-8, 02600-3, 7, 41642-1 #### [facility] CLIA [id number] [address] [place] [address] [place] ALP [Catalytic activity/Vol] 86 U/L Normal 34-123 [facility] Comment on above: Order Comment: Speci men Type: BLOOD SPECIMEN Ordering Facility: [facility] Address: [address] [place] [address] Performed By: #### 5 0190-8, 04554-2, 7, 89519-4 #### [facility] CLIA [id number] [address] [place] [address] [place] ALT [Catalytic activity/Vol] 16 U/L Normal 7-38 [facility] Comment on above: Order Comment: Speci men Type: BLOOD SPECIMEN Ordering Facility: [facility] Address: [address] [place] [address] Performed By: #### 5 0190-8, 03059-5, 3023-09, 83275-6 #### [facility] CLIA [id number] [address] [place] [address] [place] Anion gap [Moles/Vol] 12 mmol/L Normal 8-15 [facility] Comment on above: Order Comment: Speci men Type: BLOOD SPECIMEN Ordering Facility: [facility] Address: [address] [place] [address] Performed By: #### 5 0190-8, 40744-3, 7, 22755-9 #### [facility] CLIA [id number] [address] [place] [address] [place] AST [Catalytic activity/Vol] 19 U/L Normal 13-35 [facility] Comment on above: Order Comment: Speci men Type: BLOOD SPECIMEN Ordering Facility: [facility] Address: [address] [place] [address] Performed By: #### 5 0190-8, 67715-1, 7, 24386-1 #### [facility] CLIA [id number] [address] [place] [address] [place] Bilirubin [Mass/Vol] 0.2 mg/dL Normal 0.2-1.3 [facility] Comment on above: Order Comment: Speci men Type: BLOOD SPECIMEN Ordering Facility: [facility] Address: [address] [place] [address] Performed By: #### 5 0190-8, 51125-6, 3023-09, 08244-3 #### [facility] CLIA [id number] [address] [place] [address] [place] Calcium [Mass/Vol] 9.6 mg/dL Normal 8.5-10.2 [facility] Comment on above: Order Comment: Speci men Type: BLOOD SPECIMEN Ordering Facility: [facility] Address: [address] [place] [address] Performed By: #### 5 0190-8, 54008-7, 3023-09, 55018-0 #### [facility] CLIA [id number] [address] [place] [address] [place] Chloride [Moles/Vol] 101 mmol/L Normal 98-107 [facility] Comment on above: Order Comment: Speci men Type: BLOOD SPECIMEN Ordering Facility: [facility] Address: [address] [place] [address] Performed By: #### 5 0190-8, 08758-9, 7, 65621-3 #### [facility] CLIA [id number] [address] [place] [address] [place] CO2 [Moles/Vol] 25 mmol/L Normal 22-30 [facility] Comment on above: Order Comment: Speci men Type: BLOOD SPECIMEN Ordering Facility: [facility] Address: [address] [place] [address] Performed By: #### 5 0190-8, 39755-6, 7, 37517-6 #### [facility] CLIA [id number] [address] [place] [address] [place] Creatinine [Mass/Vol] 0.79 mg/dL Normal 0.58-0.96 [facility] Comment on above: Order Comment: Speci men Type: BLOOD SPECIMEN Ordering Facility: [facility] Address: [address] [place] [address] Performed By: #### 5 0190-8, 70400-2, 3023-09, 68547-7 #### [facility] CLIA [id number] [address] [place] [address] [place] Creatinine and Glomerular filtration rate.predicted panel (S/P/Bld) 109 mL/min/1.73m??? Normal >=60 [facility] Comment on above: Order Comment: Speci men Type: BLOOD SPECIMEN Ordering Facility: [facility] Address: [address] [place] [address] Result Comment: Anny mated Glomerular Filtration Rate [...] actual GFR. Performed By: #### 5 0190-8, 78529-9, 3023-09, #### [facility] CLIA [id number] [address] [place] [address] [place] Glucose [Mass/Vol] 94 mg/dL Normal 74-99 [facility] Comment on above: Order Comment: Speci men Type: BLOOD SPECIMEN Ordering Facility: [facility] Address: [address] [place] [address] Result Comment: The [place] Diabetes Association (ADA) provides guidance for cutoff [...] Standards of Medical Care in Diabetes 2016, [place] [employer] Association. Diabetes Care. 2016.39(Suppl 1). Performed By: #### 5 0190-8, 96536-1, 3023-09, #### [facility] CLIA [id number] [address] [place] [address] [place] Potassium [Moles/Vol] 4.2 mmol/L Normal 3.7-5.1 [facility] Comment on above: Order Comment: Speci men Type: BLOOD SPECIMEN Ordering Facility: [facility] Address: [address] [place] [address] Performed By: #### 5 0190-8, 26750-8, 3023-09, #### [facility] CLIA [id number] [address] [place] [address] [place] Protein [Mass/Vol] 7.5 g/dL Normal 6.3-8.0 [facility] Comment on above: Order Comment: Speci men Type: BLOOD SPECIMEN Ordering Facility: [facility] Address: [address] [place] [address] Performed By: #### 5 0190-8, 74585-4, 3024-7, 02545-0 #### [facility] CLIA [id number] [address] [place] [address] [place] Sodium [Moles/Vol] 138 mmol/L Normal 136-144 [facility] Comment on above: Order Comment: Speci men Type: BLOOD SPECIMEN Ordering Facility: [facility] Address: [address] [place] [address] Performed By: #### 5 0190-8, 61391-1, 3024-7, 18362-5 #### [facility] CLIA [id number] [address] [place] [address] [place] Urea nitrogen [Mass/Vol] 11 mg/dL Normal 7-21 [facility] Comment on above: Order Comment: Speci men Type: BLOOD SPECIMEN Ordering Facility: [facility] Address: [address] [place] [address] Performed By: #### 5 0190-8, 86471-5, 3024-7, 60002-4 #### [facility] CLIA [id number] [address] [place] [address] [place] Ferritin SerPl-mCncon 2024 Ferritin [Mass/Vol] 70.5 ng/mL Normal 14.7-205.1 [facility] Comment on above: Order Comment: Speci men Type: BLOOD SPECIMEN Ordering Facility: [facility] Address: [address] [place] [address] Performed By: #### 2 276-4, 2132-9, 3016-3 #### [facility] CLIA [id number] [address] [place] [address] [place] Iron and Iron binding capaci ty panelon 04-26-2024 Iron [Mass/Vol] 74 ug/dL Normal 41-186 [facility] Comment on above: Order Comment: Speci men Type: BLOOD SPECIMEN Ordering Facility: [facility] Address: [address] [place] [address] Performed By: #### 5 0190-8, 26402-6, 3023-09, #### [facility] CLIA [id number] [address] [place] [address] [place] Iron binding capacity [Mass/Vol] 300 ug/dL Normal 232-386 [facility] Comment on above: Order Comment: Speci men Type: BLOOD SPECIMEN Ordering Facility: [facility] Address: [address] [place] [address] Performed By: #### 5 0190-8, 03820-6, 3023-09, #### [facility] CLIA [id number] [address] [place] [address] [place] Iron/TIBC [Molar ratio] 24.7 % Normal 15.0-57.0 [facility] Comment on above: Order Comment: Speci men Type: BLOOD SPECIMEN Ordering Facility: [facility] Address: [address] [place] [address] Performed By: #### 5 0190-8, 29389-5, 3023-09, #### [facility] CLIA [id number] [address] [place] [address] [place] Lipid 1996 panelon 5 Cholesterol [Mass/Vol] 134 mg/dL Normal <200 [facility] Comment on above: Order Comment: Speci men Type: BLOOD SPECIMEN Ordering Facility: [facility] Address: [address] [place] [address] Result Comment: <200 mg/dL, Desirable 200-239 mg/dL, Borderline high >239 mg/dL, High Performed By: #### 5 0190-8, 62625-1, 3023-09, #### [facility] CLIA [id number] [address] [place] [address] [place] Cholesterol in HDL [Mass/Vol] 47 mg/dL Normal >39 [facility] Comment on above: Order Comment: Marisol aguilar Type: BLOOD SPECIMEN Ordering Facility: [facility] Address: [address] [place] [address] Result Comment: 40-5 9 mg/dL, Acceptable >59 mg/dL, High: Negative risk factor for coronary heart disease <40 mg/dL, Low: Positive risk factor for coronary heart disease Performed By: #### 5 0190-8, 79195-0, 3024-7, 60679-0 #### [facility] CLIA [id number] [address] [place] [address] [place] Cholesterol in LDL [Mass/Vol] 63 mg/dL Normal <100 [facility] Comment on above: Order Comment: Marisol aguilar Type: BLOOD SPECIMEN Ordering Facility: [facility] Address: [address] [place] [address] Result Comment: <100 mg/dL, Optimal 100-129 mg/dL, Near optimal/above optimal 130-159 mg/dL, Borderline high 160-189 mg/dL, High >189 mg/dL, Very high Secondary prevention optimal LDL Cholesterol levels are recommended to be < 70 mg/dL Performed By: #### 5 0190-8, 90433-7, 3024-7, 24048-6 #### [facility] CLIA [id number] [address] [place] [address] [place] Cholesterol in LDL/Cholesterol in HDL [Mass ratio] 1.34 {ratio} Normal <2.54 [facility] Comment on above: Order Comment: Marisol aguilar Type: BLOOD SPECIMEN Ordering Facility: [facility] Address: [address] [place] [address] Result Comment: Crista king: 1. National Cholesterol Education Program ATP III Guideline At-A-Glance Quick Desk Reference: National Heart, Lung, and Blood Sophia. National Institutes of Health. 2001: NIH Publication [...] and Adolescents: National Heart, Lung and Blood Sophia. Pediatrics. 2011:128(Suppl 5):E830-168. Performed By: #### 5 0190-8, 70270-6, 3023-7, 63032-6 #### [facility] CLIA [id number] [address] [place] [address] [place] Cholesterol in VLDL [Mass/Vol] 24 mg/dL Normal <30 [facility] Comment on above: Order Comment: Marisol aguilar Type: BLOOD SPECIMEN Ordering Facility: [facility] Address: [address] [place] [address] Performed By: #### 5 0190-8, 83488-8, 3023-09, #### [facility] CLIA [id number] [address] [place] [address] [place] Cholesterol non HDL [Mass/Vol] 87 mg/dL Normal <130 [facility] Comment on above: Order Comment: Marisol aguilar Type: BLOOD SPECIMEN Ordering Facility: [facility] Address: [address] [place] [address] Result Comment: <130 mg/dL, Optimal 130-159 mg/dL, Near optimal/above optimal 160-189 mg/dL, Borderline high 190-219 mg/dL, High >219 mg/dL, Very high Secondary prevention optimal non HDL Cholesterol levels are recommended to be <100 mg/dL Performed By: #### 5 0190-8, 96685-5, 3023-7, 57219-1 #### [facility] CLIA [id number] [address] [place] [address] [place] Cholesterol.total/Cholest srikanth in HDL [Mass ratio] 2.85 {ratio} Normal <5.10 [facility] Comment on above: Order Comment: Marisol aguilar Type: BLOOD SPECIMEN Ordering Facility: [facility] Address: [address] [place] [address] Performed By: #### 5 0190-8, 18640-9, 3023-09, #### [facility] CLIA [id number] [address] [place] [address] [place] FASTING TIME 12 hrs Normal [facility] Comment on above: Order Comment: Speci men Type: BLOOD SPECIMEN Ordering Facility: [facility] Address: [address] [place] [address] Performed By: #### 5 0190-8, 32791-1, 3023-09, #### [facility] CLIA [id number] [address] [place] [address] [place] Triglyceride [Mass/Vol] 122 mg/dL Normal <150 [facility] Comment on above: Order Comment: Speci men Type: BLOOD SPECIMEN Ordering Facility: [facility] Address: [address] [place] [address] Result Comment: <150 mg/dL, Normal 150-199 mg/dL, Borderline high 200-499 mg/dL, High >499 mg/dL, Very high Performed By: #### 5 0190-8, 65066-6, 3023-09, #### [facility] CLIA [id number] [address] [place] [address] [place] T4 Free SerPl-mCncon 04-26- 025 Free T4 [Mass/Vol] 1.6 ng/dL Normal 0.9-1.7 [facility] Comment on above: Order Comment: Speci men Type: BLOOD SPECIMEN Ordering Facility: [facility] Address: [address] [place] [address] Performed By: #### 5 0190-8, 84086-1, 3023-09, #### [facility] CLIA [id number] [address] [place] [address] [place] TSH SerPl-aCncon 02-07-2025 TSH Qn 5.020 m[IU]/L High 0.270-4.200 [facility] Comment on above: Order Comment: Speci men Type: BLOOD SPECIMEN Ordering Facility: [facility] Address: [address] [place] [address] Result Comment: If t he patient is , TSH reference range varies by gestational period: First Trimester (weeks 9-12): 0.180-2.990 mIU/L Second Trimester: 0.110-3.980 mIU/L Third Trimester: 0.480-4.710 mIU/L Juan So et al. A Practical Approach for the Verifications and Determination of Site- and Trimester-Specific Reference Intervals for Thyroid Function tests in . Thyroid, 2019:29:3:412-420. Mike Vasquez, et al. 2017 Guidelines of the [place] Thyroid Association for the Diagnosis and Management of Thyroid Disease during and the . Thyroid, 2017:27:3:315-389. Performed By: #### 2 276-4, 2131-9, 6-3 #### [facility] CLIA [id number] [address] [place] [address] [place] Vit B12 SerPl-mCncon 025 Cobalamin (Vitamin B12) [Mass/Vol] 692 pg/mL Normal 232-1245 [facility] Comment on above: Order Comment: Speci men Type: BLOOD SPECIMEN Ordering Facility: [facility] Address: [address] [place] [address] Performed By: #### 2 276-4, 213-9, 6-3 #### [facility] CLIA [id number] [address] [place], [place] [id number] [place] CNCOon 09-20-2023 CNCO Letter Text Normal [facility] ALLERGEN SKIN TEST-INHALANT 40on 08-21-2023 INHALANT 40 [...] 0 mm F = 0 mm Beech, [place] 1:20 P: W = 0 mm F = 0 mm Birch Mix 1:20 P: W = 0 mm F = 0 mm Maple Mix 1:20 P: W = 0 mm F = 0 mm Villalba ,Eastern 1:20 P: W = 0 mm F = 00 mm Falls, [place]ark 1:20 P: W = 8 mm F = 10 mm [place] Tree, Red 1:20 P: W = 0 mm F = 0 mm [place], Red 1:20 P: W = 0 mm F = 0 mm [place], [place]/Eastern 1:20 P: W = 0 mm F = 0 mm Paxton Pollen, Black 1:20 P: W = 0 mm F = 0 mm [place], Black 1:20 P: W = 0 mm F = 0 mm B[place] Grass 10,000 BAU/ml P : W = 0 mm F = 0 mm [place], /Mila 100,000 BAU/ml P: W = 0 mm F = 0 mm Fescue, [place] 100,000 BAU/ml P: W = 0 mm F = 00 mm Serafin Grass 1:20 P: W = 0 mm F = 0 mm Orchard Grass 100,000 BAU/ml P: W = 0 mm F = 0 mm Perennial Clark, 100,000 BAU/ml P: W = 0 mm F = 0 mm Stephan 100,000 BAU/ml P: W = 0 mm F = 0 mm Cocklebur 1:20 P: W = 0 mm F = 00 mm [place], sheep 1:20 P: W = 0 mm F = 0 mm Plantain, Cypriot 1:20 P: W = 0 mm F [...] = 6 mm F= 6 mm Special Hosford Mix 1:500 ID: W = 3 mm F= 5 mm HISTAMINE - (Histamine base 0.1 mg/ml) ID: W =4 mm F= 15 mm [facility] ALLERGEN SKIN TEST-OTHER INH Linda 08-21-2023 OTHER [...] = 4 mm F = 15 mm [facility] CNOVon 08-21-2023 CNOV Office Visit (ALLMED) ---- ANASTACIA MCKOY ([id number]) 4 F Date Time Provider Department 08/21/23 10:00 AM REHANA MALONEY During your visit today, we recorded the following information about you: Pulse Respiration Blood pressure Weight 83/minute 18/minute 117/74 64 kg Rehana Maloney MD 08/21/2023 1:38 PM Signed [facility] ALLERGY AND IMMUNOLOGY CONSULT Patient Name: Anastacia Mckoy PRIMARY CARE PHYSICIAN: Mildred Tomas MD REASON FOR CONSULT: allergy evaluation REQUESTING PHYSICIAN: Billy Steel APRN.STUDIO MODEL My final recommendations will be communicated to the requesting health care provider by way of the shared medical record for internal providers or letter via the boarding pass Postal Service for external providers. 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 Used to get flares of hives [...] Denies. 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 Interested in getting BSN afterwards. Medical [...] 3. Seasona (more content not included)... Normal [facility] No Panel Informationon 08-20 [facility] Vital Signs Date Time Vital Sign Value Performing Clinician Facility 12-30-2024 14:58-0400 Body height 154.[address] Stephan Ngo MD Work Phone: [facility] 12-30-2024 14:58-0400 Body mass index (BMI) [Ratio] 31.7 kg/m2 Dr. Stephan Ngo MD Work Phone: 3(928)741-589097 [place] [address] 12-30-2024 14:58-0400 Body weight 76.[address] Stephan Ngo MD Work Phone: 2(808)931-387697 [place] [address] 12-30-2024 14:58-0400 Diastolic blood pressure 82 mm[Hg] Dr. Stephan Ngo MD Work Phone: 1(724)917-474597 [place] [address] 12-30-2024 14:58-0400 Systolic blood pressure 125 mm[Hg] Dr. Stephan Ngo MD Work Phone: 6(625)269-934597 [place] [address] 12-02-2024 15:21-0400 Body height 154.[address] Stephan Ngo MD Work Phone: 7(742)161-152297 [place] [address] 12-02-2024 15:21-0400 Body mass index (BMI) [Ratio] 30.9 kg/m2 Dr. Stephan Ngo MD Work Phone: 8(798)394-829997 [place] [address] 12-02-2024 15:21-0400 Body weight 74.[address] Stephan Ngo MD Work Phone: 0(981)294-105497 [place] [address] 12-02-2024 15:21-0400 Diastolic blood pressure 86 mm[Hg] Dr. Stephan Ngo MD Work Phone: 3(246)155-737897 [place] [address] 12-02-2024 15:21-0400 Systolic blood pressure 122 mm[Hg] Dr. Stephan Ngo MD Work Phone: 4(114)108-046797 [place] [address] 11-06-2024 15:49-0400 Body height 154.[address] Stephan Ngo MD Work Phone: 8(432)828-982797 [place] [address] 11-06-2024 15:48-0400 Body mass index (BMI) [Ratio] 30.2 kg/m2 Dr. Stephan Ngo MD Work Phone: 1(510)840-293497 [place] [address] 11-06-2024 15:48-0400 Body weight 72.[address] Stephan Ngo MD Work Phone: 7(953)966-693297 [place] [address] 11-06-2024 15:48-0400 Diastolic blood pressure 74 mm[Hg] Dr. Stephan Ngo MD Work Phone: 6(013)293-979297 [place] [address] 11-06-2024 15:48-0400 Systolic blood pressure 110 mm[Hg] Dr. Stephan Ngo MD Work Phone: 7(110)345-297697 [place] [address] 10-08-2024 15:36-0400 Body height 154.[address] Stephan Ngo MD Work Phone: 5(848)362-176297 [place] [address] 10-08-2024 15:36-0400 Body mass index (BMI) [Ratio] 29.7 kg/m2 Dr. Stephan Ngo MD Work Phone: 8(580)595-572797 [place] [address] 10-08-2024 15:36-0400 Body weight 71.[address] Stephan Ngo MD Work Phone: 6(670)046-057397 [place] [address] 10-08-2024 15:36-0400 Diastolic blood pressure 79 mm[Hg] Dr. Stephan Ngo MD Work Phone: 7(080)826-474397 [place] [address] 10-08-2024 15:36-0400 Systolic blood pressure 117 mm[Hg] Dr. Stephan Ngo MD Work Phone: 2(435)373-102197 [place] [address] 09-09-2024 08:40-0400 Body height 154.[address] Stephan Ngo MD Work Phone: 7(851)648-046397 [place] [address] 09-09-2024 08:28-0400 Body mass index (BMI) [Ratio] 28.6 kg/m2 Dr. Stephan Ngo MD Work Phone: 3(409)301-612797 [place] [address] 09-09-2024 08:28-0400 Body weight 68.[address] Stephan Ngo MD Work Phone: 3(575)719-975697 [place] [address] 09-09-2024 08:28-0400 Diastolic blood pressure 74 mm[Hg] Dr. Stephan Ngo MD Work Phone: 0(685)633-987797 [place] [address] 09-09-2024 08:28-0400 Systolic blood pressure 118 mm[Hg] Dr. Stephan Ngo MD Work Phone: 7(863)430-114297 [place] [address] 08-07-2024 10:30-0400 Body height 154.[address] Stephan Ngo MD Work Phone: 8(554)980-994397 [place] [address] 08-07-2024 10:30-0400 Body mass index (BMI) [Ratio] 28.9 kg/m2 Dr. Stephan Ngo MD Work Phone: 9(248)071-281097 [place] [address] 08-07-2024 10:30-0400 Body weight 69.[address] Stephan Ngo MD Work Phone: 3(148)486-580297 [place] [address] 08-07-2024 10:30-0400 Diastolic blood pressure 88 mm[Hg] Dr. Stephan Ngo MD Work Phone: 8(936)153-635497 [place] [address] 08-07-2024 10:30-0400 Systolic blood pressure 134 mm[Hg] Dr. Stephan Ngo MD Work Phone: 6(246)920-414797 [place] [address] 08-02-2024 09:06-0400 Body mass index (BMI) [Ratio] 29.1 kg/m2 Dr. Stephan Ngo MD Work Phone: 1(513)031-206997 [place] [address] 08-02-2024 09:06-0400 Body weight 69.[address] Stephan Ngo MD Work Phone: 0(605)974-892697 [place] [address] 08-02-2024 09:06-0400 Diastolic blood pressure 78 mm[Hg] Dr. Stephan Ngo MD Work Phone: 8(161)369-729097 [place] [address] 08-02-2024 09:06-0400 Systolic blood pressure 122 mm[Hg] Dr. Stephan Ngo MD Work Phone: 8(989)896-034197 [place] [address] 04-26-2024 07:28-0500 Body height 152.4 cm Cat Green EXECUTIVE SEARCH CONSULTANT.STUDIO MODEL Work Phone: 8(201)000-440839 [place] [address] 04-26-2024 07:28-0500 Body mass index (BMI) [Ratio] 29.88 kg/m2 Cat Green EXECUTIVE SEARCH CONSULTANT.STUDIO MODEL Work Phone: [facility] 04-26-2024 07:28-0500 Body weight 69.4 kg Cat Green EXECUTIVE SEARCH CONSULTANT.STUDIO MODEL Work Phone: [facility] 04-26-2024 07:28-0500 Diastolic blood pressure 78 mm[Hg] Cat Tannhof EXECUTIVE SEARCH CONSULTANT.STUDIO MODEL Work Phone: [facility] 04-26-2024 07:28-0500 Heart rate 95 /min Cat Tannhof EXECUTIVE SEARCH CONSULTANT.STUDIO MODEL Work Phone: [facility] 04-26-2024 07:28-0500 Respiratory rate 16 /min Cat Skaggshof EXECUTIVE SEARCH CONSULTANT.STUDIO MODEL Work Phone: [facility] 04-26-2024 07:28-0500 SaO2% (BldA) [Mass fraction] 99 % Cat Skaggshof EXECUTIVE SEARCH CONSULTANT.STUDIO MODEL Work Phone: [facility] 04-26-2024 07:28-0500 Systolic blood pressure 126 mm[Hg] Cat Skaggshof EXECUTIVE SEARCH CONSULTANT.STUDIO MODEL Work Phone: [facility] 08-21-2023 10:01-0400 Body mass index (BMI) [Ratio] 27.56 kg/m2 Rehana Maloney MD Work Phone: [facility] 08-21-2023 10:01-0400 Body weight 64 kg Rehana Maloney MD Work Phone: [facility] 08-21-2023 10:01-0400 Diastolic blood pressure 74 mm[Hg] Rehana Maloney MD Work Phone: [facility] 08-21-2023 10:01-0400 Heart rate 83 /min Rehana Maloney MD Work Phone: [facility] 08-21-2023 10:01-0400 Respiratory rate 18 /min Rehana Maloney MD Work Phone: [facility] 08-21-2023 10:01-0400 SaO2% (BldA) [Mass fraction] 99 % Rehana Maloney MD Work Phone: [facility] 08-21-2023 10:01-0400 Systolic blood pressure 117 mm[Hg] Rehana Maloney MD Work Phone: [facility] 06-26-2023 06:56-0400 Body weight 60.51 kg Billy Milvia EXECUTIVE SEARCH CONSULTANT.STUDIO MODEL Work Phone: [facility] 06-26-2023 06:56-0400 Diastolic blood pressure 76 mm[Hg] Billy Milvia EXECUTIVE SEARCH CONSULTANT.STUDIO MODEL Work Phone: [facility] 06-26-2023 06:56-0400 Heart rate 101 /min Billy Milvia EXECUTIVE SEARCH CONSULTANT.STUDIO MODEL Work Phone: [facility] 06-26-2023 06:56-0400 Respiratory rate 16 /min Billy Milvia EXECUTIVE SEARCH CONSULTANT.STUDIO MODEL Work Phone: [facility] 06-26-2023 06:56-0400 SaO2% (BldA) [Mass fraction] 98 % Billy Milvia EXECUTIVE SEARCH CONSULTANT.STUDIO MODEL Work Phone: [facility] 06-26-2023 06:56-0400 Systolic blood pressure 113 mm[Hg] Billy Milvia EXECUTIVE SEARCH CONSULTANT.STUDIO MODEL Work Phone: [facility] 05-24-2023 09:18-0500 Body temperature 98.71 [degF] Nadja Dickson EXECUTIVE SEARCH CONSULTANT.STUDIO MODEL Work Phone: [facility] 05-24-2023 09:18-0500 Body weight 60.69 kg Nadja Dickson EXECUTIVE SEARCH CONSULTANT.STUDIO MODEL Work Phone: [facility] 05-24-2023 09:18-0500 Diastolic blood pressure 82 mm[Hg] Nadja Dickson EXECUTIVE SEARCH CONSULTANT.STUDIO MODEL Work Phone: [facility] 05-24-2023 09:18-0500 Heart rate 100 /min Nadja Dickson EXECUTIVE SEARCH CONSULTANT.STUDIO MODEL Work Phone: [facility] 05-24-2023 09:18-0500 Respiratory rate 18 /min Nadja Dickson EXECUTIVE SEARCH CONSULTANT.STUDIO MODEL Work Phone: [facility] 05-24-2023 09:18-0500 SaO2% (BldA) [Mass fraction] 98 % Nadja Dickson EXECUTIVE SEARCH CONSULTANT.STUDIO MODEL Work Phone: [facility] 05-24-2023 09:18-0500 Systolic blood pressure 128 mm[Hg] Nadja Dickson EXECUTIVE SEARCH CONSULTANT.STUDIO MODEL Work Phone: [facility] 01-23-2023 10:15-0500 Body height 152.4 cm Cat Tannhof EXECUTIVE SEARCH CONSULTANT.STUDIO MODEL Work Phone: [facility] 01-23-2023 10:15-0500 Body weight 64.41 kg Cat Tannhof EXECUTIVE SEARCH CONSULTANT.STUDIO MODEL Work Phone: [facility] 01-23-2023 10:15-0500 Diastolic blood pressure 80 mm[Hg] Cat Tannhof EXECUTIVE SEARCH CONSULTANT.STUDIO MODEL Work Phone: [facility] 01-23-2023 10:15-0500 Heart rate 76 /min Cat Tannhof EXECUTIVE SEARCH CONSULTANT.STUDIO MODEL Work Phone: [facility] 01-23-2023 10:15-0500 Respiratory rate 16 /min Cat Tannhof EXECUTIVE SEARCH CONSULTANT.STUDIO MODEL Work Phone: [facility] 01-23-2023 10:15-0500 Systolic blood pressure 122 mm[Hg] Cat Tannhof EXECUTIVE SEARCH CONSULTANT.STUDIO MODEL Work Phone: [facility] Encounters Encounter Date Encounter Type Care Provider Facility Start: 02-03-2025 ambulatory Maki Naidu Facility:[facility] Start: 01-29-2025 End: 01-29-2025 ambulatory Ashlee Mcdonough Facility:[facility] Start: 01-14-2025 End: 01-14-2025 ambulatory Dorie Curry NP Facility:[facility] Start: 12-30-2024 End: 12-30-2024 Patient encounter procedure Maki Marcelo CNM -[facility] Work Phone: Start: 12-30-2024 End: 12-30-[address] Stephan Ngo MD Work Phone: -[facility] Start: 12-02-2024 End: 12-02-[address] Ashlee Mcdonough MD -[facility] Work Phone: Start: 12-02-2024 End: 12-02-[address] Stephan Ngo MD Work Phone: [facility] Start: 12-02-2024 End: 12-02-2024 ambulatory Natalie Trimble Facility:[facility] Start: 11-06-2024 End: 11-06-[address] Natalie Trimble DO -[facility] Work Phone: Start: 11-06-2024 End: 11-06-[address] Stephan Ngo MD Work Phone: [facility] Start: 10-16-2024 End: 10-16-[address] Stephan Ngo MD Work Phone: -Ultrasound [facility] Start: 10-16-2024 End: 10-16-[address] Ashlee Mcdonough MD -Ultrasound [facility] Work Phone: Start: 10-16-2024 End: 10-16-2024 ambulatory Ashlee Mcdonough Facility:[facility] Start: 10-08-2024 End: 10-08-[address] Stephan Ngo MD Work Phone: [facility] Start: 10-08-2024 End: 10-08-[address] Ashlee Mcdonough MD -[facility] Work Phone: Start: 09-09-2024 End: 09-09-2024 Patient encounter procedure Dorie DUENAS -[facility] Work Phone: Start: 09-09-2024 End: 09-09-[address] Stephan Ngo MD Work Phone: [facility] Work Phone: Start: 09-03-2024 End: 09-03-2024 Emergency department patient visit PATIENT UNSURE PHYSICIAN Facility:[facility] Start: 08-21-2024 End: 08-21-[address] Stephan Ngo MD Work Phone: [facility] Work Phone: Start: 08-21-2024 End: 08-21-[address] Natalie Trimble DO -[facility] Start: 08-21-2024 End: 08-21-2024 ambulatory Natalie Trimble Facility:[facility] Start: 08-13-2024 End: 08-13-2024 Telephone encounter Billy Steel APRN.STUDIO MODEL Work Phone: [facility] Comment on above: Results Start: 08-11-2024 End: 08-11-2024 Patient encounter procedure Yannick Chowdhury MD Work Phone: Endocrinology Start: 08-08-2024 End: 08-13-2024 Follow-up encounter Billy Steel APRN.STUDIO MODEL Work Phone: [facility] Comment on above: Results Start: 08-07-2024 End: 08-07-[address] Stephan Ngo MD Work Phone: [facility] Work Phone: Start: 08-07-2024 End: 08-07-[address] Ashlee Mcdonough MD -Laboratory Specimen Work Phone: Start: 08-07-2024 End: 08-07-[address] Natalie Trimble DO [facility] Work Phone: Start: 08-07-2024 End: 08-07-[address] Stephan Ngo MD Work Phone: [facility] Work Phone: Start: 08-07-2024 End: 08-07-2024 ambulatory Ashlee Mcdonough Facility:[facility] Start: 08-02-2024 End: 08-02-[address] Ashlee Mcdonough MD -[facility] Work Phone: Start: 08-02-2024 End: 08-02-[address] Stephan Ngo MD Work Phone: [facility] Work Phone: Start: 06-03-2024 End: 06-03-2024 Follow-up encounter Cat Green APRN.CNP Work Phone: [facility] Comment on above: Results Start: 05-31-2024 End: 05-31-2024 ambulatory MILDRED Chacorta [facility] Facility:[facility] Start: 04-29-2024 End: 05-01-2024 Follow-up encounter Cat Green APRN.CNP Work Phone: [facility] Comment on above: Hypothyroidism, acqu ired (Primary Dx); Vitamin D deficiency Start: 04-26-2024 End: 04-26-2024 Office outpatient visit 40 minutes Cat Green APRN.CNP [facility] Comment on above: Wellness examination (Primary Dx); Fatigue, unspecified type; Chronic rhinitis; Screening for depression; Encounter for screening examination for other mental health and behavioral disorders; Screening cholesterol level Start: 04-26-2024 End: 04-26-2024 Patient encounter status Cat Green APRN.CNP Work Phone: [facility] Work Phone: Start: 04-26-2024 End: 04-26-2024 ambulatory CAT GREEN Facility:[facility] Start: 04-26-2024 Encounter for genera l adult medical examination without abnormal findings CAT GREEN [facility] Start: 02-24-2024 End: 02-24-2024 Emergency department patient visit IVÁN SAUNDERS DO Facility:[facility] Start: 08-21-2023 End: 08-21-2023 ambulatory BILLY STEEL Facility:[facility] Start: 08-21-2023 End: 08-21-2023 Patient encounter [...] 15 minutes Billy Steel APRN.CNP Work Phone: [facility] Comment on above: Hives (Primary Dx); Chronic rhinitis; Change in eating habits Start: 05-24-2023 End: 05-24-2023 Patient encounter procedure Nadja Dickson EXECUTIVE SEARCH CONSULTANT.LISA Work Phone: [facility] Comment on above: Rhinosinusitis (Prim deshawn Dx) Start: 01-25-2023 Telephone encounter Cat sellers APRN.CNP Work Phone: [facility] Comment on above: Results (TB ) Start: 01-23-2023 End: 01-23-2023 Patient encounter procedure Cat Green APRN.CNP Work Phone: [facility] Comment on above: Wellness examination (Primary Dx); Screening-pulmonary TB; Encounter for immunization Start: 01-23-2023 End: 01-23-2023 Patient encounter status Cat Green APRN.CNP Work Phone: [facility] Work Phone: Start: 07-26-2021 End: 07-26-2021 Patient encounter procedure Nurse [facility] Comment on above: Encounter for immuni zation (Primary Dx) Start: 07-05-2021 End: 07-05-2021 Patient encounter procedure [facility] [place] Comment on above: Encounter for immuni zation (Primary Dx) Procedures Date Procedure Procedure Detail Performing Clinician Start: 12-02-2024 Serologic test for syphilis Dr. Stephan Ngo MD Work Phone: Start: 10-16-2024 Ultrasonography in f irst trimester Dr. Stephan Ngo MD Work Phone: Start: 08-21-2024 End: 08-21-[address] Stephan Ngo MD Work Phone: Comment on above: Test Ordered: [id number] TSH Receptor Antibody (TBII)TSH Receptor Antibody (TBII) <0.4 U/L ES Reference Range: .Reference Range:Antibody Titer:<1.0 U/L = Negative1.1 - 1.5 U/L = Equivocal>1.5 U/L = PositivePerformed at: ES - [facility] [id number] [place], [place] [id number] Director: Curt Mcdonald MD, Phone: [phone] at: - [facility] [id number] [place], [place] [id number] Director: Irving Lockwood PhD, Phone: [phone] Start: 08-21-2024 Hepatitis C antibody measurement Dr. [...] HCV Quant by PCR testing - HCVPCR lc#[id number] Non Reactive: < 0.8 Equivocal: >/= 0.8 to < 1.0 Reactive: >/= 1.0The CDC requires that a reactive/equivocal HCV antibody result be sent out for confirmation. HCV Quant by PCR testing. Start: 08-21-[address] Stephan Ngo MD Work Phone: Comment on above: Antibody Result: Int erpretationNon-Reactive: Non- ImmuneReactive: ImmuneThe following results were obtained with the [employer] Rubella IgG assay. Results from assays of [...] therefore, no HPV testing was performed.Performed at: [address] [id number] Director: Raina Juarez MD, Phone: [phone] Start: 08-07-[address] Holland Ngo MD Work Phone: Start: 04-26-2024 Adult depression scr eening assessment Cat Green EXECUTIVE SEARCH CONSULTANT.STUDIO MODEL Work Phone: Start: 08-21-2023 ALLERGEN SKIN TEST-I NHALENT 40 Rehana Maloney MD Work Phone: Start: 08-21-2023 ALLERGEN SKIN TEST-O THER INHAL Rehana Maloney MD Work Phone: Start: 01-23-2023 INFLUENZA VACCINE, A GE 6 MO - 64 YR, QUADRIVALENT (AFLURIA, FLULAVAL, FLUZONE) Cat Green EXECUTIVE SEARCH CONSULTANT.STUDIO MODEL Work Phone: Start: 07-26-2021 PFIZER-BIONTECH COVI D-19 VACCINE, AGE 12+ YR (MADRIGAL TOP) Samuel Brown MD Work Phone: Start: 07-05-2021 PFIZER-BIONTECH COVI D-19 VACCINE, AGE 12+ YR (MADRIGAL TOP) Vince Rojas MD Work Phone: Start: 05-22-2020 Adult depression scr eening assessment Nurse [place] Plan of Treatment Date Care Activity Detail Author Start: 08-18-2025 Urine microalbumin profile [facility] Start: 04-26-2025 Anxiety Screening Anxiety Screening [facility] Start: 04-26-2025 Depression Screening Depression Scre [facility] Start: 04-26-2025 Hepatitis C screening Hepatitis C [facility] Comment on above: Postponed from 11/05 (Declined at this time) Start: 04-26-2025 HIV screening HIV Screening [facility] Comment on above: Postponed from 11/05 (Declined at this time) Start: 12-02-2024 CBC W Auto Different ial panel - Blood [facility] Start: 12-02-2024 Measurement of gluco se 2 hours after glucose challenge for glucose tolerance test [facility] Start: 12-02-2024 Serologic test for syphilis [facility] Start: 12-02-2024 [facility] Start: 09-13-2024 End: 12-13-2024 25-hydroxyvitamin D3 [Mass/volume] in Serum or Plasma VITAMIN D 25 HYDROXY Lab Routine Vitamin D deficiency Expected: 09/13/2024 (Approximate), Expires: 12/13/2024 [facility] Work Phone: Comment on above: Expected: 09/13/2024 (Approximate), Expires: 12/13/2024 Start: 08-21-2024 Procedure [facility] Start: 08-07-2024 Liquid based cervica l cytology screening [facility] Start: 08-06-2024 GC (Gonorrhea) Scree luna (18-24) GC (Gonorrhea) Screening (18-24) [facility] Start: 08-06-2024 Screening for Chlamy deana trachomatis Chlamydia Screening (18) [facility] Start: 07-29-2024 End: 10-28-2024 Thyrotropin [Units/volume] in Serum or Plasma THYROID STIMULATING HORMONE Lab Routine Hypothyroidism, acquired Expected: 07/29/2024, Expires: 10/28/2024 [facility] Work Phone: Comment on above: Expected: 07/29/2024 , Expires: 10/28/2024 Start: 07-29-2024 End: 10-28-2024 Thyroxine (T4) free [Mass/volume] in Serum or Plasma T4 FREE/FREE THYROXINE Lab Routine Hypothyroidism, acquired Expected: 07/29/2024, Expires: 10/28/2024 [facility] Comment on above: Expected: 07/29/2024 , Expires: 10/28/2024 Start: 07-27-2024 End: 10-26-2024 25-hydroxyvitamin D3 [Mass/volume] in Serum or Plasma VITAMIN D 25 HYDROXY Lab Routine Vitamin D deficiency Expected: 07/27/2024, Expires: 10/26/2024 [facility] Comment on above: Expected: 07/27/2024 , Expires: 10/26/2024 Start: 07-27-2024 End: 07-27-2024 ambulatory 07/27/2024 7:30 AM EDT Results Only [facility] Draw Station [address] [place] [address] [facility] Draw Station Start: 05-31-2024 End: 05-31-2024 ambulatory 05/31/2024 7:15 AM EDT Results Only [facility] Draw Station [address] [place] [address] [facility] Start: 05-27-2024 End: 08-26-2024 THYROID PEROXIDASE ANTIBODY THYROID PEROXIDASE ANTIBODY Lab Routine Hypothyroidism, acquired Expected: 05/27/2024, Expires: 08/26/2024 [facility] Comment on above: Expected: 05/27/2024 , Expires: 08/26/2024 Start: 05-27-2024 End: 08-26-2024 Thyrotropin [Units/volume] in Serum or Plasma THYROID STIMULATING HORMONE Lab Routine Hypothyroidism, acquired Expected: 05/27/2024, Expires: 08/26/2024 [facility] Work Phone: Comment on above: Expected: 05/27/2024 , Expires: 08/26/2024 Start: 05-27-2024 End: 08-26-2024 Thyroxine (T4) free [Mass/volume] in Serum or Plasma T4 FREE/FREE THYROXINE Lab Routine Hypothyroidism, acquired Expected: 05/27/2024, Expires: 08/26/2024 [facility] Comment on above: Expected: 05/27/2024 , Expires: 08/26/2024 Start: 05-27-2024 End: 08-26-2024 Triiodothyronine (T3) Free [Mass/volume] in Serum or Plasma T3, FREE Lab Routine Hypothyroidism, acquired Expected: 05/27/2024, Expires: 08/26/2024 [facility] Comment on above: Expected: 05/27/2024 , Expires: 08/26/2024 Start: 04-26-2024 End: 07-26-2024 25-hydroxyvitamin D3 [Mass/volume] in Serum or Plasma [facility] Comment on above: Expected: 04/26/2024 , Expires: 07/26/2024 Start: 04-26-2024 End: 07-26-2024 CBC W Auto Differential panel - Blood [facility] Work Phone: Comment on above: Expected: 04/26/2024 , Expires: 07/26/2024 Start: 04-26-2024 End: 07-26-2024 Cobalamin (Vitamin B12) [Mass/volume] in Serum or Plasma [facility] Comment on above: Expected: 04/26/2024 , Expires: 07/26/2024 Start: 04-26-2024 End: 07-26-2024 Comprehensive metabolic 2000 panel - Serum or Plasma [facility] Comment on above: Expected: 04/26/2024 , Expires: 07/26/2024 Start: 04-26-2024 End: 07-26-2024 Ferritin [Mass/volume] in Serum or Plasma [facility] Comment on above: Expected: 04/26/2024 , Expires: 07/26/2024 Start: 04-26-2024 End: 07-26-2024 Iron and Iron binding capacity panel - Serum or Plasma [facility] Comment on above: Expected: 04/26/2024 , Expires: 07/26/2024 Start: 04-26-2024 End: 07-26-2024 Lipid 1996 panel - Serum or Plasma [facility] Comment on above: Expected: 04/26/2024 , Expires: 07/26/2024 Start: 04-26-2024 End: 07-26-2024 Thyrotropin [Units/volume] in Serum or Plasma [facility] Comment on above: Expected: 04/26/2024 , Expires: 07/26/2024 Start: 04-26-2024 End: 07-26-2024 Thyroxine (T4) free [Mass/volume] in Serum or Plasma [facility] Comment on above: Expected: 04/26/2024 , Expires: 07/26/2024 Start: 01-24-2024 Covid-19 Vaccine () Covid-19 Vaccine () [facility] Comment on above: Postponed from 11/18 (Declined at this time) Start: 01-24-2024 Hepatitis C Screening Hepatitis C [facility] Comment on above: Postponed from 11/05 (Declined at this time) Start: 01-24-2024 [facility] Comment on above: Postponed from 11/05 (Declined at this time) Start: 01-24-2024 HIV Screening HIV Screening [facility] Comment on above: Postponed from 11/05 (Declined at this time) Start: 01-24-2024 HIV screening HIV Screening [facility] Comment on above: Postponed from 11/05 (Declined at this time) Start: 11-27-2023 End: 11-27-2023 Patient encounter procedure 11/27/2023 9:30 AM EDT Office Visit Allergy [address] [address] Rehana Maloney MD [address] [place] [address] 3 month follow up Allergy Comment on above: 3 month follow up Start: 11-06-2023 Screening for malign ant neoplasm of cervix Cervical Cancer Screening [facility] Start: 03-20-2023 Behavioral Health Screening Behavioral Health Screening [facility] Start: 03-20-2023 Depression Assessment Depression Ass essment [facility] Start: 01-23-2023 End: 04-24-2023 BLOOD TB SCREEN [facility] Work Phone: Comment on above: Expected: 01/23/2023 , Expires: 04/24/2023 Start: 12-26-2021 COVID-19 VACCINE (3 - Booster for Pfizer series) COVID-19 VACCINE (3 - Booster for Pfizer series) [facility] Start: 11-18-2021 Influenza vaccination INFLUENZ A (Season Ended) [facility] Start: 07-26-2021 COVID-19 VACCINE (2 - Pfizer 3-dose series) COVID-19 VACCINE (2 - Pfizer 3-dose series) [facility] Start: 05-22-2021 Adult depression scr eening assessment DEPRESSION SCREENING [facility] Start: 2020 CHLAMYDIA SCREENING (18-24) CHLAMYDIA SCREENING (18-24) [facility] Start: 2020 GC (GONORRHEA) SCREE LUNA (18-24) GC (GONORRHEA) SCREENING () [facility] Start: 2020 HEPATITIS C SCREENING HEPATITIS C SC REENING [facility] Start: 2020 HIV SCREENING HIV SCREENING [facility] Start: 2020 Screening for Chlamy deana trachomatis Chlamydia Screening () [facility] Start: 2018 Meningococcal B Vacc ine (1 of 2 - Standard) Meningococcal B Vaccine (1 of 2 - Standard) [facility] Start: 2018 Meningococcal B Vacc ine: Consider Based On Risk (1 of 2 - Patient Seeks Protection) Meningococcal B Vaccine: Consider Based On Risk (1 of 2 - Patient Seeks Protection) [facility] Start: 2016 PEDS TO ADULT TRANSI TION ANNUAL ASSESSMENT PEDS TO ADULT TRANSITION ANNUAL ASSESSMENT [facility] Start: 2014 PEDS TO ADULT TRANSI TION INITIAL DISCUSSION PEDS TO ADULT TRANSITION INITIAL DISCUSSION [facility] Start: 2012 MENINGOCOCCAL B: Con toilet products molder based on risk (1 of 2 - Risk Bexsero 2-dose series) MENINGOCOCCAL B: Consider based on risk (1 of 2 - Risk Bexsero 2-dose series) [facility] CBC W Auto Different ial panel - Blood [facility] CBC W Auto Different ial panel - Blood [facility] Chlamydia deoxyribon ucleic acid detection [facility] Erythrocyte mean corpuscular volume determination [facility] Hematocrit [Volume Fraction] of Blood [facility] Hemoglobin [Mass/vol ume] in Blood [facility] Hepatitis C antibody measurement [facility] Leukocytes [#/volume ] in Blood [facility] Liquid based cervica l cytology screening [facility] Mean corpuscular hemoglobin concentration determination [facility] Mean corpuscular hemoglobin determination [facility] Measurement of gluco se 2 hours after glucose challenge for glucose tolerance test [facility] Neutrophil count [facility] Neutrophil percent differential count [facility] Path report.final Dx Spec [facility] Platelets [#/volume] in Blood [facility] Procedure [facility] Red blood cell count [facility] Red cell distributio n width determination [facility] Rubella IgG measurement [facility] Serologic test for syphilis [facility] Serologic test for syphilis [facility] T4 free measurement [facility] Thyroid stimulating hormone measurement [facility] Ultrasonography in f irst trimester [facility] Immunizations Immunization Date Immunization Notes Care Provider Joshua ortiz 12-30-2024 tetanus toxoid, redu selena diphtheria toxoid, and acellular pertussis vaccine, adsorbed Dr. Stephan Ngo MD Work Phone: [facility] 01-23-2023 influenza, injectabl e, quadrivalent, contains preservative Cat Green APRN.CNP Work Phone: [facility] 07-26-2021 COVID-19 vaccine, ag e 12+ yr (PFIZER-BIONTECH - MADRIGAL TOP) Nurse [facility] Work Phone: 07-05-2021 COVID-19 vaccine, ag e 12+ yr (PFIZER-BIONTECH - MADRIGAL TOP) Nurse [facility] Work Phone: 04-16-2019 influenza, injectabl e, quadrivalent, preservative free Nurse [facility] 04-16-2019 meningococcal polysaccharide (groups A, C, Y and W-135) diphtheria toxoid conjugate vaccine (MCV4P) Nurse [facility] 04-05-2018 influenza, injectabl e, quadrivalent, contains preservative [facility] 11-23-2016 Human Papillomavirus 9-valent vaccine [facility] Work Phone: 11-23-2016 influenza, injectabl e, quadrivalent, contains preservative [facility] Work Phone: 08-19-2015 Human Papillomavirus 9-valent vaccine [facility] Work Phone: 08-19-2015 meningococcal polysaccharide (groups A, C, Y and W-135) diphtheria toxoid conjugate vaccine (MCV4P) Nurse [facility] Work Phone: 08-19-2015 tetanus toxoid, redu selena diphtheria toxoid, and acellular pertussis vaccine, adsorbed Nurse [facility] Work Phone: 08-19-2015 varicella virus vaccine Nurse [facility] Work Phone: 07-04-2008 diphtheria, tetanus toxoids and acellular pertussis vaccine Nurse [facility] Work Phone: 07-04-2008 measles, mumps and rubella virus vaccine [facility] Work Phone: 07-04-2008 poliovirus vaccine, inactivated [facility] Work Phone: 01-29-2007 hepatitis A vaccine, unspecified formulation [facility] Work Phone: 05-10-2004 diphtheria, tetanus toxoids and acellular pertussis vaccine [facility] Work Phone: 05-10-2004 haemophilus influenz ae type b vaccine, HbOC conjugate [facility] Work Phone: 05-10-2004 pneumococcal conjuga te vaccine, 7 valent [facility] Work Phone: 12-19-2003 influenza virus vacc ine, unspecified formulation [facility] Work Phone: 11-11-2003 measles, mumps and rubella virus vaccine [facility] Work Phone: 11-11-2003 varicella virus vaccine Nurse [facility] Work Phone: 08-06-2003 diphtheria, tetanus toxoids and acellular pertussis vaccine [facility] Work Phone: 08-06-2003 haemophilus influenz ae type b vaccine, HbOC conjugate [facility] Work Phone: 08-06-2003 hepatitis B vaccine, pediatric or pediatric/adolescent dosage [facility] Work Phone: 08-06-2003 poliovirus vaccine, inactivated [facility] Work Phone: 03-10-2003 diphtheria, tetanus toxoids and acellular pertussis vaccine [facility] Work Phone: 03-10-2003 haemophilus influenz ae type b vaccine, HbOC conjugate [facility] Work Phone: 03-10-2003 pneumococcal conjuga te vaccine, 7 valent [facility] Work Phone: 03-10-2003 poliovirus vaccine, inactivated [facility] Work Phone: 01-08-2003 diphtheria, tetanus toxoids and acellular pertussis vaccine [facility] Work Phone: 01-08-2003 haemophilus influenz ae type b vaccine, HbOC conjugate Nurse [facility] Work Phone: 01-08-2003 pneumococcal conjuga te vaccine, 7 valent [facility] Work Phone: 01-08-2003 poliovirus vaccine, inactivated [facility] Work Phone: 2002 hepatitis B vaccine, pediatric or pediatric/adolescent dosage [facility] Work Phone: 2002 hepatitis B vaccine, pediatric or pediatric/adolescent dosage Nurse [facility] Work Phone: Payers Date Payer Category Payer Self-pay 2023 [employer] BLUE CARD PPO OOS [id number] 2023 Unknown [employer] BLUE CARD PPO OOS [id number] 2023-Present [phone] [address] [place] [address] PPO [id number] 2023 Unknown [id number] 2022 Private Health Insurance NONA [place] OAP [id number] 2022-Present [phone] [address] [place] [address] Open Access [id number] 2018 Unknown ANTHEM BLUE CARD PPO OOS [id number] 2018-Present [phone] [address] [place] [address] PPO [id number] 2002 Unknown [id number] 2.16.840.1.214513.3.579. 2.627 2002 Unknown [id number] 2.16.840.1.048595.3.579. 2.627 Unknown [id number] 2.16.840.1.400625.3.579. 2.462 Unknown [id number] 2.16840.1.114011.3.579. 2.462 Unknown [id number] 2.16.840.1.512456.3.579. 2.462 Unknown [id number] 2.16.840.1.992023.3.579. 2.462 Unknown [id number] 2.16.840.1.664214.3.579. 2.462 Unknown [id number] 2.16.840.1.404433.3.579. 2.462 Unknown [id number] 2.16.840.1.035825.3.579. 2.462 Unknown [id number] 2.16840.1.520851.3.579. 2.462 Unknown [id number] 2.16.840.1.512652.3.579. 2.462 Unknown [id number] 2.16.840.1.896662.3.579. 2.462 Unknown [id number] 2.16.840.1.839224.3.579. 2.462 Unknown [id number] 2.16840.1.413985.3.579. 2.462 Unknown [id number] 2.16840.1.527649.3.579. 2.462 Unknown [id number] 2.840.1.762016.3.579. 2.462 Social History Date Type Detail Facility Start: 05-22-2020 End: 01-23-2023 Tobacco smoking status NHIS Never smoked tobacco [facility] Start: 05-22-2020 End: 01-23-2023 Tobacco use and exposure Smokeless tobacco non-user [facility] Start: 10-26-2020 Alcohol intake Not Asked [facility] Start: 08-19-2015 End: 01-23-2023 Tobacco Comment mom outside [facility] Start: 2000 Sex Assigned At Not on file [facility] Start: 06-21-2021 End: 07-01-2021 Exposure to SARS-CoV-2 (event) Not sure [facility] Start: 01-23-2023 End: 04-26-2024 Alcohol intake Lifetime non-drinker (finding) [facility] Start: 01-23-2023 End: 01-04-2024 History of Social function [facility] Work Phone: Start: 01-23-2023 End: 01-04-2024 Tobacco use panel [facility] Work Phone: Adult Depression Screening Assessment 0 [facility] Work Phone: Has the [employer], or [address] threatened to shut off services in your home in past 12Mo No [facility] Are you now , , , , never or living with a partner? Living with partner [facility] How often to you hav e a drink containing alcohol? 2-4 times a month [facility] How many standard drinks containing alcohol do you have on a typical day? 1 or 2 [facility] How often do you hav e 6 or more drinks on 1 occasion? Never [facility] Do you feel stress - tense, restless, nervous, or anxious, or unable to sleep at night because your mind is troubled all the time - these days [OSQ] Not at all [facility] (I/We) worried [facility] (my/our) food would run out before (I/we) got money to buy more. Never true [facility] Start: 08-02-2024 Tobacco smoking stat us NHIS Current some day smoker [facility] Start: 2000 Sex Assigned At Female W [facility] Clinical Notes 01-23-2023 to 12-30-2024 Note Date & Type Note Facility 12-30-2024 Progress note [facility] 12-30-2024 Progress note Note Date/Time December 30, 2024 3:14pm [facility] [address], [address] [place] [address] OFFICE VISIT Date of Service: 12/30/24 MR#: [id number] Acct: [id number] Name: ANASTACIA MCKOY Rep #: [id number] : 2000 Provider: HANNAH Marcelo Age/Sex: 24/F Location: [facility] Status: Signed Intake Vital Signs 11/06/24 15:49 12/02/24 15:21 12/30/24 14:58 Height 5 ft 1 in 5 ft 1 in 5 ft 1 in Weight: 164 lb 1 oz 168 lb 2 oz BMI 30.9 31.7 BP 122/86 H 125/82 H Intake Visit Reasons: 30wk ob Chief Complaint: 30wk OB 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 Messenger Required: No Is patient in pain?: No [...] occupational status: employed 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) current occupational exposures/hazards: No [...] physical activity do you participate in: none page/cheondoism: None seatbelt use: always do you feel safe at home: Yes additional social history: Boyfriend: Mateo 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 [employer] History 1 Elective abortions 0 Hx Para [...] 110/74 Nega tive -?-?-?-?-?-?-?-?-?-?-?-?- Negative -?-?-?-?-?-?-?-?-?-?-?-?- - [facility] anatomy scan done due to late scheduling, [...] Performing Provider: Maki Marcelo CNM Performing Location: [facility] Administered by: America Francisco on 12/30/24 15:13 Dose Route Admin Location Dispensed Lot Number Expiration Date Pack age NDC NDC In Store Marketing Associate 0.5 mL IM Right Deltoid 0.5 mL [id number] 11/16/26 11514-958-96 [id number] SANOFI- PASTEUR VIS Given Date VIS Provided [...] high risk , unspecified, second trimester Comment: [id number], RODRIGO 03/03/25, BF: Mateo (3) : Status: [...] fallen in the past year?: No 12/30/24 7957 <Electronically signed by Maki lewis CNM> Date _ Maki Marcelo CNM Cosigner Signature: Date (if applicable) CC: ~ [facility] Work Phone: 1(144) 871-393509-15-2025 [facility] [address], [address] [place] [address] OFFICE VISIT Date of Service: 12/02/24 MR#: [id number] Acct: [id number] Name: ANASTACIA MCKOY Rep #: [id number] : 2000 Provider: Dr. 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) current occupational exposures/hazards: No [...] physical activity do you participate in: none page/cheondoism: None seatbelt use: always do you feel safe at home: Yes additional social history: Boyfriend: Mateo 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 [employer] History 1 Elective abortions 0 Hx Para [...] 110/74 Nega tive -?-?-?-?-?-?-?-?-?-?-?-?- Negative -?-?-?-?-?-?-?-?-?-?-?-?- JV- [facility] anatomy scan done due to late scheduling, [...] high risk , unspecified, second trimester Comment: [id number], RODRIGO 03/03/25, BF: Mateo (3) : Status: [...] Cosigner Signature: Date (if applicable) CC: ~ [facility]09-15-2025 Progress note Author Ashlee Mcdonough [facility] Note Date/Time December 02, 2024 3:55pm [facility] ealt System [facility] [address] [place] [address], [address] [place] [address] OFFICE VISIT Date of Service: 12/02/24 MR#: [id number] Acct: [id number] Name: ANASTACIA MCKOY Rep #: [id number] : 2000 Provider: Dr. 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) current occupational exposures/hazards: No [...] physical activity do you participate in: none page/cheondoism: None seatbelt use: always do you feel safe at home: Yes additional social history: Boyfriend: Mateo 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 [employer] History 1 Elective abortions 0 Hx Para [...] 110/74 Nega tive -?-?-?-?-?-?-?-?-?-?-?-?- Negative -?-?-?-?-?-?-?-?-?-?-?-?- J- [facility] anatomy scan done due to late scheduling, [...] high risk , unspecified, second trimester Comment: [id number], RODRIGO 03/03/25, BF: Mateo (3) : Status: [...] POC Urinalysis 2 Dip (Clinic) Today 12/02/24 4373 <Electronically signed by Ashlee pulido MD> Date _ Ashlee Mcdonough MD Cosigner Signature: Date (if applicable) CC: ~ [facility] Work Phone: 1(878) 210-102807-31-2025 Radiology Diagnostic study note [facility] Imaging Services [address] [place] [address] OB Anatomy w/ Transvaginal MR#: [id number] Acct: [id number] Name: ANASTACIA MCKOY Rep #: [id number] : 2000 F 23 From: Robby Macdonald MD PCP: Dr. Stephan Ngo MD Status: RE G CLI Study:OB Anatomy w/ Transvaginal Date of Exam : 10/16/24 Exam# [id number] Ordering Dr: Ashlee Llanes MD PROCEDURE: OB [...] of 19 weeks and 5days. Reading Location: [id number] CC: Dr. Ashlee Mcdonough MD; Dr. Stephan Ngo MD ~ Low Heel Builder: Signed [facility]07-22-2025 Evaluation note* Diagnosis Onset Date Resolution Status [...] affecting , antepartum acute December 302024 2:55pm [facility] Work Phone: 1(572) 430-714107-22-2025 [facility] [address] [place] [address], [address] [place] [address] OFFICE VISIT Date of Service: 10/08/24 MR#: [id number] Acct: [id number] Name: ANASTACIA MCKOY Rep #: [id number] : 2000 Provider: Dr. 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) current occupational exposures/hazards: No [...] physical activity do you participate in: none page/cheondoism: None seatbelt use: always do you feel safe at home: Yes additional social history: Boyfriend: Mateo 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 [employer] History 1 Elective abortions 0 Hx Para [...] high risk , unspecified, second trimester Comment: [id number], RODRIGO 03/03/25, BF: Mateo (3) : Status: [...] Cosigner Signature: Date (if applicable) CC: ~ [facility] [id number] Progress note Author Ashlee Mcdonough [facility] Note Date/Time October 08, 2024 4:32 pm [facility] ealt System [facility] [address], [address] [place] [address] OFFICE VISIT Date of Service: 10/08/24 MR#: [id number] Acct: [id number] Name: ANASTACIA MCKOY Rep #: [id number] : 2000 Provider: Dr. 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) current occupational exposures/hazards: No [...] physical activity do you participate in: none page/cheondoism: None seatbelt use: always do you feel safe at home: Yes additional social history: Boyfriend: Mateo 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 [employer] History 1 Elective abortions 0 Hx Para [...] high risk , unspecified, second trimester Comment: [id number], RODRIGO 03/03/25, BF: Mateo (3) : Status: [...] Cosigner Signature: Date (if applicable) CC: ~ [facility] Work Phone: 1(536) 358-806806-23-2025 Evaluation note* Diagnosis Onset Date Resolution Status [...] , antepartum acute December 02, 2024 3:18pm [facility] Work Phone: 1(138) 849-973306-23-2025 [facility] [address] [place] [address], [address] [place] [address] OFFICE VISIT Date of Service: 09/09/24 MR#: [id number] Acct: [id number] Name: ANASTACIA MCKOY Rep #: [id number] : 2000 Provider: YULISSA Curry Age/Sex: 23/F [place] [facility] [place] [place] Status: Signed Intake Vital Signs 08/22/23 10:06 08/07/24 10:30 09/09/24 08:28 09/09/24 08:40 Height 5 ft 1 in 5 ft 1 in 5 ft 1 in 5 ft 1 in Weight: 151 lb 8 oz BMI 28.6 BP 118/74 Intake Visit Reasons: 14wk OB Chief Complaint: 14 Week OB Armored Car Messenger Required: No Is patient in pain?: No [...] occupational status: employed 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 09/09/24 0853 s WELT SEWER WELT SEWER-C> Date _ Dorie Curry WELT SEWER WELT SEWER-C Cosigner Signature: Date (if applicable) CC: ~ [facility]05-27-2025 Telephone encounter Note* Telephone Encounter - Beatrice Partida MA - 08/13/2024 9:40 AM EDT Pt notified and voiced understanding. ' Beatrice Partida MA [facility]05-27-2025 Miscellaneous Notes* Telephone Encounter - Beatrice Partida [...] Provider: BILLY STEEL APRN.CNP documented in this encounterChildren[facility]05-27-2025 Telephone encounter Note * Telephone Encounter - [...] as directed.. Authorizing Provider: BILLY STEEL APRN.CNP [facility]05-25-2025 NoteHNO ID: [id number] Author: YANNICK CHOWDHURY MD Service: ? Author [...] have further questions. Sincerely, Yannick Chowdhury MD, [facility]05-25-2025 History of Present illness Narrative* Yannick [...] Yannick Chowdhury MD, [facility] documented in this encounterChildren[facility]05-23-2025 Telephone encounter Note * Telephone Encounter - Beatrice Partida MA - 08/09/2024 9:23 AM EDT Message left for pt to call back for results. Beatrice Partida MA [facility]05-23-2025 Miscellaneous Notes* Telephone Encounter - Beatriec Partida MA - 08/09/2024 9:23 AM EDT [...] prescribed? Billy Steel APRN.CNP documented in this encounterChildren[facility]05-22-2025 Telephone encounter Note * Telephone Encounter - [...] to me with recommendations. Billy Steel APRN.CNP [facility]05-22-2025 Telephone encounter Note* Telephone Encounter - Nieves [...] Please call and advise. Nieves Landry RN [facility]05-22-2025 Telephone encounter Note* Telephone Encounter - Stefany Lopez MA - 08/08/2024 11:22 AM EDT Called and left message on patients voicemail to return call to the office and ask to speak with a triage nurse. Stefany Lopez MA [facility]05-22-2025 Telephone encounter Note* Telephone Encounter - Billy Steel APRN.CNP - 08/08/2024 8:59 AM EDT Please let the patient know that her TSH is fine. Continue with current dose of levothyroxine. Vitamin D is quite low. Can we ask her if she is taking her vitamin D 50,000 units as prescribed? Billy Steel APRN.CNP [facility]05-21-2025 Evaluation note* Diagnosis Onset Date Resolution Status [...] , antepartum acute December 02, 2024 3:18pm [facility] Work Phone: 1(644) 822-565405-16-2025 Evaluation note* Diagnosis Onset Date Resolution Status [...] antepartum acute August 07, 2024 1 0:20am [facility] Work Phone: 1(336) 704-747205-16-2025 Evaluation note* Diagnosis Onset Date Resolution Status [...] ncy, antepartum acute September 09, 2024 8:24am [facility] Work Phone: 1(133) 884-454405-16-2025 Evaluation note* Diagnosis Onset Date Resolution Status [...] ncy, antepartum acute October 08, 2024 3:17pm [facility] Work Phone: 1(462) 301-967105-16-2025 Evaluation note* Diagnosis Onset Date Resolution Status [...] pregna ncy, antepartum acute November 06 3:46pm [facility] Work Phone: 1(119) 371-7867797597-43-1663 Telephone encounter Note* Telephone Encounter - Cat Green APRN.CNP - 06/03/2024 3:15 PM EDT The following approved medication requests have been transmitted electronically. Requested Prescriptions Signed Prescriptions Disp Refills levothyroxine (SYNTHROID) 50 mcg tablet 30 tablet 5 Sig: Take 1 tablet by mouth once daily. Take on empty stomach. For Thyroid. Cat Green APRN.CNP [facility]03-17-2025 Miscellaneous Notes* Telephone Encounter - Cat Green [...] she is agreeable please let me know. aCt Green APRN.LISA documented in this encounterChildren'S [facility]03-17-2025 Telephone encounter Note * Telephone Encounter - Yanci So RN - 06/03/2024 12:50 PM EDT Patient notified of results and provider's instructions. Patient verbalizes understanding. Patient agreeable to changing dose and for lab orders to be placed. Please place these orders so that patient can get these done. Yanci So RN [facility]03-17-2025 Telephone encounter Note* Telephone Encounter - Juanita Jordan LPN - 06/03/2024 9:19 AM EDT TC to pt. LM to call office, ask for triage nurse to get results. Juanita Jordan LPN [facility]03-17-2025 Telephone encounter Note* Telephone Encounter - Cat [...] please let me know. Cat Green APRN.CNP [facility]02-12-2025 Telephone encounter Note* Telephone Encounter - Cat [...] Green APRN.LISA Lab orders placed, thank you [facility]02-12-2025 Miscellaneous Notes* Telephone Encounter - Cat Green [...] by mouth daily before breakfast. Cat Green APRN.STUDIO MODEL Lab orders placed, thank you * Telephone Encounter - Geneva Morales RN - 05/01/2024 12:47 PM EST Patient returns call and results and provider message reviewed. Patient agreeable to both medications. Requests [facility]. Geneva Morales RN * Telephone [...] pharmacy. Cat Green APRN.LISA documented in this encounterChildren[facility]02-12-2025 Telephone encounter Note * Telephone Encounter - Geneva Morales RN - 05/01/2024 12:47 PM EST Patient returns call and results and provider message reviewed. Patient agreeable to both medications. Requests [facility]. Geneva Morales RN [facility]02-10-2025 Telephone encounter Note* Telephone Encounter - Beatrice Partida MA - 04/29/2024 3:38 PM EST Message left for pt to call back for results. Beatrice Partida MA [facility]02-10-2025 Telephone encounter Note* Telephone Encounter - Cat [...] agreeable please verify pharmacy. Cat Green APRN.CNP [facility]02-07-2025 Instructions* Patient Instructions* Cat Green APRN.CNP - [...] Promotion: - Eat healthy -- go to K[employer] to get started - Have a yearly [...] drive - Wear sunscreen documented in this encounterChildren'S Hospital [facility]02-07-2025 History of Present illness Narrative* Cat Green [...] for pap this year, follow up with [employer] - COMPREHENSIVE METABOLIC PANEL 2. Fatigue, unspecified [...] APRN.LISA This note was partially generated using Pan[employer]iva voice recognition system. Note was reviewed for accuracy. There may be minor misspellings or grammar miscues with [employer]iva voice recognition. documented in this encounterChildren'S Hospital For Rehabilitation02-07-2025 NoteHNO ID: [id number] Author: CAT GREEN APRN.CNP Service: ? Author [...] for pap this year, follow up with [employer] - COMPREHENSIVE METABOLIC PANEL 2. Fatigue, unspecified type - ICD9: 780.79, ICD10: R53.83 - Get the following labs completed - COMPLETE BLOOD COUNT AND DIFFERENTIAL - IRON AND TIBC - FERRITIN - VITAMIN B12 - VITAMIN D 25 HYDROXY - THYROID STIMULATING H (more content not included)...[facility] 08-21-2023 Instructions* Patient Instructions* Rehana Maloney MD - 08/21/2023 11:40 AM EDT Start Flonase 2 sprays per nostril daily. Loratadine 10 mg daily as needed. Please increase to twice daily if needed. [email or web address] Skin testing was positive to cat, dog, [...] replace the filter as recommended by the railway engineer. -Cover air ducts that lead to bedroom with filters. Replace filters as recommended by the railway engineer. -Use HEPA air filters and vacuums with HEPA filters. Replace the filter as recommended by the railway engineer. Dust mites Less costly: -Encase mattress, pillows, [...] cleaned regularly. Adapted from: The Allergy Report. [place] [employer], [employer] (www.aaaai.org). [...] polished brionna. -Vacuum weekly using a cleaner and presser with a high-efficiency particulate air (HEPA) filter. [...] much better if they live an apartment ([address] [place] or higher) or a house with second floor bedrooms and wooden floors. documented in this encounterChildren'S [facility]06-03-2024 Nurse Note* Corazon Hernandez LPN - 08/21/2023 10:05 AM EDT Patient here for skin testing environmental - states reactions in the past to cats (eyes jaspreet, watery); also sneezing, runny nose, PND, [facility]06-03-2024 Nurse Note* Corazon Hernandez LPN - 08/21/2023 10:05 AM EDT Patient here for skin testing environmental - states reactions in the past to cats (eyes jaspreet, watery); also sneezing, runny nose, PND, documented in this encounterChildren'S Hospital For Rehabilitation06-03-2024 History of Present illness Narrative* Rehana Maloney MD - 08/21/2023 10:00 AM EDT [facility] ALLERGY & IMMUNOLOGY CONSULT Patient Name: Anastacia Mckoy PRIMARY CARE PHYSICIAN: Mildred Tomas MD REASON FOR CONSULT: allergy evaluation REQUESTING PHYSICIAN: Billy Steel APRN.STUDIO MODEL My final recommendations will be communicated to the requesting health care provider by way of the shared medical record for internal providers or letter via the boarding pass Postal Service for external providers. 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 Used to get flares of hives [...] Denies. 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 Interested in getting BSN afterwards. Medical [...] which included preparing to see the patient, [id number] patient care, completing clinical documentation, obtaining and/or reviewing separately obtained history, performing a medically appropriate examination, counseling and educating the pat ient/family/caregiver, ordering medications, tests, or procedures, independently interpreting results (not separately reported), communicating results to the patient/family/caregiver, and care coordination (not separately reported). Rehana Maloney M.D. Allergy and Clinical Immunology [facility] documented in this encounterChildren'S Hospital [facility]06-03-2024 NoteHNO ID: [id number] Author: REHANA MALONEY MD Service: ? Author Type: Physician Type: Progress Notes Filed: 08/21/2023 13:38 Note Text: [facility] ALLERGY AND IMMUNOLOGY CONSULT Patient Name: Anastacia Mckoy PRIMARY CARE PHYSICIAN: Mildred Tomas MD REASON FOR CONSULT: allergy evaluation REQUESTING PHYSICIAN: Billy Steel APRN.STUDIO MODEL My final recommendations will be communicated to the requesting health care provider by way of the shared medical record for internal providers or letter via the boarding pass Postal Service for external providers. 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 Used to get flares of hives [...] Denies. 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 Interested in getting BSN afterwards. Medical [...] perennial rhino-conjunctivitis worse during (more content not included)...[facility]04-08-2024 History of Present illness Narrative* Billy Steel APRN.STUDIO MODEL - 06/26/2023 7:00 AM EDT Chief Complaint [...] 1, continue with antihistamine, trial adding Flonase kuul-frp-qjroztw. 3. Change in eating habits - ICD9: 783.9, ICD10: R63.8 -Discussed that this could be secondary to different etiologies include anxiety, stress, acid reflux that fluctuates. Discussed trialing nqwi-mrp-opjszxa use of Zantac, Tagamet. Return if it worsens. Billy Steel APRN.LISA This note was partly generated using Panviva voice recognition dictation and may contain some misspelled or inaccurate words missed on review. documented in this [facility] History of Present illness Narrative* Nadja Dickson [...] history is provided by the patient. No language pathologist was used. Cough This is a new [...] worsen. Nadja Dickson APRN.CNP documented in this encounterChildren[facility]-08-2023 Miscellaneous Notes* Telephone Encounter - Mikcey Hurt RN - 01/25/2023 10:39 AM EST [...] you. Cat Green APRN.LISA documented in this encounterChildren[facility]11-06-2023 Instructions* Patient Instructions* Cat Green APRN.CNP - [...] drive - Wear sunscreen documented in this encounterChildren[facility]-06-2023 History of Present illness Narrative* Cat Green APRN.CNP - 01/23/2023 10:20 AM EST This is a 22 year old female who presents today with: Patient presents with: Establish Care HISTORY OF PRESENT ILLNESS: Anastacia Mckoy is a 22 year old female. Patient presents with: Establish Care Pediatric transfer to [facility]. 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 Needs TB Test. Wellness Exam Diet: [...] at this time. - Patient was counseled lpok-fz-yeml by myself (the billing provider) for the [...] APRN.LISA This note was partially generated using Panviva voice recognition system. Note was reviewed for accuracy. There may be minor misspellings or grammar miscues with Panviva voice recognition. documented in this encounterChildren[facility] RehabilitationEval[facility]rist[facility] note* Diagnosis Encounter for immunization- Primary Need for other specified prophylactic vaccination against single bacterial disease documented [facility] this [facility]* Diagnosis Encounter for immunization- Primary Need for other specified prophylactic vaccination against single bacterial disease documented in this encounter [facility] note* Diagnosis Wellness examination- Primary Screening-pulmonary TB Screening examination for pulmonary tuberculosis Encounter for immunization Need for other specified prophylactic vaccination against single bacterial disease documented in this encounter [facility] note* Diagnosis Rhinosinusitis- Primary Unspecified sinusitis (chronic) [facility]* Diagnosis Hives- Primary Urticaria, unspecified Chronic rhinitis Change in eating habits Other symptoms concerning nutrition, metabolism, and development [facility]* Diagnosis Allergic rhinitis due to animal dander- Primary Allergic rhinitis due to animal (cat) (dog) hair and dander Allergic rhinitis due to dust mite Seasonal allergic rhinitis due to pollen Allergic rhinitis due to mold Allergic conjunctivitis of both eyes Other chronic allergic conjunctivitis Eczema, unspecified type [facility]* Diagnosis Wellness examination- Primary Fatigue, unspecified type Chronic rhinitis Screening for depression Encounter for screening examination for other mental health and behavioral disorders Screening cholesterol level Screening for lipoid disorders documented [facility]* Diagnosis Hypothyroidism, acquired- Primary Unspecified hypothyroidism Vitamin D deficiency Unspecified vitamin D deficiency [facility]* Diagnosis Hypothyroidism, acquired- Primary Unspecified hypothyroidism documented in this encounter [facility] noteNo assessment information availableKind[facility] Work Phone: Evaluation note* Diagnosis Vitamin D deficiency- Primary Unspecified vitamin D deficiency documented in this encounter [facility] note* Diagnosis Vitamin D deficiency Unspecified vitamin D deficiency documented in this encounter [facility] note* Diagnosis Vitamin D deficiency- Primary Unspecified vitamin D deficiency documented in this encounter [facility] note Author Dorie Curry [facility] Note Date/Time September 09, 2024 8:52 am [facility] [address], [address] [place] [address] OFFICE VISIT Date of Service: 09/09/24 MR#: [id number] Acct: [id number] Name: ANASTACIA MCKOY Rep #: [id number] : 2000 Provider: YULISSA Curry Age/Sex: 23/F [place] [facility] [place]: S[place] Intake Vital Signs 08/22/23 10:06 08/07/24 10:30 09/09/24 08:28 09/09/24 08:40 Height 5 ft 1 in 5 ft 1 in 5 ft 1 in 5 ft 1 in Weight: 151 lb 8 oz BMI 28.6 BP 118/74 Intake Visit Reasons: 14wk OB Chief Complaint: 14 Week OB 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 Messenger Required: No Is patient in pain?: No [...] occupational status: employed 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) current occupational exposures/hazards: No [...] physical activity do you participate in: none page/cheondoism: None seatbelt use: always do you feel safe at home: Yes additional social history: Boyfriend: Mateo 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 [employer] History 1 Elective abortions 0 Hx Para [...] high risk , unspecified, second trimester Comment: [id number], RODRIGO 03/03/25, BF: Mateo (2) : Status: [...] 09/09/24 0853 <Electronically signed by Dorie lewis WELT SEWER WELT SEWER-C> Date _ Dorie Curry WELT SEWER WELT SEWER-C Cosigner Signature: Date (if applicable) CC: ~ [facility] Work Phone: Reason for referral (narrative)No reason for referral information availableKindred [facility] Work Phone: Reason for Referral Specialty Diagnoses / Procedures Referred By Robyn mills Referred To Contact Allergy Diagnoses Hives Vasomotor rhinitis Procedures CONSULT TO ALLERGY/IMMUNOLOGY OFFICE/OUTPATIENT [facility] 60 MINUTES Billy Steel, EXECUTIVE SEARCH CONSULTANT.STUDIO MODEL [address] [place] [address] Referral ID Status Reason Start Date Expiration Date Visits Requested Visits Authorized [id number] Authorized PCP Requested Referral 06/26/2023 06/25/2024 1 [...] this informatio n is protected by the [facility] Confidentiality of Alcohol and Drug Abuse Patient Records regulations: The Federal rules restrict any use of the information to criminally investigate or prosecute any alcohol or drug abuse patient.[facility] RehabilitationIn the event this information is protected by the Federal Confidentiality of Alcohol and Drug Abuse Patient Records regulations: The Federal rules restrict any use of the information to criminally investigate or prosecute any alcohol or drug abuse patient.[facility] RehabilitationIn the event this information is protected by the Federal Confidentiality of Alcohol and Drug Abuse Patient Records regulations: The Federal rules restrict any use of the information to criminally investigate or prosecute any alcohol or drug abuse patient.[facility] RehabilitationIn the event this information is protected by the Federal Confidentiality of Alcohol and Drug Abuse Patient Records regulations: The Federal rules restrict any use of the information to criminally investigate or prosecute any alcohol or drug abuse patient.[facility] RehabilitationIn the event this information is protected by the Federal Confidentiality of Alcohol and Drug Abuse Patient Records regulations: The Federal rules restrict any use of the information to criminally investigate or prosecute any alcohol or drug abuse patient.[facility] RehabilitationIn the event this information is protected by the Federal Confidentiality of Alcohol and Drug Abuse Patient Records regulations: The Federal rules restrict any use of the information to criminally investigate or prosecute any alcohol or drug abuse patient.[facility] RehabilitationIn the event this information is protected by the Federal Confidentiality of Alcohol and Drug Abuse Patient Records regulations: The Federal rules restrict any use of the information to criminally investigate or prosecute any alcohol or drug abuse patient.[facility] RehabilitationIn the event this information is protected by the Federal Confidentiality of Alcohol and Drug Abuse Patient Records regulations: The Federal rules restrict any use of the information to criminally investigate or prosecute any alcohol or drug abuse patient.[facility] RehabilitationIn the event this information is protected by the Federal Confidentiality of Alcohol and Drug Abuse Patient Records regulations: The Federal rules restrict any use of the information to criminally investigate or prosecute any alcohol or drug abuse patient.[facility] RehabilitationIn the event this information is protected by the Federal Confidentiality of Alcohol and Drug Abuse Patient Records regulations: The Federal rules restrict any use of the information to criminally investigate or prosecute any alcohol or drug abuse patient.[facility] RehabilitationIn the event this information is protected by the Federal Confidentiality of Alcohol and Drug Abuse Patient Records regulations: The Federal rules restrict any use of the information to criminally investigate or prosecute any alcohol or drug abuse patient.[facility] RehabilitationIn the event this information is protected by the Federal Confidentiality of Alcohol and Drug Abuse Patient Records regulations: The Federal rules restrict any use of the information to criminally investigate or prosecute any alcohol or drug abuse patient.[facility] RehabilitationIn the event this information is protected by the Federal Confidentiality of Alcohol and Drug Abuse Patient Records regulations: The Federal rules restrict any use of the information to criminally investigate or prosecute any alcohol or drug abuse patient.[facility] Reason for Visit (unrecogniz ed section and content) Reason Comments Immunizations Reason Comments Establish Care Reason Comments Results TB Reason Comments Cough Cough, ST and runny nose x 2 weeks Reason Comments Allergies & stomach/eating con cern Reason Comments Consult Specialty Diagnoses / Procedures Referred By Robyn t Referred To Contact Allergy Diagnoses Hives Vasomotor rhinitis Procedures CONSULT TO ALLERGY/IMMUNOLOGY OFFICE/OUTPATIENT [facility] 60 MINUTES Billy Steel APRN.STUDIO MODEL [address] [place] [address] Referral ID Status Reason Start Date Expiration Date V isits Requested Visits Authorized [id number] Closed PCP Requested Referral 06/26/2023 06/25/2024 1 1 Reason Comments Physical Yearly exam Reason Onset Date Comments Results 04/29/2024 Labs Reason Onset Date Comments Results 06/03/2024 Reason Comments Results Reason Onset Date Comments Results 08/08/2024 Care Teams (unrecognized sec tion and content) Integrated Marketing Specialist Relationship Specialty Start Date End Date Stephan Ngo MD [address] [place] [address] PCP - General 04/26/03 Integrated Marketing Specialist Relationship Specialty Start Date End Date Stephan Ngo MD [address] [place] [address] PCP - General 04/26/03 Integrated Marketing Specialist Relationship Specialty Start Date End Date Mildred Tomas MD [address] [facility] [place] [address] PCP - General Family Medicine 01/23/23 Integrated Marketing Specialist Relationship Specialty Start Date End Date Mildred Tomas MD [address] [facility] [place] [address] PCP - General Family Medicine 01/23/23 Integrated Marketing Specialist Relationship Specialty Start Date End Date Mildred Tomas MD [address] [facility] [place] [address] PCP - General Family Medicine 01/23/23 Integrated Marketing Specialist Relationship Specialty Start Date End Date Mildred Tomas MD [address] [place] [address] PCP - General Family Medicine 01/23/23 Integrated Marketing Specialist Relationship Specialty Start Date End Date Mildred Tomas MD [address] [facility] [place] [address] PCP - General Family Medicine 01/23/23 Integrated Marketing Specialist Relationship Specialty Start Date End Date Mildred Tomas MD [address] [facility] [place] [address] PCP - General Family Medicine 01/23/23 Cat Green, EXECUTIVE SEARCH CONSULTANT.STUDIO MODEL [address] [facility] [place] [address] Epilepsy Physician Family Medicine 02/25/24 Billy Steel, KAITLYNN.STUDIO MODEL [address] [facility] [place] [address] Epilepsy Physician Family Medicine 03/05/24 Integrated Marketing Specialist Relationship Specialty Start Date End Date Mildred Tomas MD [address] [facility] [place], [place] [address] PCP - General Family Medicine 01/23/23 Cat Green, EXECUTIVE SEARCH CONSULTANT.STUDIO MODEL [address] [place], [place] [address] [phone] [facility]ician[facility] 02/25/24 Billy Steel, EXECUTIVE SEARCH CONSULTANT.STUDIO MODEL [address] [facility] [place] [address] [facility] 03/05/24 Integrated Marketing Specialist Relationship Specialty Start Date End Date Mildred Tomas MD [address] [place] [address] PCP - General Family Medicine 01/23/23 Cat Green, EXECUTIVE SEARCH CONSULTANT.STUDIO MODEL [address] [place], [place] [address] [phone] [facility] 02/25/24 Billy Steel, EXECUTIVE SEARCH CONSULTANT.STUDIO MODEL [address] [place] [address] [facility] 03/05/24 Team Status: Active Member Role Status [...] August 07, 2024 End: August 07, 2024 Integrated Marketing Specialist Relationship Specialty Start Date End Date Mildred Tomas MD [address] [facility] [place] [address] PCP - General Family Medicine 01/23/23 Billy Steel APRN.STUDIO MODEL [address] [place] [address] Epilepsy Physician Family Medicine 03/05/24 Team Status: Inactive Member Role Status Dates Dr. Stephan Ngo MD Primary Care Provider Active Start: August 07, 2024 End: August 07, 2024 Dr. Ashlee Mcdonough MD Attending Provider Active Start: August 07, 2024 End: August 07, 2024 Dr. Ashlee Mcdonough MD Referring Provider Active Start: August 07, 2024 End: August 07, 2024 Integrated Marketing Specialist Relationship Specialty Start Date End Date Mildred Tomas MD [address] [place] [address] PCP - General Family Medicine 01/23/23 Billy Steel APRN.STUDIO MODEL [address] [facility] [place] [address] Epilepsy Physician Family Medicine 03/05/24 Integrated Marketing Specialist Relationship Specialty Start Date End Date Mildred Tomas MD [address] [facility] [place] [address] PCP - General Family Medicine 01/23/23 Bilyl Steel APRN.STUDIO MODEL [address] [place] [address] Epilepsy Physician Family Medicine 03/05/24 Team Status: Inactive Member [...] End: September 09, 2024 Dorie Curry NP, WELT SEWER-C Attending Provider Active Start: September 09, 2024 [...] End: September 09, 2024 Dorie Curry NP, WELT SEWER-C Attending Provider Active Start: September 09, 2024 [...] End: September 09, 2024 Dorie Curry NP, WELT SEWER-C Attending Provider Active Start: September 09, 2024 [...] End: September 09, 2024 Dorie Curry NP, WELT SEWER-C Attending physician Active Start: September 09, 2024 [...] 2024 End: November 06, 2024 Dr. Natalie rTimble DO Attending physician Acti ve Start: November [...] section and content) DATE CREATED AUTHOR 08/14/2024 [facility] DATE CREATED AUTHOR AUTHOR'S ORGANIZ ATION 09/14/2024 SAMMY Gonzalez DATE CREATED AUTHOR AUTHOR'S ORGANIZ ATION 01/30/2025 [facility] FOR RECORDS PERTAINING TO PATIENTS WHO ARE [...] BE BASED ON THE PRIMARY CLINICAL RECORDS. [employer] provides no warranty or guarantee of the accuracy or completeness of information in this document.
[2025-03-01 03:09] LABS: Hematocrit 37.3 % (37-47); Hemoglobin 12.2 g/dL (12.0-15.0); Immature Granulocytes Count 0.130 X10^3/uL (0.0-0.0); Mean Corp Hgb Conc 32.7 g/dL (32-36); Mean Corpuscular Volume 86.5 fL (81-99); Mean Platelet Vol. 10.7 fl (6.2-12.0); NRBC Flagged by Analyzer 0 % (0-5); Platelet Count 401 K/mm3 (150-450); RBC Distribution Width CV 12.5 % (11.6-14.6); RBC Distribution Width SD 39.0 fl (35.1-43.9); Red Blood Count 4.31 M/mm3 (4.2-5.4); White Blood Count 13.5 K/mm3 (4.4-11.0)
[2025-03-01 03:42] LABS: Syphilis Antibodies Nonreactive (Nonreactive)
[2025-03-01] MEDS: Lactated Ringers 1,000 ML 50 ML IV (04:59)
[2025-03-01] MEDS: Oxytocin 15 Units/NS 250ml 15 UNITS/250 ML IV.SOLN 2 UNITS IV (05:00)
--- NOTE | 2025-03-01 07:41 | HP.PCM.OB_ITS ---
HPI - General General Date of Admission: 03/01/25 Date of Service: 03/01/25 HPI Narrative ANASTACIA DAWSON, is a 24 F at 39.5 weeks who presents to unit for SROM for clear fluid. US shows vertex. plan for pitocin Maternal Data Information RODRIGO Calculator Estimated Delivery Date Method Current WG Current Estimate 03/03/25 LMP (Certain) 39w 5d Other Estimates 03/08/25 Ultrasound #1 39w 0d PFSH PFSH Medical History (Updated 03/01/25 @ 07:43 by Maki Marcelo CNM) Thyroid disorder Seasonal allergies Asthma Home Medications ?Medication ?Instructions ?Recorded ?Last Taken ?Type docosahexaenoic acid 200 mg 1 mg PO 08/02/24 Unknown H istory capsule ( DHA) levothyroxine 50 mcg capsule 50 mcg PO QDAY 08/02/24 U nknown History ondansetron 4 mg disintegrating 4 mg PO Q4H PRN nausea and 09/09/24 Unknown Rx tablet vomiting #60 tabs Allergy/AdvReac Type Severity Reaction Status Date / Time No Known Allergies Allergy Verified 03/01/25 01:44 Family History Uncle Cancer Stomach, Prostate & Brain Father CVA (cerebral vascular accident) Sister PCOS (polycystic ovarian syndrome) Endometriosis Fibroid Aunt Myocardial infarction Uncle Myocardial infarction Social History adopted: No household members: significant other housing: house current occupational status: employed 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) current occupational exposures/hazards: No pets and animals: Yes pets and animals: dog(s) history of recent travel: No sexually active: Yes Smoking Status: Former smoker second hand exposure: No quit status: considering quitting alcohol intake: current alcohol intake frequency: holidays/special occasions only details: Not while substance use type: does not use well-balanced diet: daily or most days caffeine: Yes eating out: rarely or never during the past year weight has: increased > 10 lbs what type of physical activity do you participate in: none page/muslim: None seatbelt use: always do you feel safe at home: Yes additional social history: Boyfriend: Mateo Tong - 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 [employer] History 1 Elective abortions 0 Hx Para 0 Spontaneous abortions 0 Hx # Term Pregnancies Ectopic pregnancies Hx # Pregnancies Multiple births # of living children Visit Details Expected Delivery Route/Plan Labor Preferences- CB/BF classes: No labor support person: Darrel labor intervention preferences: [] pain management options preferred: [] cut cord/dad catch: cord : [] PP control planned: [] discussed possible routes of delivery and associated risks: [] special requests: [] Plans Covid status: [] Flu vaccine: dec Tdap vaccine: given Rhogam: na LARC form signed: declined movement and labor precautions reviewed. Problem list reviewed and updated with the most current plan of care details and appropriate orders placed. Relevant counseling for the gestational age provided. Continue routine care and follow up unless otherwise noted in visit notes/problem list details OB Flowsheet Initial Weight: Not Recorded Date -?-?-?-?-?-?-?-?-?-?-?-?- EGA Weight BP Urine Prot -?-?-?-?-?-?-?-?-?-?-?-?- Glucose FHR FuHt Pres Dilation -?-?-?-?-?-?-?-?-?-?-?-?- Effaced St Visit Note 08/07/24 -?-?-?-?-?-?-?-?-?-?-?-?- 10w 2d 153 lb 4 oz 134/88 -?-?-?-?-?-?-?-?-?-?-?-?- 172 -?-?-?-?-?-?-?-?-?-?-?-?- JV- CRL within 7 days of LMP. desires nipt and carrier 09/09/24 -?-?-?-?-?-?-?-?-?-?-?-?- 15w 0d 151 lb 8 oz 118/74 Nega tive -?-?-?-?-?-?-?-?-?-?-?-?- Negative 153 -?-?-?-?-?-?-?-?-?-?-?-?- MH-No VB. Nausea persists. Katerin sent. 10/08/24 -?-?-?-?-?-?-?-?-?-?-?-?- 19w 1d 157 lb 4 oz 117/79 Nega tive -?-?-?-?-?-?-?-?-?-?-?-?- Negative 150 -?-?-?-?-?-?-?-?-?-?-?-?- SM- no vb crampi ng nausea improved anatomy us ordered 11/06/24 -?-?-?-?-?-?-?-?-?-?-?-?- 23w 2d 160 lb 5 oz 110/74 Nega tive -?-?-?-?-?-?-?-?-?-?-?-?- Negative -?-?-?-?-?-?-?-?-?-?-?-?- - [facility] anatomy scan done due to late scheduling, but was normal. 12/02/24 -?-?-?-?-?-?-?-?-?-?-?-?- 27w 0d 164 lb 1 oz 122/86 Nega tive -?-?-?-?-?-?-?-?-?-?-?-?- Negative 150 -?-?-?-?-?-?-?-?-?-?-?-?- SM- no vb crmapi ng 12/30/24 -?-?-?-?-?-?-?-?-?-?-?-?- 31w 0d 168 lb 2 oz 125/82 Nega tive -?-?-?-?-?-?-?-?-?-?-?-?- Negative 148 30 -?-?-?-?-?-?-?-?-?-?-?-?- KW-no vb/lof/ctx . good fm. tdap and Larc today. declines flu shot. 01/14/25 -?-?-?-?-?-?-?-?-?-?-?-?- 33w 1d 171 lb 9 oz 114/77 Nega tive -?-?-?-?--?-?-?-?-?-?-?-?- Negative 144 33 -?-?-?-?-?-?-?-?-?-?-?-?- MH-No Vb, LOF. G ood FM. Quit vaping. Denies concerns 01/29/25 -?-?-?-?-?-?-?-?-?-?-?-?- 35w 2d 169 lb 8 oz 128/82 Nega tive -?-?-?-?-?-?-?-?-?-?-?-?- Negative 145 34 -?-?-?-?-?-?-?-?-?-?-?-?- SM- no vb lof go od fm n oregular ctx 02/03/25 -?-?-?-?-?-?-?-?-?-?-?-?- 36w 0d 175 lb 8 oz 128/89 Nega tive -?-?-?-?-?-?-?-?-?-?-?-?- Negative 143 36 -?-?-?-?-?-?-?-?-?-?-?-?- KV- KV- Good FM. No LOF, VB, Ctx . GBS today. KV- Good FM. No regular ctx, LOF, or VB. GBS collected today. 02/10/25 -?-?-?-?-?-?-?-?-?-?-?-?- 37w 0d 175 lb 119/76 1+ -?-?-?-?-?-?-?-?-?-?-?-?- Negative 149 37 -?-?-?-?-?-?-?-?-?-?-?-?- KV- Good FM. No ctx, LOF, or VB. GBS neg. 02/17/25 -?-?--?-?-?-?-?-?-?-?-?-?- 38w 0d 174 lb 9 oz 130/86 Nega tive -?-?-?-?-?-?-?-?-?-?-?-?- Negative 131 38 Cephalic 1 -?-?-?-?-?-?-?-?-?-?-?-?- 0 -4 JV- no lof , vaginal bleeding, or dec fm. 02/26/25 -?-?-?-?-?-?-?-?-?-?-?-?- 39w 2d 175 lb 3 oz 134/82 Trac e -?-?-?-?-?-?-?-?-?-?-?-?- Negative 135 39 1 -?-?-?-?-?-?-?-?-?-?-?-?- 0 -3 KW- no vb. lof. cons ctx. good fm labor precautions discussed. NST FHR Rate Baby A Baseline: 130 Variability:: Moderate Accelerations:: 15 x 15 Decelerations:: None NST Reactive:: Yes FHR Category:: Category I Uterine Activity:: 3-5 ROS Constitutional Constitutional: Denies change in weight, fatigue, fever(s), headache(s), poor appetite or weakness Eyes Eyes: Denies blurry vision, change in vision, floaters, seeing flashes or spots in vision ENT HEENT: Denies dizziness, headache(s), loss taste/smell or sore throat Cardiovascular Cardiovascular: Denies chest pain, dizziness, dyspnea, irregular heart rhythm, lightheadedness, palpitations or rapid heart rate Respiratory/Chest Respiratory/Chest: Denies change in mental status, chest tightness, cough, dyspnea or breast pain Gastrointestinal Gastrointestinal: Denies anorexia, chewing difficulty, constipation, diarrhea or weight changes Genitourinary Genitourinary: Denies difficulty urinating, dysuria, flank pain, genital pain, urinary frequency or urinary urgency Musculoskeletal Musculoskeletal: Denies back pain, difficulty walking, extremity pain, joint pain, muscle cramps or muscle weakness Integumentary Integumentary: Denies lesions or unusual bruising Neurologic Neurologic: Denies abnormal movements, abnormal speech, dizziness, numbness, seizure-like activity, syncope or weakness Psychiatric Psychiatric: Denies behavioral changes, change in appetite, confusion, depression, homicidal ideation, suicidal ideation or suicidal thoughts Endocrine Endocrinology: Denies excessive sweating, polydipsia or polyuria Hematologic/Lymphatic Hematologic/Lymphatic: Denies anemia Allergic/Immunologic Allergic/Immunologic: Denies itchy eyes, lip swelling, throat swelling, tongue swelling or wheezing Vital Signs Vital Signs Vital Signs: 03/01/25 01:49 03/01/25 01:49 03/01/25 01:50 Temperature Temperature Source Pulse Rate 80 Respiratory Rate Blood Pressure 131/78 H BP Systolic 131 BP Diastolic 78 Pulse Ox 97 03/01/25 01:50 03/01/25 01:51 03/01/25 01:51 Temperature 97.9 F Temperature Source Temporal Pulse Rate 76 Respiratory Rate Blood Pressure BP Systolic BP Diastolic Pulse Ox 03/01/25 01:51 03/01/25 03:59 03/01/25 03:59 Temperature Temperature Source Temporal Pulse Rate Respiratory Rate 14 Blood Pressure 138/76 H BP Systolic 138 BP Diastolic 76 Pulse Ox 03/01/25 03:59 03/01/25 03:59 03/01/25 03:59 Temperature Temperature Source Pulse Rate 88 Respiratory Rate 14 Blood Pressure BP Systolic BP Diastolic Pulse Ox 97 03/01/25 03:59 03/01/25 05:03 03/01/25 05:03 Temperature 97.3 F L Temperature Source Pulse Rate 82 Respiratory Rate Blood Pressure 125/80 H BP Systolic 125 BP Diastolic 80 Pulse Ox 03/01/25 05:03 03/01/25 05:03 03/01/25 05:03 Temperature 97.3 F L Temperature Source Temporal Pulse Rate Respiratory Rate 16 Blood Pressure BP Systolic BP Diastolic Pulse Ox 03/01/25 06:17 03/01/25 06:17 03/01/25 06:17 Temperature 97.5 F L Temperature Source Pulse Rate 71 Respiratory Rate Blood Pressure 131/89 H BP Systolic 131 BP Diastolic 89 Pulse Ox 03/01/25 06:17 03/01/25 06:17 03/01/25 06:17 Temperature Temperature Source Temporal Pulse Rate 78 Respiratory Rate 14 Blood Pressure BP Systolic BP Diastolic Pulse Ox 03/01/25 06:17 Temperature Temperature Source Pulse Rate Respiratory Rate Blood Pressure BP Systolic BP Diastolic Pulse Ox 98 Weight Weight: 175 lb Body Mass Index (BMI) 33.0 PRE- weight 153 lb PRE- Body Mass Index 28.8 (BMI) Physical Exam Const alert, oriented x3 and no apparent distress General Appearance: cooperative Orientation / Consciousness: awake HEENT normocephalic Neck full ROM Lymph Lymphatic: no lymphadenopathy noted Chest inspection of chest normal Resp normal respiratory effort and normal air movement Effort and Inspection: able to speak in complete sentences and symmetric chest movement GI soft to palpation and non-tender Inspection: gravid Palpation: soft; Negative for tender external exam normal Back/Spine normal to inspection Extremity normal to inspection and full ROM Skin no rashes or lesions noted Psych mental status grossly normal Appearance: grossly normal Speech: normal speech Labs Labs Labs: Blood Type O POSITIVE Antibody Screen NEGATIVE Hct, (37-47) 37.3 % Hgb, (12.0-15.0) 12.2 g/dL Obstetrics Ultrasound Syphilis Total Ab, (Nonreactive) Nonreactive Rubella IgG Antibody, (Nonreactive) REAC Hep Bs Antigen, (Nonreactive) Nonreactive Hepatitis C Antibody, (Nonreactive) Nonreactive Chlamydia DNA (TYREL), (Negative) Negative N.gonorrhoeae DNA (TYREL), (Negative) Negative HIV 1&2 Antibody, (Nonreactive) Nonreactive Glucose 1 Hr 50 gm, (70-140) 130 mg/dL Miscellaneous Test, (.) COMMENT Assessment & Plan (1) SROM (spontaneous rupture of membranes): PLAN: Patient presents IAL, plan expectant management for , pitocin/AROM PRN if needed. Pain management: plans epidural. GBS neg. Management of any complications: none I have reviewed the [facility] and made any clinically relevant updates. Dr Mcdonough aware of assessment, plan and admission. agrees with above (2) Tobacco use affecting , antepartum: COMMENT: Vapes - 1 pod/week; attempting to quit. Has decreased by at least half. QUIT!! (3) Supervision of high-risk : QUALIFIERS: Trimester: third trimester Qualified Code(s): O09.93 - Supervision of high risk , unspecified, third trimester COMMENT: [id number], RODRIGO 03/03/25, BF: Mateo (4) : QUALIFIERS: Weeks of gestation: 39 weeks Qualified Code(s): Z3A.39 - 39 weeks gestation of COMMENT: NIPT -low risk, male. 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
--- NOTE | 2025-03-01 09:23 | PCM.PN.BLA ---
Progress Note Coping well with contractions current tracing: FHT: 130 Moderate variability reactive no decelerations category I tracing [place]: difficult to monitor Contractions- forebag ruptured for clear fluid and IUPC placed Membranes: clear SVE:3/-2 A/P: Continue with position changes Titrate pitocin per protocol Epidural per anesthesia GBS neg Anticipate Dr Mcdonough aware of above assessment and agrees with plan of care Assessment & Plan Assessment/Plan (1) SROM (spontaneous rupture of membranes): (2) Tobacco use affecting , antepartum: (3) Supervision of high-risk : QUALIFIERS: Trimester: third trimester Qualified Code(s): O09.93 - Supervision of high risk , unspecified, third trimester (4) : QUALIFIERS: Weeks of gestation: 39 weeks Qualified Code(s): Z3A.39 - 39 weeks gestation of (5) Hypothyroidism: QUALIFIERS: Hypothyroidism type: unspecified Qualified Code(s): E03.9 - Hypothyroidism, unspecified (6) PCR DNA positive for HSV1: Multi Select Codes Urinary/Genital Urinary/Genital CPT Codes: No Charge
[2025-03-01] MEDS: LACTATED RINGERS 500 ML 999 ML IV (09:45)
[2025-03-01] MEDS: fentaNYL-bupivacaine (epidural) 100 ML BAG EPIDURAL ×2 (10:44→14:35)
[2025-03-01] MEDS: Amnioinfusion- 0.9% NS 1,000 ML IV.SOLN. 1000 ML INTRA-UTER (15:45)
[2025-03-01] MEDS: Lactated Ringers 1,000 ML 200 ML IV (15:51)
--- NOTE | 2025-03-01 17:07 | PCM.PN.BLA ---
Progress Note decision made for primary due to recurrent decelerations, intolerance to labor, unable to augment with pitocin, ROM 17 hours with minimal change.
--- NOTE | 2025-03-01 17:10 | EX.PCM.OBRPT ---
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 Horizon negative, nl anatomy, GBS neg (7) Supervision of high-risk : QUALIFIERS: Trimester: third trimester Qualified Code(s): O09.93 - Supervision of high risk , unspecified, third trimester COMMENT: [id number], RODRIGO 03/03/25, BF: Mateo (8) Tobacco use affecting , antepartum: COMMENT: Vapes - 1 pod/week; attempting to quit. Has decreased by at least half. QUIT!! Maternal Data Information RODRIGO Calculator Estimated Delivery Date Method Current WG Current Estimate 03/03/25 LMP (Certain) 39w 5d Other Estimates 03/08/25 Ultrasound #1 39w 0d Final RODRIGO Source: LMP CNM who managed labor up until delivery: Maki Marcelo Operative Report (OB) Procedure Details Date of Procedure: 03/01/25 Procedure Start Time: 18:55 Pre-Operative Diagnosis: Distress and Other Other Pre-Operative diagnosis: see a/p comments Post-Operative Diagnosis: Same as Pre-operative diagnosis Classification: NOMAN Type of Anesthesia: Epidural Special Medications: none Antibiotic Given: Ancef 2 grams IV x1 Drain: Crowell to straight drain Estimated Blood Loss: 600 Fluids Replaced: crystalloid Findings Description of surgery: The patient was placed in the dorsal supine position with leftward tilt. Patient was prepped and draped in the normal sterile fashion. Pfannenstiel skin incision was made with the scalpel and carried through to the underlying layer of fascia with the scalpel. Fascia was nicked in the midline and the incision extended laterally. The rectus bellies were dissected off superiorly and inferiorly with out complication both sharply and bluntly. The peritoneum was entered digitally. The incision was stretched and a low transverse uterine incision was made with the scalpel. The 's head was delivered atraumatically followed by the anterior and posterior shoulders without complication the rest of the delivered. The cord was clamped and cut and the was handed off to awaiting nurse. The placenta was delivered spontaneously immediately following and was noted to be intact and have a three-vessel cord. The uterus was exteriorized cleared of all clots and debris, and the incision was closed in a single layer closure using #1 Monocryl. The ovaries and fallopian tubes were noted to be within normal limits. The uterus was returned to the maternal abdomen and gutters were cleared of all clots and debris. The peritoneum was closed with 3-0 Monocryl in a running fashion. Gloves were changed prior to fascial closure. Fascia was closed with 0 PDS in a running fashion. Subcutaneous tissue was copiously irrigated and the skin was closed with 3-0 Monocryl in a subcuticular fashion. Mepilex dressing was applied without complication. Patient was taken to recovery in stable condition. It was discussed with the patient that based on the clinical information obtained during this encounter, combined with her history, at this time I would recommend cesareans for future deliveries if further pregnancies are desired. 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
--- NOTE | 2025-03-01 17:35 | PCM.PN.BLA ---
Progress Note comfortable with epidural current tracing: FHT: 130 Moderate variability reactive late/prolonged decelerations category II tracing with pitocin. Unable to augment due to intolerance [place]: irregular Contractions Membranes:ruptured x 17 hours SVE:/-1 unchanged reviewed tracing abnormalities since last note: collaboration with Dr Mcdonough at this time for Cat II FHT tracing. in to talk to patient about P C/S. A/P: Continue with position changes Titrate pitocin per protocol Epidural per anesthesia GBS neg Anticipate PC/S Dr Mcdonough aware of above assessment and agrees with plan of care Assessment & Plan Assessment/Plan (1) Category II heart rate tracing during labor and delivery: (2) SROM (spontaneous rupture of membranes): (3) Tobacco use affecting , antepartum: (4) Supervision of high-risk : QUALIFIERS: Trimester: third trimester Qualified Code(s): O09.93 - Supervision of high risk , unspecified, third trimester (5) : QUALIFIERS: Weeks of gestation: 39 weeks Qualified Code(s): Z3A.39 - 39 weeks gestation of (6) Hypothyroidism: QUALIFIERS: Hypothyroidism type: unspecified Qualified Code(s): E03.9 - Hypothyroidism, unspecified Multi Select Codes Urinary/Genital Urinary/Genital CPT Codes: No Charge
[2025-03-01] MEDS: Lactated Ringers 1,000 ML 1000 ML IV (18:32)
[2025-03-01] MEDS: Cefazolin 1 GM/5 ML Vial 2 GM IV (18:32)
[2025-03-01] MEDS: Lidocaine 2% (5ml sdv) 5 ML VIAL.MPF 20 ML EPIDURAL (18:33)
[2025-03-01] MEDS: fentaNYL 100 MCG/2 ML Ampul IV (19:12)
[2025-03-01] MEDS: morphine PF (epidural) 5 MG/10 ML Vial IV (19:16)
--- NOTE | 2025-03-01 19:32 | DCINST_ITS ---
Discharge Instructions DC O2, CPAP, BIPAP needs Home O2 Discharge instructions: No Dressing / Incision Discharge Activity: May Not Drive (for 2 weeks or while taking narcotic pain medications.), May Shower and May Take a Tub Bath (in 7 days) May shower in (days): 0 May resume sexual activity in: 4-6 weeks Weight Bearing Status: Full weight bearing Lifting Restrictions: 20 pounds Dressing / Incision Call your doctor if your incision/area has: Continuous Slow Oozing, Sudden Increased Bleeding, Increased Pain/ Swelling, Increased Redness and Foul Smelling Discharge Call your doctor if you observe: Fever of 101 or Higher and Using more than 1 pad per hour (for 2 hours) Suture Line Care: Avoid Pulling/Pushing and Avoid Pinching/Bending Cleanse incision/area with: Soap & Water and Keep Dressing Clean & Dry Follow Up Care Please Follow Up With: Ashlee Mcdonough MD When: Call [phone] to make an appointment for an incision check in 1-2 weeks. Test Results: Test results from this visit will be discussed in further detail at your follow- up appointment, if applicable. Discharge Plan Admission Admit Date/Time: 03/01/25 02:10 Attending Provider: Ashlee Mcdonough Primary Care Provider: Stephan Ngo Discharge Orders/Prescriptions Prescriptions: New oxycodone-acetaminophen [Percocet] 5-325 mg tablet 1 tab PO Q4H PRN (Reason: pain) 7 Days Qty: 20 0RF naproxen 500 mg tablet 500 mg PO BID PRN PRN (Reason: Pain) Qty: 30 1RF No Action levothyroxine 50 mcg capsule 50 mcg PO QDAY DHA 200 mg capsule 1 mg PO ondansetron 4 mg tablet,disintegrating 4 mg PO Q4H PRN (Reason: nausea and vomiting) Qty: 60 2RF Referrals / Follow Up: Stephan Ngo MD [Primary Care Provider, Pediatrics] Disposition Disposition (needs filled in before D/C Order can be placed): Home, Self Care
[2025-03-01] MEDS: Oxytocin 15 Units/NS 250ml 15 UNITS/250 ML IV.SOLN 83 UNITS IV (19:53)
[2025-03-01] MEDS: Ketorolac 30 MG/ML Syringe IV (21:07)
[2025-03-01] MEDS: Lactated Ringers 1,000 ML 100 ML IV (22:57)
[2025-03-02] VITALS (10 sets, daily range): BP systolic 111–127; BP diastolic 56–76; PULSE 81–120; RESP 16–17; TEMP 36.8–38.2; O2SAT 96–100
[2025-03-02] MEDS: Ketorolac 30 MG/ML Syringe IV ×3 (04:12→15:16)
[2025-03-02] MEDS: 0.9% Saline Lock 10 ML Syringe IV ×5 (04:13→23:36)
[2025-03-02 07:01] LABS: Hematocrit 31.4 % (37-47); Hemoglobin 10.1 g/dL (12.0-15.0); Mean Corp Hgb Conc 32.2 g/dL (32-36); Mean Corpuscular Volume 88.7 fL (81-99); Mean Platelet Vol. 10.5 fl (6.2-12.0); Platelet Count 267 K/mm3 (150-450); RBC Distribution Width CV 12.4 % (11.6-14.6); RBC Distribution Width SD 40.0 fl (35.1-43.9); Red Blood Count 3.54 M/mm3 (4.2-5.4); White Blood Count 19.1 K/mm3 (4.4-11.0)
--- NOTE | 2025-03-02 08:53 | PN.OBGYN_ITS ---
Subjective Subjective Patient doing well without complaints. Tolerating PO. Ambulating and voiding without difficulty. Feeding well. Denies chest pain, shortness of breath, calf pain/swelling, fevers, chills, lightheadedness. Objective Data Objective Data Vital Signs: Vital Signs Temp Pulse Resp BP Pulse Ox O2 Del Method 98.2 F 92 16 113/70 98 Room Air 03/02/25 08:13 03/02/25 08:13 03/02/25 08:13 03/02/25 08:13 03/02/25 08:13 03/02/25 08:13 Oxygen Delivery Method Room Air Weight: 175 lb Body Mass Index (BMI) 33.0 Intake & Output: Intake and Output for Last 24 Hours 02/28/25 03/01/25 03/02/25 23:59 23:59 23:59 Intake Total 1949.33 / 1949.33 805 / 805 Output Total 1700 / 1700 500 / 500 Balance 249.33 / 249.33 305 / 305 Lab / Micro Data Attestation: I reviewed the patient's lab results. 03/02/25 06:13 Labs: Laboratory Results - last 24 hr 03/02/25 06:13: WBC 19.1 H, RBC 3.54 L, Hgb 10.1 L, Hct 31.4 L, MCV 88.7, MCH 28.5, MCHC 32.2, RDW Std Deviation 40.0, RDW Coeff of [place] 12.4, Plt Count 267, MPV 10.5 ROS Constitutional Constitutional: Reports systems reviewed and no addt'l complaints, except as documented; Denies anorexia or headache(s) Cardiovascular Cardiovascular: Reports systems reviewed and no addt'l complaints, except as documented; Denies dizziness, dyspnea, nausea or tachypnea Respiratory/Chest Respiratory/Chest: Reports systems reviewed and no addt'l complaints, except as documented; Denies cough, dyspnea, shortness of breath at rest or tachypnea Gastrointestinal Gastrointestinal: Reports systems reviewed and no addt'l complaints, except as documented; Denies abdominal pain, constipation or nausea Genitourinary Genitourinary: Reports systems reviewed and no addt'l complaints, except as documented; Denies burning urination, difficulty urinating, dysuria, urinary frequency or urinary incontinence Musculoskeletal Musculoskeletal: Reports systems reviewed and no addt'l complaints, except as documented Integumentary Integumentary: Reports systems reviewed and no addt'l complaints, except as documented Neurologic Neurologic: Reports systems reviewed and no addt'l complaints, except as documented; Denies abnormal speech, dizziness or headache(s) Psychiatric Psychiatric: Reports systems reviewed and no addt'l complaints, except as documented Endocrine Endocrinology: Reports systems reviewed and no addt'l complaints, except as documented Hematologic/Lymphatic Hematologic/Lymphatic: Reports systems reviewed and no addt'l complaints, except as documented Physical Exam Const alert, oriented x3 and no apparent distress Neck full ROM Resp normal respiratory effort, normal air movement and no retractions Effort and Inspection: able to speak in complete sentences and symmetric chest movement GI soft to palpation Inspection: incision intact Bladder / Kidney Exam: bladder normal to palpation Uterus Palpation: uterus fundus firm Extremity normal to inspection and full ROM Psych mental status grossly normal, thought process normal and cooperative Assessment & Plan (1) delivery delivered: COMMENT: KW/SM LTCS intolerance labor 39 PLAN: s/p LTCS PPD # 1 1. routine post care 2. breast feeding- support given 3. rh positive 4. rubella immune (2) Category II heart rate tracing during labor and delivery: (3) SROM (spontaneous rupture of membranes): (4) Tobacco use affecting , antepartum: COMMENT: Vapes - 1 pod/week; attempting to quit. Has decreased by at least half. QUIT!! (5) Supervision of high-risk : QUALIFIERS: Trimester: third trimester Qualified Code(s): O09.93 - Supervision of high risk , unspecified, third trimester COMMENT: [id number], RODRIOG 03/03/25, BF: Mateo (6) : QUALIFIERS: Weeks of gestation: 39 weeks Qualified Code(s): Z 3A.39 - 39 weeks gestation of COMMENT: NIPT -low risk, male. 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
[2025-03-02] MEDS: Senna/Docusate Sodium 1 Tablet PO (09:59)
[2025-03-02 20:13] LABS: Hematocrit 30.0 % (37-47); Hemoglobin 10.0 g/dL (12.0-15.0); Immature Granulocytes Count 0.150 X10^3/uL (0.0-0.0); Mean Corp Hgb Conc 33.3 g/dL (32-36); Mean Corpuscular Volume 87.7 fL (81-99); Mean Platelet Vol. 10.2 fl (6.2-12.0); NRBC Flagged by Analyzer 0 % (0-5); Platelet Count 257 K/mm3 (150-450); RBC Distribution Width CV 12.9 % (11.6-14.6); RBC Distribution Width SD 40.8 fl (35.1-43.9); Red Blood Count 3.42 M/mm3 (4.2-5.4); White Blood Count 17.5 K/mm3 (4.4-11.0)
[2025-03-02] MEDS: Lactated Ringers 1,000 ML 999 ML IV (21:20)
[2025-03-02] MEDS: Gentamicin IV 240 MG in Dextrose 5%-Water (50mL Bag) 50 ML 100 MG IVPB (21:37)
[2025-03-02] MEDS: Clindamycin 900 MG/50 ML BAG 75 MG IV (22:24)
[2025-03-02] MEDS: Ampicillin 2 GM in 0.9% Normal Saline (100mL MB+) 100 ML IV (23:04)
[2025-03-03 03:57] VITALS: BP 114/78; PULSE 88; RESP 15; TEMP 36.7; O2SAT 98
[2025-03-03] MEDS: Clindamycin 900 MG/50 ML BAG 75 MG IV ×4 (04:45→22:55)
[2025-03-03] MEDS: 0.9% Saline Lock 10 ML Syringe IV ×2 (04:46→05:57)
[2025-03-03] MEDS: Ampicillin 2 GM in 0.9% Normal Saline (100mL MB+) 100 ML IV ×3 (05:28→17:27)
[2025-03-03 08:42] VITALS: BP 115/75; PULSE 91; RESP 16; TEMP 36.1; O2SAT 98
[2025-03-03] MEDS: Senna/Docusate Sodium 1 Tablet PO (11:00)
[2025-03-03] MEDS: 0.9% Normal Saline (1000mL) 1,000 ML 15 ML IV (11:35)
--- NOTE | 2025-03-03 12:06 | PCM.PN.BLA ---
Progress Note Patient doing well without complaints. Tolerating PO. Ambulating and voiding without difficulty. Feeding well. Denies headache, vision changes, chest pain, shortness of breath, calf pain/swelling, fevers, chills, lightheadedness. Physical Exam Const alert, oriented x3 and no apparent distress Neck full ROM Resp normal respiratory effort, normal air movement and no retractions Effort and Inspection: able to speak in complete sentences and symmetric chest movement GI soft to palpation Inspection: incision intact Uterus Palpation: uterus fundus firm Extremity normal to inspection and full ROM Psych mental status grossly normal, thought process normal and cooperative Assessment & Plan Assessment/Plan (1) delivery delivered: PLAN: s/p LTCS PPD # 2 1. routine post care 2. breast feeding- support given 3. rh positive 4. rubella immune (2) fever: PLAN: -Tmax 100.7 at 2035 -24 hr amp/gent/clinda -lactate 1.1 (3) Hypothyroidism: QUALIFIERS: Hypothyroidism type: unspecified Qualified Code(s): E03.9 - Hypothyroidism, unspecified PLAN: -continue levothyroxine 50mcg daily
[2025-03-03 15:04] VITALS: BP 107/76; PULSE 84; RESP 16; TEMP 36.1; O2SAT 97
[2025-03-03 20:07] VITALS: BP 100/60; PULSE 95; RESP 16; TEMP 36.1; O2SAT 98
[2025-03-04 02:15] VITALS: BP 109/76; PULSE 90; RESP 16; TEMP 36.1; O2SAT 98
--- NOTE | 2025-03-04 08:04 | PN.OBGYN_ITS ---
Subjective Subjective Patient doing well without complaints. Tolerating PO. Ambulating and voiding without difficulty. Feeding well. Denies chest pain, shortness of breath, calf pain/swelling, fevers, chills, lightheadedness. Objective Data Objective Data Vital Signs: Vital Signs Temp Pulse Resp BP Pulse Ox O2 Del Method 97.0 F L 90 16 109/76 98 Room Air 03/04/25 02:15 03/04/25 02:15 03/04/25 02:15 03/04/25 02:15 03/04/25 02:15 03/04/25 02:15 Oxygen Delivery Method Room Air Weight: 175 lb Body Mass Index (BMI) 33.0 Intake & Output: Intake and Output for Last 24 Hours 03/02/25 03/03/25 03/04/25 23:59 23:59 23:59 Intake Total 2010 503.75 / 503.75 Output Total 500 / 500 350 / 350 Balance 1511 / 1511 153.75 / 153.75 Lab / Micro Data 03/02/25 20:00 ROS Constitutional Constitutional: Reports systems reviewed and no addt'l complaints, except as documented; Denies anorexia or headache(s) Cardiovascular Cardiovascular: Reports systems reviewed and no addt'l complaints, except as documented; Denies dizziness, dyspnea, nausea or tachypnea Respiratory/Chest Respiratory/Chest: Reports systems reviewed and no addt'l complaints, except as documented; Denies cough, dyspnea, shortness of breath at rest or tachypnea Gastrointestinal Gastrointestinal: Reports systems reviewed and no addt'l complaints, except as documented; Denies abdominal pain, constipation or nausea Genitourinary Genitourinary: Reports systems reviewed and no addt'l complaints, except as documented; Denies burning urination, difficulty urinating, dysuria, urinary frequency or urinary incontinence Musculoskeletal Musculoskeletal: Reports systems reviewed and no addt'l complaints, except as documented Integumentary Integumentary: Reports systems reviewed and no addt'l complaints, except as documented Neurologic Neurologic: Reports systems reviewed and no addt'l complaints, except as documented; Denies abnormal speech, dizziness or headache(s) Psychiatric Psychiatric: Reports systems reviewed and no addt'l complaints, except as documented Endocrine Endocrinology: Reports systems reviewed and no addt'l complaints, except as documented Hematologic/Lymphatic Hematologic/Lymphatic: Reports systems reviewed and no addt'l complaints, except as documented Physical Exam Const alert, oriented x3 and no apparent distress Neck full ROM Resp normal respiratory effort, normal air movement and no retractions Effort and Inspection: able to speak in complete sentences and symmetric chest movement GI soft to palpation Inspection: incision intact Bladder / Kidney Exam: bladder normal to palpation Uterus Palpation: uterus fundus firm Extremity normal to inspection and full ROM Psych mental status grossly normal, thought process normal and cooperative Assessment & Plan (1) fever: (2) delivery delivered: COMMENT: KW/SM LTCS intolerance labor 39 PLAN: s/p LTCS PPD # 3 1. routine post care 2. breast feeding- support given 3. rh positive 4. rubella immune 5. Discharge home (3) Category II heart rate tracing during labor and delivery: (4) SROM (spontaneous rupture of membranes): (5) Tobacco use affecting , antepartum: COMMENT: Vapes - 1 pod/week; attempting to quit. Has decreased by at least half. QUIT!! (6) Supervision of high-risk : QUALIFIERS: Trimester: third trimester Qualified Code(s): O09.93 - Supervision of high risk , unspecified, third trimester COMMENT: [id number], RODRIGO 03/03/25, BF: Mateo (7) : QUALIFIERS: Weeks of gestation: 39 weeks Qualified Code(s): Z 3A.39 - 39 weeks gestation of COMMENT: NIPT -low risk, male. 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
--- NOTE | 2025-03-04 08:07 | PCM.DC.SUM ---
Providers Date of Admission: 03/01/25 Date of Discharge: 03/04/25 Primary Care Physician: Dr. Stephan Ngo MD Reason For Visit: PRIMARY C SECTION Diagnosis Discharge Diagnosis (1) fever: Status: Acute Code(s): O86.4 - Pyrexia of unknown origin following delivery (2) delivery delivered: Status: Acute Code(s): O82 - Encounter for delivery without indication Plan: s/p LTCS PPD # 3 1. routine post care 2. breast feeding- support given 3. rh positive 4. rubella immune 5. Discharge home (3) Category II heart rate tracing during labor and delivery: Status: Acute Code(s): O76 - Abnormality in heart rate and rhythm complicating labor and delivery (4) SROM (spontaneous rupture of membranes): Status: Acute (5) Tobacco use affecting , antepartum: Status: Acute Code(s): O99.330 - Smoking (tobacco) complicating , unspecified trimester (6) Supervision of high-risk : Status: Acute Code(s): O09.90 - Supervision of high risk , unspecified, unspecified trimester Qualifiers: Trimester: third trimester Qualified Code(s): O09.93 - Supervision of high risk , unspecified, third trimester (7) : Status: Acute Code(s): Z34.90 - Encounter for supervision of normal , unspecified, unspecified trimester Qualifiers: Weeks of gestation: 39 weeks Qualified Code(s): Z3A.39 - 39 weeks gestation of (8) Hypothyroidism: Status: Acute Code(s): E03.9 - Hypothyroidism, unspecified Qualifiers: Hypothyroidism type: unspecified Qualified Code(s): E03.9 - Hypothyroidism, unspecified (9) PCR DNA positive for HSV1: Status: Acute Code(s): Z11.59 - Encounter for screening for other viral diseases; B00.9 - Herpesviral infection, unspecified Medications at Discharge Home Medications docosahexaenoic acid 200 mg capsule ( DHA) 1 mg PO 08/02/24 levothyroxine 50 mcg capsule 50 mcg PO QDAY 08/02/24 ondansetron 4 mg disintegrating tablet 4 mg PO Q4H PRN nausea and vomiting #60 tabs 09/09/24 naproxen 500 mg tablet 500 mg PO BID PRN PRN Pain #30 tabs 03/01/25 oxycodone-acetaminophen 5 mg-325 mg tablet (Percocet) 1 tab PO Q4H PRN pain 7 days #20 tabs 03/01/25 Hospital Course Operations section Procedures None Summary of Care Provided Minutes Spent on Discharge: 30 Physical Exam Const alert, oriented x3 and no apparent distress Neck full ROM Resp normal respiratory effort, normal air movement and no retractions Effort and Inspection: able to speak in complete sentences and symmetric chest movement GI soft to palpation Inspection: incision intact Bladder / Kidney Exam: bladder normal to palpation Uterus Palpation: uterus fundus Extremity normal to inspection and full ROM Psych mental status grossly normal, thought process normal and cooperative Weight / BMI Weight Weight: 175 lb Body Mass Index (BMI) 33.0 PRE- weight 153 lb PRE- Body Mass Index 28.8 (BMI) ABG / Lab / Microbiology Data 03/02/25 20:00 D/C Instructions May shower in (days): 0 May resume sexual activity in: 4-6 weeks Weight Bearing Status: Full weight bearing Call your doctor if your incision/area has: Continuous Slow Oozing, Sudden Increased Bleeding, Increased Pain/ Swelling, Increased Redness and Foul Smelling Discharge Call your doctor if you observe: Fever of 101 or Higher and Using more than 1 pad per hour (for 2 hours) Suture Line Care: Avoid Pulling/Pushing and Avoid Pinching/Bending Cleanse incision/area with: Soap & Water and Keep Dressing Clean & Dry DC O2, CPAP, BIPAP Needs Home O2 Discharge instructions: No Please Follow Up With: Ashlee Mcdonough MD When: Call [phone] to make an appointment for an incision check in 1-2 weeks. Meaningful Use Info Meaningful Use Meaningful Use Diagnoses (Choose all that apply): None applicable Discharge Plan Admission Admit Date/Time: 03/01/25 02:10 Attending Provider: Ashlee Mcdonough Primary Care Provider: Stephan Ngo Discharge Orders/Prescriptions Prescriptions: New oxycodone-acetaminophen [Percocet] 5-325 mg tablet 1 tab PO Q4H PRN (Reason: pain) 7 Days Qty: 20 0RF naproxen 500 mg tablet 500 mg PO BID PRN PRN (Reason: Pain) Qty: 30 1RF No Action levothyroxine 50 mcg capsule 50 mcg PO QDAY DHA 200 mg capsule 1 mg PO ondansetron 4 mg tablet,disintegrating 4 mg PO Q4H PRN (Reason: nausea and vomiting) Qty: 60 2RF Referrals / Follow Up: Stephan Ngo MD [Primary Care Provider, Pediatrics] Disposition Disposition (needs filled in before D/C Order can be placed): Home, Self Care Charges/Coding Multi Select Codes Urinary/Genital Urinary/Genital CPT Codes: No Charge
== END 2025-03-04 10:30 | disposition home or self-care (01) | DRG 788 ==
LOC: WPOUT 02:12 → WP 02:12
PROVIDERS: Admitting Provider Obstetrics & Gynecology; PCP Pediatrics; Referring Provider Advanced Practice Midwife; Visit Provider Obstetrics & Gynecology
DX: O42.92 Full-term premature rupture of membranes, unspecified as to length of time between rupture and onset of labor (principal); E03.9 Hypothyroidism, unspecified; F17.290 Nicotine dependence, other tobacco product, uncomplicated; O99.284 Endocrine, nutritional and metabolic diseases complicating childbirth; Z37.0 Single live birth; O99.334 Smoking (tobacco) complicating childbirth; O76 Abnormality in fetal heart rate and rhythm complicating labor and delivery; Z79.890 Hormone replacement therapy; Z3A.39 39 weeks gestation of pregnancy
CPT/HCPCS: 59025; 59050; 76815; 83605; 84112; 85025; 85027; 86780; 86850; 86900; 86901; 87040; 87086; 99221; A4216; G0378; J2405